=== PATIENT | female | born 1980 | race Caucasian/White ===

== ENCOUNTER 2020-10-22 11:15 | Emergency (ER) | payer OTHER, SELFPAY ==
[2020-10-22 11:22] VITALS: BP 141/75; PULSE 78; RESP 18; TEMP 37.2; O2SAT 100; BMI 41.6
[2020-10-22 12:26] VITALS: BP 131/75; PULSE 78
--- NOTE | 2020-10-22 12:27 | XR_ITS ---
EXAMINATION: XR CHEST CLINICAL INFORMATION: Dizziness COMPARISON: None TECHNIQUE: 2 views of the chest were obtained. FINDINGS: The lungs are well-expanded and clear acute process. Heart size and pulmonary vascularity is normal. There is moderate spondylosis dorsal spine. XR/XR chest 2V IMPRESSION: Unremarkable chest examination.
--- NOTE | 2020-10-22 12:28 | ECG_ITS ---
Test Reason : WEAKNESS Blood Pressure : / mmHG Vent. Rate : 067 BPM Atrial Rate : 067 BPM P-R Int : 134 ms QRS Dur : 074 ms QT Int : 410 ms P-R-T Axes : 041 035 016 degrees QTc Int : 433 ms Normal sinus rhythm Normal ECG When compared with ECG of 15-SEP-2019 07:57, Premature atrial complexes are no longer Present Referred By: Montse Leyva Electronically Signed By:GEOVANNA ERNST MD
--- NOTE | 2020-10-22 12:45 | CT_ITS ---
EXAMINATION: CT HEAD WITHOUT CONTRAST CLINICAL INFORMATION: Dizziness COMPARISON: April 02, 2020 TECHNIQUE: Contiguous axial imaging was performed from the skull base to vertex without intravenous administration of contrast. This CT examination was performed using dose optimization techniques as appropriate, variously including the following: *Automated exposure control *Adjustment of mA and/or kV according to patient size (this includes techniques or standardized protocols for targeted exams where dose is matched to indication/reason for exam; i.e. extremities or head) *Use of iterative reconstruction technique DLP: 854 mGy-cm FINDINGS: There is no evidence of acute intracranial hemorrhage or territorial infarction. No abnormal mass effect or midline shift is seen. Matias to white matter differentiation is well preserved. No extra-axial fluid collections are identified. The ventricles are normal in size. There is no abnormal attenuation within the brain parenchyma. The osseous structures and soft tissues are normal. The mastoid air cells and visualized portions of the paranasal sinuses are well aerated. CT/CT head/brain wo con IMPRESSION: No acute intracranial pathology.
--- NOTE | 2020-10-22 12:49 | ED.GENADULT ---
HPI - General Adult General Chief complaint: General Medical <MARYBEL Chicas Last Filed: 10/22/20 15:42> Stated complaint: low blood pressure <MARYBEL Chicas Last Filed: 10/22/20 15:42> Time Seen by Provider: 10/22/20 11:43 <MARYBEL Chicas Last Filed: 10/22/20 15:42> Source: patient <MARYBEL Chicas Last Filed: 10/22/20 15:42> Mode of arrival: ambulatory <MARYBEL Chicas Last Filed: 10/22/20 15:42> Limitations: no limitations <MARYBEL Chicas Last Filed: 10/22/20 15:42> History of Present Illness HPI narrative: 40yoF c PMHx of HLD, morbid obesity and asthma presenting to the ED c c/o dizziness, headache, blurry vision and diaphoresis that started 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 Patient reports when she started feeling this way she was cleaning his house and had just finished eating breakfast with him and she asked them if he had a blood pressure cuff machine and when she took her blood pressure it was 63/41 therefore she came to the emergency department. Reports that the dizziness is worse with change in position. Denies recent head injury, nausea/vomiting, jaw pain, paresthesias, chest pain or shortness of breath, arm pain, dyspnea on exertion, orthopnea, palpitations, extremity edema, symptoms or any other symptoms complaints or concerns at this time. Denies recent travel on a long plane trips or car ride, recent immobilization, recent surgery, history of hypercoagulation disorder, not on any OCPs or history of cancer. <MARYBEL Chicas Last Filed: 10/22/20 15:42> Related Data Home medications: Previous Rx's Medication Instructions Recorded uyrblzgsjg-xmwsaeenkrqbb-wifk 1 cap PO Q8H PRN #10 cap 10/22/20 [Fioricet] <MARYBEL Chicas Last Filed: 10/22/20 15:42> Allergies/adverse reactions: Allergies Allergy/AdvReac Type Severity Reaction Status Date / Time No Known Allergies Allergy Unverified 06/26/20 16:21 [No Known Allergies*] <MARYBEL Chicas - Last Filed: 10/22/20 15:42> Review of Systems Review of Systems: Constitutional : + diaphoresis, No Fever, No Chills, No Night Sweats, No Fatigue, No Malaise ENT/Mouth : No Ear Pain, No Nasal Congestion, No Sinus Pain, No sore throat, No Rhinorrhea Eyes: No Eye Pain, No Swelling, No Redness, No Foreign Body, No Discharge, + blurry Vision Changes Cardiovascular : No Chest Pain, No SOB, No Dyspnea on Exertion, No Orthopnea, No Palpitations Respiratory : No Cough, No Sputum, No Wheezing, No Dyspnea Gastrointestinal : No Nausea, No Vomiting, No Diarrhea, No Constipation, No abdominal Pain, No Hematochezia, No Melena Genitourinary : No Dysuria, No Urinary Frequency, No Urinary Incontinence, No Urgency, No Flank Pain Musculoskeletal : No joint pain, No Myalgias Skin : No lacerations Neuro : + Dizziness, + Headache, No Numbness, No Paresthesias, No Loss of Consciousness <MARYBEL Chicas - Last Filed: 10/22/20 15:42> Yes all other systems are reviewed and are negative <MARYBEL Chicas - Last Filed: 10/22/20 15:42> [facility] Past Medical History Attestation statement: The following information was validated with the patient. <MARYBEL Chicas - Last Filed: 10/22/20 15:42> Medical History: Medical History Asthma High cholesterol <MARYBEL Chicas - Last Filed: 10/22/20 15:42> Social History Social History: Social History Alcohol intake: never Smoking Status: Never smoker <MARYBEL Chicas Last Filed: 10/22/20 15:42> Physical Exam Vital Signs: Vital Signs: Last Vital Signs Temp 99.4 F 10/22/20 14:58 Pulse 82 10/22/20 15:14 Resp 16 10/22/20 14:58 BP 132/78 10/22/20 15:14 Pulse Ox 97 10/22/20 14:58 Body Mass Index 41.6 Vital signs have been reviewed as normal and appeared to be correct. Blood pressure normal. Heart rate normal. Respiration rate normal. Temperature normal. Oxygen saturation normal. <MARYBEL Chicas - Last Filed: 10/22/20 15:42> Vital Signs: Last Vital Signs Temp 99.4 F 10/22/20 14:58 Pulse 82 10/22/20 15:14 Resp 16 10/22/20 14:58 BP 132/78 10/22/20 15:14 Pulse Ox 97 10/22/20 14:58 Body Mass Index 41.6 <Shon Kwan MD - Last Filed: 10/30/20 23:39> Appearance: Alert. Oriented X3. No acute distress. Head: Normal external exam. Normocephalic. Atraumatic. Able to rotate head bilaterally. Eyes: PERRLA. EOMI. No nystagmus noted. Conjunctiva and sclera normal. Eyelids normal. Corneal reflex normal. ENT: EAC normal. TM's Normal. Hearing normal. Pharynx normal. Uvula midline. tongue midline. Moist mucous membranes. No trismus noted. No drooling noted. No muffled voice noted. Neck: Normal inspection. Neck supple. FROM. No adenopathy. Thyroid Normal. No meningeal signs. No neck mass noted. CVS: Normal heart rate and rhythm. Heart sound normal. No murmurs noted. Pulses normal throughout. Respiratory: No respiratory distress. Painless inspiration. Breath sounds normal. No wheezes/rales/rhonchi noted. Chest nontender. No accessory muscle usage noted or decreased air movement noted. Abdomen: Soft and nontender. Bowel sounds normal in all 4 quadrants. No distention noted. No organomegaly noted. No visible injury noted. Back: No CVA tenderness. Full range of motion noted. Skin: Skin warm and dry. Normal skin color. Normal skin turgor. No rashes/lesions/lacerations noted. Extremities: No lower extremity edema. Extremities exhibit normal range of motion. Extremities nontender. Able to shrug shoulders bilaterally and keep up against resistance. Neuro: Oriented X 3. No motor deficit. No sensory deficit. Reflexes normal. Moving all extremities. No focal motor deficits. Cranial nerves II-XI intact bilaterally. Facial strength normal. Normal cognition. Speech normal. Gait normal. Strength 5/5 throughout. No pronator drift. No tremor noted. No fasciculations noted. Muscle tone normal throughout. No asterixis noted. Wwidvm-zq-bdox test normal. Heel to stapleton test normal. Tandem gait normal. Does not sway with eyes open. Romberg test negative. Rapid alternating movement upper extremity normal. Rapid alternating movement lower extremity normal. Hand drop from overhead-Misses. face. No rigidity noted. NIHSS score 0. 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 Dizziness worse c changing position. - on exam patient is A&Ox3. Not in any acute distress. Patient's vitals are within normal limits blood pressure is 141/75 at this time. No focal neuro deficits noted at this time. Normal steady gait. No ataxia noted. NIH SS score 0. - Plan: Labs, COVID-RSV/FLU swab, EKG, CXR, CT scan of brain, visual acuity and orthostatic vitals then re-evaluate <MARYBEL Chicas - Last Filed: 10/22/20 15:42> I have reviewed the chart <Shon Kwan MD - Last Filed: 10/30/20 23:39> Reevaluation(s) Reevaluation #1: - All labs WNL. COVID/RSV/FLU negative. CXR WNL. EKG NSR no acute ischemic changes. Orthostatic vitals within normal limits. - patient denies any dizziness at this time. Reports she still has a headache therefore will give 2 p.o. fioricet and d/c home c instructions to f/u c PCP. and to return if any new or worsening symptoms. <MARYBEL Chicas - Last Filed: 10/22/20 15:42> Medical Decision Making Medical Records Medical records reviewed: Yes I reviewed the patient's medical records. <MARYBEL Chicas - Last Filed: 10/22/20 15:42> Lab Data Lab results reviewed: Yes I reviewed the patient's lab results. <MARYBEL Chicas - Last Filed: 10/22/20 15:42> Result diagrams: : 10/22/20 13:57 10/22/20 13:57 <MARYBEL Chicas - Last Filed: 10/22/20 15:42> Labs: Lab Results 10/22/20 10/22/20 10/22/20 Range/Units 13:57 13:57 13:57 WBC 6.0 (4.8-10.8) X10*3/uL RBC 4.29 (4.20-5.50) X10*6/uL Hgb 12.9 (12.0-16.0) g/dl Hct 37.5 (37-47) % MCV 87.4 (80-98) fL MCH 30.1 (27.0-33.0) pg MCHC 34.4 (31.0-35.0) g/dl RDW 11.9 (11.0-16.0) % Plt Count 284 (160-400) X10*3/uL MPV 9.4 (9.4-12.3) fL Immature Gran % (Auto) 0.2 (0.0-0.4) % Neut % (Auto) 46.4 (45-73) % Lymph % (Auto) 42.8 H (20-40) % [place] % (Auto) 9.5 (2-11) % Eos % (Auto) 0.8 (0-4) % Baso % (Auto) 0.3 (0-2) % Lymph # (Auto) 2.6 (1.2-4.9) X10*3/uL [place] # (Auto) 0.6 (0.1-1.2) X10*3/uL Eos # (Auto) 0.1 (0.0-0.4) X10*3/uL Baso # (Auto) 0.0 (0.0-0.2) X10*3/uL Abs Immat Gran (auto) 0.01 (0.00-0.03) X10*3/uL Absolute Neuts (auto) 2.8 (2.0-8.3) X10*3/uL Absolute Nucleated RBC 0.000 (0.0-0.012) X10*3/uL Nucleated RBC % (auto) 0.0 (0.0-0.2) /100WBC PT 12.3 (10.8-13.0) SEC INR 1.0 (0.9-1.1) Sodium 139 (135-145) mmol/L Potassium 4.3 (3.3-5.1) mmol/l Chloride 103 (96-108) mmol/L Carbon Dioxide 28 (22-29) mmol/L Anion Gap 12 (12-20) BUN 14 (9-16) mg/dL Creatinine 0.74 (0.5-1.4) mg/dL Estim Creat Clear Calc 117.0 Estimated GFR > 60 Random Glucose 79 (60-115) mg/dL Calcium 9.4 (8.4-10.2) mg/dL Magnesium 2.2 (1.6-2.6) mg/dL Total Bilirubin 0.6 (0.0-1.0) mg/dL Direct Bilirubin 0.2 (0.0-0.5) mg/dL AST 17 (5-31) U/L ALT 19 (0-31) U/L Alkaline Phosphatase 92 (39-117) U/L Troponin I High Sens (<3.5-17.0) ng/L Total Protein 7.8 (6.5-8.0) g/dL Albumin 4.5 (3.5-5.0) g/dL Coronavirus (PCR) (Negative) Influenza Type A (PCR) (Negative) Influenza Type B (PCR) (Negative) RSV RNA Qual (PCR) (Negative) 10/22/20 10/22/20 Range/Units 13:57 13:57 WBC (4.8-10.8) X10*3/uL RBC (4.20-5.50) X10*6/uL Hgb (12.0-16.0) g/dl Hct (37-47) % MCV (80-98) fL MCH (27.0-33.0) pg MCHC (31.0-35.0) g/dl RDW (11.0-16.0) % Plt Count (160-400) X10*3/uL MPV (9.4-12.3) fL Immature Gran % (Auto) (0.0-0.4) % Neut % (Auto) (45-73) % Lymph % (Auto) (20-40) % [place] % (Auto) (2-11) % Eos % (Auto) (0-4) % Baso % (Auto) (0-2) % Lymph # (Auto) (1.2-4.9) X10*3/uL [place] # (Auto) (0.1-1.2) X10*3/uL Eos # (Auto) (0.0-0.4) X10*3/uL Baso # (Auto) (0.0-0.2) X10*3/uL Abs Immat Gran (auto) (0.00-0.03) X10*3/uL Absolute Neuts (auto) (2.0-8.3) X10*3/uL Absolute Nucleated RBC (0.0-0.012) X10*3/uL Nucleated RBC % (auto) (0.0-0.2) /100WBC PT (10.8-13.0) SEC INR (0.9-1.1) Sodium (135-145) mmol/L Potassium (3.3-5.1) mmol/l Chloride (96-108) mmol/L Carbon Dioxide (22-29) mmol/L Anion Gap (12-20) BUN (9-16) mg/dL Creatinine (0.5-1.4) mg/dL Estim Creat Clear Calc Estimated GFR Random Glucose (60-115) mg/dL Calcium (8.4-10.2) mg/dL Magnesium (1.6-2.6) mg/dL Total Bilirubin (0.0-1.0) mg/dL Direct Bilirubin (0.0-0.5) mg/dL AST (5-31) U/L ALT (0-31) U/L Alkaline Phosphatase (39-117) U/L Troponin I High Sens < 3.5 (<3.5-17.0) ng/L Total Protein (6.5-8.0) g/dL Albumin (3.5-5.0) g/dL Coronavirus (PCR) NEGATIVE (Negative) Influenza Type A (PCR) NEGATIVE (Negative) Influenza Type B (PCR) NEGATIVE (Negative) RSV RNA Qual (PCR) NEGATIVE (Negative) <MARYBEL Chicas - Last Filed: 10/22/20 15:42> Lab Results 0110/22/20 10/22/20 Range/Units 13:57 13:57 13:57 WBC 6.0 (4.8-10.8) X10*3/uL RBC 4.29 (4.20-5.50) X10*6/uL Hgb 12.9 (12.0-16.0) g/dl Hct 37.5 (37-47) % MCV 87.4 (80-98) fL MCH 30.1 (27.0-33.0) pg MCHC 34.4 (31.0-35.0) g/dl RDW 11.9 (11.0-16.0) % Plt Count 284 (160-400) X10*3/uL MPV 9.4 (9.4-12.3) fL Immature Gran % (Auto) 0.2 (0.0-0.4) % Neut % (Auto) 46.4 (45-73) % Lymph % (Auto) 42.8 H (20-40) % [place] % (Auto) 9.5 (2-11) % Eos % (Auto) 0.8 (0-4) % Baso % (Auto) 0.3 (0-2) % Lymph # (Auto) 2.6 (1.2-4.9) X10*3/uL [place] # (Auto) 0.6 (0.1-1.2) X10*3/uL Eos # (Auto) 0.1 (0.0-0.4) X10*3/uL Baso # (Auto) 0.0 (0.0-0.2) X10*3/uL Abs Immat Gran (auto) 0.01 (0.00-0.03) X10*3/uL Absolute Neuts (auto) 2.8 (2.0-8.3) X10*3/uL Absolute Nucleated RBC 0.000 (0.0-0.012) X10*3/uL Nucleated RBC % (auto) 0.0 (0.0-0.2) /100WBC PT 12.3 (10.8-13.0) SEC INR 1.0 (0.9-1.1) Sodium 139 (135-145) mmol/L Potassium 4.3 (3.3-5.1) mmol/l Chloride 103 (96-108) mmol/L Carbon Dioxide 28 (22-29) mmol/L Anion Gap 12 (12-20) BUN 14 (9-16) mg/dL Creatinine 0.74 (0.5-1.4) mg/dL Estim Creat Clear Calc 117.0 Estimated GFR > 60 Random Glucose 79 (60-115) mg/dL Calcium 9.4 (8.4-10.2) mg/dL Magnesium 2.2 (1.6-2.6) mg/dL Total Bilirubin 0.6 (0.0-1.0) mg/dL Direct Bilirubin 0.2 (0.0-0.5) mg/dL AST 17 (5-31) U/L ALT 19 (0-31) U/L Alkaline Phosphatase 92 (39-117) U/L Troponin I High Sens (<3.5-17.0) ng/L Total Protein 7.8 (6.5-8.0) g/dL Albumin 4.5 (3.5-5.0) g/dL Coronavirus (PCR) (Negative) Influenza Type A (PCR) (Negative) Influenza Type B (PCR) (Negative) RSV RNA Qual (PCR) (Negative) 10/22/20 10/22/20 Range/Units 13:57 13:57 WBC (4.8-10.8) X10*3/uL RBC (4.20-5.50) X10*6/uL Hgb (12.0-16.0) g/dl Hct (37-47) % MCV (80-98) fL MCH (27.0-33.0) pg MCHC (31.0-35.0) g/dl RDW (11.0-16.0) % Plt Count (160-400) X10*3/uL MPV (9.4-12.3) fL Immature Gran % (Auto) (0.0-0.4) % Neut % (Auto) (45-73) % Lymph % (Auto) (20-40) % [place] % (Auto) (2-11) % Eos % (Auto) (0-4) % Baso % (Auto) (0-2) % Lymph # (Auto) (1.2-4.9) X10*3/uL [place] # (Auto) (0.1-1.2) X10*3/uL Eos # (Auto) (0.0-0.4) X10*3/uL Baso # (Auto) (0.0-0.2) X10*3/uL Abs Immat Gran (auto) (0.00-0.03) X10*3/uL Absolute Neuts (auto) (2.0-8.3) X10*3/uL Absolute Nucleated RBC (0.0-0.012) X10*3/uL Nucleated RBC % (auto) (0.0-0.2) /100WBC PT (10.8-13.0) SEC INR (0.9-1.1) Sodium (135-145) mmol/L Potassium (3.3-5.1) mmol/l Chloride (96-108) mmol/L Carbon Dioxide (22-29) mmol/L Anion Gap (12-20) BUN (9-16) mg/dL Creatinine (0.5-1.4) mg/dL Estim Creat Clear Calc Estimated GFR Random Glucose (60-115) mg/dL Calcium (8.4-10.2) mg/dL Magnesium (1.6-2.6) mg/dL Total Bilirubin (0.0-1.0) mg/dL Direct Bilirubin (0.0-0.5) mg/dL AST (5-31) U/L ALT (0-31) U/L Alkaline Phosphatase (39-117) U/L Troponin I High Sens < 3.5 (<3.5-17.0) ng/L Total Protein (6.5-8.0) g/dL Albumin (3.5-5.0) g/dL Coronavirus (PCR) NEGATIVE (Negative) Influenza Type A (PCR) NEGATIVE (Negative) Influenza Type B (PCR) NEGATIVE (Negative) RSV RNA Qual (PCR) NEGATIVE (Negative) <Shon Kwan MD - Last Filed: 10/30/20 23:39> Imaging Data Chest x-ray: Attestation: I personally reviewed and interpreted this imaging study as follows: <MARYBEL Chicas - Last Filed: 10/22/20 15:42> Radiologist's impression: FINDINGS: The lungs are well-expanded and clear acute process. Heart size and pulmonary vascularity is normal. There is moderate spondylosis dorsal spine. XR/XR chest 2V IMPRESSION: Unremarkable chest examination. <MARYBEL Chicas - Last Filed: 10/22/20 15:42> CT scan - head: Attestation: I personally reviewed and interpreted this imaging study as follows: <MARYBEL Chicas - Last Filed: 10/22/20 15:42> Radiologist's impression: FINDINGS: There is no evidence of acute intracranial hemorrhage or territorial infarction. No abnormal mass effect or midline shift is seen. Matias to white matter differentiation is well preserved. No extra-axial fluid collections are identified. The ventricles are normal in size. There is no abnormal attenuation within the brain parenchyma. The osseous structures and soft tissues are normal. The mastoid air cells and visualized portions of the paranasal sinuses are well aerated. CT/CT head/brain wo con IMPRESSION: No acute intracranial pathology. <MARYBEL Chicas Last Filed: 10/22/20 15:42> ECG Data Attestation: I personally reviewed and interpreted this ECG as follows: <MARYBEL Chicas - Last Filed: 10/22/20 15:42> Interpretation: Normal sinus rhythm with a ventricular rate of 67 with a normal TX interval normal QRS duration normal QT/QTC interval. No acute ischemic changes noted. EKG on 09/15/2019. <MARYBEL Chicas - Last Filed: 10/22/20 15:42> Discharge Plan Discharge Clinical Impression: Migrainous dizziness <MARYBEL Chicas - Last Filed: 10/22/20 15:42> Patient Disposition: Home, Self-Care <MARYBEL Chicas - Last Filed: 10/22/20 15:42> Instructions: Migraine Headache (ED), Dizziness (ED) <MARYBEL Chicas Last Filed: 10/22/20 15:42> Additional Instructions: When he arrived here your blood pressure was within normal limits it was not low I am unsure if the blood pressure cuff machine you utilize was not working correctly. Please follow-up with your primary care provider within this week for recheck blood pressure. Return if any new or worsening symptoms and follow up with her primary care provider. <MARYBEL Chicas - Last Filed: 10/22/20 15:42> Prescriptions: New vsmyixqeqb-apinmeogthwwf-ugii [Fioricet] 50-300-40 mg capsule 1 cap PO Q8H PRN (Reason: pain) Qty: 10 RF: 0 <MARYBEL Chicas - Last Filed: 10/22/20 15:42> Referrals: Cristine Baig MD [Primary Care Provider] - 2 days <MARYBEL Chicas - Last Filed: 10/22/20 15:42> Stand Alone Forms: Work/School Release <MARYBEL Chicas - Last Filed: 10/22/20 15:42> Interventions: ED Discharge Assessment Last Done: 10/22/20 15:51 <MARYBEL Chicas - Last Filed: 10/22/20 15:42> Discharge Date/Time: 10/22/20 15:51 <MARYBEL Chicas - Last Filed: 10/22/20 15:42> Print Language: Turkmen <MARYBEL Chicas - Last Filed: 10/22/20 15:42>
[2020-10-22 14:03] LABS: MANUAL DIFF FLAG NO
[2020-10-22 14:06] LABS: Basophils Percent Auto 0.3 % (0-2); Eosinophils Absolute Auto 0.1 X10*3/uL (0.0-0.4); Eosinophils Percent Auto 0.8 % (0-4); Hematocrit 37.5 % (37-47); Hemoglobin 12.9 g/dl (12.0-16.0); Imm Gran Abs Auto 0.01 X10*3/uL (0.00-0.03); Imm Gran Pct Auto 0.2 % (0.0-0.4); Lymphocytes Absolute Auto 2.6 X10*3/uL (1.2-4.9); Lymphocytes Percent Auto 42.8 % (20-40); Mean Corpuscular HGB Conc 34.4 g/dl (31.0-35.0); Mean Corpuscular Hemoglobin 30.1 pg (27.0-33.0); Mean Corpuscular Volume 87.4 fL (80-98); Mean Platelet Volume 9.4 fL (9.4-12.3); Monocytes Absolute Auto 0.6 X10*3/uL (0.1-1.2); Monocytes Percent Auto 9.5 % (2-11); Neutrophils Absolute Auto 2.8 X10*3/uL (2.0-8.3); Neutrophils Percent Auto 46.4 % (45-73); Platelet Count 284 X10*3/uL (160-400); Red Blood Count 4.29 X10*6/uL (4.20-5.50); Red Cell Distribution Width 11.9 % (11.0-16.0)
[2020-10-22 14:12] LABS: Prothrombin Time 12.3 SEC (10.8-13.0)
[2020-10-22 14:34] LABS: Alanine Aminotransferase 19 U/L (0-31); Albumin Level 4.5 g/dL (3.5-5.0); Alkaline Phosphatase 92 U/L (39-117); Anion Gap 12 (12-20); Aspartate Amino Transferase 17 U/L (5-31); Bilirubin Direct 0.2 mg/dL (0.0-0.5); Bilirubin Total 0.6 mg/dL (0.0-1.0); Blood Urea Nitrogen 14 mg/dL (9-16); Calcium 9.4 mg/dL (8.4-10.2); Carbon Dioxide 28 mmol/L (22-29); Chloride 103 mmol/L (96-108); Estimated Glomerular Filt Rate > 60; Glucose Random 79 mg/dL (60-115); Magnesium 2.2 mg/dL (1.6-2.6); Potassium 4.3 mmol/l (3.3-5.1); Sodium 139 mmol/L (135-145); Total Protein 7.8 g/dL (6.5-8.0)
[2020-10-22 14:40] LABS: Troponin-I High Sensitivity < 3.5 ng/L (<3.5-17.0)
[2020-10-22 14:50] LABS: Influenza A PCR NEGATIVE (Negative); Influenza B PCR NEGATIVE (Negative); Resp Syncy Virus RNA Qual PCR NEGATIVE (Negative); SARS COV2 PCR INHOUSE NEGATIVE (Negative)
[2020-10-22 14:58] VITALS: BP 103/57; RESP 16; TEMP 37.4; O2SAT 97
[2020-10-22 15:13] VITALS: BP 122/74; PULSE 82
[2020-10-22 15:14] VITALS: BP 132/78; PULSE 82
[2020-10-22] MEDS: Butalb/Acetamin/Caff 50/325/40 TABLET 2 TAB PO (15:41)
== END 2020-10-22 15:51 | disposition home or self-care (01) ==
PROVIDERS: Physician Assistant Medical; Emergency Provider Emergency Medicine; PCP Internal Medicine
DX: G43.901 Migraine, unspecified, not intractable, with status migrainosus (principal); J45.909 Unspecified asthma, uncomplicated; Z79.899 Other long term (current) drug therapy
CPT/HCPCS: 0241U; 36415; 70450; 71046; 80048; 80076; 83735; 84484; 85025; 85610; 93005; 99284

== ENCOUNTER 2020-10-24 15:38 | Outpatient (REF) | payer OTHER, SELFPAY ==
--- NOTE | 2020-10-24 15:43 | MM_ITS ---
EXAMINATION: MM SCREENING DIGITAL BREAST TOMOSYNTHESIS, BILATERAL CLINICAL INFORMATION: Screening. Asymptomatic. The lifetime risk of breast cancer based on the Tyrer-Cuzick Model is 9%. COMPARISON: Mammography: 06/25/2019, baseline. TECHNIQUE: Digital breast tomosynthesis is performed in both the craniocaudal and mediolateral oblique views along with computer-aided detection (CAD). Synthesized 2D images are generated from the tomosynthesis. Additional left CC and and bilateral MLO views are provided. FINDINGS: There are scattered areas of fibroglandular density (ACR BI-RADS breast composition Category b). There are no significant masses, abnormal calcifications, or other abnormalities. The axilla and skin contours are unremarkable. No significant changes. MM/MM tomosynthesis screening BI IMPRESSION: No mammographic evidence of malignancy. ASSESSMENT: BI-RADS 1: Negative RECOMMENDATION: Routine annual mammography screening. This patient's information was entered into a reminder system with a target due date for their next mammogram.
== END 2020-10-24 15:39 | disposition home or self-care (01) ==
LOC: HO.MAMMO 15:38
PROVIDERS: PCP Internal Medicine; Visit Provider Internal Medicine
DX: Z12.31 Encounter for screening mammogram for malignant neoplasm of breast (principal)
CPT/HCPCS: 77063; 77067

== ENCOUNTER 2021-04-06 13:43 | Emergency (ER) | payer OTHER, SELFPAY ==
--- NOTE | ~2021-04-06 | XR_ITS ---
EXAMINATION: XR CHEST CLINICAL INFORMATION: Chest pain COMPARISON: Previous chest x-ray most recent October 2020 TECHNIQUE: Frontal view of the chest was obtained. FINDINGS: The cardiac and mediastinal contours are normal. The lungs are clear. There is no pleural effusion or pneumothorax. There are degenerative changes of the spine. XR/XR chest 1V IMPRESSION: No evidence for acute disease in the chest.
--- NOTE | 2021-04-06 13:54 | ECG_ITS ---
Test Reason : CHEST PAIN Blood Pressure : / mmHG Vent. Rate : 082 BPM Atrial Rate : 082 BPM P-R Int : 148 ms QRS Dur : 078 ms QT Int : 366 ms P-R-T Axes : 036 023 018 degrees QTc Int : 427 ms Normal sinus rhythm Normal ECG When compared with ECG of 22-OCT-2020 14:02, No significant change was found Referred By: Generic ED Physician Electronically Signed By:GEOVANNA ERNST MD
[2021-04-06 13:57] VITALS: BP 145/79; PULSE 89; RESP 18; TEMP 36.8; O2SAT 96; BMI 39.8
[2021-04-06 14:47] LABS: MANUAL DIFF FLAG NO
[2021-04-06 14:50] LABS: Basophils Percent Auto 0.4 % (0-2); Eosinophils Absolute Auto 0.1 X10*3/uL (0.0-0.4); Eosinophils Percent Auto 0.8 % (0-4); Hematocrit 34.7 % (37-47); Imm Gran Abs Auto 0.02 X10*3/uL (0.00-0.03); Imm Gran Pct Auto 0.3 % (0.0-0.4); Lymphocytes Absolute Auto 2.4 X10*3/uL (1.2-4.9); Lymphocytes Percent Auto 34.3 % (20-40); Mean Corpuscular HGB Conc 34.6 g/dl (31.0-35.0); Mean Corpuscular Hemoglobin 29.4 pg (27.0-33.0); Mean Platelet Volume 9.2 fL (9.4-12.3); Monocytes Absolute Auto 0.6 X10*3/uL (0.1-1.2); Neutrophils Percent Auto 56.2 % (45-73); Platelet Count 291 X10*3/uL (160-400); Red Blood Count 4.08 X10*6/uL (4.20-5.50); White Blood Count 7.1 X10*3/uL (4.8-10.8)
[2021-04-06 15:15] LABS: Anion Gap 9 (12-20); Blood Urea Nitrogen 15 mg/dL (9-16); Calcium 9.3 mg/dL (8.4-10.2); Carbon Dioxide 28 mmol/L (22-29); Chloride 107 mmol/L (96-108); Creatinine Clr Calc Pharmacy 105.8; Estimated Glomerular Filt Rate > 60; Glucose Random 94 mg/dL (60-115); Potassium 3.7 mmol/L (3.3-5.1); Sodium 140 mmol/L (135-145)
[2021-04-06 15:18] LABS: Troponin-I High Sensitivity < 3.5 ng/L (<3.5-17.0)
[2021-04-06 19:29] VITALS: BP 117/50; PULSE 90; RESP 16; TEMP 36.8; O2SAT 99
--- NOTE | 2021-04-06 20:14 | ED.CHESTPAIN ---
HPI - Chest Pain General Chief Complaint: Chest Pain Stated Complaint: chest pain Time Seen by Provider: 04/06/21 20:14 Source: patient Mode of arrival: ambulatory Limitations: no limitations History of Present Illness HPI narrative: patient with no known coronary artery disease complaining of asthma with increased cough and anterior chest pain for last 3 days no fever no palpitation pain increases on palpation and movements and taking deep breath Related Data Previous Rx's Medication Instructions Recorded xugcvakggb-odqiimlypkiyt-usva 1 cap PO Q8H PRN #10 cap 10/22/20 [Fioricet] albuterol sulfate 2 puff INHALATION Q4-6H PRN #8.5 g 04/06/21 prednisone 40 mg PO DAILY #10 tab 04/06/21 Allergies Allergy/AdvReac Type Severity Reaction Status Date / Time No Known Allergies Allergy Verified 04/06/21 13:57 [No Known Allergies*] Review of Systems Review of Systems: Constitutional : No Weight loss, No Fever, No Chills ENT/Mouth : No sore throat, No Rhinorrhea Eyes: No Eye Pain, No Swelling Cardiovascular : + Chest Pain, no palpitations Respiratory : No Cough, No Sputum, + shortness of breath Gastrointestinal : no Nausea, No Vomiting, No Diarrhea, No abdominal Pain, no black stools Genitourinary : No Dysuria, No Urinary Frequency Musculoskeletal : No joint pain, No Myalgias, No Joint Swelling Skin : No Skin Lesions, No rash Neuro : No Weakness, No Numbness, No Dizziness, No Headache Psych : No Anxiety/Panic, No Depression Heme/Lymph: No Bruising, No Lymphadenopathy Endocrine : No Polyuria, No Polydipsia All other systems reviewed and are negative [facility] Past Medical History Medical History Asthma High cholesterol Social History Social History Alcohol intake: current Alcohol intake frequency: a few times a week Patient Tobacco Use Status: Never used Tobacco Use of substances other than those prescribed or required for medical reasons: No Advance Directives: No Advance Directives Information Provided: Yes Patient : No Physical Exam Vital Signs: Vital Signs: Last Vital Signs Temp 98.2 F 04/06/21 19:29 Pulse 90 04/06/21 19:29 Resp 16 04/06/21 19:29 BP 117/50 L 04/06/21 19:29 Pulse Ox 99 04/06/21 19:29 Body Mass Index 39.8 Appearance: Alert. Oriented X3. No acute distress. Eyes: PERRLA, No Nystagmus ENT: Pharynx normal. Oral Mucosa moist Neck: Normal inspection. Neck supple. CVS: Normal heart rate and rhythm. Pulses normal. anterior chest wall tenderness++ Respiratory: No respiratory distress. Equal air entry bilateral, no wheezing/rales/rhonchi Abdomen: Soft and nontender. Bowel sounds are present, no mass palpable, no CVA tenderness Skin: Skin warm and dry. Normal skin color. Normal skin turgor. Extremities: No lower extremity edema. No calf tenderness Neuro: Oriented X 3. No motor deficit. No sensory deficit.No cerebellar signs , cranial nerves II-XII intact MDM - Chest Pain Lab Data Result diagrams: 04/06/21 14:42 04/06/21 14:42 Labs: Lab Results 04/06/21 04/06/21 04/06/21 Range/Units 14:42 14:42 14:42 WBC 7.1 (4.8-10.8) X10*3/uL RBC 4.08 L (4.20-5.50) X10*6/uL Hgb 12.0 (12.0-16.0) g/dl Hct 34.7 L (37-47) % MCV 85.0 (80-98) fL MCH 29.4 (27.0-33.0) pg MCHC 34.6 (31.0-35.0) g/dl RDW 12.0 (11.0-16.0) % Plt Count 291 (160-400) X10*3/uL MPV 9.2 L (9.4-12.3) fL Immature Gran % (Auto) 0.3 (0.0-0.4) % Neut % (Auto) 56.2 (45-73) % Lymph % (Auto) 34.3 (20-40) % [place] % (Auto) 8.0 (2-11) % Eos % (Auto) 0.8 (0-4) % Baso % (Auto) 0.4 (0-2) % Lymph # (Auto) 2.4 (1.2-4.9) X10*3/uL [place] # (Auto) 0.6 (0.1-1.2) X10*3/uL Eos # (Auto) 0.1 (0.0-0.4) X10*3/uL Baso # (Auto) 0.0 (0.0-0.2) X10*3/uL Abs Immat Gran (auto) 0.02 (0.00-0.03) X10*3/uL Absolute Neuts (auto) 4.0 (2.0-8.3) X10*3/uL Absolute Nucleated RBC 0.000 (0.0-0.012) X10*3/uL Nucleated RBC % (auto) 0.0 (0.0-0.2) /100WBC Sodium 140 (135-145) mmol/L Potassium 3.7 (3.3-5.1) mmol/L Chloride 107 (96-108) mmol/L Carbon Dioxide 28 (22-29) mmol/L Anion Gap 9 L (12-20) BUN 15 (9-16) mg/dL Creatinine 0.79 (0.5-1.4) mg/dL Estim Creat Clear Calc 105.8 Estimated GFR > 60 Random Glucose 94 (60-115) mg/dL Calcium 9.3 (8.4-10.2) mg/dL Troponin I High Sens < 3.5 (<3.5-17.0) ng/L Discharge Plan Discharge Clinical Impression: Atypical chest pain Asthma Qualifiers: Asthma severity: mild Asthma persistence: persistent Asthma complication type: uncomplicated Qualified Code(s): J45.30 - Mild persistent asthma, uncomplicated Patient Disposition: Home, Self-Care Instructions: Chest Pain (ED), Asthma (ED) Additional Instructions: take inhaler and prednisone as prescribed follow with PCP Prescriptions: New albuterol sulfate 90 mcg/actuation HFA aerosol inhaler 2 puff inhalation Q4-6H PRN (Reason: shortness of breath or wheezing) Qty: 8.5 RF: 0 prednisone 20 mg tablet 40 mg PO DAILY Qty: 10 RF: 0 No Action kxmtaehvwn-yspdnoedgfjpi-wbrr [Fioricet] 50-300-40 mg capsule 1 cap PO Q8H PRN (Reason: pain) Qty: 10 RF: 0
== END 2021-04-06 20:59 | disposition home or self-care (01) ==
PROVIDERS: Emergency Provider Internal Medicine; PCP Internal Medicine
DX: R07.89 Other chest pain (principal); J45.30 Mild persistent asthma, uncomplicated; I25.10 Atherosclerotic heart disease of native coronary artery without angina pectoris
CPT/HCPCS: 36415; 71045; 80048; 84484; 85025; 93005; 99284; 99285

== ENCOUNTER 2021-04-23 10:57 | Outpatient (REF) | payer OTHER, SELFPAY ==
[2021-04-23 12:35] LABS: Alanine Aminotransferase 28 U/L (0-31); Albumin Level 4.3 g/dL (3.5-5.0); Alkaline Phosphatase 91 U/L (39-117); Anion Gap 13 (12-20); Aspartate Amino Transferase 25 U/L (5-31); Bilirubin Total 0.9 mg/dL (0.0-1.0); Blood Urea Nitrogen 13 mg/dL (9-16); Calcium 9.3 mg/dL (8.4-10.2); Carbon Dioxide 25 mmol/L (22-29); Chloride 104 mmol/L (96-108); Cholesterol 233 mg/dL; Estimated Glomerular Filt Rate > 60; Glucose Random 99 mg/dL (60-115); HDL Cholesterol 34 mg/dL; LDL Cholesterol Calculated 167 mg/dl; Sodium 138 mmol/L (135-145); Total Protein 7.5 g/dL (6.5-8.0); Triglycerides 163 mg/dL
[2021-04-26 15:56] LABS: TS Negative Control Passed; TS Panel A 23; TS Panel B 22; TS Positive Control Passed; TSpotTB POSITIVE (SeeBelow)
== END 2021-04-23 10:58 | disposition home or self-care (01) ==
LOC: HO.LAB 10:57
PROVIDERS: PCP Internal Medicine; Visit Provider Internal Medicine
DX: Z11.1 Encounter for screening for respiratory tuberculosis (principal); E78.2 Mixed hyperlipidemia; J45.902 Unspecified asthma with status asthmaticus
CPT/HCPCS: 36415; 80053; 80061; 86481

== ENCOUNTER 2021-04-30 13:34 | Outpatient (REF) | payer OTHER, SELFPAY ==
--- NOTE | ~2021-04-30 | XR_ITS ---
EXAMINATION: XR CHEST CLINICAL INFORMATION: Positive IGRA for TB COMPARISON: None TECHNIQUE: 2 views of the chest were obtained. FINDINGS: No significant abnormality is noted involving the heart, lungs, mediastinum, bony thorax or soft tissues. XR/XR chest 2V IMPRESSION: Unremarkable chest examination.
[2021-04-30 14:53] LABS: Alanine Aminotransferase 36 U/L (0-31); Albumin Level 4.5 g/dL (3.5-5.0); Alkaline Phosphatase 96 U/L (39-117); Anion Gap 10 (12-20); Aspartate Amino Transferase 26 U/L (5-31); Bilirubin Total 0.7 mg/dL (0.0-1.0); Blood Urea Nitrogen 12 mg/dL (9-16); Calcium 9.2 mg/dL (8.4-10.2); Carbon Dioxide 29 mmol/L (22-29); Chloride 105 mmol/L (96-108); Cholesterol 203 mg/dL; Estimated Glomerular Filt Rate > 60; Glucose Random 106 mg/dL (60-115); HDL Cholesterol 33 mg/dL; LDL Cholesterol Calculated 142 mg/dl; Potassium 3.6 mmol/L (3.3-5.1); Sodium 140 mmol/L (135-145); Total Protein 7.5 g/dL (6.5-8.0); Triglycerides 143 mg/dL
== END 2021-04-30 13:35 | disposition home or self-care (01) ==
LOC: HO.LAB 13:34
PROVIDERS: PCP Internal Medicine; Visit Provider Internal Medicine
DX: R76.12 Nonspecific reaction to cell mediated immunity measurement of gamma interferon antigen response without active tuberculosis (principal); E78.2 Mixed hyperlipidemia; Z91.14 Patient's other noncompliance with medication regimen
CPT/HCPCS: 36415; 71046; 80053; 80061

== ENCOUNTER 2021-05-07 08:17 | Outpatient (REF) | payer OTHER, SELFPAY ==
--- NOTE | 2021-05-07 08:16 | EMG_ITS ---
Bilateral median and ulnar motor and sensory studies were performed. Bilateral radial sensory studies were performed and paraspinal muscles were tested with a needle. IMPRESSION: 1. Mqsr-hn-wwdgvbem bilateral median neuropathy across carpal tunnel. 2. Mild bilateral ulnar neuropathy across cubital tunnel. MD GRISEL Plunkett/LUISL / [id number]
== END 2021-05-07 08:18 | disposition home or self-care (01) ==
LOC: HO.NEURO 08:17
PROVIDERS: PCP Internal Medicine; Visit Provider Internal Medicine
DX: G56.03 Carpal tunnel syndrome, bilateral upper limbs (principal)
CPT/HCPCS: 95886; 95911

== ENCOUNTER 2021-06-19 08:49 | Emergency (ER) | payer OTHER, SELFPAY ==
--- NOTE | ~2021-06-19 | XR_ITS ---
EXAMINATION: XR CHEST CLINICAL INFORMATION: Chest wall pain COMPARISON: 04/30/2021 TECHNIQUE: Frontal view of the chest was obtained. FINDINGS: Lungs are clear. No focal consolidation or mass. Normal pulmonary vascularity. No pleural effusion or pneumothorax. Normal heart size. No acute osseous abnormality. XR/XR chest 1V IMPRESSION: No acute pulmonary disease.
--- NOTE | ~2021-06-19 | US_ITS ---
EXAMINATION: US VENOUS ULTRASOUND WITH DOPPLER LOWER EXTREMITY, RIGHT CLINICAL INFORMATION: Pain right lower extremity/calf. COMPARISON: None TECHNIQUE: Ultrasound of the deep veins is performed from the hip to the calf with compression sonography and color and pulse Doppler assessment. Spectral analysis with color-flow imaging is performed. FINDINGS: There is normal venous compression and respiratory variation and augmented flow. The visualized common femoral vein, superficial femoral vein, profunda femoral vein, popliteal vein, and the trifurcation region shows no evidence of deep venous thrombosis. No popliteal fossa cyst. US/US venous duplex LE RT IMPRESSION: No DVT demonstrated in the right lower extremity.
[2021-06-19 09:01] VITALS: BP 136/86; PULSE 78; RESP 18; TEMP 36.2; O2SAT 99; BMI 41.6
--- NOTE | 2021-06-19 09:38 | ECG_ITS ---
Test Reason : CHEST CONGESTION Blood Pressure : / mmHG Vent. Rate : 072 BPM Atrial Rate : 072 BPM P-R Int : 148 ms QRS Dur : 076 ms QT Int : 396 ms P-R-T Axes : 034 028 019 degrees QTc Int : 433 ms Normal sinus rhythm Normal ECG When compared with ECG of 06-APR-2021 14:38, No significant change was found Referred By: Serina Russell Electronically Signed By:AMNA MALIK
--- NOTE | 2021-06-19 09:42 | ED.GENADULT ---
HPI - General Adult General Chief complaint: General Medical Stated complaint: CHEST CONGESTION Time Seen by Provider: 06/19/21 09:37 Source: patient Mode of arrival: ambulatory History of Present Illness HPI narrative: 41-year-old female with past medical history of asthma, hyperlipidemia, presenting to the ED complaining of substernal chest pain worse on deep inspiration and palpation x4 days. Also reports intermittent right calf pain, and mild SOB. Denies fever, chills, cough, abdominal pain, LE edema, history of blood clots, or OCPs, cigarette smoking Onset (ago): day(s) Related Data Previous Rx's Medication Instructions Recorded [id number]-dvrnjxsyytsey-dxnoguua 1 cap PO Q8H PRN #10 cap 10/22/20 50 mg-300 mg-40 mg capsule (Fioricet) albuterol sulfate 90 mcg/actuation 2 puff INHALATION Q4-6H PRN #8.5 g 04/06/21 aerosol inhaler prednisone 20 mg tablet 40 mg PO DAILY #10 tab 04/06/21 acetaminophen 500 mg tablet 500 mg PO Q6H PRN #20 tab 06/19/21 (Tylenol Extra Strength) lidocaine 5 % topical patch 1 patch TOPICAL DAILY PRN #30 ea 06/19/21 (Lidoderm) MDD remove after 12 hours naproxen 500 mg tablet 500 mg PO BID PRN 10 Days #20 tab 06/19/21 Allergies Allergy/AdvReac Type Severity Reaction Status Date / Time No Known Allergies Allergy Verified 04/06/21 13:57 [No Known Allergies*] Review of Systems Review of Systems: Constitutional: No Fever, No Chills ENT/Mouth: No Ear Pain, No Nasal Congestion, No sore throat, No Rhinorrhea, No Swallowing Difficulty Cardiovascular: + Chest Pain, + SOB Respiratory: No Cough, No Sputum, No Wheezing Gastrointestinal: No Nausea, No Vomiting, No Diarrhea, No Abdominal pain Genitourinary: No Dysuria, No Urinary Frequency, No Hematuria, No Flank Pain Musculoskeletal: No joint pain, No Myalgias, +mild R calf pain Skin: No Skin Lesions, No rash Neuro: No Weakness, No Numbness, No Paresthesias Yes all other systems are reviewed and are negative PMFSH Past Medical History Attestation statement: The following information was validated with the patient. Medical History Asthma High cholesterol Social History Social History Alcohol intake: current Alcohol intake frequency: a few times a week Patient Tobacco Use Status: Never used Tobacco Advance Directives: Yes Advance Directives Information Provided: Yes Advance Directives on File: No Patient : No Physical Exam Vital Signs: Vital Signs: Last Vital Signs Temp 97.1 F 06/19/21 09:01 Pulse 78 06/19/21 09:01 Resp 18 06/19/21 09:01 BP 136/86 06/19/21 09:01 Pulse Ox 99 06/19/21 09:01 Body Mass Index 41.6 Const: General: cooperative, healthy appearing and no acute distress Orientation/consciousness: patient oriented x3 Limitations: no limitations HENMT: Head: Yes normal to inspection Ears: hearing grossly normal bilaterally General nose exam: Normal external nose present Face and sinus: Yes normal facial exam Eyes: General: appearance normal, both eyes and all related structures EOM: EOMs intact bilaterally Neck: Neck: Yes normal visual inspection and Yes no meningeal signs Chest: Chest palpation & inspection: no crepitus and tenderness (Reproducing subjective complaint) sternum Resp: Effort & Inspection: normal respiratory effort Auscultation: clear to auscultation bilaterally, no rales, no rhonchi and no wheezes Cardio: Rate: regular rate Heart sounds: S1 normal heart sound present and S2 normal heart sound present GI: Inspection: Yes normal to inspection Palpation (GI): Soft to palpation, nontender, no guarding and not rigid Skin: Rashes: no rashes Wounds: no wounds Neuro: General: patient oriented x3 and no meningeal signs Gait exam (Neuro): Normal gait present Extrem: General: Yes normal to inspection, Yes no pedal edema and Yes calf tenderness (RLE) Course Course Course Narrative: -no leukocytosis. H&H is stable. D-dimer negative. Labs otherwise unremarkable including negative troponin -COVID-19 negative XR chest 1V IMPRESSION: No acute pulmonary disease US venous duplex LE RT IMPRESSION: No DVT demonstrated in the right lower extremity. > results discussed with patient including worrisome signs and symptoms and strict return precautions. She verbalized understanding feel safe for discharge home Medical Decision Making [facility] Narrative Medical decision making narrative: 41-year-old female with past medical history of asthma, hyperlipidemia, presenting to the ED complaining of substernal chest pain worse on deep inspiration and palpation x4 days. Also reports intermittent right calf pain, and mild SOB. On exam VS, NAD, lungs CTA, chest pain reproducible on palpation. No pedal edema, + right calf tenderness. EKG showing normal sinus rhythm. Concern for costochondritis/MSK pain vs DVT/PE vs pna vs viral etiology. Patient is PERC negative, low risk. Will obtain EKG, labs including D-dimer, right lower extremity venous duplex ultrasound, and re-evaluate Lab Data Result diagrams: 06/19/21 09:51 06/19/21 09:52 Labs: Lab Results 06/19/21 06/19/21 06/19/21 Range/Units 09:51 09:51 09:51 WBC 5.6 (4.8-10.8) X10*3/uL RBC 4.10 L (4.20-5.50) X10*6/uL Hgb 12.0 (12.0-16.0) g/dl Hct 34.8 L (37-47) % MCV 84.9 (80-98) fL MCH 29.3 (27.0-33.0) pg MCHC 34.5 (31.0-35.0) g/dl RDW 12.3 (11.0-16.0) % Plt Count 281 (160-400) X10*3/uL MPV 9.1 L (9.4-12.3) fL Immature Gran % (Auto) 0.2 (0.0-0.4) % Neut % (Auto) 51.8 (45-73) % Lymph % (Auto) 39.3 (20-40) % [place] % (Auto) 7.3 (2-11) % Eos % (Auto) 0.9 (0-4) % Baso % (Auto) 0.5 (0-2) % Lymph # (Auto) 2.2 (1.2-4.9) X10*3/uL [place] # (Auto) 0.4 (0.1-1.2) X10*3/uL Eos # (Auto) 0.1 (0.0-0.4) X10*3/uL Baso # (Auto) 0.0 (0.0-0.2) X10*3/uL Abs Immat Gran (auto) 0.01 (0.00-0.03) X10*3/uL Absolute Neuts (auto) 2.9 (2.0-8.3) X10*3/uL Absolute Nucleated RBC 0.000 (0.0-0.012) X10*3/uL Nucleated RBC % (auto) 0.0 (0.0-0.2) /100WBC PT (9.9-13.0) SEC INR (0.9-1.1) APTT (24.1-38.0) SEC D-Dimer 222 NG/ML Sodium (135-145) mmol/L Potassium (3.3-5.1) mmol/L Chloride (96-108) mmol/L Carbon Dioxide (22-29) mmol/L Anion Gap (12-20) BUN (9-16) mg/dL Creatinine (0.5-1.4) mg/dL Estim Creat Clear Calc Estimated GFR Random Glucose (60-115) mg/dL Calcium (8.4-10.2) mg/dL Magnesium (1.6-2.6) mg/dL Total Bilirubin (0.0-1.0) mg/dL Direct Bilirubin (0.0-0.5) mg/dL AST (5-31) U/L ALT (0-31) U/L Alkaline Phosphatase (39-117) U/L Troponin I High Sens (<3.5-17.0) ng/L B-Natriuretic Peptide (<100) pg/mL Total Protein (6.5-8.0) g/dL Albumin (3.5-5.0) g/dL COVID-19 (PACO) Negative (Negative) COVID-19 Clin Com See Note 06/19/21 06/19/21 06/19/21 Range/Units 09:51 09:51 09:51 WBC (4.8-10.8) X10*3/uL RBC (4.20-5.50) X10*6/uL Hgb (12.0-16.0) g/dl Hct (37-47) % MCV (80-98) fL MCH (27.0-33.0) pg MCHC (31.0-35.0) g/dl RDW (11.0-16.0) % Plt Count (160-400) X10*3/uL MPV (9.4-12.3) fL Immature Gran % (Auto) (0.0-0.4) % Neut % (Auto) (45-73) % Lymph % (Auto) (20-40) % [place] % (Auto) (2-11) % Eos % (Auto) (0-4) % Baso % (Auto) (0-2) % Lymph # (Auto) (1.2-4.9) X10*3/uL [place] # (Auto) (0.1-1.2) X10*3/uL Eos # (Auto) (0.0-0.4) X10*3/uL Baso # (Auto) (0.0-0.2) X10*3/uL Abs Immat Gran (auto) (0.00-0.03) X10*3/uL Absolute Neuts (auto) (2.0-8.3) X10*3/uL Absolute Nucleated RBC (0.0-0.012) X10*3/uL Nucleated RBC % (auto) (0.0-0.2) /100WBC PT 11.8 (9.9-13.0) SEC INR 1.0 (0.9-1.1) APTT 36.9 (24.1-38.0) SEC D-Dimer NG/ML Sodium (135-145) mmol/L Potassium (3.3-5.1) mmol/L Chloride (96-108) mmol/L Carbon Dioxide (22-29) mmol/L Anion Gap (12-20) BUN (9-16) mg/dL Creatinine (0.5-1.4) mg/dL Estim Creat Clear Calc Estimated GFR Random Glucose (60-115) mg/dL Calcium (8.4-10.2) mg/dL Magnesium 2.2 (1.6-2.6) mg/dL Total Bilirubin (0.0-1.0) mg/dL Direct Bilirubin (0.0-0.5) mg/dL AST (5-31) U/L ALT (0-31) U/L Alkaline Phosphatase (39-117) U/L Troponin I High Sens < 3.5 (<3.5-17.0) ng/L B-Natriuretic Peptide 27 (<100) pg/mL Total Protein (6.5-8.0) g/dL Albumin (3.5-5.0) g/dL COVID-19 (PACO) (Negative) COVID-19 Clin Com 06/19/21 Range/Units 09:52 WBC (4.8-10.8) X10*3/uL RBC (4.20-5.50) X10*6/uL Hgb (12.0-16.0) g/dl Hct (37-47) % MCV (80-98) fL MCH (27.0-33.0) pg MCHC (31.0-35.0) g/dl RDW (11.0-16.0) % Plt Count (160-400) X10*3/uL MPV (9.4-12.3) fL Immature Gran % (Auto) (0.0-0.4) % Neut % (Auto) (45-73) % Lymph % (Auto) (20-40) % [place] % (Auto) (2-11) % Eos % (Auto) (0-4) % Baso % (Auto) (0-2) % Lymph # (Auto) (1.2-4.9) X10*3/uL [place] # (Auto) (0.1-1.2) X10*3/uL Eos # (Auto) (0.0-0.4) X10*3/uL Baso # (Auto) (0.0-0.2) X10*3/uL Abs Immat Gran (auto) (0.00-0.03) X10*3/uL Absolute Neuts (auto) (2.0-8.3) X10*3/uL Absolute Nucleated RBC (0.0-0.012) X10*3/uL Nucleated RBC % (auto) (0.0-0.2) /100WBC PT (9.9-13.0) SEC INR (0.9-1.1) APTT (24.1-38.0) SEC D-Dimer NG/ML Sodium 140 (135-145) mmol/L Potassium 4.0 (3.3-5.1) mmol/L Chloride 106 (96-108) mmol/L Carbon Dioxide 26 (22-29) mmol/L Anion Gap 12 (12-20) BUN 14 (9-16) mg/dL Creatinine 0.76 (0.5-1.4) mg/dL Estim Creat Clear Calc 112.7 Estimated GFR > 60 Random Glucose 110 (60-115) mg/dL Calcium 9.5 (8.4-10.2) mg/dL Magnesium (1.6-2.6) mg/dL Total Bilirubin 0.6 (0.0-1.0) mg/dL Direct Bilirubin 0.2 (0.0-0.5) mg/dL AST 20 (5-31) U/L ALT 25 (0-31) U/L Alkaline Phosphatase 110 (39-117) U/L Troponin I High Sens (<3.5-17.0) ng/L B-Natriuretic Peptide (<100) pg/mL Total Protein 7.6 (6.5-8.0) g/dL Albumin 4.4 (3.5-5.0) g/dL COVID-19 (PACO) (Negative) COVID-19 Clin Com ECG Data Attestation: I personally reviewed and interpreted this ECG as follows: Interpretation: Normal sinus rhythm with rate of 72. QTC 433. Nonischemic/no STEMI. Artifact present Discharge Plan Discharge Clinical Impression: Atypical chest pain, Costochondritis Patient Disposition: Home, Self-Care Instructions: Chest Wall Pain (ED) Additional Instructions: Your blood work was reassuring today in the ED Your chest x-ray and ultrasound were negative Chest negative for COVID-19 It is important for you to follow-up with her primary care doctor If her symptoms persist or worsen, pain becomes unbearable/constant, you have worsening shortness of breath please return to the ED Prescriptions: New acetaminophen [Tylenol Extra Strength] 500 mg tablet 500 mg PO Q6H PRN (Reason: pain or fever) Qty: 20 RF: 0 lidocaine [Lidoderm] 5 % adhesive patch,medicated 1 patch topical DAILY MDD remove after 12 hours PRN (Reason: pain) Qty: 30 RF: 0 naproxen 500 mg tablet 500 mg PO BID PRN (Reason: pain) 10 Days Qty: 20 RF: 0 No Action djkfuvydbt-gnhhlshcmuvni-prfk [Fioricet] 50-300-40 mg capsule 1 cap PO Q8H PRN (Reason: pain) Qty: 10 RF: 0 albuterol sulfate 90 mcg/actuation HFA aerosol inhaler 2 puff inhalation Q4-6H PRN (Reason: shortness of breath or wheezing) Qty: 8.5 RF: 0 prednisone 20 mg tablet 40 mg PO DAILY Qty: 10 RF: 0 Referrals: Cristine Baig MD [Primary Care Provider] - 3 days
[2021-06-19 10:00] LABS: Basophils Percent Auto 0.5 % (0-2); Eosinophils Absolute Auto 0.1 X10*3/uL (0.0-0.4); Eosinophils Percent Auto 0.9 % (0-4); Hematocrit 34.8 % (37-47); Imm Gran Abs Auto 0.01 X10*3/uL (0.00-0.03); Imm Gran Pct Auto 0.2 % (0.0-0.4); Lymphocytes Absolute Auto 2.2 X10*3/uL (1.2-4.9); Lymphocytes Percent Auto 39.3 % (20-40); MANUAL DIFF FLAG NO; Mean Corpuscular HGB Conc 34.5 g/dl (31.0-35.0); Mean Corpuscular Hemoglobin 29.3 pg (27.0-33.0); Mean Corpuscular Volume 84.9 fL (80-98); Mean Platelet Volume 9.1 fL (9.4-12.3); Monocytes Absolute Auto 0.4 X10*3/uL (0.1-1.2); Monocytes Percent Auto 7.3 % (2-11); Neutrophils Absolute Auto 2.9 X10*3/uL (2.0-8.3); Neutrophils Percent Auto 51.8 % (45-73); Platelet Count 281 X10*3/uL (160-400); Red Cell Distribution Width 12.3 % (11.0-16.0); White Blood Count 5.6 X10*3/uL (4.8-10.8)
[2021-06-19 10:06] LABS: Prothrombin Time 11.8 SEC (9.9-13.0)
[2021-06-19 10:08] LABS: Partial Thromboplastin Time 36.9 SEC (24.1-38.0)
[2021-06-19 10:09] LABS: D Dimer 222 NG/ML
[2021-06-19 10:15] LABS: COVID-19 Test Negative (Negative); IDNOW Serial# 9DD0AD1C
[2021-06-19 10:16] LABS: Magnesium 2.2 mg/dL (1.6-2.6)
[2021-06-19 10:17] LABS: Alanine Aminotransferase 25 U/L (0-31); Albumin Level 4.4 g/dL (3.5-5.0); Alkaline Phosphatase 110 U/L (39-117); Anion Gap 12 (12-20); Aspartate Amino Transferase 20 U/L (5-31); Bilirubin Direct 0.2 mg/dL (0.0-0.5); Bilirubin Total 0.6 mg/dL (0.0-1.0); Blood Urea Nitrogen 14 mg/dL (9-16); Calcium 9.5 mg/dL (8.4-10.2); Carbon Dioxide 26 mmol/L (22-29); Chloride 106 mmol/L (96-108); Creatinine Clr Calc Pharmacy 112.7; Estimated Glomerular Filt Rate > 60; Glucose Random 110 mg/dL (60-115); Sodium 140 mmol/L (135-145); Total Protein 7.6 g/dL (6.5-8.0)
[2021-06-19 10:19] LABS: B Type Natriuretic Peptide 27 pg/mL (<100); Troponin-I High Sensitivity < 3.5 ng/L (<3.5-17.0)
[2021-06-19 12:03] VITALS: BP 144/80; PULSE 79; RESP 19; TEMP 36.7; O2SAT 97
== END 2021-06-19 12:06 | disposition home or self-care (01) ==
PROVIDERS: Physician Assistant; Emergency Provider Emergency Medicine; PCP Internal Medicine
DX: R07.89 Other chest pain (principal); M94.0 Chondrocostal junction syndrome [Tietze]; R06.02 Shortness of breath; Z79.899 Other long term (current) drug therapy; Z20.822 Contact with and (suspected) exposure to COVID-19
CPT/HCPCS: 36415; 71045; 80048; 80076; 83735; 83880; 84484; 85025; 85379; 85610; 85730; 87635; 93005; 93971; 99283; 99284

== ENCOUNTER 2021-10-13 10:34 | Outpatient (REF) | payer OTHER, SELFPAY ==
[2021-10-13 10:52] LABS: MANUAL DIFF FLAG NO
[2021-10-13 11:05] LABS: Basophils Percent Auto 0.4 % (0-2); Eosinophils Absolute Auto 0.1 X10*3/uL (0.0-0.4); Eosinophils Percent Auto 1.1 % (0-4); Hematocrit 36.4 % (37.0-47.0); Hemoglobin 12.3 g/dl (12.0-16.0); Imm Gran Abs Auto 0.01 X10*3/uL (0.00-0.03); Imm Gran Pct Auto 0.2 % (0.0-0.4); Lymphocytes Absolute Auto 2.1 X10*3/uL (1.2-4.9); Lymphocytes Percent Auto 38.9 % (20-40); Mean Corpuscular HGB Conc 33.8 g/dl (31.0-35.0); Mean Corpuscular Hemoglobin 28.5 pg (27.0-33.0); Mean Corpuscular Volume 84.3 fL (80.0-98.0); Mean Platelet Volume 9.1 fL (9.4-12.3); Monocytes Absolute Auto 0.5 X10*3/uL (0.1-1.2); Neutrophils Absolute Auto 2.7 x10*3/uL (2.0-8.3); Neutrophils Percent Auto 50.4 % (45-73); Platelet Count 283 X10*3/uL (160-400); Red Blood Count 4.32 X10*6/uL (4.20-5.50); Red Cell Distribution Width 12.1 % (11.0-16.0); White Blood Count 5.4 X10*3/uL (4.8-10.8)
[2021-10-13 11:32] LABS: Alanine Aminotransferase 17 U/L (0-31); Albumin Level 4.5 g/dL (3.5-5.0); Alkaline Phosphatase 104 U/L (39-117); Anion Gap 12 (12-20); Aspartate Amino Transferase 12 U/L (5-31); Bilirubin Total 0.4 mg/dL (0.0-1.0); Blood Urea Nitrogen 13 mg/dL (9-16); Calcium 9.6 mg/dL (8.4-10.2); Carbon Dioxide 27 mmol/L (22-29); Chloride 105 mmol/L (96-108); Cholesterol 226 mg/dL; Estimated Glomerular Filt Rate > 60; Glucose Random 102 mg/dL (60-115); HDL Cholesterol 40 mg/dL; LDL Cholesterol Calculated 154 mg/dl; Potassium 4.1 mmol/L (3.3-5.1); Sodium 140 mmol/L (135-145); Total Protein 7.8 g/dL (6.5-8.0); Triglycerides 163 mg/dL
[2021-10-13 11:40] LABS: Estimated Average Glucose 108 mg/dL; Hemoglobin A1c % 5.4 %
== END 2021-10-13 10:35 | disposition home or self-care (01) ==
LOC: HO.LAB 10:34
PROVIDERS: PCP Internal Medicine; Visit Provider Internal Medicine
DX: Z00.00 Encounter for general adult medical examination without abnormal findings (principal); E78.2 Mixed hyperlipidemia; R73.01 Impaired fasting glucose
CPT/HCPCS: 36415; 80053; 80061; 83036; 85025

== ENCOUNTER 2021-11-02 14:22 | Outpatient (REF) | payer OTHER, SELFPAY ==
--- NOTE | ~2021-11-02 | MM_ITS ---
EXAMINATION: MM SCREENING DIGITAL BREAST TOMOSYNTHESIS, BILATERAL CLINICAL INFORMATION: Screening. Asymptomatic. The lifetime risk of breast cancer based on the Tyrer-Cuzick Model is 9%. COMPARISON: Mammography: 03/24/2021, 06/25/2019 (baseline). TECHNIQUE: Digital breast tomosynthesis is performed in both the craniocaudal and mediolateral oblique views along with computer-aided detection (CAD). Synthesized 2D images are generated from the tomosynthesis. Additional right CC, left CC x2, and right MLO views are provided. FINDINGS: There are scattered areas of fibroglandular density (ACR BI-RADS breast composition Category b). There are no significant masses, abnormal calcifications, or other abnormalities. Parenchymal pattern is similar to prior studies. There is no developing density or architectural abnormality. The axilla and skin contours are unremarkable. No significant changes. MM/MM tomosynthesis screening BI IMPRESSION: No mammographic evidence of malignancy. ASSESSMENT: BI-RADS 1: Negative RECOMMENDATION: Routine annual mammography screening. This patient's information was entered into a reminder system with a target due date for their next mammogram.
== END 2021-11-02 14:23 | disposition home or self-care (01) ==
LOC: HO.MAMMO 14:22
PROVIDERS: PCP Internal Medicine; Visit Provider Internal Medicine
DX: Z12.31 Encounter for screening mammogram for malignant neoplasm of breast (principal)
CPT/HCPCS: 77063; 77067

== ENCOUNTER 2022-01-21 09:52 | Outpatient (REF) | payer OTHER, SELFPAY ==
[2022-01-21 11:14] LABS: Cholesterol 129 mg/dL; HDL Cholesterol 31 mg/dL; LDL Cholesterol Calculated 83 mg/dl; Triglycerides 79 mg/dL
[2022-01-21 11:42] LABS: Thyroid Stimulating Hormone 1.02 uIU/mL (0.32-4.0)
== END 2022-01-21 09:53 | disposition home or self-care (01) ==
LOC: HO.LAB 09:52
PROVIDERS: PCP Internal Medicine; Visit Provider Internal Medicine
DX: E78.00 Pure hypercholesterolemia, unspecified (principal); J45.909 Unspecified asthma, uncomplicated; N92.4 Excessive bleeding in the premenopausal period; Z91.14 Patient's other noncompliance with medication regimen
CPT/HCPCS: 36415; 80061; 84443

== ENCOUNTER 2022-02-10 08:54 | Emergency (ER) | payer OTHER, SELFPAY ==
[2022-02-10 10:06] VITALS: BP 142/87; PULSE 96; RESP 16; TEMP 37.4; O2SAT 99; BMI 40.7
[2022-02-10 10:30] LABS: COVID-19 Test Negative (Negative)
[2022-02-10 10:31] LABS: IDNOW Serial# 16C4AD1C; Influenza A Positive (Negative); Influenza B2 Negative (Negative)
--- NOTE | 2022-02-10 10:48 | ED.URI ---
HPI - URI/Sore Throat General Chief Complaint: Upper Respiratory Symptoms Stated Complaint: sore throat ear ache congestion side pains Time Seen by Provider: 02/10/22 10:26 Source: patient Mode of arrival: ambulatory History of Present Illness HPI Narrative: 41-year-old female with a past medical history of asthma, hyperlipidemia, presenting to the ED complaining of myalgias/body aches, headache, left ear pain, nonproductive cough, chest wall discomfort when coughing, and nasal congestion x2 days. Denies fever, difficulty/inability to swallow, SOB, recent travel MD elicited complaint: cough, sore throat, rhinorrhea and nasal congestion Onset (ago): day(s) Related Data Previous Rx's Medication Instructions Recorded [id number] 1 cap PO Q8H PRN #10 cap 10/22/20 50 mg-300 mg-40 mg capsule (Fioricet) albuterol sulfate 90 mcg/actuation 2 puff INHALATION Q4-6H PRN #8.5 g 04/06/21 aerosol inhaler prednisone 20 mg tablet 40 mg PO DAILY #10 tab 04/06/21 acetaminophen 500 mg tablet 500 mg PO Q6H PRN #20 tab 06/19/21 (Tylenol Extra Strength) lidocaine 5 % topical patch 1 patch TOPICAL DAILY PRN #30 ea 06/19/21 (Lidoderm) MDD remove after 12 hours naproxen 500 mg tablet 500 mg PO BID PRN 10 Days #20 tab 06/19/21 amoxicillin 875 mg-potassium 1 tab PO BID 7 Days #14 tab 02/10/22 clavulanate 125 mg tablet oseltamivir 75 mg capsule (Tamiflu) 75 mg PO Q12H 5 Days #10 cap 02/10/22 Allergies Allergy/AdvReac Type Severity Reaction Status Date / Time No Known Allergies Allergy Verified 04/06/21 13:57 [No Known Allergies*] Review of Systems Review of Systems: Constitutional: No Fever, No Chills ENT/Mouth: + Ear Pain, + Nasal Congestion, No Sinus Pain, No Hoarseness, + sore throat, + Rhinorrhea, No Swallowing Difficulty Cardiovascular: + Chest Wall Pain when coughing, No SOB Respiratory: + Cough, No Sputum, No Wheezing Gastrointestinal: No Nausea, No Vomiting, No Diarrhea, No Constipation, No Abdominal pain Genitourinary:No Dysuria, No Hematuria, No Urinary Incontinence/retention, No Flank Pain Musculoskeletal: No joint pain, + Myalgias, No Joint Swelling Skin: No Skin Lesions, No rash Neuro: No Weakness, No Numbness, No Paresthesias Yes all other systems are reviewed and are negative [facility] Past Medical History Attestation statement: The following information was validated with the patient. Medical History Asthma High cholesterol Social History Social History Alcohol intake: current Alcohol intake frequency: a few times a week Patient Tobacco Use Status: Never used Tobacco Advance Directives: No Advance Directives Information Provided: No Patient : No Physical Exam Vital Signs: Vital Signs: Last Vital Signs Temp 99.3 F 02/10/22 10:06 Pulse 96 02/10/22 10:06 Resp 16 02/10/22 10:06 BP 142/87 H 02/10/22 10:06 Pulse Ox 99 02/10/22 10:06 BMI result Body Mass Index 40.7 Const: General: cooperative, healthy appearing and no acute distress Orientation/consciousness: patient oriented x3 Limitations: no limitations HEENT: Head: Yes normal to inspection and Yes atraumatic Ears: hearing grossly normal bilaterally, external ears normal, mastoids normal and TM abnormal wth effusion, with fluid behind the TM on the left and with loss of landmarks on the left General nose exam: Normal external nose present Face and sinus: Yes normal facial exam Mouth: Normal oral and palatal mucosa present Throat: Yes posterior oropharynx normal, Yes tonsils normal, Yes uvula midline, No peritonsillar mass, No uvula laterally displaced and No uvular edema Eyes: General: appearance normal, both eyes and all related structures EOM: EOMs intact bilaterally Neck: Neck: Yes normal visual inspection and Yes no meningeal signs Resp: Effort & Inspection: normal respiratory effort and no respiratory distress Auscultation: clear to auscultation bilaterally, no rales, no rhonchi and no wheezes Cardio: Rate: regular rate Heart sounds: S1 normal heart sound present and S2 normal heart sound present Skin: Rashes: no rashes Wounds: no wounds Neuro: General: patient oriented x3, tone normal and no meningeal signs Gait exam (Neuro): Normal gait present Extrem: General: Yes normal to inspection Course Course Course Narrative: -influenza A positive her results discussed with patient including worrisome signs and symptoms and strict return precautions. She is interested and in the window for Tamiflu MDM - URI/Sore Throat MDM Narrative Medical decision making narrative: 41-year-old female with a past medical history of asthma, hyperlipidemia, presenting to the ED complaining of myalgias/body aches, headache, left ear pain, nonproductive cough, chest wall discomfort when coughing, and nasal congestion x2 days. On exam vital signs stable, NAD/nontoxic-appearing, physical exams above. Concern for viral illness including COVID-19 versus influenza vs pharyngitis. Exam consistent with otitis media Plan: COVID-19/influenza testing Differential Diagnosis Differential diagnosis: Likely upper respiratory infection Medical Records Attestation: I reviewed the patient's medical records. Lab Data Attestation: I reviewed the patient's lab results. Labs: Lab Results 02/10/22 02/10/22 Range/Units 10:07 10:07 COVID-19 (PACO) Negative (Negative) COVID-19 Clin Com See Note Influenza Type A (TARIQ) Positive A (Negative) Influenza Type B (TARIQ) Negative (Negative) Influenza A & B Note See Note Discharge Plan Discharge Clinical Impression: Influenza A, Otitis media Patient Disposition: Home, Self-Care Prescriptions: New oseltamivir [Tamiflu] 75 mg capsule 75 mg PO Q12H 5 Days Qty: 10 0RF amoxicillin-pot clavulanate 875-125 mg tablet 1 tab PO BID 7 Days Qty: 14 0RF No Action [id number] [Fioricet] 50-300-40 mg capsule 1 cap PO Q8H PRN (Reason: pain) Qty: 10 0RF albuterol sulfate 90 mcg/actuation HFA aerosol inhaler 2 puff inhalation Q4-6H PRN (Reason: shortness of breath or wheezing) Qty: 8.5 0RF prednisone 20 mg tablet 40 mg PO DAILY Qty: 10 0RF acetaminophen [Tylenol Extra Strength] 500 mg tablet 500 mg PO Q6H PRN (Reason: pain or fever) Qty: 20 0RF lidocaine [Lidoderm] 5 % adhesive patch,medicated 1 patch topical DAILY MDD remove after 12 hours PRN (Reason: pain) Qty: 30 0RF Rx Instructions: leave on most painful area for up to 12 hrs naproxen 500 mg tablet 500 mg PO BID PRN (Reason: pain) 10 Days Qty: 20 0RF Referrals: Cristine Baig MD [Primary Care Provider] - 1 week Stand Alone Forms: Work/School Release
== END 2022-02-10 11:12 | disposition home or self-care (01) ==
PROVIDERS: Emergency Provider Emergency Medicine; PCP Internal Medicine
DX: J10.1 Influenza due to other identified influenza virus with other respiratory manifestations (principal); H66.92 Otitis media, unspecified, left ear; J45.909 Unspecified asthma, uncomplicated; Z20.822 Contact with and (suspected) exposure to COVID-19
CPT/HCPCS: 87502; 87635; 99283

== ENCOUNTER 2022-03-15 11:15 | Outpatient (REF) | payer OTHER, SELFPAY ==
[2022-03-15 13:06] LABS: Hematocrit 33.7 % (37.0-47.0); Hemoglobin 11.1 g/dl (12.0-16.0); Mean Corpuscular HGB Conc 32.9 g/dl (31.0-35.0); Mean Corpuscular Hemoglobin 27.5 pg (27.0-33.0); Mean Corpuscular Volume 83.6 fL (80.0-98.0); Mean Platelet Volume 9.6 fL (9.4-12.3); Platelet Count 307 X10*3/uL (160-400); Red Blood Count 4.03 X10*6/uL (4.20-5.50); Red Cell Distribution Width 12.4 % (11.0-16.0); White Blood Count 5.9 X10*3/uL (4.8-10.8)
[2022-03-15 13:59] LABS: HCG Quantitative < 2 mIU/mL; TSH reflex Free T4 1.22 uIU/mL (0.32-4.0)
[2022-03-15 14:18] LABS: CT PCR NOT DETECTED (Not Detect.); NG PCR NOT DETECTED (Not Detect.)
[2022-03-24 05:18] LABS: HPV 16 RNA NOT DETECTED (NOT DETECTED); HPV mRNA E6/E7 rflx Detected (Not Detected)
== END 2022-03-15 11:16 | disposition home or self-care (01) ==
LOC: HO.LAB 11:15
PROVIDERS: PCP Internal Medicine; Visit Provider Obstetrics & Gynecology
DX: Z01.411 Encounter for gynecological examination (general) (routine) with abnormal findings (principal); Z11.51 Encounter for screening for human papillomavirus (HPV); N93.9 Abnormal uterine and vaginal bleeding, unspecified; Z98.891 History of uterine scar from previous surgery; Z98.51 Tubal ligation status
CPT/HCPCS: 36415; 84443; 84702; 85027; 87491; 87591; 87624; 87625; 88142; 99202

== ENCOUNTER 2022-04-06 08:28 | Emergency (ER) | payer OTHER, SELFPAY ==
--- NOTE | ~2022-04-06 | XR_ITS ---
EXAMINATION: XR CHEST CLINICAL INFORMATION: Chest pain COMPARISON: None TECHNIQUE: Frontal view of the chest was obtained. FINDINGS: No significant abnormality is noted involving the heart, lungs, mediastinum, bony thorax or soft tissues. XR/XR chest 1V IMPRESSION: Unremarkable chest examination.
--- NOTE | ~2022-04-06 | CT_ITS ---
EXAMINATION: CT ABDOMEN AND PELVIS WITHOUT CONTRAST CLINICAL INFORMATION: Epigastric pain COMPARISON: None TECHNIQUE: Multidetector volumetric imaging was performed from the superior aspect of the liver through the pubic symphysis. Sagittal and coronal reformatted images were obtained on the technologist's workstation. This CT examination was performed using dose optimization techniques as appropriate, variously including the following: *Automated exposure control *Adjustment of mA and/or kV according to patient size (this includes techniques or standardized protocols for targeted exams where dose is matched to indication/reason for exam; i.e. extremities or head) *Use of iterative reconstruction technique DLP: 862 mGy-cm FINDINGS: LUNG BASES: The visualized lung bases are unremarkable. LIVER, GALLBLADDER, AND BILIARY TREE: The liver is elongated at 21 cm cephalocaudad. No focal masses. No intrahepatic biliary dilatation. The gallbladder is unremarkable with no evidence of radiopaque gallstones, gallbladder wall thickening, or obvious pericholecystic inflammatory changes. PANCREAS: Unremarkable. SPLEEN: Unremarkable. ADRENAL GLANDS: Unremarkable. KIDNEYS AND URETERS: There is a nonobstructive 6 mm punctate stone in the mid left kidney. No hydronephrosis. Right kidney unremarkable. No perinephric collections. There is no evidence for calcification along the course of the ureters. BLADDER: Unremarkable. GASTROINTESTINAL TRACT: Mild sigmoid diverticular disease. There is no proximal bowel obstruction. There is no right or left lower quadrant inflammation. The appendix appears slightly distended at 6.7 mm but does not contain stones nor is there surrounding inflammatory change. Please correlate with physical exam. ABDOMINAL WALL: No significant hernia is appreciated. LYMPH NODES: Normal. VASCULAR: Unremarkable. PELVIC VISCERA: There is a physiologic cyst in the right ovary at 16 mm. OSSEOUS STRUCTURES: Multilevel degenerative change in the lower thoracic spine and lower lumbar spine but no fracture. CT/CT abdomen pelvis wo con IMPRESSION: Hepatomegaly. No gallstones. Slightly distended appendix. Fleischner guidelines were followed.
--- NOTE | 2022-04-06 08:40 | ED_ITS ---
HPI - Chest Pain General Chief Complaint: General Medical Stated Complaint: CP RAD DOWN L ARM & R LEG PER BLS EMS Time Seen by Provider: 04/06/22 08:40 Source: patient Mode of arrival: EMS Limitations: no limitations History of Present Illness HPI narrative: 42 yo female with hx of asthma, HLD, DUB, anemia, no prior abdominal surgeries reports 1 week of epigastric pain this morning it was much worse radiated up to her chest into left arm. She has mild nausea. At this time there are no triggered events and not worse with eating. MD complaint: chest pain (epigastric pain) Onset (ago): week(s) (1) Timing of current episode: constant and increasing Prior episodes: No Onset: during rest Pain location: epigastric Pain radiation: other (chest and into left arm) Severity: moderate Quality: sharp Relieving factors: nothing Exacerbating factors: nothing Associated symptoms: nausea Treatment prior to arrival: none Related Data Home Medications Medication Instructions Recorded Confirmed atorvastatin 80 mg tablet 80 mg PO DAILY 03/15/22 Previous Rx's Medication Instructions Recorded albuterol sulfate 90 mcg/actuation 2 puff inhalation Q4-6H PRN 04/06/21 aerosol inhaler shortness of breath or wheezing #8.5 grams acetaminophen 500 mg tablet 500 mg PO Q6H PRN pain or fever 06/19/21 (Tylenol Extra Strength) #20 tabs ferrous sulfate 325 mg (65 mg 325 mg PO DAILY 30 days #30 tabs 03/19/22 iron) tablet,delayed release famotidine 20 mg tablet (Pepcid) 20 mg PO DAILY PRN abdominal 04/06/22 discomfort #30 tabs ondansetron 4 mg disintegrating 4 mg PO Q8H PRN nausea and 04/06/22 tablet vomiting #20 tabs Allergies Allergy/AdvReac Type Severity Reaction Status Date / Time No Known Allergies Allergy Verified 03/15/22 11:23 [No Known Allergies*] Review of Systems Review of Systems: Constitutional : No Weight loss, No Fever, No Chills ENT/Mouth : No sore throat, No Rhinorrhea Eyes: No Swelling, No Redness Cardiovascular : pos Chest Pain, No SOB, No Edema Respiratory : No Cough, No Sputum, No Wheezing Gastrointestinal : Positive Nausea, no Vomiting, no Diarrhea, positive abdominal Pain, No Hematochezia, No Melena Genitourinary : No Dysuria, No Urinary Frequency, No Hematuria, No Urgency Musculoskeletal : No joint pain, No Myalgias, No Joint Swelling Skin : No Skin Lesions, No rash Neuro : pos Weakness, No Numbness, No Dizziness, No Headache Psych : No Anxiety/Panic, No Depression Heme/Lymph: No Bruising, No Lymphadenopathy Endocrine : No Polyuria, No Polydipsia All other systems reviewed and are negative. [facility] Past Medical History Attestation statement: The following information was validated with the patient. Medical History Anemia Asthma High cholesterol Social History Social History Alcohol intake: current Alcohol intake frequency: a few times a week Patient Tobacco Use Status: Never used Tobacco Advance Directives: No Advance Directives Information Provided: No Patient : No Physical Exam Vital Signs: Vital Signs: Last Vital Signs Temp 98.3 F 04/06/22 10:34 Pulse 62 04/06/22 10:34 Resp 16 04/06/22 10:34 BP 124/80 04/06/22 10:34 Pulse Ox 97 04/06/22 10:34 O2 Del Method 04/06/22 10:34 BMI result Body Mass Index 42.5 Appearance: Alert. Oriented X3. No acute distress. Anxious Eyes: Pupils equal, round and reactive to light. ENT: Pharynx normal. Neck: Normal inspection. Neck supple. CVS: Normal heart rate and rhythm. Pulses normal. Respiratory: No respiratory distress. Breath sounds normal. Abdomen: Soft and tenderness in epigastric area with no rebound or guarding Skin: Skin warm and dry. Normal skin color. Normal skin turgor. Extremities: No lower extremity edema. No calf ttp Neuro: Oriented X 3. No motor deficit. No sensory deficit. Course Course Course Narrative: no RLQ pain and no leukocytosis to suggest appendicitis CT scan negative, trop flat and nonischemic EKG, possible gastritis MDM - Chest Pain MDM Narrative Medical decision making narrative: 42 yo female with hx of asthma, HLD, DUB, anemia, at this time most symptoms are epigastric in nature will need basic labs, troponin x 1, CXR, IV morphine for pain, CT scan to assess pancreatic area - seems more GI in nature. She is PERC negative. Dispo per results and findings. Lab Data Result diagrams: 04/06/22 09:55 04/06/22 09:55 Labs: Lab Results 04/06/22 04/06/22 04/06/22 Range/Units 09:55 09:55 09:55 WBC 4.3 L (4.8-10.8) X10*3/uL RBC 4.14 L (4.20-5.50) X10*6/uL Hgb 11.6 L (12.0-16.0) g/dl Hct 34.3 L (37.0-47.0) % MCV 82.9 (80.0-98.0) fL MCH 28.0 (27.0-33.0) pg MCHC 33.8 (31.0-35.0) g/dl RDW 12.8 (11.0-16.0) % Plt Count 293 (160-400) X10*3/uL MPV 9.1 L (9.4-12.3) fL Immature Gran % (Auto) 0.2 (0.0-0.4) % Neut % (Auto) 47.7 (45-73) % Lymph % (Auto) 38.2 (20-40) % Mccracken % (Auto) 12.2 H (2-11) % Eos % (Auto) 1.2 (0-4) % Baso % (Auto) 0.5 (0-2) % Lymph # (Auto) 1.6 (1.2-4.9) X10*3/uL M[place]racken # (Auto) 0.5 (0.1-1.2) X10*3/uL Eos # (Auto) 0.1 (0.0-0.4) X10*3/uL Baso # (Auto) 0.0 (0.0-0.2) X10*3/uL Abs Immat Gran (auto) 0.01 (0.00-0.03) X10*3/uL Absolute Neuts (auto) 2.0 (2.0-8.3) x10*3/uL Absolute Nucleated RBC 0.000 (0.0-0.012) X10*3/uL Nucleated RBC % (auto) 0.0 (0.0-0.2) /100WBC Sodium 138 (135-145) mmol/L Potassium 4.2 (3.3-5.1) mmol/L Chloride 104 (96-108) mmol/L Carbon Dioxide 25 (22-29) mmol/L Anion Gap 13 (12-20) BUN 12 (9-16) mg/dL Creatinine 0.72 (0.5-1.4) mg/dL Estim Creat Clear Calc 119.3 Estimated GFR > 60 Random Glucose 105 (60-115) mg/dL Calcium 9.1 (8.4-10.2) mg/dL Magnesium 2.2 (1.6-2.6) mg/dL Total Bilirubin 0.6 (0.0-1.0) mg/dL Direct Bilirubin 0.2 (0.0-0.5) mg/dL AST 16 (5-31) U/L ALT 16 (0-31) U/L Alkaline Phosphatase 117 (39-117) U/L Troponin I High Sens (<3.5-17.0) ng/L Total Protein 7.8 (6.5-8.0) g/dL Albumin 4.4 (3.5-5.0) g/dL Lipase 18 (8-78) U/L COVID-19 (PACO) Negative (Negative) COVID-19 Clin Com 04/06/22 Range/Units 09:55 WBC (4.8-10.8) X10*3/uL RBC (4.20-5.50) X10*6/uL Hgb (12.0-16.0) g/dl Hct (37.0-47.0) % MCV (80.0-98.0) fL MCH (27.0-33.0) pg MCHC (31.0-35.0) g/dl RDW (11.0-16.0) % Plt Count (160-400) X10*3/uL MPV (9.4-12.3) fL Immature Gran % (Auto) (0.0-0.4) % Neut % (Auto) (45-73) % Lymph % (Auto) (20-40) % Mccracken % (Auto) (2-11) % Eos % (Auto) (0-4) % Baso % (Auto) (0-2) % Lymph # (Auto) (1.2-4.9) X10*3/uL M[place]racken # (Auto) (0.1-1.2) X10*3/uL Eos # (Auto) (0.0-0.4) X10*3/uL Baso # (Auto) (0.0-0.2) X10*3/uL Abs Immat Gran (auto) (0.00-0.03) X10*3/uL Absolute Neuts (auto) (2.0-8.3) x10*3/uL Absolute Nucleated RBC (0.0-0.012) X10*3/uL Nucleated RBC % (auto) (0.0-0.2) /100WBC Sodium (135-145) mmol/L Potassium (3.3-5.1) mmol/L Chloride (96-108) mmol/L Carbon Dioxide (22-29) mmol/L Anion Gap (12-20) BUN (9-16) mg/dL Creatinine (0.5-1.4) mg/dL Estim Creat Clear Calc Estimated GFR Random Glucose (60-115) mg/dL Calcium (8.4-10.2) mg/dL Magnesium (1.6-2.6) mg/dL Total Bilirubin (0.0-1.0) mg/dL Direct Bilirubin (0.0-0.5) mg/dL AST (5-31) U/L ALT (0-31) U/L Alkaline Phosphatase (39-117) U/L Troponin I High Sens < 3.5 (<3.5-17.0) ng/L Total Protein (6.5-8.0) g/dL Albumin (3.5-5.0) g/dL Lipase (8-78) U/L COVID-19 (PACO) (Negative) COVID-19 Clin Com ECG Data ECG #1: Attestation: I personally reviewed and interpreted this ECG as follows: ECG interpretation date: 04/06/22 ECG interpretation time: 08:43 Interpretation: Rate: 65 Rhythm: NSR [place]: normal Normal P waves. Normal CHASITY. Normal QRS complex. ST T wave : normal no PAULINO qTC: normal prior studies: no acute ischemia The study has been interpreted contemporaneously by me. Discharge Plan Discharge Clinical Impression: Acute epigastric pain Gastritis Qualifiers: Gastritis type: unspecified gastritis Chronicity: acute Gastritis bleeding: without bleeding Qualified Code(s): K29.00 - Acute gastritis without bleeding Patient Disposition: Home, Self-Care Instructions: Gastritis (ED), Acute Abdominal Pain (ED) Additional Instructions: return to ED for any worsening symptoms or concerns EKG, CT scan normal no acute findings if pain returns or worsens please seek medical care Prescriptions: New famotidine [Pepcid] 20 mg tablet 20 mg PO DAILY PRN (Reason: abdominal discomfort) Qty: 30 0RF ondansetron 4 mg tablet,disintegrating 4 mg PO Q8H PRN (Reason: nausea and vomiting) Qty: 20 0RF No Action ferrous sulfate 325 mg (65 mg iron) tablet,delayed release (DR/EC) 325 mg PO DAILY 30 Days Qty: 30 0RF albuterol sulfate 90 mcg/actuation HFA aerosol inhaler 2 puff inhalation Q4-6H PRN (Reason: shortness of breath or wheezing) Qty: 8.5 0RF acetaminophen [Tylenol Extra Strength] 500 mg tablet 500 mg PO Q6H PRN (Reason: pain or fever) Qty: 20 0RF atorvastatin 80 mg tablet 80 mg PO DAILY Referrals: Cristine Baig MD [Primary Care Provider] - 2 days (if not better) Stand Alone Forms: Work/School Release
--- NOTE | 2022-04-06 08:40 | ECG_ITS ---
Test Reason : CHEST PAIN Blood Pressure : / mmHG Vent. Rate : 065 BPM Atrial Rate : 065 BPM P-R Int : 142 ms QRS Dur : 078 ms QT Int : 406 ms P-R-T Axes : 019 045 029 degrees QTc Int : 422 ms Poor data quality, interpretation may be adversely affected Normal sinus rhythm with sinus arrhythmia Normal ECG When compared with ECG of 19-JUN-2021 10:07, No significant change was found Referred By: Valerie Brush Electronically Signed By:LILIA RHODES
[2022-04-06 08:41] VITALS: BP 151/88; PULSE 63; RESP 20; TEMP 36.1; O2SAT 99
[2022-04-06 09:04] VITALS: BP 124/80; BP 150/110; PULSE 69; PULSE 75; RESP 17; TEMP 36.8; O2SAT 100; O2SAT 99; BMI 42.5
[2022-04-06 10:04] LABS: MANUAL DIFF FLAG NO
[2022-04-06 10:07] LABS: Basophils Percent Auto 0.5 % (0-2); Eosinophils Absolute Auto 0.1 X10*3/uL (0.0-0.4); Eosinophils Percent Auto 1.2 % (0-4); Hematocrit 34.3 % (37.0-47.0); Hemoglobin 11.6 g/dl (12.0-16.0); Imm Gran Abs Auto 0.01 X10*3/uL (0.00-0.03); Imm Gran Pct Auto 0.2 % (0.0-0.4); Lymphocytes Absolute Auto 1.6 X10*3/uL (1.2-4.9); Lymphocytes Percent Auto 38.2 % (20-40); Mean Corpuscular HGB Conc 33.8 g/dl (31.0-35.0); Mean Corpuscular Volume 82.9 fL (80.0-98.0); Mean Platelet Volume 9.1 fL (9.4-12.3); Monocytes Absolute Auto 0.5 X10*3/uL (0.1-1.2); Monocytes Percent Auto 12.2 % (2-11); Neutrophils Percent Auto 47.7 % (45-73); Platelet Count 293 X10*3/uL (160-400); Red Blood Count 4.14 X10*6/uL (4.20-5.50); Red Cell Distribution Width 12.8 % (11.0-16.0); White Blood Count 4.3 X10*3/uL (4.8-10.8)
[2022-04-06] MEDS: ondansetron HCL 4 MG/2 ML VIAL IVPUSH (10:22)
[2022-04-06] MEDS: Famotidine/PF 20 MG/2 ML VIAL IVPUSH (10:22)
[2022-04-06] MEDS: Morphine Sulfate 4 MG/ML CARTRIDGE IVPUSH (10:22)
[2022-04-06 10:26] LABS: Troponin-I High Sensitivity < 3.5 ng/L (<3.5-17.0)
[2022-04-06 10:31] LABS: Alanine Aminotransferase 16 U/L (0-31); Albumin Level 4.4 g/dL (3.5-5.0); Alkaline Phosphatase 117 U/L (39-117); Anion Gap 13 (12-20); Aspartate Amino Transferase 16 U/L (5-31); Bilirubin Direct 0.2 mg/dL (0.0-0.5); Bilirubin Total 0.6 mg/dL (0.0-1.0); Blood Urea Nitrogen 12 mg/dL (9-16); Calcium 9.1 mg/dL (8.4-10.2); Carbon Dioxide 25 mmol/L (22-29); Chloride 104 mmol/L (96-108); Creatinine Clr Calc Pharmacy 119.3; Estimated Glomerular Filt Rate > 60; Glucose Random 105 mg/dL (60-115); Lipase 18 U/L (8-78); Magnesium 2.2 mg/dL (1.6-2.6); Potassium 4.2 mmol/L (3.3-5.1); Sodium 138 mmol/L (135-145); Total Protein 7.8 g/dL (6.5-8.0)
[2022-04-06 10:34] VITALS: BP 124/80; PULSE 62; RESP 16; TEMP 36.8; O2SAT 97
--- NOTE | 2022-04-06 10:37 | PC.NURSE ---
patient A/oX4 . pearlla . lungs clear . c/o chest pain 9/0 .heart beat regular sinus rhythm on monitor at 57 . skin warm dry pink and dry and intact . abdomen soft and non distended . positive bowel sounds . palpable pulses in extremities . Iv placed . labs sent to be processed. patient aware of plan of care .
[2022-04-06 10:44] LABS: COVID-19 Test Negative (Negative); IDNOW Serial# 16C4AD1C
[2022-04-06 10:50] LABS: Prothrombin Time 10.8 SEC (9.9-13.0)
[2022-04-06 10:55] LABS: Appearance Urine CLOUDY; Glucose Urine UA NEG (NEG); Leukocyte Esterase Urine TRACE (NEG); Nitrite Urine NEG (NEG); Specific Gravity - Urine 1.015 (1.005-1.025); Urine Blood NEG (NEG); Urine Ketones NEG (NEG); Urine Protein NEG (NEG-TRACE)
[2022-04-06 10:57] LABS: Color Urine YELLOW
[2022-04-06 11:02] LABS: Amorphous Sediment Urine 2+ /LPF; Squamous Epithelial Cell Urine 3+ /LPF
[2022-04-06 11:04] LABS: Bacteria Urine TRACE /LPF; RBC Urine 0 /HPF (0); WBC Urine 0-2 /HPF (0-4)
== END 2022-04-06 11:17 | disposition home or self-care (01) ==
PROVIDERS: Emergency Provider Emergency Medicine; PCP Internal Medicine
DX: K29.00 Acute gastritis without bleeding (principal); J45.909 Unspecified asthma, uncomplicated; Z20.822 Contact with and (suspected) exposure to COVID-19
CPT/HCPCS: 36415; 71045; 74176; 80048; 80076; 81001; 83690; 83735; 84484; 85025; 85610; 87635; 93005; 96374; 96375; 99284; J2270; J2405

== ENCOUNTER 2022-04-20 14:28 | Outpatient (REF) | payer OTHER, SELFPAY ==
--- NOTE | ~2022-04-20 | US_ITS ---
EXAMINATION:US pelvic and transvaginal CLINICAL INFORMATION: Reason for Exam N93.9 - Abnormal uterine and vaginal bleeding, unspecified COMPARISON: No priors available. LMP: April 15, 2022 FINDINGS: UTERUS: The uterus is anteverted. Size: 13 x 7 cm. Uterine mass: Subendometrial echogenic mass probably subendometrial fibroid or polyp 2.4 x 1 x 2.4 cm, small intramural uterine mass 1 x 1.1 x 1 cm anterior wall probably fibroid. Cervix: Grossly unremarkable. Endometrium: Endometrial thickness is about 1.2 cm slightly hypertrophic. ADNEXA: Normal Right ovary: Not visualized might have been obscured by bowel gas. Left ovary: Cystic structure in the left ovary probably dominant follicle 1.2 x 1.1 x 0.7 cm. FREE FLUID: Trace amount of free fluid. OTHER FINDINGS: None US/US pelvic and transvaginal IMPRESSION: *Heterogeneously echogenic endometrial or subendometrial mass 2.4 cm concerning for possible subendometrial fibroid, polyp or endometrial HCG, or MRI could be utilized for further investigation if clinically indicated. *Right ovary not visualized might have been obscured by bowel gas. *Small intramural uterine fibroid 1.1 cm anterior wall.
== END 2022-04-20 14:29 | disposition home or self-care (01) ==
LOC: HO.US 14:28
PROVIDERS: Visit Provider Obstetrics & Gynecology
DX: N93.9 Abnormal uterine and vaginal bleeding, unspecified (principal); D25.1 Intramural leiomyoma of uterus
CPT/HCPCS: 76830; 76856

== ENCOUNTER 2022-05-06 13:30 | Outpatient (REF) | payer OTHER, SELFPAY | END 2022-05-06 13:31 | disposition home or self-care (01) | LOC: HO.LAB 13:30 | PROVIDERS: PCP Internal Medicine; Visit Provider Obstetrics & Gynecology | DX: R87.810 Cervical high risk human papillomavirus (HPV) DNA test positive (principal); N93.9 Abnormal uterine and vaginal bleeding, unspecified | CPT/HCPCS: 57454; 58100; 58110; 81025; 88305 ==

== ENCOUNTER 2022-05-20 11:11 | Emergency (ER) | payer OTHER, SELFPAY ==
[2022-05-20 12:00] VITALS: BP 133/83; PULSE 78; RESP 20; TEMP 36.7; O2SAT 99; BMI 42.5
[2022-05-20 12:22] LABS: Hematocrit 32.6 % (37.0-47.0); Hemoglobin 11.2 g/dl (12.0-16.0); Mean Corpuscular HGB Conc 34.4 g/dl (31.0-35.0); Mean Corpuscular Hemoglobin 28.3 pg (27.0-33.0); Mean Corpuscular Volume 82.3 fL (80.0-98.0); Mean Platelet Volume 9.3 fL (9.4-12.3); Platelet Count 278 X10*3/uL (160-400); Red Blood Count 3.96 X10*6/uL (4.20-5.50); Red Cell Distribution Width 12.5 % (11.0-16.0); White Blood Count 7.6 X10*3/uL (4.8-10.8)
[2022-05-20 12:35] LABS: Anion Gap 14 (12-20); Blood Urea Nitrogen 15 mg/dL (9-16); Calcium 8.8 mg/dL (8.4-10.2); Carbon Dioxide 26 mmol/L (22-29); Chloride 104 mmol/L (96-108); Creatinine Clr Calc Pharmacy 89.4; Estimated Glomerular Filt Rate > 60; Glucose Random 90 mg/dL (60-115); Sodium 140 mmol/L (135-145)
--- NOTE | 2022-05-20 14:17 | ED.FEMALEGU ---
HPI - Female Genitourinary General Chief complaint: Vaginal Bleeding Stated complaint: vaginal bleeding Time Seen by Provider: 05/20/22 14:05 Source: patient Mode of arrival: ambulatory Limitations: no limitations History of Present Illness HPI Narrative: Patient presents emergency department today for evaluation of vaginal bleeding. She starts her menstrual period began 2 days ago 05/18/2022. She reports heavy bleeding with the presence of clots. States she has changing pad 4-5 times daily. Denies any possibility of . She has lower abdominal cramping. She is being followed by Dr. Griggs . She states that she had a procedure done recently to ?stop the bleeding?. She does not have a follow-up until later this month. Denies fevers, chills, upper abdominal pain, nausea vomiting, dysuria, urinary frequency, chest pain, palpitations, shortness of breath. Related Data Home Medications Medication Instructions Recorded Confirmed atorvastatin 80 mg tablet 80 mg PO DAILY 03/15/22 Previous Rx's Medication Instructions Recorded albuterol sulfate 90 mcg/actuation 2 puff inhalation Q4-6H PRN 04/06/21 aerosol inhaler shortness of breath or wheezing #8.5 grams acetaminophen 500 mg tablet 500 mg PO Q6H PRN pain or fever 06/19/21 (Tylenol Extra Strength) #20 tabs famotidine 20 mg tablet (Pepcid) 20 mg PO DAILY PRN abdominal 04/06/22 discomfort #30 tabs ondansetron 4 mg disintegrating 4 mg PO Q8H PRN nausea and 04/06/22 tablet vomiting #20 tabs ferrous sulfate 325 mg (65 mg 325 mg PO DAILY #30 tabs 04/15/22 iron) tablet,delayed release medroxyprogesterone 10 mg tablet 10 mg PO DAILY 10 days #10 tabs 05/20/22 (Provera) Allergies Allergy/AdvReac Type Severity Reaction Status Date / Time No Known Allergies Allergy Verified 03/15/22 11:23 [No Known Allergies*] Review of Systems Review of Systems: Constitutional: No weight loss, fever, chills, weakness or fatigue. Skin: No rash or itching. Cardiovascular: No chest pain, chest pressure or chest discomfort. No palpitations or pedal edema. Respiratory: No shortness of breath, cough or sputum production. Gastrointestinal: No anorexia, nausea, vomiting or diarrhea. No abdominal pain or blood in stool. Genitourinary: No burning micturition. No urinary frequency. Positive vaginal bleeding Musculoskeletal: No muscle pain, back pain, joint pain or stiffness. Psychiatric: No depression or anxiety. Yes all other systems are reviewed and are negative [facility] Past Medical History Attestation statement: The following information was validated with the patient. Source: old records reviewed Medical History Anemia Asthma High cholesterol Social History Social History Alcohol intake: never Patient Tobacco Use Status: Never used Tobacco Use of substances other than those prescribed or required for medical reasons: No Advance Directives: No Advance Directives Information Provided: No Patient : No Physical Exam Vital Signs: Vital Signs: Last Vital Signs Temp 98.1 F 05/20/22 14:49 Pulse 69 05/20/22 14:49 Resp 16 05/20/22 14:26 BP 134/81 05/20/22 14:49 Pulse Ox 98 05/20/22 14:49 O2 Del Method 05/20/22 14:49 BMI result Body Mass Index 42.5 Vital signs have been reviewed as normal and appeared to be correct. Blood pressure normal.? Heart rate normal.? Respiration rate normal. Temperature normal.? Oxygen saturation normal. Appearance: Alert.?Oriented to person, place and time. No acute distress.?Normal affect. Neck: Normal inspection.? Neck supple.?? CVS: Heart sounds normal. Normal heart rate and rhythm.? Pulses normal.?? Respiratory: No respiratory distress.? Lung sounds clear to auscultation bilaterally?? Abdomen: Soft and non-tender.? Skin: Skin warm and dry.? Normal skin color.? Extremities: No lower extremity edema.? Neuro: Moves all extremities spontaneously. Sensation intact bilaterally. No motor deficits. Ambulates with normal steady gait. Course Course Course Narrative: Patient is a 39-year-old female with a past medical history of asthma, and anemia. She was last seen by Dr. Griggs 05/06/2022 or she underwent colposcopy, after HPV positive Pap smear, and endometrial biopsy pathology reports of no atypia or hyperplasia, department of benign endocervical tissue. She has not contacted Gynecology about her current concern of persistent heavy bleeding. CBC reveals a stable normocytic anemia, and unremarkable BNP. Urine is negative. Vital signs are stable. Abdominal exam benign. Discussed plan of care with patient for follow-up with Dr. Griggs, Provera 10 mg x 10 days, worrisome signs and symptoms to return back to the emergency department for, all questions were answered, she was discharged home in stable condition. With able to ambulate out of the emergency department steady gait MDM - Female Genitourinary Lab Data Result diagrams: 05/20/22 12:04 05/20/22 12:04 Labs: Lab Results 05/20/22 05/20/22 05/20/22 Range/Units 12:04 12:04 14:25 WBC 7.6 (4.8-10.8) X10*3/uL RBC 3.96 L (4.20-5.50) X10*6/uL Hgb 11.2 L (12.0-16.0) g/dl Hct 32.6 L (37.0-47.0) % MCV 82.3 (80.0-98.0) fL MCH 28.3 (27.0-33.0) pg MCHC 34.4 (31.0-35.0) g/dl RDW 12.5 (11.0-16.0) % Plt Count 278 (160-400) X10*3/uL MPV 9.3 L (9.4-12.3) fL Absolute Nucleated RBC 0.000 (0.0-0.012) X10*3/uL Nucleated RBC % (auto) 0.0 (0.0-0.2) /100WBC Sodium 140 (135-145) mmol/L Potassium 4.0 (3.3-5.1) mmol/L Chloride 104 (96-108) mmol/L Carbon Dioxide 26 (22-29) mmol/L Anion Gap 14 (12-20) BUN 15 (9-16) mg/dL Creatinine 0.96 (0.5-1.4) mg/dL Estim Creat Clear Calc 89.4 Estimated GFR > 60 Random Glucose 90 (60-115) mg/dL Calcium 8.8 (8.4-10.2) mg/dL Urine Color YELLOW Urine Appearance CLEAR Urine pH 7.0 (5.0-8.0) Ur Specific [place] 1.020 (1.005-1.025) Urine Protein TRACE (NEG-TRACE) MG/DL Urine Glucose (UA) NEG (NEG) MG/DL Urine Ketones NEG (NEG) MG/DL Urine Blood 3+ H (NEG) Urine Nitrite NEG (NEG) Ur Leukocyte Esterase NEG (NEG) Urine RBC 30-49 H (0) /HPF Urine WBC 0 (0-4) /HPF Ur Squamous Epith Cells 1+ /LPF Urine Bacteria TRACE /LPF Urine Mucus TRACE /LPF Urine Test (NEGATIVE) 05/20/22 Range/Units 14:25 WBC (4.8-10.8) X10*3/uL RBC (4.20-5.50) X10*6/uL Hgb (12.0-16.0) g/dl Hct (37.0-47.0) % MCV (80.0-98.0) fL MCH (27.0-33.0) pg MCHC (31.0-35.0) g/dl RDW (11.0-16.0) % Plt Count (160-400) X10*3/uL MPV (9.4-12.3) fL Absolute Nucleated RBC (0.0-0.012) X10*3/uL Nucleated RBC % (auto) (0.0-0.2) /100WBC Sodium (135-145) mmol/L Potassium (3.3-5.1) mmol/L Chloride (96-108) mmol/L Carbon Dioxide (22-29) mmol/L Anion Gap (12-20) BUN (9-16) mg/dL Creatinine (0.5-1.4) mg/dL Estim Creat Clear Calc Estimated GFR Random Glucose (60-115) mg/dL Calcium (8.4-10.2) mg/dL Urine Color Urine Appearance Urine pH (5.0-8.0) Ur Specific [place] (1.005-1.025) Urine Protein (NEG-TRACE) MG/DL Urine Glucose (UA) (NEG) MG/DL Urine Ketones (NEG) MG/DL Urine Blood (NEG) Urine Nitrite (NEG) Ur Leukocyte Esterase (NEG) Urine RBC (0) /HPF Urine WBC (0-4) /HPF Ur Squamous Epith Cells /LPF Urine Bacteria /LPF Urine Mucus /LPF Urine Test NEGATIVE (NEGATIVE) Discharge Plan Discharge Clinical Impression: Abnormal vaginal bleeding Patient Disposition: Home, Self-Care Instructions: Dysfunctional Uterine Bleeding (ED) Additional Instructions: As we discussed, please contact Dr. Griggs and arrange for follow-up. You have been given a prescription for Provera, take once daily for 10 days. Return to the emergency department any new or worsening symptoms or concerns. Prescriptions: New medroxyprogesterone [Provera] 10 mg tablet 10 mg PO DAILY 10 Days Qty: 10 0RF No Action ferrous sulfate 325 mg (65 mg iron) tablet,delayed release (DR/EC) 325 mg PO DAILY Qty: 30 2RF albuterol sulfate 90 mcg/actuation HFA aerosol inhaler 2 puff inhalation Q4-6H PRN (Reason: shortness of breath or wheezing) Qty: 8.5 0RF acetaminophen [Tylenol Extra Strength] 500 mg tablet 500 mg PO Q6H PRN (Reason: pain or fever) Qty: 20 0RF famotidine [Pepcid] 20 mg tablet 20 mg PO DAILY PRN (Reason: abdominal discomfort) Qty: 30 0RF ondansetron 4 mg tablet,disintegrating 4 mg PO Q8H PRN (Reason: nausea and vomiting) Qty: 20 0RF atorvastatin 80 mg tablet 80 mg PO DAILY Referrals: Naeem Griggs MD [Physician] -
[2022-05-20 14:26] VITALS: BP 143/82; PULSE 63; RESP 16; O2SAT 100
[2022-05-20 14:40] LABS: Appearance Urine CLEAR; Color Urine YELLOW; Glucose Urine UA NEG (NEG); Leukocyte Esterase Urine NEG (NEG); Nitrite Urine NEG (NEG); UACC Culture Trigger NO; Urine Blood 3+ (NEG); Urine Ketones NEG (NEG); Urine Protein TRACE MG/DL (NEG-TRACE)
[2022-05-20 14:42] LABS: UPreg QC Valid YES; Urine Pregnancy NEGATIVE (NEGATIVE)
[2022-05-20 14:49] VITALS: BP 134/81; PULSE 69; TEMP 36.7; O2SAT 98
[2022-05-20 14:52] LABS: Squamous Epithelial Cell Urine 1+ /LPF
[2022-05-20 14:53] LABS: RBC Urine 30-49 /HPF (0)
[2022-05-20 14:54] LABS: Bacteria Urine TRACE /LPF; Mucus Urine TRACE /LPF; WBC Urine 0 /HPF (0-4)
== END 2022-05-20 15:23 | disposition home or self-care (01) ==
PROVIDERS: Nurse Practitioner Family; Emergency Provider Emergency Medicine; PCP Internal Medicine
DX: N93.9 Abnormal uterine and vaginal bleeding, unspecified (principal)
CPT/HCPCS: 36415; 80048; 81001; 81025; 85027; 99283; 99284

== ENCOUNTER → 2022-05-27 12:14 | Outpatient (BNVA) | payer OTHER, SELFPAY | PROVIDERS: PCP Internal Medicine; Visit Provider Obstetrics & Gynecology | DX: R87.810 Cervical high risk human papillomavirus (HPV) DNA test positive (principal); N93.9 Abnormal uterine and vaginal bleeding, unspecified; D21.9 Benign neoplasm of connective and other soft tissue, unspecified | CPT/HCPCS: 99212 ==

== ENCOUNTER 2022-06-11 08:25 | Day surgery (SDC) | payer OTHER, SELFPAY ==
[2022-06-07 14:28] VITALS: BMI 42.3
--- NOTE | 2022-06-09 15:12 | HO.ANESPROP2 ---
HPI - Anesthesia Eval Consult details Narrative: 42yo F for D&C Hysteroscopy,Mirena insertion,poss polypectomy,poss myomectomy PMFSH Active Problems Active Problems: All Active Problems (Updated 05/27/22 @ 12:33 by Naeem Griggs MD) Myoma (Acute) Cervical high risk HPV (human papillomavirus) test positive (Acute) Abnormal uterine bleeding (Acute) Past Medical History Medical History Anemia Asthma High cholesterol Surgical History Surgical History History of hysteroscopy Hx of tubal ligation Social History Social History Alcohol intake: never Patient Tobacco Use Status: Never used Tobacco Meds Allergies Allergy/AdvReac Type Severity Reaction Status Date / Time No Known Allergies Allergy Verified 05/27/22 12:21 [No Known Allergies*] Home Medications Medication Instructions Recorded Confirmed Last Taken Type atorvastatin 80 mg tablet 80 mg PO DAILY 03/15/22 Unknown History Exam Exam Date and Time: June 09, 2022 1512 Height,Weight and Vital Signs: Height 5 ft 3 in Weight 108.204 kg Pertinent Lab Results Pertinent Lab Results: Laboratory Tests 05/20/22 05/20/22 12:04 12:04 WBC 7.6 Hgb 11.2 L Hct 32.6 L Plt Count 278 Sodium 140 Potassium 4.0 Chloride 104 Carbon Dioxide 26 BUN 15 Creatinine 0.96 Narrative Narrative: EKG 03/2022 Vent. Rate : 065 BPM ? ? Atrial Rate : 065 BPM ?? P-R Int : 142 ms? QRS Dur : 078 ms ? ? QT Int : 406 ms ? ? ? P-R-T Axes : 019 045 029 degrees ?? QTc Int : 422 ms ? Poor data quality, interpretation may be adversely affected Normal sinus rhythm with sinus arrhythmia Normal ECG When compared with ECG of 19-JUN-2021 10:07, No significant change was found Assessment and Plan Assessment Anesthesia Assessment: Chart Reviewed
[2022-06-11] VITALS (10 sets, daily range): BP systolic 128–165; BP diastolic 72–116; PULSE 51–84; RESP 16–18; TEMP 36.1–36.5; O2SAT 95–100
[2022-06-11 09:49] LABS: UPreg QC Valid YES; Urine Pregnancy NEGATIVE (NEGATIVE)
[2022-06-11] MEDS: Lactated Ringers 1,000 ML 100 ML IVCONT (09:56)
--- NOTE | 2022-06-11 10:19 | P.CONAN_ITS ---
[facility] Active Problems Active Problems: All Active Problems (Updated 05/27/22 @ 12:33 by Naeem Griggs MD) Myoma (Acute) Cervical high risk HPV (human papillomavirus) test positive (Acute) Abnormal uterine bleeding (Acute) Past Medical History Medical History Anemia Asthma High cholesterol Family History Family history of problems with anesthesia: No Surgical History Surgical History History of hysteroscopy Hx of tubal ligation History of Problems with Anesthesia: No Social History Social History Alcohol intake: never Patient Tobacco Use Status: Never used Tobacco Use of substances other than those prescribed or required for medical reasons: No Advance Directives: No Advance Directives Information Provided: Yes Meds Allergies Allergy/AdvReac Type Severity Reaction Status Date / Time No Known Allergies Allergy Verified 05/27/22 12:21 [No Known Allergies*] Active Medications: Current Medications Albuterol Sulfate (Albuterol Sulfate (0.083%) 2.5 Mg/3 Ml Vial.Neb) 2.5 mg INHALE ONCE PRN PRN Reason: Shortness of Breath/Wheezing Lactated Ringer's (Lr) 1,000 mls @ 100 mls/hr IVCONT .Q10H TERRANCE Last Admin: 06/11/22 09:56 Dose: 100 mls/hr Home Medications Medication Instructions Recorded Confirmed Last Taken Type atorvastatin 80 mg tablet 80 mg PO DAILY 03/15/22 Unknown History Exam Exam Date and Time: June 11, 2022 1019 Height,Weight and Vital Signs: Height 5 ft 3 in Weight 108.204 kg Last Vital Signs Temp 97.6 F 06/11/22 09:48 Pulse 57 06/11/22 09:48 Resp 16 06/11/22 09:48 BP 142/78 H 06/11/22 09:48 Pulse Ox 100 06/11/22 09:48 O2 Del Method 06/11/22 09:48 Pertinent Lab Results Pertinent Lab Results: Laboratory Tests 06/11/22 09:22 Urine Test NEGATIVE Airway Mallampati Class: II TM Dist: >3cm Neck ROM: Full Assessment and Plan Assessment Anesthesia Assessment: Anesthesia Plan Discussed and Chart Reviewed Final Anesthetic Review Family History of Problems with Anesthesia: No History of Problems with Anesthesia: No NPO: Yes ASA Class: III Final Preanesthetic Review: No Changes in Pt Med Stat, Meds/Allgs Chart Reviewed, Consent Obtained/Reviewed and Anes Risks/Benef Reviewed Patient Risk: Low Procedure Risk: Low Anesthetic Plan Anesthetic Plan: GA Disposition: Standard PACU
--- NOTE | 2022-06-11 10:24 | MHC.SHP ---
Pre-Procedural Eval Section A Date of Service: 06/11/22 The patient is an INPATIENT: No Changes since office visit: No Cold of Flu in the past 2 weeks, No New Medical Problems, No Changes in Medication and No Patient answered all questions The History & Physical has been completed within 30 days and I have reviewed it.: Yes Section B Chief Complaint: Abnormal uterine and vaginal bleeding, Allergies: Allergies Allergy/AdvReac Type Severity Reaction Status Date / Time No Known Allergies Allergy Verified 05/27/22 12:21 [No Known Allergies*] Plan Diagnosis/Plan: Unchanged I have reviewed the history and physical and performed a pertinent physical examination on my patient. No changes have occurred unless specified.
--- NOTE | 2022-06-11 11:15 | P.BOP_ITS ---
Brief Operative Note Date of Service: 06/11/22 Pre-op diagnosis: Abnormal uterine bleeding with a sub endometrial lesion by ultrasound Post-op diagnosis: same (Abnormal uterine bleeding, 0.5 cm right and 0.5 cm left uterine wall polyp, left submucosal fundal myoma 1 cm) Procedure: Hysteroscopy D&C with to Polypectomy and myomectomy, Mirena IUD insertion Surgeon: Naeem Griggs MD Anesthesia: GLMA Was an Buttonhole Maker Hand used for this Procedure?: No Estimated blood loss (mL): 0 Pathology: other (Endometrial Scrapping,2 endometrial Polyps, myoma) Condition: stable Disposition: PACU
--- NOTE | 2022-06-11 11:17 | P.OP_ITS ---
Operative Note Operative Note Date of Service: 06/11/22 Narrative: Preop Diagnosis: Abnormal uterine bleeding with Endometrial lesion by US Operation: Diagnostic Hysteroscopy, Dilataion & Curettage with 2 polypectomies and myomectomy Post Op Diagnosis: Endometrial Polyps and myoma QBL: Minimal Anesthesia: MAC Surgeon: Naeem Griggs MD Wet Primer Powder Blender: None Complication: None Pathology: Endometrial Scrapings, Endometrial polyp, myoma Procedure: The patient was put in the dorsal lithotomy position, scrubbed, and draped in the usual manner. A sterile speculum was inserted in the patient's vagina. The anterior lip of the cervix was grasped with a single tooth tenaculum. The cervix was dilated up to 5 mm, then the scope was inserted in the patient's uterus. Inspection revealed 1 endometrial polyp on the right uterine wall 0.5 cm in size and another endometrial polyp on the left uterine wall 0.5 cm in size and a left fundal submucosal myoma around 1 meter in size. The Myosure device was used; it was introduced through the operative channel and 2 polypectomies and submucosal myomectomy were done with no complications. This was followed by Mirena IUD insertion in the usual manner with no complications. At the end of the procedure, all instruments were taken out of the patient u terine and vaginal cavity. The single tooth tenaculum was removed and homeostasis was assured using pressure,. The patient tolerated the procedure well and was transferred to the PACU in a stable condition.
[2022-06-11] MEDS: fentaNYL citrate/PF 100 MCG/2 ML VIAL 50 MCG IVPUSH ×3 (11:40→11:59)
[2022-06-11] MEDS: oxyCODONE HCl Immed Release 5 MG TABLET PO (11:41)
== END 2022-06-11 13:10 | disposition home or self-care (01) ==
PROVIDERS: PCP Internal Medicine; Visit Provider Obstetrics & Gynecology
PROC: 0UDB8ZZ Extraction of Endometrium, Via Natural or Artificial Opening Endoscopic (ICD-10-PCS; CPT 58558; principal; 2022-06-11 10:50)
DX: N93.9 Abnormal uterine and vaginal bleeding, unspecified (principal); N84.0 Polyp of corpus uteri; D21.9 Benign neoplasm of connective and other soft tissue, unspecified; R87.810 Cervical high risk human papillomavirus (HPV) DNA test positive; D64.9 Anemia, unspecified; E78.00 Pure hypercholesterolemia, unspecified; J45.909 Unspecified asthma, uncomplicated; Z98.51 Tubal ligation status; Z79.899 Other long term (current) drug therapy
CPT/HCPCS: 58558; 58300; 81025; 88305; J1100; J2250; J2405; J3010

== ENCOUNTER 2022-06-22 13:50 | Outpatient (REF) | payer OTHER, SELFPAY ==
[2022-06-22 14:13] LABS: MANUAL DIFF FLAG NO
[2022-06-22 14:46] LABS: Basophils Percent Auto 0.5 % (0-2); Eosinophils Absolute Auto 0.1 X10*3/uL (0.0-0.4); Eosinophils Percent Auto 0.8 % (0-4); Hematocrit 33.4 % (37.0-47.0); Hemoglobin 11.2 g/dl (12.0-16.0); Imm Gran Abs Auto 0.01 X10*3/uL (0.00-0.03); Imm Gran Pct Auto 0.2 % (0.0-0.4); Lymphocytes Absolute Auto 2.4 X10*3/uL (1.2-4.9); Lymphocytes Percent Auto 39.6 % (20-40); Mean Corpuscular HGB Conc 33.5 g/dl (31.0-35.0); Mean Corpuscular Hemoglobin 27.8 pg (27.0-33.0); Mean Corpuscular Volume 82.9 fL (80.0-98.0); Mean Platelet Volume 9.4 fL (9.4-12.3); Monocytes Absolute Auto 0.6 X10*3/uL (0.1-1.2); Monocytes Percent Auto 9.9 % (2-11); Neutrophils Absolute Auto 2.9 x10*3/uL (2.0-8.3); Platelet Count 307 X10*3/uL (160-400); Red Blood Count 4.03 X10*6/uL (4.20-5.50); Red Cell Distribution Width 12.7 % (11.0-16.0); White Blood Count 5.9 X10*3/uL (4.8-10.8)
[2022-06-22 15:13] LABS: Alanine Aminotransferase 19 U/L (0-31); Albumin Level 4.6 g/dL (3.5-5.0); Alkaline Phosphatase 93 U/L (39-117); Anion Gap 13 (12-20); Aspartate Amino Transferase 16 U/L (5-31); Bilirubin Total 0.4 mg/dL (0.0-1.0); Blood Urea Nitrogen 12 mg/dL (9-16); Calcium 9.6 mg/dL (8.4-10.2); Carbon Dioxide 26 mmol/L (22-29); Chloride 105 mmol/L (96-108); Estimated Glomerular Filt Rate > 60; Glucose Random 76 mg/dL (60-115); Sodium 140 mmol/L (135-145); Total Protein 7.8 g/dL (6.5-8.0)
== END 2022-06-22 13:51 | disposition home or self-care (01) ==
LOC: HO.LAB 13:50
PROVIDERS: PCP Internal Medicine; Visit Provider Internal Medicine
DX: R07.89 Other chest pain (principal); E78.00 Pure hypercholesterolemia, unspecified; N92.4 Excessive bleeding in the premenopausal period
CPT/HCPCS: 36415; 80053; 85025

== ENCOUNTER → 2022-06-28 13:28 | Outpatient (BNVA) | payer OTHER, SELFPAY | PROVIDERS: PCP Internal Medicine; Visit Provider Obstetrics & Gynecology | DX: N93.9 Abnormal uterine and vaginal bleeding, unspecified (principal); R87.810 Cervical high risk human papillomavirus (HPV) DNA test positive | CPT/HCPCS: 99212 ==

== ENCOUNTER → 2022-07-06 13:25 | Outpatient (BNVA) | payer OTHER, SELFPAY | PROVIDERS: PCP Internal Medicine; Visit Provider Obstetrics & Gynecology | DX: Z30.433 Encounter for removal and reinsertion of intrauterine contraceptive device (principal); Z32.02 Encounter for pregnancy test, result negative | CPT/HCPCS: 58300; 58301; 81025; J7298 ==

== ENCOUNTER 2022-07-25 13:28 | Emergency (ER) | payer OTHER, SELFPAY ==
--- NOTE | ~2022-07-25 | XR_ITS ---
EXAMINATION: XR CHEST CLINICAL INFORMATION: Cough. Headache. COMPARISON: 04/06/2022 TECHNIQUE: Frontal view of the chest was obtained. FINDINGS: No significant abnormality is noted involving the heart, lungs, mediastinum, bony thorax or soft tissues. XR/XR chest 1V IMPRESSION: Unremarkable examination.
[2022-07-25 13:38] VITALS: BP 126/78; PULSE 87; RESP 18; TEMP 36.6; O2SAT 98; BMI 38.0
[2022-07-25 16:06] VITALS: BP 119/62; PULSE 74; RESP 16; TEMP 36.9; O2SAT 99
--- OUTSIDE RECORDS SUMMARY | 2022-07-25 16:07 | XMS_ITS | Continuity of Care Document ---
:1980 Author Organization [address], [address] [place] [address]- Care Team Providers Name Role Phone Rebecca GUARDADO, Jame Ybarra Primary Care Physician Encounter [facility] Date(s): 06/26/20 - 07/03/[address], [address] [place] [address]- [facility] Attending Physician: Emmanuel Larios MD Referring Physician: Lola Rachel DDS Vital Signs Most recent to oldest [Reference Range]: 1 Height 160 cm (06/26/20 1:57 PM) Weight 107 kg (06/26/20 1:57 PM) Body Mass Index [18.5-24.99] 41.8 *>HHI* (06/26/20 1:57 PM)
--- OUTSIDE RECORDS SUMMARY | 2022-07-25 16:07 | XMS_ITS | Continuity of Care Document ---
:1980 Author Organization [address], [address] [place] [address]- Care Team Providers Name Role Phone Rebecca GUARDADO, Jame Ybarra Primary Care Physician Encounter [facility] [place] [id number] Date(s): 08/21/20 - 09/20/[address], [address] [place], [place] [address] Attending Physician: Admtr, Jose [id number] Admitting Physician: Admtr, Ar8 Referring Physician: Admtr, Ar8 Allergies, Adverse Reactions, Alerts Substance Reaction Severity Status NKA Active Medications atorvastatin 40 mg oral tablet 1 tablet = 40 mg, By Mouth, Daily, # 30 tablet, 0 Refills, Maintenance, 08/21/20 15:16:00 EST, Tablet, Partial fill upon patient request Start Date: 08/21/20 Status: OrderedEC Naprosyn 500 mg oral enteric coated tablet 1 tablet = 500 mg, By Mouth, 2 times a day, # 60 tablet, 0 Refills, Maintenance, 08/21/20 15:16:00 EST, EC Tablet, Partial fill upon patient request Start Date: 08/21/20 Status: OrderedVitamin D3 1000 intl units oral tablet, chewable 1 tablet = 1,000 International_Units, Chew, Daily, # 50 tablet, 0 Refills, Maintenance, 08/21/20 15:16:00 EST, Chew Tablet, Partial fill upon patient request Start Date: 08/21/20 Status: Ordered
--- OUTSIDE RECORDS SUMMARY | 2022-07-25 16:07 | XMS_ITS | Continuity of Care Document ---
:1980 Author Organization [address], [address] [place] [address]- Care Team Providers Name Role Phone Jame Fernandez NP Primary Care Physician Encounter [facility] Date(s): 05/27/20 - 06/26/[address], [address] [place] [address]- [facility]
--- OUTSIDE RECORDS SUMMARY | 2022-07-25 16:07 | XMS_ITS | Continuity of Care Document ---
:1980 Author Organization [address], [address] [place] [address]- Care Team Providers Name Role Phone Jame Fernandez NP Primary Care Physician Encounter [facility] Date(s): 06/11/20 - 07/11/[address], [address] [place] [address]- [facility]
--- NOTE | 2022-07-25 16:22 | ED.GENADULT ---
HPI - General Adult General Chief complaint: General Medical Stated complaint: headache, sore throat, ear pain Time Seen by Provider: 07/25/22 15:54 Source: patient Mode of arrival: ambulatory Limitations: no limitations History of Present Illness HPI narrative: 42-year-old female history of hypertension presents to the emergency department with complaints of headache, sore throat, ear pain x few hours. Patient patient describes her headache as and atraumatic frontal headache feels like it as a pressure feels like her typical headache. Patient states she began feeling the symptoms this morning. Patient states that her also has the cough. Patient rates her current pain level 6/10. Patient took Tylenol this morning which did help her symptoms. Patient denies history of PE/DVT. Patient denies being on blood thinners. Patient denies chest pain, shortness of breath, , dizziness via, weakness, vision changes, fever, chills. Patient is speaking in full sentences with normal secretions a with no changes in voice throughout history taking Related Data Home Medications Medication Instructions Recorded Confirmed atorvastatin 80 mg tablet 80 mg PO DAILY 03/15/22 lisinopril 5 mg tablet 5 mg PO DAILY 06/28/22 Previous Rx's Medication Instructions Recorded albuterol sulfate 90 mcg/actuation 2 puff inhalation Q4-6H PRN 04/06/21 aerosol inhaler shortness of breath or wheezing #8.5 grams acetaminophen 500 mg tablet 500 mg PO Q6H PRN pain or fever 06/19/21 (Tylenol Extra Strength) #20 tabs famotidine 20 mg tablet (Pepcid) 20 mg PO DAILY PRN abdominal 04/06/22 discomfort #30 tabs ondansetron 4 mg disintegrating 4 mg PO Q8H PRN nausea and 04/06/22 tablet vomiting #20 tabs ferrous sulfate 325 mg (65 mg 325 mg PO DAILY #30 tabs 04/15/22 iron) tablet,delayed release medroxyprogesterone 10 mg tablet 10 mg PO DAILY 30 days #30 tabs 05/27/22 (Provera) Allergies Allergy/AdvReac Type Severity Reaction Status Date / Time No Known Allergies Allergy Verified 06/28/22 13:37 [No Known Allergies*] Review of Systems Review of Systems: Constitutional : No Weight loss, No Fever, No Chills, No Fatigue, No Malaise ENT/Mouth : + sore throat, No Rhinorrhea, + ear pain Eyes: No Eye Pain, No Swelling, No Redness Cardiovascular : No Chest Pain, No SOB, No Dyspnea on Exertion, No Orthopnea, No Edema, No Palpitations Respiratory : + Cough, No Sputum, No Wheezing Gastrointestinal : No Nausea, No Vomiting, No Diarrhea, No Constipation, No abdominal Pain, No Hematochezia, No Melena Genitourinary : No Dysuria, No Urinary Frequency, No Hematuria, Musculoskeletal : No joint pain, No Myalgias, No Joint Swelling Skin : No Skin Lesions, No rash Neuro : No Weakness, No Numbness, No Dizziness, + Headache Psych : No Anxiety/Panic, No Depression All other systems reviewed and are negative Yes all other systems are reviewed and are negative [facility] Past Medical History Attestation statement: The following information was validated with the patient. Source: old records reviewed and nursing notes reviewed Medical History Anemia Asthma High cholesterol Surgical History History of hysteroscopy Hx of tubal ligation Social History Social History Alcohol intake: never Patient Tobacco Use Status: Never used Tobacco Advance Directives: No Advance Directives Information Provided: No Physical Exam ED Vital Signs: Vital Signs - 24 hr 07/25/22 13:38 07/25/22 16:06 Temperature 98 F 98.4 F Pulse Rate 87 74 Respiratory Rate 18 16 Blood Pressure 126/78 119/62 Pulse Oximetry 98 99 Oxygen Delivery Method Room Air Room Air BMI result Body Mass Index 38.0 vss Appearance: Alert.? Oriented X3.? No acute distress.? Head: Normocephalic, atraumatic, no step-offs or deformities Eyes: Pupils equal, round and reactive to light.? ENT: Pharynx normal.??Exter No . Uvula midline. Patient speaking in full sentences and controlling secretions well. abscessnal ears normal, TMs normal bilaterally and EAC's normal. No pain with manipulation of external ears bilaterally. No mastoid tenderness. LAD post auricular b/l. Neck: Normal inspection.? Neck supple.? No meningeal sign CVS: Normal heart rate and rhythm.? Pulses normal.? Respiratory: No respiratory distress.? Breath sounds normal.? Abdomen: Soft and nontender.? Skin: Skin warm and dry.? Normal skin color.? Normal skin turgor.? Extremities: No lower extremity edema.? No calf ttp. 5/5 strength to bilateral upper and lower extremities Neuro: Oriented X 3.? No motor deficit.? No sensory deficit. CN 2-12 intact . Normal [id number], [id number], steady tandem gait. Course Reevaluation(s) Reevaluation #1: CBC appears to be around baseline, chemistry with no acute findings requiring intervention, chest x-ray unremarkable. Pending flu/COVID/RSV. Time: 16:49 Reevaluation #2: Patient noted to be COVID positive. Likely explaining patient's symptoms. Advised her to follow-up with her PCP, I told her to think about initiating paxlovid and if interested she can reach out to her PCP for initiation or go to the pharmacy. Advised to return with new or worsening symptoms. Comfortable discharge home. Cdc guidelines attached to patient's discharge. Time: 17:09 Medical Decision Making [facility] Narrative Medical decision making narrative: 1610 42 year old female presents with upper respiratory symptoms since this morning. Reports sick contacts at home. Physical examination benign. History and physical examination likely viral infection, will rule out flu/COVID/RSV. No signs of epiglottitis, peritonsillar abscess, intracranial hemorrhage, posterior stroke, stroke, meningitis, encephalitis. Unlikely that this is pneumonia, history and physical examination not consistent with PE. Patient without chest pain unlikely that this is ACS. Plan- basic labs, cxr, flu/covid/rsv Medical Records Medical records reviewed: Yes I reviewed the patient's medical records. Lab Data Lab results reviewed: Yes I reviewed the patient's lab results. Result diagrams: 07/25/22 16:20 07/25/22 16:20 Labs: Lab Results 07/25/22 07/25/22 07/25/22 Range/Units 16:18 16:20 16:20 WBC 4.9 (4.8-10.8) X10*3/uL RBC 4.07 L (4.20-5.50) X10*6/uL Hgb 11.4 L (12.0-16.0) g/dl Hct 33.8 L (37.0-47.0) % MCV 83.0 (80.0-98.0) fL MCH 28.0 (27.0-33.0) pg MCHC 33.7 (31.0-35.0) g/dl RDW 12.4 (11.0-16.0) % Plt Count 292 (160-400) X10*3/uL MPV 9.0 L (9.4-12.3) fL Immature Gran % (Auto) 0.0 (0.0-0.4) % Neut % (Auto) 40.1 L (45-73) % Lymph % (Auto) 42.1 H (20-40) % [place] % (Auto) 16.6 H (2-11) % Eos % (Auto) 0.6 (0-4) % Baso % (Auto) 0.6 (0-2) % Lymph # (Auto) 2.1 (1.2-4.9) X10*3/uL [place] # (Auto) 0.8 (0.1-1.2) X10*3/uL Eos # (Auto) 0.0 (0.0-0.4) X10*3/uL Baso # (Auto) 0.0 (0.0-0.2) X10*3/uL Abs Immat Gran (auto) 0.00 (0.00-0.03) X10*3/uL Absolute Neuts (auto) 2.0 (2.0-8.3) x10*3/uL Absolute Nucleated RBC 0.000 (0.0-0.012) X10*3/uL Nucleated RBC % (auto) 0.0 (0.0-0.2) /100WBC Sodium 139 (135-145) mmol/L Potassium 4.1 (3.3-5.1) mmol/L Chloride 103 (96-108) mmol/L Carbon Dioxide 25 (22-29) mmol/L Anion Gap 15 (12-20) BUN 17 H (9-16) mg/dL Creatinine 1.12 (0.5-1.4) mg/dL Estim Creat Clear Calc 85.5 Estimated GFR 53 Random Glucose 94 (60-115) mg/dL Calcium 9.3 (8.4-10.2) mg/dL Total Bilirubin 0.2 (0.0-1.0) mg/dL AST 16 (5-31) U/L ALT 13 (0-31) U/L Alkaline Phosphatase 101 (39-117) U/L Total Protein 7.6 (6.5-8.0) g/dL Albumin 4.4 (3.5-5.0) g/dL Influenza Type A (PCR) NEGATIVE (Negative) Influenza Type B (PCR) NEGATIVE (Negative) RSV RNA Qual (PCR) NEGATIVE (Negative) SARS-CoV-2 RNA (RT-PCR) POSITIVE A (Negative) Critical Care Time Critical Care Time Critical Care Time: No Discharge Plan Discharge Clinical Impression: Upper respiratory infection, viral, Headache, COVID-19 Patient Disposition: Home, Self-Care Instructions: Acute Headache (ED), Viral Syndrome (ED), Wheezing (ED) Additional Instructions: Take your medications as prescribed. If you were prescribed antibiotics today, it is important that you take your medication to their entirety, do not skip any doses, do not finish them early. Today you tested positive for COVID-19. Take Ibuprofen or Tylenol as needed for fevers or body aches. Quarantine for 5 days and ensure you wear a mask. After 5 days you should wear a mask for 5 days after that. Practice social distancing and good hand hygiene. Drink plenty of fluids. Follow-up with your primary care provider this week. Return to the emergency department with new or worsening symptoms. In case of emergency call 911 You can purchase a pulse oximeter from your local pharmacy or grocery store, and monitor your oxygen saturation if it goes below 94% you should return to the emergency department for further evaluation. Prescriptions: No Action ferrous sulfate 325 mg (65 mg iron) tablet,delayed release (DR/EC) 325 mg PO DAILY Qty: 30 2RF albuterol sulfate 90 mcg/actuation HFA aerosol inhaler 2 puff inhalation Q4-6H PRN (Reason: shortness of breath or wheezing) Qty: 8.5 0RF acetaminophen [Tylenol Extra Strength] 500 mg tablet 500 mg PO Q6H PRN (Reason: pain or fever) Qty: 20 0RF famotidine [Pepcid] 20 mg tablet 20 mg PO DAILY PRN (Reason: abdominal discomfort) Qty: 30 0RF ondansetron 4 mg tablet,disintegrating 4 mg PO Q8H PRN (Reason: nausea and vomiting) Qty: 20 0RF atorvastatin 80 mg tablet 80 mg PO DAILY lisinopril 5 mg tablet 5 mg PO DAILY medroxyprogesterone [Provera] 10 mg tablet 10 mg PO DAILY 30 Days Qty: 30 0RF Mirena 20 mcg/24 hours (7 yrs) 52 mg intrauterine device 1 device intrauterine ONCE Qty: 1 0RF Mirena 20 mcg/24 hours (7 yrs) 52 mg intrauterine device 1 device intrauterine ONCE Qty: 1 0RF Referrals: Cristine Baig MD [Primary Care Provider] - 2 days Stand Alone Forms: Work/School Release
[2022-07-25 16:25] LABS: MANUAL DIFF FLAG NO
[2022-07-25 16:27] LABS: Basophils Percent Auto 0.6 % (0-2); Eosinophils Percent Auto 0.6 % (0-4); Hematocrit 33.8 % (37.0-47.0); Hemoglobin 11.4 g/dl (12.0-16.0); Lymphocytes Absolute Auto 2.1 X10*3/uL (1.2-4.9); Lymphocytes Percent Auto 42.1 % (20-40); Mean Corpuscular HGB Conc 33.7 g/dl (31.0-35.0); Monocytes Absolute Auto 0.8 X10*3/uL (0.1-1.2); Monocytes Percent Auto 16.6 % (2-11); Neutrophils Percent Auto 40.1 % (45-73); Platelet Count 292 X10*3/uL (160-400); Red Blood Count 4.07 X10*6/uL (4.20-5.50); Red Cell Distribution Width 12.4 % (11.0-16.0); White Blood Count 4.9 X10*3/uL (4.8-10.8)
[2022-07-25 16:44] LABS: Alanine Aminotransferase 13 U/L (0-31); Albumin Level 4.4 g/dL (3.5-5.0); Alkaline Phosphatase 101 U/L (39-117); Anion Gap 15 (12-20); Aspartate Amino Transferase 16 U/L (5-31); Bilirubin Total 0.2 mg/dL (0.0-1.0); Blood Urea Nitrogen 17 mg/dL (9-16); Calcium 9.3 mg/dL (8.4-10.2); Carbon Dioxide 25 mmol/L (22-29); Chloride 103 mmol/L (96-108); Creatinine Clr Calc Pharmacy 85.5; Estimated Glomerular Filt Rate 53; Glucose Random 94 mg/dL (60-115); Potassium 4.1 mmol/L (3.3-5.1); Sodium 139 mmol/L (135-145); Total Protein 7.6 g/dL (6.5-8.0)
[2022-07-25 17:04] LABS: Influenza A PCR NEGATIVE (Negative); Influenza B PCR NEGATIVE (Negative); Resp Syncy Virus RNA Qual PCR NEGATIVE (Negative); SARS COV2 PCR INHOUSE POSITIVE (Negative)
[2022-07-25] MEDS: diphenhydrAMINE HCL 25 MG TABLET PO (17:19)
[2022-07-25] MEDS: Metoclopramide HCl 10 MG TABLET PO (17:19)
[2022-07-25] MEDS: Ketorolac Tromethamine 15 MG/ML VIAL 30 MG IM (17:20)
--- NOTE | 2022-07-25 17:26 | PC.NURSE ---
patient a/o x4 . medicated patient as ordered by provider went over discharge instructions a ordered by provider . patient to return to if symptoms worsen . patient has no question at this time .
== END 2022-07-25 17:30 | disposition home or self-care (01) ==
PROVIDERS: Physician Assistant; Emergency Provider Internal Medicine; PCP Internal Medicine
DX: U07.1 COVID-19 (principal); J06.9 Acute upper respiratory infection, unspecified; J02.9 Acute pharyngitis, unspecified; R51.9 Headache, unspecified; Z79.899 Other long term (current) drug therapy
CPT/HCPCS: 0241U; 71045; 80053; 85025; 96372; 99284; J1885; Q0163

== ENCOUNTER → 2022-08-05 11:10 | Outpatient (BNVA) | payer OTHER, SELFPAY | PROVIDERS: PCP Internal Medicine; Visit Provider Obstetrics & Gynecology | DX: Z30.431 Encounter for routine checking of intrauterine contraceptive device (principal); N93.9 Abnormal uterine and vaginal bleeding, unspecified; D64.9 Anemia, unspecified; Z32.02 Encounter for pregnancy test, result negative | CPT/HCPCS: 81025; 99212 ==

== ENCOUNTER 2022-09-15 05:00 | Emergency (ER) | payer OTHER, SELFPAY ==
--- NOTE | 2022-09-15 | ECG_ITS ---
Test Reason : CHEST PAIN Blood Pressure : / mmHG Vent. Rate : 088 BPM Atrial Rate : 088 BPM P-R Int : 152 ms QRS Dur : 072 ms QT Int : 356 ms P-R-T Axes : 044 027 021 degrees QTc Int : 430 ms Normal sinus rhythm Normal ECG When compared with ECG of 06-APR-2022 08:26, No significant change was found Referred By: Generic ED Physician Electronically Signed By:GEOVANNA ERNST MD
--- NOTE | ~2022-09-15 | XR_ITS ---
EXAMINATION: XR CHEST CLINICAL INFORMATION: Shortness of breath COMPARISON: Chest radiograph 07/25/2022 TECHNIQUE: Frontal view of the chest was obtained. FINDINGS: Normal appearance of the cardiomediastinal structures. No effusions or pneumothoraces. No focal pulmonary consolidation. Normal pattern of pulmonary vasculature. XR/XR chest 1V IMPRESSION: No acute cardiopulmonary abnormalities.
[2022-09-15 05:02] VITALS: BP 149/98; PULSE 92; RESP 19; TEMP 37.1; O2SAT 98; BMI 40.7
[2022-09-15 05:35] LABS: MANUAL DIFF FLAG NO
[2022-09-15 05:36] LABS: Basophils Percent Auto 0.5 % (0-2); Eosinophils Absolute Auto 0.2 X10*3/uL (0.0-0.4); Eosinophils Percent Auto 2.6 % (0-4); Hematocrit 35.5 % (37.0-47.0); Hemoglobin 12.3 g/dl (12.0-16.0); Imm Gran Abs Auto 0.01 X10*3/uL (0.00-0.03); Imm Gran Pct Auto 0.2 % (0.0-0.4); Lymphocytes Absolute Auto 2.1 X10*3/uL (1.2-4.9); Lymphocytes Percent Auto 37.4 % (20-40); Mean Corpuscular HGB Conc 34.6 g/dl (31.0-35.0); Mean Corpuscular Hemoglobin 28.9 pg (27.0-33.0); Mean Corpuscular Volume 83.5 fL (80.0-98.0); Mean Platelet Volume 9.3 fL (9.4-12.3); Monocytes Absolute Auto 0.7 X10*3/uL (0.1-1.2); Neutrophils Absolute Auto 2.7 x10*3/uL (2.0-8.3); Neutrophils Percent Auto 47.3 % (45-73); Platelet Count 253 X10*3/uL (160-400); Red Blood Count 4.25 X10*6/uL (4.20-5.50); Red Cell Distribution Width 13.5 % (11.0-16.0); White Blood Count 5.7 X10*3/uL (4.8-10.8)
[2022-09-15 05:53] LABS: Anion Gap 13 (12-20); Blood Urea Nitrogen 18 mg/dL (9-16); Calcium 9.2 mg/dL (8.4-10.2); Carbon Dioxide 26 mmol/L (22-29); Chloride 104 mmol/L (96-108); Creatinine Clr Calc Pharmacy 104.7; Estimated Glomerular Filt Rate > 60; Glucose Fasting 105 mg/dL (60-99); Potassium 3.8 mmol/L (3.3-5.1); Sodium 139 mmol/L (135-145)
[2022-09-15 06:02] LABS: Troponin-I High Sensitivity < 3.5 ng/L (<3.5-17.0)
[2022-09-15 06:11] LABS: Influenza A PCR NEGATIVE (Negative); Influenza B PCR NEGATIVE (Negative); Resp Syncy Virus RNA Qual PCR POSITIVE (Negative); SARS COV2 PCR INHOUSE NEGATIVE (Negative)
[2022-09-15 08:09] VITALS: BP 115/71; PULSE 90; RESP 16; TEMP 37.1; O2SAT 100
--- NOTE | 2022-09-15 08:30 | ED_ITS ---
HPI - General Adult General Chief complaint: General Medical Stated complaint: Upper respiratory Time Seen by Provider: 09/15/22 08:21 Source: patient Mode of arrival: ambulatory Limitations: no limitations History of Present Illness HPI narrative: Patient is a 42 year old assigned female at with no reported medical history presenting to the emergency department today with a cough and a headache . Patient states that since 09/12/2022 she has had a cough and a headache. Patient denies any dizziness, lightheadedness, abdominal pain, nausea, vomiting, fever, chills, blurry vision, double vision, loss of vision, chest pain, difficulty breathing, shortness of breath, back pain, night sweats, pain with urination, increased urinary frequency, increased urinary urgency, blood in her urine or stool, syncope or a near syncopal episode, recent trauma or falls, bowel incontinence, bladder incontinence, bowel retention, bladder retention, or any other complaints at this time. Onset (ago): day(s) (3) Severity: mild Severity scale (1-10): 3 Relieving factors: none Exacerbating factors: none Associated symptoms: cough Treatments prior to arrival: none Related Data Home Medications Medication Instructions Recorded Confirmed atorvastatin 80 mg tablet 80 mg PO DAILY 03/15/22 lisinopril 5 mg tablet 5 mg PO DAILY 06/28/22 levonorgestrel 20 mcg/24 hours (8 intrauterine 08/05/22 yrs) 52 mg intrauterine device (Mirena) Previous Rx's Medication Instructions Recorded albuterol sulfate 90 mcg/actuation 2 puff inhalation Q4-6H PRN 04/06/21 aerosol inhaler shortness of breath or wheezing #8.5 grams acetaminophen 500 mg tablet 500 mg PO Q6H PRN pain or fever 06/19/21 (Tylenol Extra Strength) #20 tabs famotidine 20 mg tablet (Pepcid) 20 mg PO DAILY PRN abdominal 04/06/22 discomfort #30 tabs ondansetron 4 mg disintegrating 4 mg PO Q8H PRN nausea and 04/06/22 tablet vomiting #20 tabs ferrous sulfate 325 mg (65 mg 325 mg PO DAILY #30 tabs 04/15/22 iron) tablet,delayed release Allergies Allergy/AdvReac Type Severity Reaction Status Date / Time No Known Allergies Allergy Verified 09/15/22 05:06 [No Known Allergies*] Review of Systems Constitutional: Constitutional: Reports no additional constitutional complaints, Denies chills, Denies fever(s), Reports headache(s) and Denies night sweats Eyes: Eyes: Reports no additional eye complaints, Denies blurry vision, Denies change in vision, Denies diplopia, Denies eye discharge, Denies loss of vision and Denies eye pain ENT: Denies dizziness and Reports headache(s) Cardiovascular: Cardiovascular: Reports no additional cardiovascular complaints, Denies chest pain, Denies lightheadedness, Denies Loss of Consciousness and Denies dyspnea Respiratory: Respiratory: Reports no additional respiratory complaints, Reports cough and Denies dyspnea Gastrointestinal: Gastrointestinal: Reports no additional gastrointestinal complaints, Denies abdominal pain, Denies melena, Denies hematochezia, Denies change in bowel habits and Denies change in stool character Genitourinary: Genitourinary: Denies hematuria, Denies urinary frequency, Denies dysuria, Denies urinary incontinence, Denies urinary hesitancy and Denies urinary urgency Musculoskeletal: Musculoskeletal: Reports no additional musculoskeletal complaints, Denies numbness and Denies tingling Neurologic: Denies dizziness, Reports headache(s), Denies loss of vision, Denies numbness and Denies tingling Psychiatric: Psychiatric: Reports no additional psychiatric complaints Endocrine: Endocrine: Reports no additional endocrine complaints Hematologic/Lymphatic: Hematologic/Lymphatic: Reports no additional hematologic/lymphatic complaints Allergic/Immunologic: Allergic/Immunologic: Reports no additional allergic/immunologic complaints [facility] Past Medical History Attestation statement: The following information was validated with the patient. Source: old records reviewed Medical History Anemia Asthma High cholesterol Surgical History History of hysteroscopy Hx of tubal ligation Social History Social History Alcohol intake: never Patient Tobacco Use Status: Never used Tobacco Advance Directives: No Advance Directives Information Provided: Yes Physical Exam ED Vital Signs: Vital Signs - 24 hr 09/15/22 05:02 09/15/22 08:09 Temperature 98.7 F 98.8 F Pulse Rate 92 90 Respiratory Rate 19 16 Blood Pressure 149/98 H 115/71 Pulse Oximetry 98 100 Oxygen Delivery Method Room Air Room Air BMI result Body Mass Index 40.7 Const General: cooperative, no acute distress, alert and awake Nutritional Appearance: well nourished Orientation/consciousness: patient oriented x3 Limitations: no limitations HENMT Head: Yes normal to inspection and Yes atraumatic Ears: hearing grossly normal bilaterally and external ears normal General nose exam: Normal external nose present, no nasal discharge noted and no epistaxis Face and sinus: Yes normal facial exam, No abrasion and No laceration Mouth: Normal oral and palatal mucosa present, no drooling and no muffled voice Eyes General: appearance normal, both eyes and all related structures Periorbital: periorbital findings normal Eyelids: Yes eyelids normal Conjunctivae: conjunctivae normal Pupils: Equal, round and reactive pupils present EOM: EOMs intact bilaterally Neck Neck: Yes normal visual inspection, Yes full ROM and Yes no lymphadenopathy Chest Chest palpation & inspection: normal inspection of the chest Resp Effort & Inspection: normal respiratory effort and able to speak in complete sentences Auscultation: clear to auscultation bilaterally Cardio Rate: regular rate Rhythm: regular rhythm GI Inspection: Yes normal to inspection Neuro General: patient oriented x3 and moves all extremities Cranial nerves: Yes Equal, round and reactive pupils present Cognition (Neuro): normal cognition Motor exam (neuro): 5/5 motor strength present throughout Sensory Exam: Normal double simultaneous stimulation for sensation Coordination: [id number] test normal Extrem General: Yes normal to inspection, Yes full ROM and Yes capillary refill normal Psych Appearance: grossly normal Mental Status: mental status grossly normal Affect: normal affect Attitude: cooperative Thought process: Normal thought process present Thought content: Normal thought content present Insight: Good insight present (Psych) Medical Decision Making Medical Decision Making MDM Narrative: Patient is a 42 year old assigned female at with no medical history presenting to the emergency department today with a headache and feeling generally unwell. Patient's physical exam was unremarkable. Patient's blood work was unremarkable. Patient's chest x-ray showed no acute process. Patient's RSV swab was positive. I explained my physical exam findings as well as all test results to the patient. I answered all questions asked by the patient. I stressed the importance of the patient taking her medication as prescribed. I stressed the importance of the patient following up with her primary care provider. I stressed the importance of the patient returning to the emergency department immediately if her symptoms were to worsen or if she were to develop any dizziness, shortness of breath, difficulty breathing, chest pain, blurry vision, loss of vision, nausea, vomiting, abdominal pain, fever, chills, back pain, or any other complaints. Patient verbalized agreement and understanding with this treatment plan and discharge.. Differential Diagnoses: Differential diagnosis Differential Diagnosis: The differential diagnosis associated with the patient?s presentation includes: viral illness, RSV, Influenza, COVID-19 Lab Attestation: I reviewed the patient's lab results. Independent interpretation of EKG, rhythm strip, radiology study: Independent interp EKG,rhythm strip, radiology study (I did not perform this interpretation however, the radiologist did and this is their interpretation per their report. ) I performed an independent interpretation of the: Plain X-Ray (chest) EXAMINATION: XR CHEST CLINICAL INFORMATION: Shortness of breath COMPARISON: Chest radiograph 07/25/2022 TECHNIQUE: Frontal view of the chest was obtained. FINDINGS: Normal appearance of the cardiomediastinal structures. No effusions or pneumothoraces. No focal pulmonary consolidation. Normal pattern of pulmonary vasculature. XR/XR chest 1V IMPRESSION: No acute cardiopulmonary abnormalities. Dictated By: Popeye Burgos MD Signed By: Electronically signed by Popeye Burgos MD 09/15/22 0557 Discharge Plan Discharge Clinical Impression: Respiratory syncytial virus (RSV) Patient Disposition: Home, Self-Care Instructions: Respiratory Syncytial Virus (ED) Additional Instructions: Follow up with your primary care provider. Return to the emergency department immediately if your symptoms worsen or if you develop any dizziness, shortness of breath, difficulty breathing, chest pain, blurry vision, loss of vision, nausea, vomiting, abdominal pain, fever, chills, back pain, or any other complaints. Prescriptions: No Action ferrous sulfate 325 mg (65 mg iron) tablet,delayed release (DR/EC) 325 mg PO DAILY Qty: 30 2RF albuterol sulfate 90 mcg/actuation HFA aerosol inhaler 2 puff inhalation Q4-6H PRN (Reason: shortness of breath or wheezing) Qty: 8.5 0RF acetaminophen [Tylenol Extra Strength] 500 mg tablet 500 mg PO Q6H PRN (Reason: pain or fever) Qty: 20 0RF famotidine [Pepcid] 20 mg tablet 20 mg PO DAILY PRN (Reason: abdominal discomfort) Qty: 30 0RF ondansetron 4 mg tablet,disintegrating 4 mg PO Q8H PRN (Reason: nausea and vomiting) Qty: 20 0RF atorvastatin 80 mg tablet 80 mg PO DAILY lisinopril 5 mg tablet 5 mg PO DAILY Mirena 20 mcg/24 hours (8 yrs) 52 mg intrauterine device intrauterine Mirena 20 mcg/24 hours (7 yrs) 52 mg intrauterine device 1 device intrauterine ONCE Qty: 1 0RF Mirena 20 mcg/24 hours (7 yrs) 52 mg intrauterine device 1 device intrauterine ONCE Qty: 1 0RF Referrals: Cristine Baig MD [Primary Care Provider] - Stand Alone Forms: Work/School Release Interventions: ED Discharge Assessment Last Done: 09/15/22 08:57 Discharge Date/Time: 09/15/22 08:58 Print Language: Indian
== END 2022-09-15 08:58 | disposition home or self-care (01) ==
PROVIDERS: Emergency Provider Emergency Medicine Emergency Medical Services; PCP Internal Medicine
DX: J06.9 Acute upper respiratory infection, unspecified (principal); B97.4 Respiratory syncytial virus as the cause of diseases classified elsewhere; R07.89 Other chest pain; R05.9 Cough, unspecified; R51.9 Headache, unspecified; Z20.822 Contact with and (suspected) exposure to COVID-19; Z79.899 Other long term (current) drug therapy
CPT/HCPCS: 0241U; 36415; 71045; 80048; 84484; 85025; 93005; 99283; 99284

== ENCOUNTER 2022-11-04 15:29 | Outpatient (REF) | payer OTHER, SELFPAY ==
--- NOTE | ~2022-11-04 | MM_ITS ---
EXAMINATION: MM SCREENING DIGITAL BREAST TOMOSYNTHESIS, BILATERAL CLINICAL INFORMATION: Screening. Asymptomatic. The lifetime risk of breast cancer based on the Tyrer-Cuzick Model is 9%. COMPARISON: Mammography: 11/02/2021, 10/24/2020, 06/25/2019 (baseline) TECHNIQUE: Digital breast tomosynthesis is performed in both the craniocaudal and mediolateral oblique views along with computer-aided detection (CAD). Synthesized 2D images are generated from the tomosynthesis. Additional views are provided: Left CC x2, left MLO, right CC. FINDINGS: There are scattered areas of fibroglandular density (ACR BI-RADS breast composition Category b). There are no significant masses, abnormal calcifications, or other abnormalities. Parenchymal pattern is similar to prior studies. The axilla and skin contours are unremarkable. MM/MM tomosynthesis screening BI IMPRESSION: No mammographic evidence of malignancy. ASSESSMENT: BI-RADS 1: Negative RECOMMENDATION: Routine annual mammography screening. This patient's information was entered into a reminder system with a target due date for their next mammogram.
== END 2022-11-04 15:30 | disposition home or self-care (01) ==
LOC: HO.MAMMO 15:29
PROVIDERS: Visit Provider Obstetrics & Gynecology
DX: Z12.31 Encounter for screening mammogram for malignant neoplasm of breast (principal)
CPT/HCPCS: 77063; 77067

== ENCOUNTER 2022-12-06 08:50 | Emergency (ER) | payer OTHER, SELFPAY ==
--- NOTE | ~2022-12-06 | XR_ITS ---
EXAMINATION: XR CHEST CLINICAL INFORMATION: Chest pain COMPARISON: Chest radiographs 09/15/2022, 07/25/2022, 04/06/2022, 06/19/2021 TECHNIQUE: Portable upright AP view of the chest was obtained. FINDINGS: No hyperinflation. No pneumothorax, vascular congestion, pleural reaction, or effusion. No lobar or segmental airspace consolidation or groundglass opacity. Heart size normal. The hilar and mediastinal contours and bony structures are unremarkable. XR/XR chest 1V IMPRESSION: Unremarkable examination.
[2022-12-06 08:54] VITALS: BP 132/82; PULSE 82; RESP 16; TEMP 36.2; O2SAT 99; BMI 42.5
--- NOTE | 2022-12-06 08:56 | ECG_ITS ---
Test Reason : chest pain Blood Pressure : / mmHG Vent. Rate : 077 BPM Atrial Rate : 077 BPM P-R Int : 158 ms QRS Dur : 074 ms QT Int : 382 ms P-R-T Axes : 042 020 020 degrees QTc Int : 432 ms Normal sinus rhythm Normal ECG When compared with ECG of 15-SEP-2022 05:23, No significant change was found Referred By: Generic ED Physician Electronically Signed By:GEOVANNA ERNST MD
[2022-12-06 09:17] LABS: MANUAL DIFF FLAG NO
[2022-12-06 09:20] LABS: Basophils Percent Auto 0.4 % (0-2); Eosinophils Absolute Auto 0.1 X10*3/uL (0.0-0.4); Eosinophils Percent Auto 1.2 % (0-4); Hematocrit 36.5 % (37.0-47.0); Hemoglobin 12.8 g/dl (12.0-16.0); Imm Gran Abs Auto 0.02 X10*3/uL (0.00-0.03); Imm Gran Pct Auto 0.3 % (0.0-0.4); Lymphocytes Absolute Auto 2.3 X10*3/uL (1.2-4.9); Lymphocytes Percent Auto 33.6 % (20-40); Mean Corpuscular HGB Conc 35.1 g/dl (31.0-35.0); Mean Corpuscular Hemoglobin 29.9 pg (27.0-33.0); Mean Corpuscular Volume 85.3 fL (80.0-98.0); Mean Platelet Volume 9.2 fL (9.4-12.3); Monocytes Absolute Auto 0.5 X10*3/uL (0.1-1.2); Monocytes Percent Auto 7.6 % (2-11); Neutrophils Percent Auto 56.9 % (45-73); Platelet Count 272 X10*3/uL (160-400); Red Blood Count 4.28 X10*6/uL (4.20-5.50); Red Cell Distribution Width 12.1 % (11.0-16.0); White Blood Count 6.9 X10*3/uL (4.8-10.8)
[2022-12-06 09:33] LABS: Anion Gap 13 (12-20); Blood Urea Nitrogen 14 mg/dL (9-16); Carbon Dioxide 23 mmol/L (22-29); Chloride 106 mmol/L (96-108); Creatinine Clr Calc Pharmacy 119.3; Estimated Glomerular Filt Rate > 60; Glucose Random 115 mg/dL (60-115); Potassium 3.7 mmol/L (3.3-5.1); Sodium 138 mmol/L (135-145)
[2022-12-06 09:44] LABS: Troponin-I High Sensitivity < 3.5 ng/L (<3.5-17.0)
[2022-12-06 09:56] LABS: Influenza A PCR NEGATIVE (Negative); Influenza B PCR NEGATIVE (Negative); Resp Syncy Virus RNA Qual PCR NEGATIVE (Negative); SARS COV2 PCR INHOUSE NEGATIVE (Negative)
--- NOTE | 2022-12-06 10:11 | ED_ITS ---
HPI - Chest Pain General Chief Complaint: Chest Pain Stated Complaint: chest pain l arm pain Time Seen by Provider: 12/06/22 09:49 Source: patient and old records reviewed History of Present Illness HPI narrative: Patient with chest pain since yesterday. It is sharp and left-sided. Worse with inspiration and palpation. It radiates to her left arm with a pins and needles type sensation. Left arm discomfort is worse with movement. No prior history of this kind of chest pain before. Recent illness significant for URI type syndrome last week. COVID test was negative at home. She has recovered from that no longer has a cough. She denies dyspnea. No history of thromboembolic disease in her or family. Some intermittent swelling of the legs chronic least, specially when she works all day. No recent change in calf pain or edema. No current fevers or chills. No cardiac history Cardiac risk factors include obesity and hyperlipidemia. No diabetes No history of family cardiac disease at a young age. Does not smoke. Related Data Home Medications Medication Instructions Recorded Confirmed atorvastatin 80 mg tablet 80 mg PO DAILY 03/15/22 lisinopril 5 mg tablet 5 mg PO DAILY 06/28/22 levonorgestrel 20 mcg/24 hours (8 intrauterine 08/05/22 yrs) 52 mg intrauterine device (Mirena) Previous Rx's Medication Instructions Recorded albuterol sulfate 90 mcg/actuation 2 puff inhalation Q4-6H PRN 04/06/21 aerosol inhaler shortness of breath or wheezing #8.5 grams acetaminophen 500 mg tablet 500 mg PO Q6H PRN pain or fever 06/19/21 (Tylenol Extra Strength) #20 tabs famotidine 20 mg tablet (Pepcid) 20 mg PO DAILY PRN abdominal 04/06/22 discomfort #30 tabs ondansetron 4 mg disintegrating 4 mg PO Q8H PRN nausea and 04/06/22 tablet vomiting #20 tabs ferrous sulfate 325 mg (65 mg 325 mg PO DAILY #30 tabs 04/15/22 iron) tablet,delayed release ibuprofen 800 mg tablet 800 mg PO Q8H PRN pain #30 tabs 12/06/22 Allergies Allergy/AdvReac Type Severity Reaction Status Date / Time No Known Allergies Allergy Verified 09/15/22 05:06 [No Known Allergies*] Review of Systems Constitutional: Comments: Recent URI symptoms, resolved Cardiovascular: Comments: Chest pain is described Respiratory: Comments: No current respiratory symptoms. Gastrointestinal: Comments: No GI symptoms Musculoskeletal: Comments: No calf pain Integumentary/Breasts: Comments: No skin changes Neurologic: Comments: No focal weakness PMFSH Past Medical History Medical History Anemia Asthma High cholesterol Surgical History History of hysteroscopy Hx of tubal ligation Social History Social History Alcohol intake: never Patient Tobacco Use Status: Never used Tobacco Advance Directives: No Advance Directives Information Provided: Yes Physical Exam Vital Signs: Vital Signs: Last Vital Signs Temp 97.1 F 12/06/22 08:54 Pulse 71 12/06/22 11:05 Resp 12 12/06/22 11:05 BP 131/78 12/06/22 11:05 Pulse Ox 99 12/06/22 11:05 O2 Del Method 12/06/22 11:05 BMI result Body Mass Index 42.5 Const: Other: Awake and alert. No acute distress Chest: Other: Chest wall tenderness left side which reproduces symptoms. No crepitus Resp: Other: Clear and equal bilaterally without wheezes rales or rhonchi Cardio: Other: Regular rate and rhythm without murmurs rubs or gallops GI: Other: Soft nontender nondistended Skin: Other: Warm pink dry without rash Neuro: Other: Nonfocal neuro exam Extrem: Other: No significant calf tenderness. Paresthesias to left arm worse with movement and range of motion at shoulder Medical Decision Making Medical Decision Making MDM Narrative: Chest pain in the setting of her recent URI. She does have risk factors for cardiac disease although with an atypical presentation. Will also need to rule out thromboembolic cause. Musculoskeletal cause is most likely however. 10:20. EKG with normal sinus rhythm without ischemic changes. Troponin is normal. Chest x-ray is normal. Remainder of labs unremarkable this point. D-dimer added on and await results. 11:43. D-dimer is negative. Patient is stable for discharge home with a final diagnosis of musculoskeletal chest pain Lab Data 12/06/22 09:13 12/06/22 09:13 Labs: Lab Results 02/12/06/22 12/06/22 Range/Units 09:08 09:13 09:13 WBC 6.9 (4.8-10.8) X10*3/uL RBC 4.28 (4.20-5.50) X10*6/uL Hgb 12.8 (12.0-16.0) g/dl Hct 36.5 L (37.0-47.0) % MCV 85.3 (80.0-98.0) fL MCH 29.9 (27.0-33.0) pg MCHC 35.1 H (31.0-35.0) g/dl RDW 12.1 (11.0-16.0) % Plt Count 272 (160-400) X10*3/uL MPV 9.2 L (9.4-12.3) fL Immature Gran % (Auto) 0.3 (0.0-0.4) % Neut % (Auto) 56.9 (45-73) % Lymph % (Auto) 33.6 (20-40) % Spencer % (Auto) 7.6 (2-11) % Eos % (Auto) 1.2 (0-4) % Baso % (Auto) 0.4 (0-2) % Lymph # (Auto) 2.3 (1.2-4.9) X10*3/uL Spencer # (Auto) 0.5 (0.1-1.2) X10*3/uL Eos # (Auto) 0.1 (0.0-0.4) X10*3/uL Baso # (Auto) 0.0 (0.0-0.2) X10*3/uL Abs Immat Gran (auto) 0.02 (0.00-0.03) X10*3/uL Absolute Neuts (auto) 4.0 (2.0-8.3) x10*3/uL Absolute Nucleated RBC 0.000 (0.0-0.012) X10*3/uL Nucleated RBC % (auto) 0.0 (0.0-0.2) /100WBC D-Dimer High Sensitivty NG/ML Sodium 138 (135-145) mmol/L Potassium 3.7 (3.3-5.1) mmol/L Chloride 106 (96-108) mmol/L Carbon Dioxide 23 (22-29) mmol/L Anion Gap 13 (12-20) BUN 14 (9-16) mg/dL Creatinine 0.72 (0.5-1.4) mg/dL Estim Creat Clear Calc 119.3 Estimated GFR > 60 Random Glucose 115 (60-115) mg/dL Calcium 9.0 (8.4-10.2) mg/dL Troponin I High Sens (<3.5-17.0) ng/L Influenza Type A (PCR) NEGATIVE (Negative) Influenza Type B (PCR) NEGATIVE (Negative) RSV RNA Qual (PCR) NEGATIVE (Negative) SARS-CoV-2 RNA (RT-PCR) NEGATIVE (Negative) 12/06/22 12/06/22 Range/Units 09:13 11:09 WBC (4.8-10.8) X10*3/uL RBC (4.20-5.50) X10*6/uL Hgb (12.0-16.0) g/dl Hct (37.0-47.0) % MCV (80.0-98.0) fL MCH (27.0-33.0) pg MCHC (31.0-35.0) g/dl RDW (11.0-16.0) % Plt Count (160-400) X10*3/uL MPV (9.4-12.3) fL Immature Gran % (Auto) (0.0-0.4) % Neut % (Auto) (45-73) % Lymph % (Auto) (20-40) % Spencer % (Auto) (2-11) % Eos % (Auto) (0-4) % Baso % (Auto) (0-2) % Lymph # (Auto) (1.2-4.9) X10*3/uL Spencer # (Auto) (0.1-1.2) X10*3/uL Eos # (Auto) (0.0-0.4) X10*3/uL Baso # (Auto) (0.0-0.2) X10*3/uL Abs Immat Gran (auto) (0.00-0.03) X10*3/uL Absolute Neuts (auto) (2.0-8.3) x10*3/uL Absolute Nucleated RBC (0.0-0.012) X10*3/uL Nucleated RBC % (auto) (0.0-0.2) /100WBC D-Dimer High Sensitivty < 150 NG/ML Sodium (135-145) mmol/L Potassium (3.3-5.1) mmol/L Chloride (96-108) mmol/L Carbon Dioxide (22-29) mmol/L Anion Gap (12-20) BUN (9-16) mg/dL Creatinine (0.5-1.4) mg/dL Estim Creat Clear Calc Estimated GFR Random Glucose (60-115) mg/dL Calcium (8.4-10.2) mg/dL Troponin I High Sens < 3.5 (<3.5-17.0) ng/L Influenza Type A (PCR) (Negative) Influenza Type B (PCR) (Negative) RSV RNA Qual (PCR) (Negative) SARS-CoV-2 RNA (RT-PCR) (Negative) Discharge Plan Discharge Clinical Impression: Atypical chest pain Patient Disposition: Home, Self-Care Instructions: Chest Wall Pain (ED) Prescriptions: New ibuprofen 800 mg tablet 800 mg PO Q8H PRN (Reason: pain) Qty: 30 0RF No Action ferrous sulfate 325 mg (65 mg iron) tablet,delayed release (DR/EC) 325 mg PO DAILY Qty: 30 2RF albuterol sulfate 90 mcg/actuation HFA aerosol inhaler 2 puff inhalation Q4-6H PRN (Reason: shortness of breath or wheezing) Qty: 8.5 0RF acetaminophen [Tylenol Extra Strength] 500 mg tablet 500 mg PO Q6H PRN (Reason: pain or fever) Qty: 20 0RF famotidine [Pepcid] 20 mg tablet 20 mg PO DAILY PRN (Reason: abdominal discomfort) Qty: 30 0RF ondansetron 4 mg tablet,disintegrating 4 mg PO Q8H PRN (Reason: nausea and vomiting) Qty: 20 0RF atorvastatin 80 mg tablet 80 mg PO DAILY lisinopril 5 mg tablet 5 mg PO DAILY Mirena 20 mcg/24 hours (8 yrs) 52 mg intrauterine device intrauterine Mirena 20 mcg/24 hours (7 yrs) 52 mg intrauterine device 1 device intrauterine ONCE Qty: 1 0RF Mirena 20 mcg/24 hours (7 yrs) 52 mg intrauterine device 1 device intrauterine ONCE Qty: 1 0RF
[2022-12-06 11:05] VITALS: BP 131/78; PULSE 71; RESP 12; O2SAT 99
[2022-12-06 11:31] LABS: D Dimer High Sensitivity < 150 NG/ML
== END 2022-12-06 12:18 | disposition home or self-care (01) ==
PROVIDERS: Emergency Provider Emergency Medicine; PCP Internal Medicine
DX: R07.89 Other chest pain (principal); Z20.822 Contact with and (suspected) exposure to COVID-19; Z20.828 Contact with and (suspected) exposure to other viral communicable diseases; E78.5 Hyperlipidemia, unspecified; E66.9 Obesity, unspecified; Z68.41 Body mass index [BMI] 40.0-44.9, adult; Z79.02 Long term (current) use of antithrombotics/antiplatelets; Z79.899 Other long term (current) drug therapy
CPT/HCPCS: 0241U; 36415; 71045; 80048; 84484; 85025; 85379; 93005; 99283; 99284

== ENCOUNTER 2022-12-14 14:58 | Outpatient (REF) | payer OTHER, SELFPAY ==
[2022-12-14 15:59] LABS: Hematocrit 37.9 % (37.0-47.0); Hemoglobin 13.1 g/dl (12.0-16.0); Mean Corpuscular HGB Conc 34.6 g/dl (31.0-35.0); Mean Corpuscular Hemoglobin 29.9 pg (27.0-33.0); Mean Corpuscular Volume 86.5 fL (80.0-98.0); Mean Platelet Volume 9.6 fL (9.4-12.3); Platelet Count 297 X10*3/uL (160-400); Red Blood Count 4.38 X10*6/uL (4.20-5.50); White Blood Count 6.8 X10*3/uL (4.8-10.8)
[2022-12-14 16:18] LABS: Alanine Aminotransferase 16 U/L (0-31); Albumin Level 4.6 g/dL (3.5-5.0); Alkaline Phosphatase 85 U/L (39-117); Anion Gap 13 (12-20); Aspartate Amino Transferase 18 U/L (5-31); Bilirubin Total 0.8 mg/dL (0.0-1.0); Blood Urea Nitrogen 13 mg/dL (9-16); Calcium 10.1 mg/dL (8.4-10.2); Carbon Dioxide 29 mmol/L (22-29); Chloride 101 mmol/L (96-108); Cholesterol 134 mg/dL; Estimated Glomerular Filt Rate > 60; Glucose Random 116 mg/dL (60-115); HDL Cholesterol 34 mg/dL; LDL Cholesterol Calculated 85 mg/dl; Potassium 4.3 mmol/L (3.3-5.1); Sodium 139 mmol/L (135-145); Total Protein 7.6 g/dL (6.5-8.0); Triglycerides 75 mg/dL
== END 2022-12-14 14:59 | disposition home or self-care (01) ==
LOC: HO.LAB 14:58
PROVIDERS: Obstetrics & Gynecology; PCP Internal Medicine; Visit Provider Internal Medicine
DX: Z00.00 Encounter for general adult medical examination without abnormal findings (principal); N93.9 Abnormal uterine and vaginal bleeding, unspecified; E78.00 Pure hypercholesterolemia, unspecified; I10 Essential (primary) hypertension; J45.909 Unspecified asthma, uncomplicated
CPT/HCPCS: 36415; 80053; 80061; 85027

== ENCOUNTER 2022-12-20 15:42 | Outpatient (REF) | payer OTHER, SELFPAY ==
[2022-12-20 16:26] LABS: Estimated Average Glucose 103 mg/dL; Hemoglobin A1c % 5.2 %
[2022-12-20 17:08] LABS: Vitamin D 25-OH Total 6.2 ng/mL (>30)
== END 2022-12-20 15:43 | disposition home or self-care (01) ==
LOC: HO.LAB 15:42
PROVIDERS: PCP Internal Medicine; Visit Provider Internal Medicine
DX: E78.00 Pure hypercholesterolemia, unspecified (principal); E83.52 Hypercalcemia; G56.01 Carpal tunnel syndrome, right upper limb; I10 Essential (primary) hypertension; R73.01 Impaired fasting glucose; Z11.1 Encounter for screening for respiratory tuberculosis
CPT/HCPCS: 36415; 82306; 83036; 86481

== ENCOUNTER 2023-01-01 07:20 | Outpatient (REF) | payer OTHER, SELFPAY | END 2023-01-01 07:21 | disposition home or self-care (01) | LOC: HO.LAB 07:20 | PROVIDERS: PCP Internal Medicine; Visit Provider Internal Medicine | DX: Z13.89 Encounter for screening for other disorder (principal) ==

== ENCOUNTER 2023-01-04 14:38 | Outpatient (REF) | payer OTHER, SELFPAY ==
[2023-01-07 06:34] LABS: TS Negative Control Passed; TS Panel A 9; TS Panel B 10; TS Positive Control Passed; TSpotTB Positive (Negative)
== END 2023-01-04 14:39 | disposition home or self-care (01) ==
LOC: HO.LAB 14:38
PROVIDERS: PCP Internal Medicine; Visit Provider Internal Medicine
DX: Z11.1 Encounter for screening for respiratory tuberculosis (principal)
CPT/HCPCS: 36415; 86481

== ENCOUNTER 2023-01-20 09:35 | Outpatient (REF) | payer OTHER, SELFPAY ==
[2023-01-20 15:29] LABS: CT PCR NOT DETECTED (Not Detect.); NG PCR NOT DETECTED (Not Detect.)
== END 2023-01-20 09:36 | disposition home or self-care (01) ==
LOC: HO.LNP 09:35
PROVIDERS: PCP Internal Medicine; Visit Provider Obstetrics & Gynecology
DX: N93.9 Abnormal uterine and vaginal bleeding, unspecified (principal); Z97.5 Presence of (intrauterine) contraceptive device
CPT/HCPCS: 0353U; 81025; 99212

== ENCOUNTER 2023-01-28 09:49 | Outpatient (REF) | payer OTHER, SELFPAY ==
--- NOTE | ~2023-01-28 | XR_ITS ---
EXAMINATION: XR CHEST CLINICAL INFORMATION: Positive TB T spot test COMPARISON: Chest radiographs 12/06/2022, 09/15/2022 TECHNIQUE: 2 views of the chest were obtained. FINDINGS: Lungs clear. No airspace consolidation or groundglass opacity. No cavitary lesion or nodularity, pleural reaction, or effusion. Heart is within normal size. The hilar and mediastinal contours are normal. No acute bony abnormality. XR/XR chest 2V IMPRESSION: Unremarkable examination.
== END 2023-01-28 09:50 | disposition home or self-care (01) ==
LOC: HO.XRAY 09:49
PROVIDERS: PCP Internal Medicine; Visit Provider Internal Medicine
DX: Z11.1 Encounter for screening for respiratory tuberculosis (principal); G56.03 Carpal tunnel syndrome, bilateral upper limbs
CPT/HCPCS: 71046; 99202; 99212

== ENCOUNTER 2023-02-01 09:26 | Emergency (ER) | payer OTHER, SELFPAY ==
[2023-02-01 09:29] VITALS: BP 117/76; PULSE 88; RESP 18; TEMP 36.1; O2SAT 97; BMI 43.5
--- NOTE | 2023-02-01 09:52 | ED_ITS ---
HPI - Back Pain/Injury General Chief Complaint: Back Pain/Injury Stated Complaint: Back pain/Leg and hand numbness Time Seen by Provider: 02/01/23 09:35 Source: patient Mode of arrival: ambulatory Limitations: no limitations History of Present Illness HPI Narrative: 42 yo female with hx of asthma, HLD, DUB, anemia,?HTN who presents to the ER with complaints of many months of lower back pain worsened since yesterday. No injury or trauma. No radiation of pain. Patient reports intermittent numbness/tingling in both hands/feet for months (not a new symptom). No fevers, chills, bowel or bladder incontinence, saddle anesthesia. Taking tylenol at home with continued symptoms. MD elicited complaint: back pain Related Data Home Medications Medication Instructions Recorded Confirmed atorvastatin 80 mg tablet 80 mg PO DAILY 03/15/22 lisinopril 5 mg tablet 5 mg PO DAILY 06/28/22 levonorgestrel 21 mcg/24 hours (8 intrauterine 08/05/22 yrs) 52 mg intrauterine device (Mirena) fluticasone propionate 44 2 puff inhalation BID 01/20/23 mcg/actuation HFA aerosol inhaler (Flovent HFA) losartan 100 1 tab PO DAILY 01/20/23 mg-hydrochlorothiazide 12.5 mg tablet Previous Rx's Medication Instructions Recorded albuterol sulfate 90 mcg/actuation 2 puff inhalation Q4-6H PRN 04/06/21 aerosol inhaler shortness of breath or wheezing #8.5 grams acetaminophen 500 mg tablet 500 mg PO Q6H PRN pain or fever 06/19/21 (Tylenol Extra Strength) #20 tabs famotidine 20 mg tablet (Pepcid) 20 mg PO DAILY PRN abdominal 04/06/22 discomfort #30 tabs ondansetron 4 mg disintegrating 4 mg PO Q8H PRN nausea and 04/06/22 tablet vomiting #20 tabs ferrous sulfate 325 mg (65 mg 325 mg PO DAILY #30 tabs 04/15/22 iron) tablet,delayed release ibuprofen 800 mg tablet 800 mg PO Q8H PRN pain #30 tabs 12/06/22 cyclobenzaprine 10 mg tablet 10 mg PO TID PRN muscle spasm #15 02/01/23 tabs ibuprofen 600 mg tablet 600 mg PO Q8H PRN pain #30 tabs 02/01/23 Allergies Allergy/AdvReac Type Severity Reaction Status Date / Time No Known Allergies Allergy Verified 01/28/23 13:56 [No Known Allergies*] Review of Systems Review of Systems: Yes all other systems are reviewed and are negative Constitutional: Constitutional: Reports no additional constitutional complaints, Denies body ache(s), Denies chills, Denies fever(s), Denies headache(s) and Denies weakness Eyes: Eyes: Reports no additional eye complaints and Denies change in vision ENT: Reports system reviewed and no additional complaints, except as documented, Denies dizziness, Denies headache(s), Denies nasal congestion, Denies nasal discharge and Denies neck pain Cardiovascular: Cardiovascular: Reports no additional cardiovascular complaints, Denies chest pain, Denies leg edema and Denies dyspnea Respiratory: Respiratory: Reports no additional respiratory complaints, Denies cough and Denies dyspnea Gastrointestinal: Gastrointestinal: Reports no additional gastrointestinal complaints, Denies abdominal pain, Denies diarrhea, Denies nausea and Denies vomiting Genitourinary: Genitourinary: Reports no additional female genitourinary complaints and Denies urinary incontinence Musculoskeletal: Musculoskeletal: Reports no additional musculoskeletal complaints, Reports back pain, Denies arthralgias, Denies joint swelling, Denies neck pain, Denies numbness and Denies tingling Integumentary/Breasts: Skin/Breast: Reports system reviewed and no additional complaints, except as docu and Denies rash Neurologic: Reports system reviewed and no additional complaints, except as documented, Denies Abnormal speech present, Denies dizziness, Denies headache(s), Denies numbness, Denies tingling and Denies weakness [facility] Past Medical History Attestation statement: The following information was validated with the patient. Source: old records reviewed and nursing notes reviewed Medical History Anemia Asthma High cholesterol Surgical History History of hysteroscopy Hx of section Hx of tubal ligation Family History Family History Sister Colon cancer Social History Social History Alcohol intake: never Patient Tobacco Use Status: Never used Tobacco Advance Directives: No Advance Directives Information Provided: Yes Physical Exam Vital Signs: Vital Signs: Last Vital Signs Temp 97.0 F 02/01/23 09:29 Pulse 88 02/01/23 09:29 Resp 18 02/01/23 09:29 BP 117/76 02/01/23 09:29 Pulse Ox 97 02/01/23 09:29 O2 Del Method Room Air 02/01/23 09:29 BMI result Body Mass Index 43.5 Const: General: cooperative, healthy appearing, comfortable and no acute distress Orientation/consciousness: patient oriented x3 Limitations: no limitations HEENT: Head: Yes normal to inspection Ears: hearing grossly normal bilaterally General nose exam: Normal external nose present Face and sinus: Yes normal facial exam Mouth: Normal oral and palatal mucosa present Throat: Yes posterior oropharynx normal Eyes: General: appearance normal, both eyes and all related structures Pupils: Equal, round and reactive pupils present Neck: Neck: Yes normal visual inspection Chest: Chest palpation & inspection: normal inspection of the chest Resp: Effort & Inspection: normal respiratory effort Auscultation: clear to auscultation bilaterally Cardio: Rate: regular rate Rhythm: regular rhythm Peripheral pulses: Peripheral pulses 2+ throughout GI: Inspection: Yes normal to inspection Palpation (GI): Soft to palpation and nontender Auscultation: normal bowel sounds Back/Spine/Pelvis: Thoracic/Lumbar Spine: thoracic and lumbar spine normal to inspection Skin: General skin exam: no rashes or lesions noted Neuro: General: patient oriented x3, no focal motor deficits and normal sensation to monofilament Cranial nerves: Yes Equal, round and reactive pupils present Cognition (Neuro): normal cognition Speech: No Abnormal speech present Gait exam (Neuro): Normal gait present Motor exam (neuro): 5/5 motor strength present throughout Extrem: General: Yes normal to inspection Medications Administered Discontinued Medications Generic Name Dose Route Start Last Admin Trade Name Freq PRN Reason Stop Dose Admin Ketorolac Tromethamine 60 mg 02/01/23 09:58 02/01/23 10:31 Ketorolac Tromethamine 60 Mg/2 Ml Vial IM 02/01/23 09:59 60 mg ONCE ONE Administration Medical Decision Making Medical Decision Making MDM Narrative: 42 yo female with hx of asthma, HLD, DUB, anemia,?HTN who presents to the ER with complaints of many months of lower back pain worsened since yesterday with no overt neurologicial deficits or red flag symptoms. Exam c/w with lumbar strain. See ddx below. Patient to be given analgesia in ER. Will send home with NSAIDS, flexeril with recommendatins to follow-up with her PCP outpatient. Reviewed worrisome signs and symptoms of when to return to the emergency room. Comfortable plan for discharge home. Differential Diagnosis Differential Diagnoses: The differential diagnosis associated with the presentation includes Likely lumbar strain, considered herniated disc, lumbar radiculopathy Less likely cord compression, cauda equina, epidural abscess, AAA, renal colic, pyelonephritis, osteomyelitis, malignancy-as patient has a normal neurological exam, no red flag symptoms, no history of IV drug abuse or immunocompromised state, gradual onset. Prescription Management I considered prescription management with: Pain Medication Patient will be started on NSAIDs and muscle relaxants. I do not believe at this point that she needs narcotic pain medication for pain control Discharge Plan Discharge Clinical Impression: Strain of lumbar region Patient Disposition: Home, Self-Care Instructions: Low Back Strain (ED) Additional Instructions: Heat or ice gentle stretching no heavy lifting or bending Follow-up with your PCP Return for incontinence of urine, incontinence of stool, fever greater than 100.4, numbness in the groin Prescriptions: New ibuprofen 600 mg tablet 600 mg PO Q8H PRN (Reason: pain) Qty: 30 0RF cyclobenzaprine 10 mg tablet 10 mg PO TID PRN (Reason: muscle spasm) Qty: 15 0RF No Action ferrous sulfate 325 mg (65 mg iron) tablet,delayed release (DR/EC) 325 mg PO DAILY Qty: 30 2RF albuterol sulfate 90 mcg/actuation HFA aerosol inhaler 2 puff inhalation Q4-6H PRN (Reason: shortness of breath or wheezing) Qty: 8.5 0RF acetaminophen [Tylenol Extra Strength] 500 mg tablet 500 mg PO Q6H PRN (Reason: pain or fever) Qty: 20 0RF famotidine [Pepcid] 20 mg tablet 20 mg PO DAILY PRN (Reason: abdominal discomfort) Qty: 30 0RF ondansetron 4 mg tablet,disintegrating 4 mg PO Q8H PRN (Reason: nausea and vomiting) Qty: 20 0RF ibuprofen 800 mg tablet 800 mg PO Q8H PRN (Reason: pain) Qty: 30 0RF atorvastatin 80 mg tablet 80 mg PO DAILY lisinopril 5 mg tablet 5 mg PO DAILY Mirena 20 mcg/24 hours (8 yrs) 52 mg intrauterine device intrauterine Mirena 20 mcg/24 hours (7 yrs) 52 mg intrauterine device 1 device intrauterine ONCE Qty: 1 0RF Mirena 20 mcg/24 hours (7 yrs) 52 mg intrauterine device 1 device intrauterine ONCE Qty: 1 0RF losartan-hydrochlorothiazide 100-12.5 mg tablet 1 tab PO DAILY fluticasone propionate [Flovent HFA] 44 mcg/actuation HFA aerosol inhaler 2 puff inhalation BID Referrals: Cristine Baig MD [Primary Care Provider] - 1 week Stand Alone Forms: Work/School Release Interventions: ED Discharge Assessment Last Done: 02/01/23 10:26 Discharge Date/Time: 02/01/23 10:33
[2023-02-01] MEDS: Ketorolac Tromethamine 60 MG/2 ML VIAL IM (10:31)
== END 2023-02-01 10:33 | disposition home or self-care (01) ==
PROVIDERS: Emergency Provider Student in an Organized Health Care Education/Training Program; PCP Internal Medicine
DX: M54.50 Low back pain, unspecified (principal); Z79.899 Other long term (current) drug therapy
CPT/HCPCS: 96372; 99283; 99284; J1885

== ENCOUNTER 2023-02-23 13:50 | Outpatient (REF) | payer OTHER, SELFPAY ==
--- NOTE | ~2023-02-23 | US_ITS ---
EXAMINATION: US PELVIS CLINICAL INFORMATION: Abnormal uterine bleeding. 42-year-old, LMP 02/23/2023 COMPARISON: 04/20/2022 TECHNIQUE: Ultrasound of the pelvis is performed using both transabdominal and transvaginal transducers along with Doppler. Transvaginal imaging is performed due to inadequate visualization transabdominally. FINDINGS: Uterus: The uterus is anteverted and measures 13.2 x 6.8 x 8.4 cm. The double wall endometrial thickness is 6 mm. The uterus is smooth in contour and has normal myometrial echogenicity. Anterior uterine body partially subserosal 2.9 cm fibroid. Posterior uterine body 3.1 cm fibroid, increased from prior study with a possible submucosal component within the endometrium. Adnexa: Both ovaries are visualized. There is normal color flow to the adnexa. There is no ovarian torsion. There is no pelvic ascites or fluid collection. Right ovary measures 4.3 x 3.6 x 3.8 cm. Simple intraovarian cyst measures 3.7 x 3.3 x 3.4 cm. Left ovary measures 2.9 x 1.7 x 2.3 cm. US/US pelvic and transvaginal IMPRESSION: Posterior uterine body 3.1 cm fibroid, increased from prior study with a possible submucosal component within the endometrium. Recommend further evaluation with sonohysterogram. Right intraovarian 3.7 cm cyst. Findings are overwhelmingly likely to represent a benign functional cyst. No followup imaging recommended.
== END 2023-02-23 13:51 | disposition home or self-care (01) ==
LOC: HO.US 13:50
PROVIDERS: PCP Internal Medicine; Visit Provider Obstetrics & Gynecology
DX: N93.9 Abnormal uterine and vaginal bleeding, unspecified (principal)
CPT/HCPCS: 76830; 76856

== ENCOUNTER 2023-03-17 10:06 | Outpatient (REF) | payer OTHER, SELFPAY ==
--- NOTE | 2023-03-17 10:08 | EMG_ITS ---
Bilateral median and ulnar motor and sensory studies were performed. Bilateral radial and sensory studies were performed and paraspinal muscles were tested with a needle. IMPRESSION: 1. 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 2. Mild bilateral ulnar neuropathy across cubital tunnel. MD GRISEL Plunkett/[place] / [id number]
== END 2023-03-17 10:07 | disposition home or self-care (01) ==
LOC: HO.NEURO 10:06
PROVIDERS: PCP Internal Medicine; Visit Provider Physician Assistant
DX: G56.03 Carpal tunnel syndrome, bilateral upper limbs (principal)
CPT/HCPCS: 95886; 95911

== ENCOUNTER 2023-03-29 10:18 | Outpatient (REF) | payer OTHER, SELFPAY ==
[2023-03-29 12:05] LABS: Alanine Aminotransferase 35 U/L (0-31); Albumin Level 4.5 g/dL (3.5-5.0); Alkaline Phosphatase 83 U/L (39-117); Anion Gap 12 (12-20); Aspartate Amino Transferase 30 U/L (5-31); Blood Urea Nitrogen 17 mg/dL (9-16); Calcium 9.5 mg/dL (8.4-10.2); Carbon Dioxide 28 mmol/L (22-29); Chloride 105 mmol/L (96-108); Estimated Glomerular Filt Rate > 60; Glucose Random 104 mg/dL (60-115); Potassium 3.5 mmol/L (3.3-5.1); Sodium 141 mmol/L (135-145)
== END 2023-03-29 10:19 | disposition home or self-care (01) ==
LOC: HO.LAB 10:18
PROVIDERS: PCP Internal Medicine; Visit Provider Internal Medicine
DX: G47.00 Insomnia, unspecified (principal); I10 Essential (primary) hypertension; R76.12 Nonspecific reaction to cell mediated immunity measurement of gamma interferon antigen response without active tuberculosis
CPT/HCPCS: 36415; 80053

== ENCOUNTER 2023-04-29 07:57 | Emergency (ER) | payer OTHER, SELFPAY ==
--- NOTE | ~2023-04-29 | XR_ITS ---
EXAMINATION: XR FOOT, RIGHT CLINICAL INFORMATION: Dorsal tenderness COMPARISON: None available. TECHNIQUE: AP, lateral, and oblique views of the right foot. FINDINGS: Bone alignment is normal. No fracture or dislocation. Mild arthritis at the first MTP joint with joint space narrowing and osteophyte formation. Some slight cystic irregular change of the first metatarsal head. There is overlying soft tissue swelling. There are calcaneal spurs. XR/XR foot RT 2V IMPRESSION: Arthritis at the first MTP joint and calcaneal spurs.
[2023-04-29 07:59] VITALS: BP 129/86; PULSE 86; RESP 15; TEMP 36.2; O2SAT 98; BMI 43.7
--- NOTE | 2023-04-29 08:56 | ED_ITS ---
HPI - General Adult General Chief complaint: Extremity Problem Stated complaint: R foot swollen 1x week Time Seen by Provider: 04/29/23 08:56 Source: patient Mode of arrival: ambulatory Limitations: no limitations History of Present Illness HPI narrative: Patient is a 43-year-old female with history of anemia, asthma, high cholesterol presenting the emergency department with complaint of right foot pain with the past week. Patient denies any injury or trauma. Describes pain as a constant burning sensation. States at times foot become swollen. Denies any numbness or tingling. Denies recent fevers. Denies any calf pain or swelling. Has used Tylenol with mild temporary relief but symptoms returned when medication wears off. complaint: Right foot pain Onset (ago): day(s) Location: lower extremity Radiation: non-radiation Severity: severe Quality: burning Pain Consistency: constant Relieving factors: medication (Tylenol) Exacerbating factors: movement Associated symptoms: denies other symptoms Treatments prior to arrival: other (Tylenol) Related Data Home Medications Medication Instructions Recorded Confirmed atorvastatin 80 mg tablet 80 mg PO DAILY 03/15/22 lisinopril 5 mg tablet 5 mg PO DAILY 06/28/22 levonorgestrel 21 mcg/24 hours (8 intrauterine 08/05/22 yrs) 52 mg intrauterine device (Mirena) fluticasone propionate 44 2 puff inhalation BID 01/20/23 mcg/actuation HFA aerosol inhaler (Flovent HFA) losartan 100 1 tab PO DAILY 01/20/23 mg-hydrochlorothiazide 12.5 mg tablet Previous Rx's Medication Instructions Recorded albuterol sulfate 90 mcg/actuation 2 puff inhalation Q4-6H PRN 04/06/21 aerosol inhaler shortness of breath or wheezing #8.5 grams acetaminophen 500 mg tablet 500 mg PO Q6H PRN pain or fever 06/19/21 (Tylenol Extra Strength) #20 tabs famotidine 20 mg tablet (Pepcid) 20 mg PO DAILY PRN abdominal 04/06/22 discomfort #30 tabs ondansetron 4 mg disintegrating 4 mg PO Q8H PRN nausea and 04/06/22 tablet vomiting #20 tabs ferrous sulfate 325 mg (65 mg 325 mg PO DAILY #30 tabs 04/15/22 iron) tablet,delayed release ibuprofen 800 mg tablet 800 mg PO Q8H PRN pain #30 tabs 12/06/22 cyclobenzaprine 10 mg tablet 10 mg PO TID PRN muscle spasm #15 02/01/23 tabs ibuprofen 600 mg tablet 600 mg PO Q8H PRN pain #30 tabs 02/01/23 ibuprofen 600 mg tablet 600 mg PO Q6H PRN pain #20 tabs 04/29/23 Allergies Allergy/AdvReac Type Severity Reaction Status Date / Time No Known Allergies Allergy Verified 04/29/23 10:04 [No Known Allergies*] Review of Systems Review of Systems: As per HPI. Yes all other systems are reviewed and are negative Constitutional: Constitutional: Reports as per HPI [facility] Past Medical History Medical History (Updated 04/29/23 @ 11:12 by Cecy Younger NP) Anemia Asthma High cholesterol Hypertension Surgical History History of hysteroscopy Hx of section Hx of tubal ligation Family History Family History Sister Colon cancer Social History Social History Alcohol intake: current Alcohol intake frequency: a few times a week Patient Tobacco Use Status: Never used Tobacco Smoked in Last 30 Days: No Use of substances other than those prescribed or required for medical reasons: No Advance Directives: No Advance Directives Information Provided: Yes Patient : No Physical Exam ED Vital Signs: Vital Signs - 24 hr 04/29/23 07:59 04/29/23 09:18 04/29/23 11:14 Temperature 97.2 F 97.2 F 97.2 F Pulse Rate 86 72 71 Respiratory Rate 15 16 16 Blood Pressure 129/86 133/74 129/83 Pulse Oximetry 98 98 98 Oxygen Delivery Method Room Air Room Air Room Air BMI result Body Mass Index 43.7 Vital signs have been reviewed and appear to be correct. Blood pressure normal. Heart rate normal. Respiratory rate normal. Temperature normal. Oxygen saturation normal. Const General: cooperative, healthy appearing and no acute distress Orientation/consciousness: oriented to person, oriented to place, oriented to time and patient oriented x3 Limitations: no limitations HENMT Head: Yes normocephalic and Yes atraumatic Ears: external ears normal General nose exam: Normal external nose present Face and sinus: Yes face symmetric Mouth: oropharynx normal and moist mucous membranes Throat: Yes uvula midline Eyes Pupils: Equal, round and reactive pupils present Neck Neck: Yes normal visual inspection and Yes supple Resp Effort & Inspection: normal respiratory effort and able to speak in complete sentences Auscultation: clear to auscultation bilaterally Cardio Rate: regular rate Rhythm: regular rhythm Heart sounds: S1 normal heart sound present and S2 normal heart sound present GI Palpation (GI): Soft to palpation and nontender Auscultation: normoactive bowel sounds General: Yes no CVA tenderness Back/Spine/Pelvis Back: no CVA tenderness Skin General skin exam: elasticity normal and turgor normal Neuro General: oriented to person, oriented to place, oriented to time, patient oriented x3, moves all extremities, no focal motor deficits and CN's II-XI intact bilaterally Cranial nerves: Yes Equal, round and reactive pupils present Cognition (Neuro): normal cognition Extrem General: Yes full ROM, Yes no pedal edema and Yes no calf tenderness Right lower extremity: foot Details: normal capillary refill, normal to inspection, tenderness Location: of the dorsal foot (diffuse), toes with normal ROM, no edema, vascular exam Details: dorsalis pedis pulse present, posterior tibial pulse present and normal capillary refill and motor-sensory exam Details: two point discrimination normal, light-touch normal and pin-prick normal; no unusual warmth, no abrasion, no laceration, no ecchymosis, no crepitus and no puncture wound Psych Mental Status: mental status grossly normal Affect: normal affect Thought process: Normal thought process present Medical Decision Making Medical Decision Making MDM Narrative: Patient is a 43-year-old female with history of anemia, asthma, high cholesterol presenting the emergency department with complaint of right foot pain with the past week. On exam patient is awake, A+Ox3, VS WNL, afebrile, normal neurological exam without focal deficits, no edema, erythema, warmth, ecchymosis noted to right foot, tenderness to palpation of dorsum of foot, 2+ DP and PT pulses, full ROM to ankle and toes. Given reported symptoms and physical exam findings, initial differential includes strain, metatarsalgia, arthritis, Steinberg's neuroma. Unlikely gout as no erythema or warmth. X-ray notable for arthritis and calcaneal spurs. My interpretation is in agreement with the radiologist's interpretation. Feel patient is stable for discharge home. Instructed to alternate Tylenol and ibuprofen, ice foot for 10-15 minutes at a time several times daily, elevate foot at rest. Will refer patient to orthopedics for further management. Return precautions discussed at bedside. Patient verbalized understanding of and agreement with plan. Differential Diagnosis Differential Diagnoses: The differential diagnosis associated with the presentation includes As per MDM. Independent Interpretation I performed an independent interpretation of an: Plain X-Ray Interpretation: arthritis at first MTP joint, calcaneal spurs Radiology Impression Discussion of test interpretation with radiology: I have reviewed the radiologist's reading. Radiologist Impression: XR/XR foot RT 2V IMPRESSION: Arthritis at the first MTP joint and calcaneal spurs. External Record Review External record reviewed: Inpatient record, Office record and Outpatient record Prescription Management I considered prescription management with: Pain Medication Discharge Plan Discharge Clinical Impression: Arthritis of foot, right Patient Disposition: Home, Self-Care Instructions: Arthritis (ED) Additional Instructions: You have been evaluated in the emergency department today for right foot pain. Your evaluation did not find evidence of medical conditions requiring emergent intervention at this time. Please rest, ice, and elevate your foot, and resume normal activities as tolerated. We recommend you take 600mg ibuprofen every 6 hours or 650mg Tylenol every 6 hours as needed for pain. If needed you can alternate these medications as they take 1 medication every 3 hours. For instance at noon take ibuprofen, then at 3:00 p.m. take Tylenol, then at 6:00 p.m. take ibuprofen. Please schedule an appointment for follow-up with your primary care provider this week. Return to the emergency department if you experience worsening pain, numbness, tingling, change of color in your foot, or any other concerning symptoms. Prescriptions: New ibuprofen 600 mg tablet 600 mg PO Q6H PRN (Reason: pain) Qty: 20 0RF No Action ferrous sulfate 325 mg (65 mg iron) tablet,delayed release (DR/EC) 325 mg PO DAILY Qty: 30 2RF albuterol sulfate 90 mcg/actuation HFA aerosol inhaler 2 puff inhalation Q4-6H PRN (Reason: shortness of breath or wheezing) Qty: 8.5 0RF acetaminophen [Tylenol Extra Strength] 500 mg tablet 500 mg PO Q6H PRN (Reason: pain or fever) Qty: 20 0RF famotidine [Pepcid] 20 mg tablet 20 mg PO DAILY PRN (Reason: abdominal discomfort) Qty: 30 0RF ondansetron 4 mg tablet,disintegrating 4 mg PO Q8H PRN (Reason: nausea and vomiting) Qty: 20 0RF ibuprofen 800 mg tablet 800 mg PO Q8H PRN (Reason: pain) Qty: 30 0RF ibuprofen 600 mg tablet 600 mg PO Q8H PRN (Reason: pain) Qty: 30 0RF cyclobenzaprine 10 mg tablet 10 mg PO TID PRN (Reason: muscle spasm) Qty: 15 0RF atorvastatin 80 mg tablet 80 mg PO DAILY lisinopril 5 mg tablet 5 mg PO DAILY Mirena 20 mcg/24 hours (8 yrs) 52 mg intrauterine device intrauterine Mirena 20 mcg/24 hours (7 yrs) 52 mg intrauterine device 1 device intrauterine ONCE Qty: 1 0RF Mirena 20 mcg/24 hours (7 yrs) 52 mg intrauterine device 1 device intrauterine ONCE Qty: 1 0RF losartan-hydrochlorothiazide 100-12.5 mg tablet 1 tab PO DAILY fluticasone propionate [Flovent HFA] 44 mcg/actuation HFA aerosol inhaler 2 puff inhalation BID Referrals: [facility] [Provider Group]
[2023-04-29 09:18] VITALS: BP 133/74; PULSE 72; RESP 16; TEMP 36.2; O2SAT 98
--- NOTE | 2023-04-29 09:21 | PC.NURSE ---
pt a&ox3, vss, pt verbalizing 10/10 burning pain in her right foot - pain radiates towards back of her lower calf. tender to the touch. pedal pulses palpable. no swelling noted on right foot.
[2023-04-29 11:14] VITALS: BP 129/83; PULSE 71; RESP 16; TEMP 36.2; O2SAT 98
--- NOTE | 2023-04-29 11:15 | PC.NURSE ---
vss, pain verbalizing pain increase to 10/10.
== END 2023-04-29 11:44 | disposition home or self-care (01) ==
PROVIDERS: Emergency Provider Emergency Medicine; PCP Internal Medicine
DX: M19.071 Primary osteoarthritis, right ankle and foot (principal); M79.671 Pain in right foot; Z79.899 Other long term (current) drug therapy
CPT/HCPCS: 73620; 99283; 99284

== ENCOUNTER 2023-05-17 15:22 | Outpatient (AMB) | payer OTHER, SELFPAY ==
--- NOTE | 2023-05-17 15:26 | A.OFFVIS_ITS ---
Intake Vital Signs 05/17/23 15:32 Height 5 ft 3 in Weight 246 lb BMI 43.6 Handedness Right Intake Visit Reasons: OV - B/L wrist pain Intake Note: Campos is a 43 year old right hand dominant female who presents today for bilateral wrist pain. Patient reports ongoing daily numbness and tingling for 2 years. 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 Patient reports her left hand is worse than the right hand. Numbness is worse at night and when waking up. Allergies No Known Allergies [No Known Allergies*] Allergy (Verified 05/17/23 15:30) HPI OV - B/L wrist pain HPI Details Campos is a 43 year old right hand dominant woman who presents for a NCS of her bilateral hand numbness, L>R. She complains of numbness in all her digits bilaterally. Symptoms intermittent, but daily, worse at night or right after waking up. She says her left is worse than her right, and has been present for ~2 years. She says her job service specialist is weak and she drops objects. Her numbness is worse in her left thumb, middle, and small fingers. She also complains of stiffness in her fingers. She denies any locking or catching [facility] Medical History Anemia Asthma High cholesterol Hypertension Surgical History History of hysteroscopy Hx of section Hx of tubal ligation Family History Sister Colon cancer Social History Alcohol intake: current Alcohol intake frequency: a few times a week Patient Tobacco Use Status: Never used Tobacco Female Reproductive History Menstrual Age of Menarche: 11 Review of Systems Const All systems reviewed & are unremarkable except as noted in HPI and below Physical Exam Vital Signs: BMI result Body Mass Index 43.6 Const General: cooperative, healthy appearing and no acute distress Orientation/consciousness: patient oriented x3 HEENT Head: Yes normocephalic and Yes atraumatic Eyes EOM: EOMs intact bilaterally Resp Effort & Inspection: normal respiratory effort and able to speak in complete sentences Cardio Jugular venous distension: no JVD Skin General skin exam: turgor normal Rashes: no rashes Neuro General: patient oriented x3 Extrem Other: Evaluation of Bilateral Upper Extremity: The patient is alert, oriented, and in no acute distress Neuro: Median, Ulnar, Radial nerves motor and sensory intact except for some decreased sensation to the left thumb, middle and small fingers No thenar or intrinsic wasting Good APB muscle belly firing and good finger cross Vascular: Cap refill brisk ROM: She can make a fist and extend all her digits Skin: No lacerations or abrasions. General: No Ecchymosis. No Erythema or evidence of infection. Nerve Conduction Study: IMPRESSION:? 1. 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 2. Mild bilateral ulnar neuropathy across cubital tunnel. Maryann Vallejo MD 03/17/2023 Psych Appearance: grossly normal Affect: normal affect Attitude: cooperative Assessment & Plan Assessment & Plan (1) Carpal tunnel syndrome of left wrist: Code(s): G56.02 - Carpal tunnel syndrome, left upper limb (2) Cubital tunnel syndrome on left: Code(s): G56.22 - Lesion of ulnar nerve, left upper limb (3) Carpal tunnel syndrome of right wrist: Code(s): G56.01 - Carpal tunnel syndrome, right upper limb Plan Assessment & Plan: 1. Left Carpal tunnel syndrome, Mild-moderate Symptoms intermittent, but daily, worse at night 2. Left Cubital tunnel syndrome, mild Symptoms intermittent, but daily, worse at night With numbness today in the thumb, middle, and small fingers I educated her about this condition I discussed operative and non-operative treatment options The patient would like to proceed with surgery The risks and benefits of operative treatment were discussed with the patient and the patient wishes to proceed with surgery. These risks include, but are not limited to risk of damage to blood vessels, nerves, tendons, infection, recurrence, incomplete relief of preoperative symptoms, persistent pain, possible need for further surgery and the risks associated with regional blocks and anesthesia. The plan is to take the patient to the operating room sometime in the next few weeks for the following procedures: 1. Left carpal tunnel release, under general 2. Left Cubital tunnel release vs transposition, under general All of the preoperative paperwork including the consent was filled out today. All the patient's questions were answered. The patient understands that they will be contacted by our plastic surgery specialist soon to schedule this procedure She denies Diabetes, blood thinners, heart, lung, kidney issues She has asthma 3. Right Carpal tunnel syndrome, mild-moderate Symptoms intermittent, but daily, worse at night 4. Right Cubital tunnel syndrome, mild Symptoms intermittent, but daily, worse at night We can discuss treatment at a later appointment I encouraged her to work on ROM exercises Scribed for Gretchen Tim MD by Jeramy Ramírez, medical lead, on 05/17/23 at 3:55 PM, EST. Coding Level of Care Code New Pt Level 4 (26310) Diagnoses Carpal tunnel syndrome of left wrist G56.02 Cubital tunnel syndrome on left G56.22 Carpal tunnel syndrome of right wrist G56.01
[2023-05-17 15:32] VITALS: BMI 43.6
== END 2023-05-17 16:09 | disposition home or self-care (01) ==
PROVIDERS: PCP Internal Medicine; Visit Provider Orthopaedic Surgery
DX: G56.02 Carpal tunnel syndrome, left upper limb (principal); G56.22 Lesion of ulnar nerve, left upper limb; G56.01 Carpal tunnel syndrome, right upper limb
CPT/HCPCS: 99214

== ENCOUNTER → 2023-05-17 15:22 | Outpatient (BNVA) | payer OTHER, SELFPAY | PROVIDERS: PCP Internal Medicine; Visit Provider Orthopaedic Surgery ==

== ENCOUNTER 2023-07-03 09:54 | Emergency (ER) | payer OTHER, SELFPAY ==
--- NOTE | ~2023-07-03 | XR_ITS ---
EXAMINATION: XR CHEST CLINICAL INFORMATION: Chest was COMPARISON: Chest x-ray January 28, 2023 TECHNIQUE: 2 views of the chest were obtained. FINDINGS: Cardiac silhouette is normal in size. The lungs are well aerated. There is no lobar consolidation. No pleural effusion or pneumothorax. Moderate degenerative changes of the spine. XR/XR chest 2V IMPRESSION: No acute pulmonary pathology.
--- NOTE | 2023-07-03 09:56 | ECG_ITS ---
Test Reason : CHEST PAIN Blood Pressure : / mmHG Vent. Rate : 094 BPM Atrial Rate : 094 BPM P-R Int : 144 ms QRS Dur : 074 ms QT Int : 368 ms P-R-T Axes : 045 017 022 degrees QTc Int : 460 ms Normal sinus rhythm Normal ECG When compared with ECG of 06-DEC-2022 09:02, No significant change was found Referred By: Heather Bullard Electronically Signed By:AMNA MLAIK
[2023-07-03 10:01] VITALS: BP 153/81; PULSE 74; RESP 16; TEMP 36.6; O2SAT 100; BMI 43.9
[2023-07-03 10:15] VITALS: BP 137/81; PULSE 65; RESP 16; TEMP 36.9; O2SAT 99
--- NOTE | 2023-07-03 10:20 | PC.NURSE ---
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 pt comes in today after having radiating substernal chest pain for 3 days. pt states that she came in today d/t an increase in pain since chest pain began a few days ago. pt states she feels like elephant is sitting on her chest and the pain worsens upon inspiration and with movement. pt also endorses headache, LUE pain/numbness/tingling, and left jaw pain. CMS intact in LE. bilateral equal strength noted. pt states that she is slightly non-compliant with BP medication - states that sometimes she forgets - BP WNL at this time. pt states that she took 100mg of motoprolol this am. pt able to speak in full clear sentences w/o difficulty. lung sounds clear throughout. respirations even and unlabored. call sandoval placed within reach.
--- NOTE | 2023-07-03 10:21 | ED_ITS ---
HPI - Chest Pain General Chief Complaint: Chest Pain Stated Complaint: chest pain l arm numbness Time Seen by Provider: 07/03/23 10:07 Source: patient Mode of arrival: ambulatory Limitations: no limitations History of Present Illness HPI narrative: Patient is a 43-year-old female with history of asthma, HTN, anemia, high cholesterol presenting to the emergency department with complaint of chest pain radiating to left arm which she describes as a tightness for the past 3 days. Patient states pain is constant and worsens with deep inspiration. She denies any cough or congestion. Denies any fevers. Denies any dizziness or lightheadedness, palpitations. Denies any abdominal pain, nausea, vomiting, diarrhea, constipation. Denies any calf pain or swelling, denies any lower extremity edema. Denies any history of blood clots. Is not currently on OCPs. Denies any numbness or tingling to extremities. His used her albuterol inhaler home with some relief, states she does not have a nebulizer at home. Has not taken any other OTC medications at home for her symptoms. MD complaint: chest pain Pertinent past history: asthma Onset (ago): day(s) Timing of current episode: constant Prior episodes: Yes Onset: during rest Pain location: left chest Pain radiation: left arm Severity: moderate Quality: tightness Relieving factors: nothing Exacerbating factors: inspiration Treatment prior to arrival: none Related Data Home Medications Medication Instructions Recorded Confirmed atorvastatin 80 mg tablet 80 mg PO DAILY 03/15/22 levonorgestrel 21 mcg/24 hours (8 intrauterine 08/05/22 yrs) 52 mg intrauterine device (Mirena) fluticasone propionate 44 2 puff inhalation BID 01/20/23 mcg/actuation HFA aerosol inhaler (Flovent HFA) Previous Rx's Medication Instructions Recorded albuterol sulfate 90 mcg/actuation 2 puff inhalation Q4-6H PRN 04/06/21 aerosol inhaler shortness of breath or wheezing #8.5 grams acetaminophen 500 mg tablet 500 mg PO Q6H PRN pain or fever 06/19/21 (Tylenol Extra Strength) #20 tabs cyclobenzaprine 10 mg tablet 10 mg PO TID PRN muscle spasm #15 02/01/23 tabs ibuprofen 600 mg tablet 600 mg PO Q6H PRN pain #20 tabs 07/21/23 Allergies Allergy/AdvReac Type Severity Reaction Status Date / Time No Known Allergies Allergy Verified 05/17/23 15:30 [No Known Allergies*] Review of Systems 2 Review of Systems: As per HPI. Yes all other systems are reviewed and are negative Constitutional: Constitutional: Reports as per HPI [facility] Past Medical History Medical History Anemia Asthma High cholesterol Hypertension Surgical History History of hysteroscopy Hx of section Hx of tubal ligation Family History Family History Sister Colon cancer Social History Social History Alcohol intake: never Patient Tobacco Use Status: Never used Tobacco Smoked in Last 30 Days: No Use of substances other than those prescribed or required for medical reasons: No Advance Directives: No Advance Directives Information Provided: No Patient : No Physical Exam 2 Vital Signs: Vital Signs: Last Vital Signs Temp 98.1 F 07/03/23 12:00 Pulse 68 07/03/23 13:46 Resp 18 07/03/23 13:46 BP 116/75 07/03/23 12:00 Pulse Ox 98 07/03/23 12:00 O2 Del Method Room Air 07/03/23 12:00 BMI result Body Mass Index 43.9 Vital signs have been reviewed and appear to be correct. Blood pressure normal. Heart rate normal. Respiratory rate normal. Temperature normal. Oxygen saturation normal. Const: General: cooperative, healthy appearing and no acute distress O rientation/consciousness: oriented to person, oriented to place, oriented to time and patient oriented x3 Limitations: no limitations HEENT: Head: Yes normocephalic and Yes atraumatic Ears: external ears normal General nose exam: Normal external nose present Face and sinus: Yes face symmetric Mouth: oropharynx normal and moist mucous membranes Throat: Yes uvula midline Eyes: Pupils: Equal, round and reactive pupils present Neck: Neck: Yes normal visual inspection and Yes supple Chest: Chest palpation & inspection: normal inspection of the chest and normal palpation of entire chest wall Resp: Effort & Inspection: normal respiratory effort and able to speak in complete sentences Auscultation: clear to auscultation bilaterally Cardio: Rate: regular rate Rhythm: regular rhythm Heart sounds: S1 normal heart sound present and S2 normal heart sound present GI: Palpation (GI): Soft to palpation and nontender Auscultation: n ormoactive bowel sounds : General: Yes no CVA tenderness Back/Spine/Pelvis: Back: no CVA tenderness Skin: General skin exam: elasticity normal and turgor normal Neuro: General: oriented to person, oriented to place, oriented to time, patient oriented x3, moves all extremities, no focal motor deficits and CN's II- XI intact bilaterally Cranial nerves: Yes Equal, round and reactive pupils present Cognition (Neuro): normal cognition Extrem: General: Yes full ROM, Yes no pedal edema and Yes no calf tenderness Psych: Mental Status: mental status grossly normal Affect: normal affect Thought process: Normal thought process present Medications Administered Discontinued Medications Generic Name Dose Route Start Last Admin Trade Name Freq PRN Reason Stop Dose Admin Albuterol Sulfate 2.5 mg 07/03/23 13:25 07/03/23 13:45 Albuterol Sulfate (0.083%) 2.5 Mg/3 Ml Vial.Neb INHALE 07/03/23 13:26 2.5 mg ONCE ONE Administration Medical Decision Making Medical Decision Making MDM Narrative: Patient is a 43-year-old female with history of asthma, HTN, anemia, high cholesterol presenting to the emergency department with complaint of chest pain radiating to left arm which she describes as a tightness for the past 3 days. Patient states pain is constant and worsens with deep inspiration. On exam patient is awake, A+Ox3, VS WNL, afebrile, normal neurological exam without focal deficits, physical exam findings as above. Given reported symptoms and physical exam findings, initial differential includes ACS, asthma exacerbation, musculoskeletal pain. Less likely pneumonia, unlikely pneumothorax or aortic dissection. Unlikely PE based on PERC criteria. Will obtain EKG, chest x-ray, labs including troponin as well as swab for flu and COVID. Labs notable for no leukocytosis, no anemia, new electrolyte abnormalities, negative troponin, negative HCG. X-ray chest notable for no acute pathology. My interpretation is in agreement with the radiologist's interpretation. EKG shows normal sinus rhythm without evidence of STEMI. Heart score of 2. Will order nebulized albuterol treatment. 14:22 patient reports improvement in symptoms after breathing treatment. Says feels comfortable with discharge home. States she does not have a nebulizer at home, does have adequate amount of albuterol inhalers. Return precautions discussed at bedside. Instructed patient to follow-up with primary care provider this week. Patient verbalized understanding of and agreement with plan. Differential Diagnosis Differential Diagnoses: The differential diagnosis associated with the presentation includes As per MDM. Admission/Observation Consideration of admission/observation: Escalation of care including admission/observation considered Lab Data [facility] Lab Attestation statement: I reviewed the patient's lab results. As per MDM. 07/03/23 11:28 07/03/23 11:28 Labs: Lab Results 07/03/23 07/03/23 Range/Units 11:28 11:29 WBC 5.2 (4.8-10.8) X10*3/uL RBC 4.45 (4.20-5.50) X10*6/uL Hgb 13.7 (12.0-16.0) g/dl Hct 39.1 (37.0-47.0) % MCV 87.9 (80.0-98.0) fL MCH 30.8 (27.0-33.0) pg MCHC 35.0 (31.0-35.0) g/dl RDW 11.8 (11.0-16.0) % Plt Count 254 (160-400) X10*3/uL MPV 9.1 L (9.4-12.3) fL Immature Gran % (Auto) 0.2 (0.0-0.4) % Neut % (Auto) 46.9 (45-73) % Lymph % (Auto) 39.5 (20-40) % Benzie % (Auto) 11.5 H (2-11) % Eos % (Auto) 1.3 (0-4) % Baso % (Auto) 0.6 (0-2) % Lymph # (Auto) 2.1 (1.2-4.9) X10*3/uL Benzie # (Auto) 0.6 (0.1-1.2) X10*3/uL Eos # (Auto) 0.1 (0.0-0.4) X10*3/uL Baso # (Auto) 0.0 (0.0-0.2) X10*3/uL Abs Immat Gran (auto) 0.01 (0.00-0.03) X10*3/uL Absolute Neuts (auto) 2.5 (2.0-8.3) x10*3/uL Absolute Nucleated RBC 0.000 (0.0-0.012) X10*3/uL Nucleated RBC % (auto) 0.0 (0.0-0.2) /100WBC PT 11.7 (11.1-13.3) SEC INR 1.0 (0.9-1.1) Sodium 139 (135-145) mmol/L Potassium 4.1 (3.3-5.1) mmol/L Chloride 107 (96-108) mmol/L Carbon Dioxide 23 (22-29) mmol/L Anion Gap 13 (12-20) BUN 15 (9-16) mg/dL Creatinine 0.78 (0.5-1.4) mg/dL Estim Creat Clear Calc 110.9 Estimated GFR > 60 Random Glucose 98 (60-115) mg/dL Calcium 9.5 (8.4-10.2) mg/dL Total Bilirubin 0.5 (0.0-1.0) mg/dL AST 19 (5-31) U/L ALT 28 (0-31) U/L Alkaline Phosphatase 93 (39-117) U/L Troponin I High Sens < 2.7 (<3.5-17.0) ng/L Total Protein 8.1 H (6.5-8.0) g/dL Albumin 4.5 (3.5-5.0) g/dL Beta HCG, Quant < 2 mIU/mL COVID-19 (PCAO) Negative (Negative) COVID-19 Clin Com See Note Influenza Type A (TARIQ) Negative (Negative) Influenza Type B (TARIQ) Negative (Negative) Influenza A & B Note See Note Independent Interpretation I performed an independent interpretation of an: EKG and Plain X-Ray Interpretation: EKG shows normal sinus rhythm, rate 94 beats per minute, normal NE and QT intervals, no evidence of STEMI No acute pathology on chest x-ray Radiology Impression Discussion of test interpretation with radiology: I have reviewed the radiologist's reading. Radiologist Impression: XR/XR chest 2V IMPRESSION: No acute pulmonary pathology. External Record Review External record reviewed: Inpatient record, Office record and Outpatient record Scores Heart Score History: -1- moderately suspicious ECG: -0- normal Age: -0- < or = 45 Risk factory: -1- 1 or 2 risk factors Troponin: -0- < or = normal limit Score: 2 Risk: 1.7% Discharge Plan Discharge Clinical Impression: Chest pain Patient Disposition: Home, Self-Care Instructions: Chest Pain (DC), Noncardiac Chest Pain (ED) Additional Instructions: You were evaluated in the emergency department today for chest pain. Your evaluation has shown no signs of medical conditions requiring emergent intervention at this time, however we recommend that you follow-up with your primary care physician or your program review director as soon as possible for further testing as an outpatient. Please schedule an appointment for follow-up with your primary care physician as soon as possible. Return to the emergency department if you experience worsening or uncontrolled chest pain, shortness of breath, lightheadedness, feeling faint, loss of consciousness, nausea, vomiting, or any other concerning symptoms. Prescriptions: No Action albuterol sulfate 90 mcg/actuation HFA aerosol inhaler 2 puff inhalation Q4-6H PRN (Reason: shortness of breath or wheezing) Qty: 8.5 0RF acetaminophen [Tylenol Extra Strength] 500 mg tablet 500 mg PO Q6H PRN (Reason: pain or fever) Qty: 20 0RF ibuprofen 600 mg tablet 600 mg PO Q6H PRN (Reason: pain) Qty: 20 0RF cyclobenzaprine 10 mg tablet 10 mg PO TID PRN (Reason: muscle spasm) Qty: 15 0RF atorvastatin 80 mg tablet 80 mg PO DAILY Mirena 20 mcg/24 hours (8 yrs) 52 mg intrauterine device intrauterine Mirena 20 mcg/24 hours (7 yrs) 52 mg intrauterine device 1 device intrauterine ONCE Qty: 1 0RF Mirena 20 mcg/24 hours (7 yrs) 52 mg intrauterine device 1 device intrauterine ONCE Qty: 1 0RF fluticasone propionate [Flovent HFA] 44 mcg/actuation HFA aerosol inhaler 2 puff inhalation BID
[2023-07-03 11:34] LABS: MANUAL DIFF FLAG NO
[2023-07-03 11:35] LABS: Basophils Percent Auto 0.6 % (0-2); Eosinophils Absolute Auto 0.1 X10*3/uL (0.0-0.4); Eosinophils Percent Auto 1.3 % (0-4); Hematocrit 39.1 % (37.0-47.0); Hemoglobin 13.7 g/dl (12.0-16.0); Imm Gran Abs Auto 0.01 X10*3/uL (0.00-0.03); Imm Gran Pct Auto 0.2 % (0.0-0.4); Lymphocytes Absolute Auto 2.1 X10*3/uL (1.2-4.9); Lymphocytes Percent Auto 39.5 % (20-40); Mean Corpuscular Hemoglobin 30.8 pg (27.0-33.0); Mean Corpuscular Volume 87.9 fL (80.0-98.0); Mean Platelet Volume 9.1 fL (9.4-12.3); Monocytes Absolute Auto 0.6 X10*3/uL (0.1-1.2); Monocytes Percent Auto 11.5 % (2-11); Neutrophils Absolute Auto 2.5 x10*3/uL (2.0-8.3); Neutrophils Percent Auto 46.9 % (45-73); Platelet Count 254 X10*3/uL (160-400); Red Blood Count 4.45 X10*6/uL (4.20-5.50); Red Cell Distribution Width 11.8 % (11.0-16.0); White Blood Count 5.2 X10*3/uL (4.8-10.8)
[2023-07-03 11:42] LABS: Prothrombin Time 11.7 SEC (11.1-13.3)
[2023-07-03 11:54] LABS: COVID-19 Test Negative (Negative); IDNOW Serial# 16C4AD1C
[2023-07-03 11:54] LABS: IDNOW Serial# 58CA691E; Influenza A Negative (Negative); Influenza B2 Negative (Negative)
[2023-07-03 12:00] VITALS: BP 116/75; PULSE 63; RESP 18; TEMP 36.7; O2SAT 98
[2023-07-03 12:01] LABS: Alanine Aminotransferase 28 U/L (0-31); Albumin Level 4.5 g/dL (3.5-5.0); Alkaline Phosphatase 93 U/L (39-117); Anion Gap 13 (12-20); Aspartate Amino Transferase 19 U/L (5-31); Bilirubin Total 0.5 mg/dL (0.0-1.0); Blood Urea Nitrogen 15 mg/dL (9-16); Calcium 9.5 mg/dL (8.4-10.2); Carbon Dioxide 23 mmol/L (22-29); Chloride 107 mmol/L (96-108); Creatinine Clr Calc Pharmacy 110.9; Estimated Glomerular Filt Rate > 60; Glucose Random 98 mg/dL (60-115); HCG Quantitative < 2 mIU/mL; Potassium 4.1 mmol/L (3.3-5.1); Sodium 139 mmol/L (135-145); Total Protein 8.1 g/dL (6.5-8.0); Troponin-I High Sensitivity < 2.7 ng/L (<3.5-17.0)
--- NOTE | 2023-07-03 12:08 | PC.NURSE ---
vss and up to date. pt remains nsr on residential monitor. pt now endorsing that she has been extremely stressed lately. states that her about 5 months ago and that there is a lot going on/that she is dealing with. pt also states that she has not been able to sleep for 3 days d/t life/family stressors. pt resting comfortably in bed w/ the lights dimmed. call sandoval placed within reach.
[2023-07-03] MEDS: Albuterol Sulfate (0.083%) 2.5 MG/3 ML VIAL.NEB INHALE (13:45)
[2023-07-03 13:46] VITALS: PULSE 68; RESP 18; O2SAT 98
== END 2023-07-03 14:53 | disposition home or self-care (01) ==
PROVIDERS: Registered Nurse Emergency; Emergency Provider Emergency Medicine; PCP Internal Medicine
DX: R07.89 Other chest pain (principal); R20.0 Anesthesia of skin; Z20.822 Contact with and (suspected) exposure to COVID-19; Z20.828 Contact with and (suspected) exposure to other viral communicable diseases; Z79.899 Other long term (current) drug therapy
CPT/HCPCS: 71046; 80053; 84484; 84702; 85025; 85610; 87502; 87635; 93005; 94640; 99284; 99285

== ENCOUNTER 2023-07-26 10:19 | Outpatient (AMB) | payer OTHER, SELFPAY ==
--- NOTE | 2023-07-26 10:36 | MHC.OFFVIS ---
Intake Vital Signs 07/26/23 10:37 Height 5 ft 3 in Weight 247 lb BMI 43.7 Intake Visit Reasons: Pre-Op LT CTR, [email or web address] transp. 08/04/23AR Intake Note: Ashlee 47 year old female who is rught hand dominant, presents today for her left elbow medial epicondylitis as per Jose Guadalupe Caal who saw patient on 06/06/23. Patient here to discuss this further treatment options vs surgical intervention. EMG done. Allergies No Known Allergies [No Known Allergies*] Allergy (Verified 07/26/23 10:37) HPI Pre-Op LT CTR, [email or web address] transp. 08/04/23AR HPI Details Campos is a 43 year old right hand dominant Bangladeshi speaking woman who presents to discuss treatment for her left carpal & cubital tunnel syndrome. She is the mother of one of our MA's She continues to complain of numbness in all her digits bilaterally, L>R, and has been present for ~2 years. Symptoms intermittent, but daily, worse at night or right after waking up. 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 Her numbness is worse in her left thumb, and small finger. She is scheduled for a left carpal & cubital tunnel release on 08/04/23. She also complains of stiffness in her fingers. She denies any locking or catching [facility] Medical History Anemia Asthma High cholesterol Hypertension Surgical History History of hysteroscopy Hx of section Hx of tubal ligation Family History Sister Colon cancer Social History Alcohol intake: never Patient Tobacco Use Status: Never used Tobacco Female Reproductive History Menstrual Age of Menarche: 11 Physical Exam Vital Signs: BMI result Body Mass Index 43.7 Const General: cooperative, healthy appearing and no acute distress Orientation/consciousness: patient oriented x3 HEENT Head: Yes normocephalic and Yes atraumatic Eyes EOM: EOMs intact bilaterally Resp Effort & Inspection: normal respiratory effort and able to speak in complete sentences Cardio Jugular venous distension: no JVD Skin General skin exam: turgor normal Rashes: no rashes Neuro General: patient oriented x3 Extrem Other: Evaluation of Left Upper Extremity: The patient is alert, oriented, and in no acute distress Neuro: Median, Ulnar, Radial nerves motor and sensory intact except for dense numbness to the left thumb and small finger today in clinic No thenar or intrinsic wasting Good APB muscle belly firing and good finger cross Vascular: Cap refill brisk ROM: She can make a fist and extend all her digits Nerve Conduction Study: IMPRESSION:? 1. 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 2. Mild bilateral ulnar neuropathy across cubital tunnel. Maryann Vallejo MD 03/17/2023 Psych Appearance: grossly normal Affect: normal affect Attitude: cooperative Assessment & Plan Assessment & Plan (1) Carpal tunnel syndrome of left wrist: Code(s): G56.02 - Carpal tunnel syndrome, left upper limb (2) Cubital tunnel syndrome on left: Code(s): G56.22 - Lesion of ulnar nerve, left upper limb (3) Carpal tunnel syndrome of right wrist: Code(s): G56.01 - Carpal tunnel syndrome, right upper limb (4) Cubital tunnel syndrome on right: Code(s): G56.21 - Lesion of ulnar nerve, right upper limb Plan Assessment & Plan: 1. Left Carpal tunnel syndrome, Mild-moderate Symptoms intermittent, but daily, worse at night Dense numbness in the thumb today 2. Left Cubital tunnel syndrome, mild Symptoms intermittent, but daily, worse at night Dense numbness in the small finger today I educated her about this condition I discussed operative and non-operative treatment options The patient would like to proceed with surgery The risks and benefits of operative treatment were discussed with the patient and the patient wishes to proceed with surgery. These risks include, but are not limited to risk of damage to blood vessels, nerves, tendons, infection, recurrence, incomplete relief of preoperative symptoms, persistent pain, possible need for further surgery and the risks associated with regional blocks and anesthesia. The plan is to take the patient to the operating room sometime on 08/04/23 for the following procedures: 1. Left carpal tunnel release, under general 2. Left Cubital tunnel release vs transposition, under general All of the preoperative paperwork including the consent was filled out today. All the patient's questions were answered. She denies Diabetes, blood thinners, heart, lung, kidney issues She has asthma 3. Right Carpal tunnel syndrome, mild-moderate Symptoms intermittent, but daily, worse at night 4. Right Cubital tunnel syndrome, mild Symptoms intermittent, but daily, worse at night We can discuss treatment at a later appointment I encouraged her to work on ROM exercises Scribed for Gretchen Tim MD by Jeramy Ramírez, medical advisor, on 07/26/23 at 11:05 AM, EST. Coding Level of Care Code Est Pt Level 4 (62375) Diagnoses Carpal tunnel syndrome of left wrist G56.02 Cubital tunnel syndrome on left G56.22 Carpal tunnel syndrome of right wrist G56.01 Cubital tunnel syndrome on right G56.21
[2023-07-26 10:37] VITALS: BMI 43.7
== END 2023-07-26 11:29 | disposition home or self-care (01) ==
PROVIDERS: PCP Internal Medicine; Visit Provider Orthopaedic Surgery
DX: G56.03 Carpal tunnel syndrome, bilateral upper limbs (principal); G56.23 Lesion of ulnar nerve, bilateral upper limbs
CPT/HCPCS: 99214

== ENCOUNTER → 2023-07-26 10:19 | Outpatient (BNVA) | payer OTHER, SELFPAY | PROVIDERS: PCP Internal Medicine; Visit Provider Orthopaedic Surgery | DX: G56.03 Carpal tunnel syndrome, bilateral upper limbs (principal); G56.23 Lesion of ulnar nerve, bilateral upper limbs | CPT/HCPCS: 99212 ==

== ENCOUNTER 2023-08-04 08:15 | Day surgery (SDC) | payer OTHER, SELFPAY ==
[2023-08-01 11:27] VITALS: BMI 43.4
--- NOTE | 2023-08-03 09:22 | HO.ANESPROP2 ---
Documented by User: Court Roland NP 08/03/23 12:18 HPI - Anesthesia Eval Consult details Narrative: 43yo F for Left Carpal Tunnel Release, Left Cubital Tunnel Release vs transposition Seen in [facility] ED 06/2023 for CP. Thought to be non-cardiac but rec'd f/u with PCP/Cardiology for any possible outpatient testing. Ortho office contacting PCP for clearance to proceed without ED f/u visit. s/p tubal PMFSH Active Problems Active Problems: All Active Problems (Updated 07/26/23 @ 10:57 by Jeramy Ramírez) Cubital tunnel syndrome on right (Acute) Cubital tunnel syndrome on left (Acute) Abnormal uterine bleeding (Acute) Cervical high risk HPV (human papillomavirus) test positive (Acute) Myoma (Acute) Remove/insert IUD (Acute) COVID-19 (Acute) IUD check up (Acute) Carpal tunnel syndrome of left wrist (Acute) Carpal tunnel syndrome of right wrist (Acute) Past Medical History Medical History Hypertension Anemia High cholesterol Asthma Family History Family History Sister Colon cancer Family history of problems with anesthesia: No Surgical History Surgical History Hx of section History of hysteroscopy Hx of tubal ligation History of Problems with Anesthesia: No Social History Social History Are you a primary client care coordinator to a significant other at home: No Do you presently have visiting nurse or other home services: No Alcohol intake: never Patient Tobacco Use Status: Never used Tobacco Have you been hit, kicked, punched, or otherwise hurt by someone within the past year? If so, by whom?: No Advance Directives: No Advance Directives Information Provided: Yes Advance Directives on File: No Recently lost weight without trying: No Eating poorly because of decreased appetite: No Nutrition Risks: No Nutritional Risk Patient : No : No Poor oral hygiene: No Meds Allergies Allergy/AdvReac Type Severity Reaction Status Date / Time No Known Allergies Allergy Verified 07/26/23 10:37 [No Known Allergies*] Home Medications Medication Instructions Recorded Confirmed Last Taken Type atorvastatin 80 mg tablet 80 mg PO BEDTIME 03/15/22 08/01/23 Unknown History levonorgestrel 21 mcg/24 hours (8 intrauterine 08/05/22 Unknown History yrs) 52 mg intrauterine device (Mirena) fluticasone propionate 44 2 puff inhalation BID 01/20/23 08/01/23 Unknown History mcg/actuation HFA aerosol inhaler (Flovent HFA) Exam Exam Date and Time: August 03, 2023 0922 Height,Weight and Vital Signs: Height 5 ft 3 in Weight 111.13 kg Pertinent Lab Results Pertinent Lab Results: Laboratory Tests 07/03/23 11:28 WBC 5.2 Hgb 13.7 Hct 39.1 Plt Count 254 Sodium 139 Potassium 4.1 Chloride 107 Carbon Dioxide 23 BUN 15 Creatinine 0.78 Narrative Narrative: EKG 06/2023 Vent. Rate : 094 BPM Atrial Rate : 094 BPM P-R Int : 144 ms QRS Dur : 074 ms QT Int : 368 ms P-R-T Axes : 045 017 022 degrees QTc Int : 460 ms Normal sinus rhythm Normal ECG When compared with ECG of 06-DEC-2022 09:02, No significant change was found Assessment and Plan Assessment Anesthesia Assessment: Chart Reviewed Final Anesthetic Review Family History of Problems with Anesthesia: No History of Problems with Anesthesia: No Documented by User: Megan Moreland MD 08/04/23 13:58 [facility] Active Problems Active Problems: All Active Problems (Updated 08/04/23 @ 10:57 by Megan Moreland MD) Cubital tunnel syndrome on right (Acute) Cubital tunnel syndrome on left (Acute) Abnormal uterine bleeding (Acute) Cervical high risk HPV (human papillomavirus) test positive (Acute) Myoma (Acute) Remove/insert IUD (Acute) COVID-19 (Acute) IUD check up (Acute) Carpal tunnel syndrome of left wrist (Acute) Carpal tunnel syndrome of right wrist (Acute) Increased BMI 43.4 HTN. On metoprolol Asthma. Uses daily inhaler ? CYN. For sleep study after surgery Past Medical History Medical History Hypertension Anemia High cholesterol Asthma Family History Family History Sister Colon cancer Surgical History Surgical History Hx of section History of hysteroscopy Hx of tubal ligation Social History Social History Are you a primary client care coordinator to a significant other at home: No Do you presently have visiting nurse or other home services: No Alcohol intake: never Patient Tobacco Use Status: Never used Tobacco Have you been hit, kicked, punched, or otherwise hurt by someone within the past year? If so, by whom?: No Advance Directives: No Advance Directives Information Provided: Yes Advance Directives on File: No Recently lost weight without trying: No Eating poorly because of decreased appetite: No Nutrition Risks: No Nutritional Risk Patient : No : No Poor oral hygiene: No Meds Allergies Allergy/AdvReac Type Severity Reaction Status Date / Time No Known Allergies Allergy Verified 07/26/23 10:37 [No Known Allergies*] Home Medications Medication Instructions Recorded Confirmed Last Taken Type atorvastatin 80 mg tablet 80 mg PO BEDTIME 03/15/22 08/01/23 Unknown History levonorgestrel 21 mcg/24 hours (8 intrauterine 08/05/22 Unknown History yrs) 52 mg intrauterine device (Mirena) fluticasone propionate 44 2 puff inhalation BID 01/20/23 08/01/23 Unknown History mcg/actuation HFA aerosol inhaler (Flovent HFA) Exam Height,Weight and Vital Signs: Height 5 ft 3 in Weight 111.13 kg Vital Signs Temp Pulse Resp BP Pulse Ox O2 Del Method 08/04/23 08:50 98.3 F 77 18 159/91 H 99 Room Air Airway Mallampati Class: II TM Dist: >3cm Neck ROM: Full Loose/Missing/Broken Teeth: Yes (Denies broken, loose, missing teeth) Heart: RRR Lungs: CTAB Assessment and Plan Assessment Anesthesia Assessment: Anesthesia Plan Discussed Final Anesthetic Review NPO: Yes ASA Class: III Final Preanesthetic Review: No Changes in Pt Med Stat, Meds/Allgs Chart Reviewed, Consent Obtained/Reviewed and Anes Risks/Benef Reviewed Patient Risk: Intermediate Procedure Risk: Low Assessment/Block/Sedation in SS: Assess/Block/Sedation-SS Anesthetic Plan Anesthetic Plan: GA Disposition: Standard PACU
[2023-08-04] VITALS (10 sets, daily range): BP systolic 123–159; BP diastolic 73–91; PULSE 62–77; RESP 14–19; TEMP 36.1–36.8; O2SAT 96–99
[2023-08-04] MEDS: Lactated Ringers 1,000 ML 100 ML IVCONT (09:10)
--- NOTE | 2023-08-04 11:15 | P.OP_ITS ---
Operative Note Operative Note Date of Service: 08/04/23 Narrative: Operative Note Narrative: Preop diagnosis: 1. left Cubital tunnel syndrome 2. Left carpal tunnel syndrome Postop diagnosis: Same Procedure: 1. left Cubital Tunnel Release 2. Left carpal tunnel release Surgeon: Gretchen Tim MD Anesthesia: General Anesthesia Findings: Thickening and fibrosis about the ulnar nerve at the cubital tunnel With narrowing at the distal aspect of the cubital tunnel and swelling of the nerve proximal to this. Implants: none Tourniquet time: Twenty-seven minutes EBL: 5.0 ml Specimen: none Drains: None Complications: None Disposition: Brought to the recovery room in stable condition Plan: Follow-up in 10-14 days for wound check, and suture removal Indications: The patient is 43 years old with left cubital tunnel syndrome and left carpal tunnel syndrome with dense numbness . The risks and benefits of operative treatment, including but not limited to risk of damage to blood vessels, nerves, tendons, infection, recurrence, persistent pain or numbness, incomplete resolution of preoperative symptoms, or need for further surgery were discussed with the patient and they wished to proceed with surgery. Procedure: Once consent was obtained patient was brought back to the operating suite and placed in the operating table in a supine position. Perioperative antibiotics and anesthesia was administered by the anesthesia team. The limb was prepped and draped in a standard surgical fashion, and a sterile tourniquet applied to the proximal aspect of the left upper extremity. The limb was elevated exsanguinated with Esmarch bandage and the tourniquet inflated to 250 mm of mercury for a total tourniquet time of 27 minutes. Once assured that we had a good block, a 2.0 cm longitudinal incision was made centered over the left carpal tunnel. The incision was made through the skin to the subcutaneous tissues using a #15 blade. Dissection was made down to the level of the transverse carpal ligament with care being taken to protect the palmar cutaneous nerve. Once the transverse carpal ligament was clearly visualized, a longitudinal incision was made in the transverse carpal ligament 1st using a #15 blade, then using tenotomy scissors under direct visualization. Care was taken to look for and protect the motor branch of the median nerve when seen in this area. Once satisfied with our carpal tunnel release the wound was irrigated with normal saline. A 6 cm gently curved but longitudinally oriented incision was made centered over the cubital tunnel of the left upper extremity. Incision was made through the skin to the subcutaneous tissues using a # 15 Blade. I then dissected down to the level of the medial epicondyle and the cubital tunnel using tenotomy scissors. Care was taken to protect the lateral antebrachial cutaneous nerve. The ulnar nerve was identified just posterior to the medial intermuscular septum. The ulnar nerve was released in a proximal to distal direction using te notomy in iris scissors while directly visualizing and protecting the ulnar nerve. Thickening and fibrosis was appreciated about the ulnar nerve as it passed through the cubital tunnel. The ulnar nerve was assessed as I passed the elbow through full flexion and extension and was found to remain stable within its groove. At this point the tourniquet was deflated and hemostasis obtained with a brief period of local pressure and bipolar electrocautery. The wound was copiously irrigated with normal saline. The subcutaneous layer was closed with 4-0 Vicryl suture, and the skin edges were reapproximated with 5-0 nylon suture. The wound was infiltrated with some 0.25% plain Marcaine for postop pain control and a sterile dressing was applied. The patient appears to have tolerated the proc edure well and with no complications. All digits were well vascularized conclusion of the case.
--- NOTE | 2023-08-04 11:15 | MHC.SHP ---
Pre-Procedural Eval Section A Date of Service: 08/04/23 The patient is an INPATIENT: No Changes since office visit: No Cold of Flu in the past 2 weeks, No New Medical Problems, No Changes in Medication and No Patient answered all questions The History & Physical has been completed within 30 days and I have reviewed it.: Yes Section B Chief Complaint: Carpal tunnel syndrome, left upper limb Allergies: Allergies Allergy/AdvReac Type Severity Reaction Status Date / Time No Known Allergies Allergy Verified 07/26/23 10:37 [No Known Allergies*] Plan I have reviewed the history and physical and performed a pertinent physical examination on my patient. No changes have occurred unless specified. Time Spent With Patient Time: Total time managing care of this patient today ____ minutes.
[2023-08-04] MEDS: Acetaminophen 1,000 MG/100 ML PIGGYBACK 400 MG IV (13:17)
== END 2023-08-04 14:30 | disposition home or self-care (01) ==
PROVIDERS: PCP Internal Medicine; Visit Provider Orthopaedic Surgery
PROC: (CPT 64721; principal; 2023-08-04 10:10)
PROC: (CPT 64718; 2023-08-04 10:10)
DX: G56.02 Carpal tunnel syndrome, left upper limb (principal); G56.22 Lesion of ulnar nerve, left upper limb; R20.0 Anesthesia of skin; M25.649 Stiffness of unspecified hand, not elsewhere classified; D64.9 Anemia, unspecified; J45.909 Unspecified asthma, uncomplicated; I10 Essential (primary) hypertension; Z79.51 Long term (current) use of inhaled steroids; Z79.899 Other long term (current) drug therapy
CPT/HCPCS: 64721; 64718; J0131; J0171; J0690; J1100; J2250; J2405; J2550; J2795; J3010

== ENCOUNTER → 2023-08-04 08:15 | Outpatient (BNV) | payer OTHER, SELFPAY | PROVIDERS: PCP Internal Medicine; Visit Provider Orthopaedic Surgery | DX: G56.02 Carpal tunnel syndrome, left upper limb (principal); G56.22 Lesion of ulnar nerve, left upper limb | CPT/HCPCS: 64718; 64721 ==

== ENCOUNTER 2023-08-15 09:07 | Outpatient (AMB) | payer OTHER, SELFPAY ==
--- NOTE | 2023-08-15 09:10 | A.OFFVIS_ITS ---
Intake Vital Signs 08/15/23 09:14 Height 5 ft 3 in Weight 245 lb BMI 43.4 BP 132/86 Intake Visit Reasons: Annual/ultra sound follow up/DO NOT RS Exchange Architect Required: Yes Exchange Architect Language: Windows Software Engineer Name: Jodie GUEVARA Information Interpreted: non-clinical & clinical Accompanied by: Self / Same As Patient Allergies No Known Allergies [No Known Allergies*] Allergy (Verified 08/15/23 09:19) HPI HPI Comments History of Present Illness Details Presenting for ultrasound follow-up. Pelvic ultrasound showed the following Uterus: The uterus is anteverted and measures 13.2 x 6.8 x 8.4 cm. The double wall endometrial thickness is 6 mm. The uterus is smooth in contour and has normal myometrial echogenicity. Anterior uterine body partially subserosal 2.9 cm fibroid. Posterior uterine body 3.1 cm fibroid, increased from prior study with a possible submucosal component within the endometrium. Adnexa: Both ovaries are visualized. There is normal color flow to the adnexa. There is no ovarian torsion. There is no pelvic ascites or fluid collection. Right ovary measures 4.3 x 3.6 x 3.8 cm. Simple intraovarian cyst measures 3.7 x 3.3 x 3.4 cm. Left ovary measures 2.9 x 1.7 x 2.3 cm. [facility] Medical History Hypertension Anemia High cholesterol Asthma Surgical History Hx of section History of hysteroscopy Hx of tubal ligation Family History Sister Colon cancer Social History Are you a primary critical care clinical nurse specialist to a significant other at home: No Do you presently have visiting nurse or other home services: No Alcohol intake: never Patient Tobacco Use Status: Never used Tobacco Female Reproductive History Menstrual Age of Menarche: 11 Date of last menstrual period: 08/06/23 Date of last pap smear: 03/17/22 History of abnormal pap smear: Yes (HPV +) Date of Mammogram: 11/04/22 Review of Systems Const All systems reviewed & are unremarkable except as noted in HPI and below Reports as per HPI and Reports no additional complaints GI Reports no additional complaints Reports no additional complaints Physical Exam Vital Signs: Last Vital Signs BP 132/86 08/15/23 09:14 BMI result Body Mass Index 43.4 Assessment & Plan Assessment & Plan (1) Myoma: Comment: 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 Will repeat pelvic ultrasound periodically. Instructions given to patient to call in case any of the following occurs: pressure symptoms, abnormal uterine bleeding, pelvic pain; and to schedule a future office follow-up appointment for reassessment and to order a repeat ultrasound . All questions answered, the patient verbalized understanding and agreed with the plan . Coding Level of Care Code Est Pt Level 3 (03079) Diagnoses Myoma D21.9
[2023-08-15 09:14] VITALS: BP 132/86; BMI 43.4
== END 2023-08-15 09:49 | disposition home or self-care (01) ==
PROVIDERS: PCP Internal Medicine; Visit Provider Obstetrics & Gynecology
DX: D21.9 Benign neoplasm of connective and other soft tissue, unspecified (principal)
CPT/HCPCS: 99213

== ENCOUNTER → 2023-08-15 09:07 | Outpatient (BNVA) | payer OTHER, SELFPAY | PROVIDERS: PCP Internal Medicine; Visit Provider Obstetrics & Gynecology | DX: D25.9 Leiomyoma of uterus, unspecified (principal) | CPT/HCPCS: 99212 ==

== ENCOUNTER 2023-08-17 13:23 | Outpatient (AMB) | payer OTHER, SELFPAY ==
--- NOTE | 2023-08-17 13:25 | A.OFFVIS_ITS ---
Intake Intake Visit Reasons: PO LT CTR, Cun.John. Release vs. transpo. Intake Note: Campos rockwell 43 year old female presents today for a post operative left CTR & Cubital release, DOS 08/04/23. Patient reports mild pain and swelling in her hand. States hand feels warm to the touch. Allergies No Known Allergies [No Known Allergies*] Allergy (Verified 08/15/23 09:19) HPI PO LT CTR, Cun.John. Release vs. transpo. HPI Details 43-year-old female who returns to the [facility] today for post-op left CTR & cubital tunnel release, 08/04/[address] Tim. She states she has mild pain and swelling in her hand. She also reports her hand feels warm to touch. She is doing well overall and has no concerns today. COUNT INCLUDES [facility] Medical History Hypertension Anemia High cholesterol Asthma Surgical History Hx of section History of hysteroscopy Hx of tubal ligation Family History Sister Colon cancer Social History Are you a primary director of healthcare systems to a significant other at home: No Do you presently have visiting nurse or other home services: No Alcohol intake: never Patient Tobacco Use Status: Never used Tobacco Female Reproductive History Menstrual Age of Menarche: 11 Review of Systems Const All systems reviewed & are unremarkable except as noted in HPI and below Physical Exam Extrem Other: Left wrist and left elbow: Incision clean, dry and intact. She has some decreased sensation to the median and ulnar nerve distribution of the left hand which is consistent with preoperative findings. Pulses are intact. Results Reviewed Results Reviewed: Date of Service: 08/04/23 Narrative: Operative Note Narrative: Preop diagnosis: 1. left Cubital tunnel syndrome 2. Left carpal tunnel syndrome Postop diagnosis: Same Procedure: 1. left Cubital Tunnel Release 2. Left carpal tunnel release Surgeon: Gretchen Tim MD Anesthesia: General Anesthesia Findings: Thickening and fibrosis about the ulnar nerve at the cubital tunnel With narrowing at the distal aspect of the cubital tunnel and swelling of the nerve proximal to this. Assessment & Plan Assessment & Plan (1) Cubital tunnel syndrome on right: Code(s): G56.21 - Lesion of ulnar nerve, right upper limb (2) Cubital tunnel syndrome on left: Code(s): G56.22 - Lesion of ulnar nerve, left upper limb Plan Sutures removed today, steri strips applied. Reassurance was given that over the next 6 weeks she should experience some improvement in her symptoms. I did recommend no lifting more than a cellphone for the next 3-4 weeks. She should continue to keep the incision clean, dry and intact to avoid risk of infection and she will see us back if symptoms worsen, or if there are any concerns. I did refer her to occupational therapy for gentle ROM and nursing assoc strength. Orders: Orders OT Evaluation and Treatment Today G56.21 - Lesion of ulnar nerve, right upper limb, G56.22 - Lesion of ulnar nerve, left upper limb Patient Instructions: Scribed for Radha Miller PA-C, by Meet Ro medical records director, on 08/17/2023 at 1:30 PM EST. I, Radha Miller PA-C, have personally reviewed and agree with the information entered by the scribe. Coding Level of Care Code Global (93831) Diagnoses Cubital tunnel syndrome on right G56.21 Cubital tunnel syndrome on left G56.22
== END 2023-08-17 14:14 | disposition home or self-care (01) ==
PROVIDERS: PCP Internal Medicine; Visit Provider Physician Assistant
DX: G56.21 Lesion of ulnar nerve, right upper limb (principal); G56.22 Lesion of ulnar nerve, left upper limb
CPT/HCPCS: 99024

== ENCOUNTER → 2023-08-17 13:23 | Outpatient (BNVA) | payer OTHER, SELFPAY | PROVIDERS: PCP Internal Medicine; Visit Provider Physician Assistant ==

== ENCOUNTER 2023-09-22 10:26 | Outpatient (REF) | payer OTHER, SELFPAY ==
[2023-09-22 13:44] LABS: Alanine Aminotransferase 20 U/L (0-31); Albumin Level 4.5 g/dL (3.5-5.0); Alkaline Phosphatase 102 U/L (39-117); Anion Gap 14 (12-20); Aspartate Amino Transferase 20 U/L (5-31); Bilirubin Total 0.7 mg/dL (0.0-1.0); Blood Urea Nitrogen 13 mg/dL (9-16); Calcium 9.5 mg/dL (8.4-10.2); Carbon Dioxide 28 mmol/L (22-29); Chloride 102 mmol/L (96-108); Cholesterol 208 mg/dL (<200); Estimated Glomerular Filt Rate > 60; Glucose Random 97 mg/dL (60-115); HDL Cholesterol 34 mg/dL (>40); LDL Cholesterol Calculated 143 mg/dL (<100); Potassium 3.6 mmol/L (3.3-5.1); Sodium 140 mmol/L (135-145); Total Protein 8.1 g/dL (6.5-8.0); Triglycerides 159 mg/dL (<150)
[2023-09-22 13:52] LABS: Basophils Percent Auto 0.6 % (0-2); Eosinophils Absolute Auto 0.1 X10*3/uL (0.0-0.4); Eosinophils Percent Auto 1.1 % (0-4); Hematocrit 38.3 % (37.0-47.0); Hemoglobin 13.5 g/dl (12.0-16.0); Imm Gran Abs Auto 0.01 X10*3/uL (0.00-0.03); Imm Gran Pct Auto 0.2 % (0.0-0.4); Lymphocytes Percent Auto 42.5 % (20-40); MANUAL DIFF FLAG NO; Mean Corpuscular HGB Conc 35.2 g/dl (31.0-35.0); Mean Corpuscular Hemoglobin 31.3 pg (27.0-33.0); Mean Corpuscular Volume 88.9 fL (80.0-98.0); Mean Platelet Volume 10.3 fL (9.4-12.3); Monocytes Absolute Auto 0.4 X10*3/uL (0.1-1.2); Monocytes Percent Auto 9.3 % (2-11); Neutrophils Absolute Auto 2.2 x10*3/uL (2.0-8.3); Neutrophils Percent Auto 46.3 % (45-73); Platelet Count 318 X10*3/uL (160-400); Red Blood Count 4.31 X10*6/uL (4.20-5.50); Red Cell Distribution Width 11.9 % (11.0-16.0); White Blood Count 4.7 X10*3/uL (4.8-10.8)
[2023-09-30 03:48] LABS: HPV mRNA E6/E7 rflx Not Detected (Not Detected)
== END 2023-09-22 10:27 | disposition home or self-care (01) ==
LOC: HO.10HDL 10:26
PROVIDERS: Obstetrics & Gynecology; Visit Provider Internal Medicine
DX: Z01.419 Encounter for gynecological examination (general) (routine) without abnormal findings (principal); Z11.51 Encounter for screening for human papillomavirus (HPV); E78.00 Pure hypercholesterolemia, unspecified; F33.41 Major depressive disorder, recurrent, in partial remission; I10 Essential (primary) hypertension
CPT/HCPCS: 36415; 80053; 80061; 85025; 87624; 88142; 99396

== ENCOUNTER 2023-09-22 14:52 | Outpatient (AMB) | payer OTHER, SELFPAY ==
[2023-09-22 15:11] VITALS: BP 126/70; BMI 43.2
--- NOTE | 2023-09-22 15:11 | MHC.OFFVIS ---
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 No complaints. Last Pap/HPV was negative/HPV positive in 03/31, colpo biopsy was negative Last Mammogram was BI-RADS 1 in 11/01 PFSH Medical History Hypertension Anemia High cholesterol Asthma Surgical History Hx of section History of hysteroscopy Hx of tubal ligation Family History Sister Colon cancer Social History Are you a primary medicare biller to a significant other at home: No Do you presently have visiting nurse or other home services: No Alcohol intake: never Comment: previously medicated with oxycodone Patient Tobacco Use Status: Never used Tobacco Female Reproductive History Menstrual Age of Menarche: 11 Duration of menses: 6-7 days Date of last menstrual period: 09/10/23 control method: progestin IUCD Total pregnancies: 2 Full term: 2 Number of Living Children: 2 Date of last pap smear: 03/17/22 (+HPV) History of abnormal pap smear: Yes Date of Mammogram: 11/04/22 Review of Systems Const All systems reviewed & are unremarkable except as noted in HPI and below Card Reports as per HPI Resp Reports as per HPI GI Reports as per HPI and Reports no additional complaints Reports as per HPI Physical Exam Vital Signs: Last Vital Signs BP 126/70 09/22/23 15:11 BMI result Body Mass Index 43.2 Const General: cooperative, healthy appearing and comfortable Chest Chest palpation & inspection: normal inspection of the chest and normal palpation of entire chest wall Breast/axilla inspection: normal inspection of the breasts and normal inspection of the axillae Breast/axilla palpation: normal palpation of the breasts, normal palpation of the axillae and no axillary lymphadenopathy Resp Effort & Inspection: normal respiratory effort Auscultation: clear to auscultation bilaterally Percussion: percussion normal Cardio Palpation: normal PMI Rate: regular rate Rhythm: regular rhythm Heart sounds: no murmurs and no rubs Peripheral pulses: Peripheral pulses 2+ throughout GI Inspection: Yes normal to inspection Palpation (GI): Soft to palpation, nontender, no guarding, not rigid and No hepatosplenomegaly present Percussion: Yes normal to percussion Auscultation: normal bowel sounds Rectal Exam - Female: deferred General: Yes bladder normal to palpation External Female Exam: No lesion Speculum Exam - Vagina: normal appearance of the vagina, normal palpation, normal vaginal discharge and not erythematous Speculum Exam - Cervix: normal appearance of the cervix, normal palpation and Other cervical findings present (IUD string in place) Bimanual exam- vagina & uterus: normal bimanual exam, normal palpation, uterine size normal, bladder normal to palpation, consistency normal and normal palpation Bimanual Exam- Adnexa, other: normal adnexae, no masses and no tenderness Assessment & Plan Assessment & Plan (1) Well woman exam: Code(s): Z01.419 - Encounter for gynecological examination (general) (routine) without abnormal findings Plan: Cotesting done. Mammogram ordered. Counseled the patient about the recommended dietary allowance of 1000 mg of Calcium & 600 IU of vitamin D. The patient was instructed to perform monthly self-breast exams and to schedule an annual exam in a year; All questions answered and the patient verbalized understanding. Instructed the patient to schedule annual exam in a year Orders: Orders MM screening mammo BI Today Z12.31 - Encounter for screening mammogram for malignant neoplasm of breast Coding Level of Care Code Est Pt Prev Care 40-64y(91751) Diagnoses Well woman exam Z01.419
== END 2023-09-22 15:34 | disposition home or self-care (01) ==
LOC: HO.HWS 14:52
PROVIDERS: PCP Internal Medicine; Visit Provider Obstetrics & Gynecology
DX: Z01.419 Encounter for gynecological examination (general) (routine) without abnormal findings (principal)
CPT/HCPCS: 99396

== ENCOUNTER 2023-11-01 13:00 | Outpatient (RCR) | payer OTHER, SELFPAY ==
--- NOTE | 2023-10-12 15:00 | MHC.OT.EP ---
[address] [phone] Occupational Therapy Plan of Care Patient Name: Campos Correia Date of Evaluation: 10/12/23 Diagnosis: S/P L CTR AND CUBITAL TUNNEL RELEASE Pain Location: 5/10 L VOLAR WRIST 0/10 MEDIAL ELBOW AT REST 8/10 L VOLAR WRIST, 6/10 MEDIAL ELBOW WITH USE REPORTS SCRATCHY/ITCHY FEELING IN L MEDIAL ELBOW Pain Score: 0-8/10 Pain Scale Used: Numeric (0 - 10) Aggravating Factors: COLD WEATHER Alleviating Factors: TAKING TYLENOL, NOT CURRENTLY USING ICE/HEAT Assessment: MS CORREIA IS 9 WEEKS, 6 DAYS S/P L CUBITAL TUNNEL AND L CARPAL TUNNEL RELEASE. SHE REPORTS OVERALL MILD TO MODERATE PAIN AND HAS EMERGING INDEPENDENCE WITH DAILY ACTIVITIES. HER WRIST AND ELBOW ROM ARE WFL, WELL HER SENSATION. A 20% LIMITATION IS REPORTED PER THE QUICK DASH ASSESSMENT. SHE STATES SHE HAS MODERATE DIFFICULTIES SLEEPING. ONGOING SKILLED OT IS WARRANTED TO ADDRESS STRENGTH, DESENSITIZATION STRATEGIES, EDEMA MANAGEMENT, AND IMPROVE QOL. Frequency and Duration: The patient will be seen 2X/WEEK FOR 4 WEEKS Short Term Goals: IND HEP IND USE OF COLD MODALITIES IND JT PROTECTION/ ACTIVITY MODIFICATIONS L ELBOW FLEX >150 DEGREES Nurse'S Companion Goals: L GROSS GRASP >25 POUNDS IND SELF MANAGEMENT OF RUE ULNAR/ MEDIAN NERVE SYMPTOMS REPORT MILD DIFFICULTIES SLEEPING TOLERATE LIFTING >10 POUNDS FOR IADLs WITH <4/10 PAIN Treatment Plan: Therapeutic Exercise Therapeutic Activity Home Exercise Program Splinting Neuro Re-ed Patient Education Desensitization/Sensory Re-ed Edema Control ADL Training Ultrasound NMES Iontophoresis Paraffin Fluidotherapy MHP Cold Packs Joint Mobilization Soft Tissue Mobilization Kinesiotaping Other (see comments) Electronically Signed By: CHANTEL SANCHEZ OTR/L Please Sign and return to therapist. Thank you once again for your referral.
--- NOTE | 2023-11-09 11:24 | MHC.OT.DC ---
[address] [phone] F: [phone] Occupational Therapy Discharge Note Patient Name: Campos Le Provider: Radha Miller PA-C Diagnosis: S/P L CTR AND CUBITAL TUNNEL RELEASE Date of Surgery: 08/04/23 Date of Evaluation: 10/12/23 Date of Discharge: 11/02/23 Treatments to Date: 7 Cancellations to Date: 0 No Shows to Date: 0 Discharge Status: Achieved Goals Improved Function Discharge Summary: Campos is about three months post-op left carpal tunnel and cubital tunnel releases. She has progressed well w/ light daily activities and has no current complaints because of left hand or elbow. Still reports difficulty with right hand numbness, encouraged to wear nighttime orthosis and continue exercises for CTS. She is Ind w/ self management and HEP at this time, no further outpatient services needed. Electronically Signed By: KATJA Livingston/Sera CHT Reviewed/agree with student documentation: N/A Therapist: Please Sign and return to therapist, thank you for your referral.
== END 2023-11-09 11:25 | disposition home or self-care (01) ==
LOC: HO.OT 13:00
PROVIDERS: PCP Internal Medicine; Visit Provider Physician Assistant
DX: G56.23 Lesion of ulnar nerve, bilateral upper limbs (principal)
CPT/HCPCS: 97110; 97140; 97166

== ENCOUNTER 2023-11-13 16:37 | Emergency (ER) | payer OTHER, SELFPAY ==
--- NOTE | 2023-11-13 | ECG_ITS ---
Test Reason : chest pain Blood Pressure : / mmHG Vent. Rate : 075 BPM Atrial Rate : 075 BPM P-R Int : 142 ms QRS Dur : 080 ms QT Int : 380 ms P-R-T Axes : 048 033 024 degrees QTc Int : 424 ms Normal sinus rhythm Normal ECG When compared with ECG of 03-JUL-2023 09:57, No significant change was found Referred By: Generic ED Physician Electronically Signed By:LILIA RHODES
--- NOTE | ~2023-11-13 | XR_ITS ---
EXAMINATION: XR CHEST CLINICAL INFORMATION: Cough, chest tightness. COMPARISON: Chest radiograph 07/03/2023. TECHNIQUE: PA view of the chest was obtained. FINDINGS: Normal appearance of the cardiomediastinal silhouette. No focal airspace opacities, pleural effusion or pneumothorax. No acute osseous findings. Visualized upper abdomen is within normal limits. XR/XR chest 1V IMPRESSION: No acute cardiopulmonary findings.
[2023-11-13 16:59] VITALS: BP 122/61; PULSE 76; RESP 18; TEMP 36.1; O2SAT 97; BMI 43.5
[2023-11-13 17:41] LABS: MANUAL DIFF FLAG NO
[2023-11-13 17:44] LABS: Basophils Percent Auto 0.4 % (0-2); Eosinophils Absolute Auto 0.1 X10*3/uL (0.0-0.4); Eosinophils Percent Auto 0.8 % (0-4); Hematocrit 36.5 % (37.0-47.0); Hemoglobin 13.2 g/dl (12.0-16.0); Imm Gran Abs Auto 0.02 X10*3/uL (0.00-0.03); Imm Gran Pct Auto 0.3 % (0.0-0.4); Lymphocytes Absolute Auto 2.4 X10*3/uL (1.2-4.9); Lymphocytes Percent Auto 33.9 % (20-40); Mean Corpuscular HGB Conc 36.2 g/dl (31.0-35.0); Mean Corpuscular Hemoglobin 31.3 pg (27.0-33.0); Mean Corpuscular Volume 86.5 fL (80.0-98.0); Mean Platelet Volume 9.4 fL (9.4-12.3); Monocytes Absolute Auto 0.5 X10*3/uL (0.1-1.2); Monocytes Percent Auto 6.4 % (2-11); Neutrophils Absolute Auto 4.1 x10*3/uL (2.0-8.3); Neutrophils Percent Auto 58.2 % (45-73); Platelet Count 292 X10*3/uL (160-400); Red Blood Count 4.22 X10*6/uL (4.20-5.50); Red Cell Distribution Width 11.7 % (11.0-16.0); White Blood Count 7.1 X10*3/uL (4.8-10.8)
[2023-11-13 17:55] LABS: Anion Gap 11 (12-20); Blood Urea Nitrogen 13 mg/dL (9-16); Calcium 9.5 mg/dL (8.4-10.2); Carbon Dioxide 28 mmol/L (22-29); Chloride 106 mmol/L (96-108); Creatinine Clr Calc Pharmacy 106.3; Estimated Glomerular Filt Rate > 60; Glucose Random 125 mg/dL (60-115); Lipase 17 U/L (8-78); Potassium 3.6 mmol/L (3.3-5.1); Sodium 141 mmol/L (135-145)
[2023-11-13 18:03] LABS: COVID-19 Test Negative (Negative); IDNOW Serial# 08D9AD1C; IDNOW Serial# 152EDE1D; Influenza A Negative (Negative); Influenza B2 Negative (Negative)
[2023-11-13 18:04] LABS: Troponin-I High Sensitivity < 2.7 ng/L (<3.5-17.0)
[2023-11-13 23:56] VITALS: BP 153/81; PULSE 73; RESP 18; TEMP 36.8; O2SAT 98
[2023-11-14 01:15] VITALS: BP 132/76; PULSE 78; RESP 20; TEMP 36.8; O2SAT 97
--- NOTE | 2023-11-14 01:19 | ED_ITS ---
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 taking inhalers with little relief. no nebulizer at home. no recent prednisone. MD complaint: chest pain (sinusitis, asthma) Pertinent past history: asthma Onset (ago): day(s) (2) Timing of current episode: episodic Prior episodes: Yes Onset: during rest Pain location: left chest and right chest Pain radiation: none Severity: mild Quality: tightness Relieving factors: nothing Exacerbating factors: other (coughing) Context: recent illness Associated symptoms: other (sinus pain and congestion) Treatment prior to arrival: none Related Data Home Medications Medication Instructions Recorded Confirmed atorvastatin 80 mg tablet 80 mg PO BEDTIME 03/15/22 08/01/23 levonorgestrel 21 mcg/24 hours (8 intrauterine 08/05/22 yrs) 52 mg intrauterine device (Mirena) fluticasone propionate 44 2 puff inhalation BID 01/20/23 08/01/23 mcg/actuation HFA aerosol inhaler (Flovent HFA) fluoxetine 10 mg capsule 10 mg PO DAILY 09/22/23 Previous Rx's Medication Instructions Recorded albuterol sulfate 90 mcg/actuation 2 puff inhalation Q4-6H PRN 04/06/21 aerosol inhaler shortness of breath or wheezing #8.5 grams acetaminophen 500 mg tablet 500 mg PO Q6H PRN pain or fever 06/19/21 (Tylenol Extra Strength) #20 tabs cyclobenzaprine 10 mg tablet 10 mg PO TID PRN muscle spasm #15 02/01/23 tabs amoxicillin 875 mg-potassium 1 tab PO BID #13 tabs 11/14/23 clavulanate 125 mg tablet prednisone 20 mg tablet 40 mg (2 x 20 mg) PO DAILY 4 days 11/14/23 #8 tabs Allergies Allergy/AdvReac Type Severity Reaction Status Date / Time No Known Allergies Allergy Verified 09/22/23 15:12 [No Known Allergies*] Review of Systems 2 Review of Systems: Constitutional : No Fever, No Chills ENT/Mouth : No Hoarseness, No sore throat, No Rhinorrhea, pos sinus congestion, pos sinus pressure Eyes: No Redness, No Discharge, No Vision Changes Cardiovascular : No Chest Pain, positive SOB, positive Dyspnea on Exertion, No Edema Respiratory : positive Cough, pos Sputum, positive Wheezing, Gastrointestinal : No Nausea, No Vomiting, No Diarrhea, No abdominal Pain Genitourinary : No Dysuria, No Hematuria Musculoskeletal : No joint pain, No Myalgias Skin : No rash Neuro : No Weakness, No Numbness, No Headache Psych : No anxiety, depression All other systems reviewed and are negative PMFSH Past Medical History Attestation statement: The following information was validated with the patient. Source: old records reviewed Medical History Hypertension Anemia High cholesterol Asthma Surgical History Hx of section History of hysteroscopy Hx of tubal ligation Family History Family History Sister Colon cancer Social History Social History Are you a primary personal care assistant to a significant other at home: No Do you presently have visiting nurse or other home services: No Alcohol intake: never Comment: previously medicated with oxycodone Patient Tobacco Use Status: Never used Tobacco Advance Directives: No Advance Directives Information Provided: No Physical Exam 2 Vital Signs: Vital Signs: Last Vital Signs Temp 98.2 F 11/13/23 23:56 Pulse 73 11/13/23 23:56 Resp 18 11/13/23 23:56 BP 153/81 H 11/13/23 23:56 Pulse Ox 98 11/13/23 23:56 O2 Del Method Room Air 11/13/23 23:56 BMI result Body Mass Index 43.5 Appearance: Alert. Oriented X3. No acute distress. Eyes: Pupils equal, round and reactive to light. ENT: Pharynx normal. Sinus ttp and congestion Neck: Normal inspection. Neck supple. CVS: Normal heart rate and rhythm. Pulses normal. Respiratory: No respiratory distress. Breath sounds normal no wheezes noted Abdomen: Soft and nontender. Skin: Skin warm and dry. Normal skin color. Normal skin turgor. Extremities: No lower extremity edema. Neuro: Oriented X 3. No motor deficit. No sensory deficit. Medical Decision Making Medical Decision Making [facility] Narrative: 43 yo female with PMH of HTN, anemia, asthma, HLD here with URI symptoms and chest tightness x 2 days with facial pressure congestions causing headaches - she has INH at home no resp distress labs, viral panel, CXR, given symptoms will start on prednisone and augmentin. She is tolerating PO. Not toxic appearing. No concern for deeper space infection. Differential Diagnosis Differential Diagnoses: The differential diagnosis associated with the presentation includes bronchitis, URI, sinusitis consistent with viral syndrome doubt ACS or VTE Admission/Observation Consideration of admission/observation: Escalation of care including admission/observation considered no hypoxia no respiratory distress can be managed as outpatient Lab Data [facility] Lab Attestation statement: I reviewed the patient's lab results. 11/13/23 17:33 11/13/23 17:33 Labs: Lab Results 11/13/23 Range/Units 17:33 WBC 7.1 (4.8-10.8) X10*3/uL RBC 4.22 (4.20-5.50) X10*6/uL Hgb 13.2 (12.0-16.0) g/dl Hct 36.5 L (37.0-47.0) % MCV 86.5 (80.0-98.0) fL MCH 31.3 (27.0-33.0) pg MCHC 36.2 H (31.0-35.0) g/dl RDW 11.7 (11.0-16.0) % Plt Count 292 (160-400) X10*3/uL MPV 9.4 (9.4-12.3) fL Immature Gran % (Auto) 0.3 (0.0-0.4) % Neut % (Auto) 58.2 (45-73) % Lymph % (Auto) 33.9 (20-40) % [place] % (Auto) 6.4 (2-11) % Eos % (Auto) 0.8 (0-4) % Baso % (Auto) 0.4 (0-2) % Lymph # (Auto) 2.4 (1.2-4.9) X10*3/uL [place] # (Auto) 0.5 (0.1-1.2) X10*3/uL Eos # (Auto) 0.1 (0.0-0.4) X10*3/uL Baso # (Auto) 0.0 (0.0-0.2) X10*3/uL Abs Immat Gran (auto) 0.02 (0.00-0.03) X10*3/uL Absolute Neuts (auto) 4.1 (2.0-8.3) x10*3/uL Absolute Nucleated RBC 0.000 (0.0-0.012) X10*3/uL Nucleated RBC % (auto) 0.0 (0.0-0.2) /100WBC Sodium 141 (135-145) mmol/L Potassium 3.6 (3.3-5.1) mmol/L Chloride 106 (96-108) mmol/L Carbon Dioxide 28 (22-29) mmol/L Anion Gap 11 L (12-20) BUN 13 (9-16) mg/dL Creatinine 0.81 (0.5-1.4) mg/dL Estim Creat Clear Calc 106.3 Estimated GFR > 60 Random Glucose 125 H (60-115) mg/dL Calcium 9.5 (8.4-10.2) mg/dL Troponin I High Sens < 2.7 (<3.5-17.0) ng/L Lipase 17 (8-78) U/L COVID-19 (PACO) Negative (Negative) COVID-19 Clin Com See Note Influenza Type A (TARIQ) Negative (Negative) Influenza Type B (TARIQ) Negative (Negative) Influenza A & B Note See Note Independent Interpretation I performed an independent interpretation of an: EKG and Plain X-Ray (normal ) Interpretation: Rate: 75 Rhythm: NSR [place]: normal Normal P waves. Normal CHASITY. Normal QRS complex. ST T wave : normal no PAULINO qTC: normal prior studies: no acute ischemia The study has been interpreted contemporaneously by me. . Radiology Impression Discussion of test interpretation with radiology: I have reviewed the radiologist's reading. External Record Review External record reviewed: Office record Prescription Management I considered prescription management with: Antibiotic and Other Discharge Plan Discharge Clinical Impression: Sinusitis Qualifiers: Sinusitis location: maxillary Chronicity: acute Recurrence: non-recurrent Q ualified Code(s): J01.00 - Acute maxillary sinusitis, unspecified Patient Disposition: Home, Self-Care Instructions: Sinusitis (ED) Additional Instructions: return for worsening symptoms, difficulty breathing, confusion, no improvement or any other concerns. finish all antibiotics and take medications with food. use your inhaler. Regrese si los s?ntomas empeoran, dificultad para respirar, confusi?n, falta de mejor?a o cualquier otra inquietud. Termine todos los antibi?ticos y tome los medicamentos con las comidas. use iyer inhalador. Prescriptions: New prednisone 20 mg tablet 40 mg PO DAILY 4 Days Qty: 8 0RF amoxicillin-pot clavulanate 875-125 mg tablet 1 tab PO BID Qty: 13 0RF No Action albuterol sulfate 90 mcg/actuation HFA aerosol inhaler 2 puff inhalation Q4-6H PRN (Reason: shortness of breath or wheezing) Qty: 8.5 0RF acetaminophen [Tylenol Extra Strength] 500 mg tablet 500 mg PO Q6H PRN (Reason: pain or fever) Qty: 20 0RF cyclobenzaprine 10 mg tablet 10 mg PO TID PRN (Reason: muscle spasm) Qty: 15 0RF atorvastatin 80 mg tablet 80 mg PO BEDTIME Mirena 20 mcg/24 hours (8 yrs) 52 mg intrauterine device intrauterine Mirena 20 mcg/24 hours (7 yrs) 52 mg intrauterine device 1 device intrauterine ONCE Qty: 1 0RF fluticasone propionate [Flovent HFA] 44 mcg/actuation HFA aerosol inhaler 2 puff inhalation BID fluoxetine 10 mg capsule 10 mg PO DAILY Stand Alone Forms: Work/School Release Print Language: Greek
[2023-11-14] MEDS: Amoxicillin/Potassium Clav 875 MG TABLET PO (01:49)
[2023-11-14] MEDS: predniSONE 20 MG TABLET 40 MG PO (01:49)
== END 2023-11-14 01:59 | disposition home or self-care (01) ==
PROVIDERS: Emergency Provider Emergency Medicine; PCP Internal Medicine
DX: J01.00 Acute maxillary sinusitis, unspecified (principal); R07.89 Other chest pain; R05.9 Cough, unspecified; R09.81 Nasal congestion; Z11.52 Encounter for screening for COVID-19; Z79.899 Other long term (current) drug therapy
CPT/HCPCS: 71045; 80048; 83690; 84484; 85025; 87502; 87635; 93005; 99283; 99285

== ENCOUNTER → 2023-11-13 16:45 | Outpatient (BNV) | payer OTHER, SELFPAY | PROVIDERS: Emergency Provider Emergency Medicine; PCP Internal Medicine; Visit Provider Internal Medicine | DX: R07.9 Chest pain, unspecified (principal) | CPT/HCPCS: 93010 ==

== ENCOUNTER → 2023-11-17 10:00 | Outpatient (BNV) | payer OTHER, SELFPAY | PROVIDERS: Absent Provider Obstetrics & Gynecology; PCP Internal Medicine; Visit Provider Radiology Diagnostic Radiology | DX: Z12.31 Encounter for screening mammogram for malignant neoplasm of breast (principal) | CPT/HCPCS: 77063; 77067 ==

== ENCOUNTER 2023-11-17 10:03 | Outpatient (REF) | payer OTHER, SELFPAY | END 2023-11-17 10:04 | disposition home or self-care (01) | LOC: HO.MAMMO 10:03 | PROVIDERS: Absent Provider Obstetrics & Gynecology; PCP Internal Medicine; Visit Provider Internal Medicine | DX: Z12.31 Encounter for screening mammogram for malignant neoplasm of breast (principal) | CPT/HCPCS: 77063; 77067 ==

== ENCOUNTER 2023-12-22 23:54 | Emergency (ER) | payer OTHER, SELFPAY ==
--- NOTE | ~2023-12-22 | XR_ITS ---
EXAMINATION: XR CHEST CLINICAL INFORMATION: Chest pain COMPARISON: Chest x-ray on 07/03/2023 TECHNIQUE: AP upright and lateral views of the chest were obtained. FINDINGS: vascularity. LUNGS: Lungs are clear. No pneumothorax is seen. BONES: Bony skeleton is intact. XR/XR chest 2V IMPRESSION: Unchanged Normal chest x-ray.
--- NOTE | ~2023-12-22 | CT_ITS ---
EXAMINATION: CT ANGIOGRAM OF THE CHEST WITH CONTRAST (CT PULMONARY ANGIOGRAM FOR PE) CLINICAL INFORMATION: Elevated D-dimer. Chest pain. COMPARISON: CXR from 12/23/2023. TECHNIQUE: Prior to contrast administration, noncontrast localization images were obtained. Subsequently, multidetector volumetric imaging was performed from the thoracic inlet to below the diaphragms following the administration of 65 mL Omnipaque 350 intravenous contrast. No contrast reaction reported. Sagittal, coronal, and MIP oblique sagittal reformatted images were obtained on the CT workstation, uploaded to PACS, and reviewed. This CT examination was performed using dose optimization techniques as appropriate, variously including the following: *Automated exposure control *Adjustment of mA and/or kV according to patient size (this includes techniques or standardized protocols for targeted exams where dose is matched to indication/reason for exam; i.e. extremities or head) *Use of iterative reconstruction technique DLP: Total exam dose-length product 485 mGy-cm FINDINGS: LUNGS AND PLEURA: The trachea and central airways are widely patent and normal in caliber. Lungs are well expanded and clear. No interstitial disease, consolidation or pleural effusion. No pneumothorax. QUALITY OF STUDY/CONTRAST BOLUS: Satisfactory. PULMONARY ARTERIES: The pulmonary arteries are normal in size. No embolic filling defects within the main, lobar or segmental vessels. OTHER CARDIOVASCULAR: The heart size is normal. No pericardial effusion. Thoracic aorta is normal. MEDIASTINUM/LOWER NECK: No mediastinal mass. The thyroid gland and esophagus are unremarkable. LYMPHATICS: No pathologic sized axillary, hilar or mediastinal lymph nodes. UPPER ABDOMEN: No acute findings in the visualized portion of the upper abdomen. The patient has a large body habitus. OSSEOUS STRUCTURES: Mild spondylosis of the thoracic spine. No acute or suspicious osseous abnormalities. CT/CT angio chest PE protocol IMPRESSION: No acute pulmonary disease. No evidence of pulmonary embolism, pneumonia or pleural effusion.
--- NOTE | ~2023-12-22 | CT_ITS ---
EXAMINATION: CT HEAD WITHOUT CONTRAST CLINICAL INFORMATION: Worsening frontal headache COMPARISON: CT scan of brain on 10/22/2020 TECHNIQUE: Contiguous axial imaging was performed from the skull base to vertex without intravenous administration of contrast. This CT examination was performed using dose optimization techniques as appropriate, variously including the following: *Automated exposure control *Adjustment of mA and/or kV according to patient size (this includes techniques or standardized protocols for targeted exams where dose is matched to indication/reason for exam; i.e. extremities or head) *Use of iterative reconstruction technique DLP: 802.29 mGy-cm FINDINGS: There is mild ventriculomegaly. Cerebral sulci and cisterns are normal. There is no midline shift, no abnormal intra- or extra- axial fluid accumulation. Matias and white matter differentiation is normal. Bone window images show no evidence of skull fracture. CT/CT head/brain wo IV con IMPRESSION: 1. Unchanged nonspecific mild ventriculomegaly, of unknown clinical significance. 2. No intracranial hemorrhage or skull fracture is seen. 3. No evidence of space occupying lesion could be found. 4. The current plain CT scan of the brain shows no diagnostic evidence of acute cerebral infarction.
[2023-12-23] VITALS (8 sets, daily range): BP systolic 105–129; BP diastolic 54–80; PULSE 46–77; RESP 12–20; TEMP 36.4–36.8; O2SAT 98–100; BMI 43.0
--- NOTE | 2023-12-23 | ECG_ITS ---
Test Reason : DIZZINESS Blood Pressure : / mmHG Vent. Rate : 057 BPM Atrial Rate : 057 BPM P-R Int : 140 ms QRS Dur : 082 ms QT Int : 434 ms P-R-T Axes : 034 028 022 degrees QTc Int : 422 ms Sinus bradycardia with sinus arrhythmia Otherwise normal ECG When compared with ECG of 13-NOV-2023 16:45, No significant change was found Referred By: Generic ED Physician Electronically Signed By:GEOVANNA ERNST MD
[2023-12-23 01:41] LABS: MANUAL DIFF FLAG NO
--- NOTE | 2023-12-23 01:42 | MHC.EDTECH ---
Patient brought into triage area,EKG taken per order and signed by provider,Labs,and urine obtained and sent to lab.
[2023-12-23 01:44] LABS: Basophils Percent Auto 0.4 % (0-2); Eosinophils Absolute Auto 0.1 X10*3/uL (0.0-0.4); Eosinophils Percent Auto 0.6 % (0-4); Hemoglobin 12.6 g/dl (12.0-16.0); Imm Gran Abs Auto 0.01 X10*3/uL (0.00-0.03); Imm Gran Pct Auto 0.1 % (0.0-0.4); Lymphocytes Absolute Auto 3.4 X10*3/uL (1.2-4.9); Lymphocytes Percent Auto 37.8 % (20-40); Mean Corpuscular Volume 86.2 fL (80.0-98.0); Mean Platelet Volume 9.6 fL (9.4-12.3); Monocytes Absolute Auto 0.7 X10*3/uL (0.1-1.2); Monocytes Percent Auto 8.1 % (2-11); Neutrophils Absolute Auto 4.7 x10*3/uL (2.0-8.3); Platelet Count 316 X10*3/uL (160-400); Red Blood Count 4.06 X10*6/uL (4.20-5.50); Red Cell Distribution Width 11.8 % (11.0-16.0); White Blood Count 8.9 X10*3/uL (4.8-10.8)
[2023-12-23 01:45] LABS: Appearance Urine Turbid; Color Urine Dark Yellow; Glucose Urine UA Negative (Negative); Leukocyte Esterase Urine Trace (Negative); Nitrite Urine Negative (Negative); PH 5.5 (5.0-9.0); Specific Gravity - Urine 1.025 (1.005-1.025); UMIC TRIGGER UACC YES; Urine Blood Small (1+) (Negative); Urine Ketones Trace mg/dL (Negative); Urine Protein Trace mg/dL (Neg-Trace)
[2023-12-23 01:57] LABS: Anion Gap 16 (12-20); Blood Urea Nitrogen 16 mg/dL (9-16); Calcium 9.6 mg/dL (8.4-10.2); Carbon Dioxide 26 mmol/L (22-29); Chloride 103 mmol/L (96-108); Creatinine Clr Calc Pharmacy 96.1; Estimated Glomerular Filt Rate > 60; Glucose Random 97 mg/dL (60-115); Potassium 3.5 mmol/L (3.3-5.1); Sodium 141 mmol/L (135-145)
[2023-12-23 01:58] LABS: Bacteria Urine 1+ (None Seen); Calcium Oxalate Crystals Urine Present; UACC Culture Trigger YES
[2023-12-23 02:19] LABS: Troponin-I High Sensitivity < 2.7 ng/L (<3.5-17.0)
--- NOTE | 2023-12-23 05:24 | PC.NURSE ---
pt heart rate dropped to 46 reports midsternal chest pain, neck and head ache. along with pain to her feet. 12 lead another taken. pt is alert and oriented x3, skin pink warm and dry.
--- NOTE | 2023-12-23 06:33 | ED.GENADULT ---
HPI - General Adult General Chief complaint: Dizziness Stated complaint: dizziness, migraine Time Seen by Provider: 12/23/23 06:30 Source: patient, family (neblas) and tree chipper (Macanese) Mode of arrival: ambulatory Limitations: no limitations History of Present Illness HPI narrative: 43 year old Macanese speaking female with pmhx significant for retention, HDL, carpal tunnel syndrome presents to the ED today for evaluation headache x 1 day. Reports onset of frontal headache beginning around 2230 yesterday which is now radiating to the back of her head. It has been gradually worsening she reports history of headaches however has not had one in years. This does not feel like her typical headache. Additionally reports feeling lightheaded that began at the same time as the headache. No exacerbating or relieving factors. Denies vision changes including double vision, blurred vision or vision loss. She has a history of hypertension and reports compliance with blood pressure medications (metoprolol 100 mg daily). On speaking with her niece, patient has difficulty remembering to take these medications and because of this her niece has been staying with her over the past couple of weeks to ensure that she takes all of her daily medications. She last took her metoprolol 2 days ago. Additionally she reports substernal chest discomfort that began yesterday. No radiation. She states that her heart rate typically runs low. Does not have a history of CT or cardiac disease. Denies recent illness or sick contacts. Denies recent travel or long car rides. Denies fever, chills, sore throat shortness of breath, dyspnea, palpitations, nausea or vomiting, lower extremity pain/swelling. accounting bookkeeper utilized throughout visit to communicate with patient. Related Data Home Medications Medication Instructions Recorded Confirmed atorvastatin 80 mg tablet 80 mg PO BEDTIME 03/15/22 08/01/23 levonorgestrel 21 mcg/24 hours (8 intrauterine 08/05/22 yrs) 52 mg intrauterine device (Mirena) fluticasone propionate 44 2 puff inhalation BID 01/20/23 08/01/23 mcg/actuation HFA aerosol inhaler (Flovent HFA) fluoxetine 10 mg capsule 10 mg PO DAILY 09/22/23 Previous Rx's Medication Instructions Recorded albuterol sulfate 90 mcg/actuation 2 puff inhalation Q4-6H PRN 04/06/21 aerosol inhaler shortness of breath or wheezing #8.5 grams acetaminophen 500 mg tablet 500 mg PO Q6H PRN pain or fever 06/19/21 (Tylenol Extra Strength) #20 tabs cyclobenzaprine 10 mg tablet 10 mg PO TID PRN muscle spasm #15 02/01/23 tabs amoxicillin 875 mg-potassium 1 tab PO BID #13 tabs 11/14/23 clavulanate 125 mg tablet prednisone 20 mg tablet 40 mg (2 x 20 mg) PO DAILY 4 days 11/14/23 #8 tabs dgqavimxyg-qitzorwibhkbd-fsyxxgls 1 cap PO Q8H PRN pain (scale score 12/23/23 50 mg-300 mg-40 mg capsule 4-6) #10 caps (Fioricet) Allergies Allergy/AdvReac Type Severity Reaction Status Date / Time No Known Allergies Allergy Verified 09/22/23 15:12 [No Known Allergies*] Review of Systems Review of Systems: Constitutional: No fever, chills, fatigue, night sweats, weight changes ENT/Mouth: No ear pain, hearing loss, nasal congestion, sinus pain, rhinorrhea, sore throat Eyes: No eye pain, swelling, redness, vision changes, discharge Cardio: No chest pain, palpitations, NEVAREZ, orthopnea, peripheral edema, +chest discomfort Pulm: No SOB, cough, sputum, wheezing, dyspnea, hemoptysis GI: No nausea, vomiting, hematemesis, abdominal pain, diarrhea, constipation, hematochezia, melena : No irregular bleeding, dysuria, frequency, urgency, hesitancy, hematuria, flank pain, urinary flow changes, urinary incontinence or retention MSK: No back pain, neck pain, joint pain, myalgias Skin: No lesions, rashes Neuro: No weakness, numbness, paresthesias, LOC, +dizziness, +headache Psych: No anxiety/panic, depression, SI/HI, AH/VH All other systems reviewed and are negative. [facility] Past Medical History Attestation statement: The following information was validated with the patient. Source: old records reviewed and nursing notes reviewed Medical History Hypertension Anemia High cholesterol Asthma Surgical History Hx of section History of hysteroscopy Hx of tubal ligation Family History Family History Sister Colon cancer Social History Social History Are you a primary manager of care to a significant other at home: No Do you presently have visiting nurse or other home services: No Alcohol intake: never Comment: previously medicated with oxycodone Patient Tobacco Use Status: Never used Tobacco Smoked in Last 30 Days: No Use of substances other than those prescribed or required for medical reasons: No Advance Directives: No Advance Directives Information Provided: No Physical Exam ED Vital Signs: Vital Signs - 24 hr 12/23/23 00:21 12/23/23 05:18 12/23/23 07:12 Temperature 97.5 F 97.9 F Pulse Rate 77 50 46 L Respiratory Rate 20 12 Blood Pressure 122/74 105/54 L 120/60 Pulse Oximetry 99 99 Oxygen Delivery Method Room Air Room Air 12/23/23 08:32 12/23/23 09:42 12/23/23 09:42 Temperature 98.2 F Pulse Rate 53 48 L 62 Respiratory Rate 16 Blood Pressure 129/69 113/67 116/80 Pulse Oximetry 98 Oxygen Delivery Method Room Air 12/23/23 12:36 12/23/23 13:54 12/23/23 16:48 Temperature 98.2 F 98.2 F Pulse Rate 55 64 55 Respiratory Rate 16 16 16 Blood Pressure 122/66 126/78 124/75 Pulse Oximetry 100 99 Oxygen Delivery Method Room Air Room Air BMI result Body Mass Index 43.0 Vital signs stable Const General: cooperative, healthy appearing, comfortable and no acute distress Nutritional Appearance: obese Orientation/consciousness: patient oriented x3 Limitations: no limitations [facility] Head: Yes normal to inspection, Yes normocephalic, Yes atraumatic, No scalp tenderness and No Temporal artery tenderness present Ears: hearing grossly normal bilaterally, external ears normal, TM's normal bilaterally, EAC's normal, mastoids normal and no periauricular adenopathy General nose exam: Normal external nose present Face and sinus: Yes normal facial exam Mouth: Normal oral and palatal mucosa present Eyes General: appearance normal, both eyes and all related structures Pupils: Equal, round and reactive pupils present Neck Neck: Yes normal visual inspection, Yes full ROM, Yes no lymphadenopathy and Yes no meningeal signs Chest Chest palpation & inspection: normal inspection of the chest and normal palpation of entire chest wall Resp Effort & Inspection: normal respiratory effort and able to speak in complete sentences Auscultation: clear to auscultation bilaterally Cardio Rate: regular rate Rhythm: regular rhythm GI Inspection: Yes normal to inspection and Yes obesity Palpation (GI): Soft to palpation and nontender Skin General skin exam: no rashes or lesions noted Neuro General: patient oriented x3, gait normal, tone normal and no meningeal signs Cranial nerves: Yes Equal, round and reactive pupils present Gait exam (Neuro): Normal gait present Motor exam (neuro): 5/5 motor strength present throughout and Pronator motor function not present Coordination: snnvbm-os-dffu test normal, sncq-sn-vznz test normal and Normal rapid alternating movements of the distal upper extremity present (Neuro) Pupils: Normal pupillary reactivity/response: bilateral Extrem General: Yes normal to inspection and Yes no calf tenderness Course Course Course Narrative: 0645-- CBC without leukocytosis. No left shift. H&H stable. CBC without acute electrolyte abnormality requiring intervention. Initial troponin undetectable. Lipase WNL. Urine with negative nitrites with small amount of blood and RV use. 6-10 squamous epithelial cells with 1+ bacteria > likely contamination. Will not treat at this time. EKG showing sinus bradycardia with sinus arrhythmia, QT 486, QTC 443, no acute ischemic changes or ST elevations. > niece at bedside requested to speak to me privately. She states that over the last 3 weeks she has had to stay at the patient's house in order to care for her. She states that the patient does not take her daily medications unless someone is there to give them to her. I offered case management evaluation and she is agreeable. Patient also agreeable with this > consult placed. 0855-- chest x-ray unremarkable. I have personally reviewed x-ray and do not appreciate any infiltrates, consolidations, effusions or cardiomegaly. CT scan head/brain does not exhibit acute ischemia or intracranial pathology. Delta troponin flat. Unlikely ACS. D-dimer elevated however still within normal range > I have a suspicion for PE and will order CTA chest anyway. 1027-- Orthostatic vital signs negative. 1137-- on re-evaluation, patient reports some improvement in headache with Reglan and Benadryl. Given negative CT scan, I suspect complex migraine. Still awaiting CT angiogram chest results. 1230-- CTA chest negative for clot. Patient likely has a migraine headache. There is no clear etiology for chest discomfort or dizziness. She was given IV fluids today along with pain medication. A dose of Fioricet has been ordered. As workup has been unremarkable, patient will be placed in physician observation pending case management and disposition. 1532-- Patient's niece is requesting that they be discharged. On re-evaluation, patient reports symptom resolution with fioricet. She states she is hungry and would like to go home. I discussed waiting for case management consultation as niece has requested however she has not willing to wait for this. I spoke with Lima from case management who has made note of the patient and will call them to discuss outpatient resources. Patient and patient's niece are agreeable with this. Patient has remained stable throughout ED visit today. Discussed worrisome signs and symptoms and when to return to the ED. All questions answered at this time. Patient is agreeable with disposition and stable for discharge. Niece will be driving her home. Medications Administered Discontinued Medications Generic Name Dose Route Start Last Admin Trade Name Freq PRN Reason Stop Dose Admin Acetaminophen/Butalbital/Caffeine 1 tab 12/23/23 12:41 12/23/23 13:52 Butalb/Acetamin/Caff 50/325/40 Tablet PO 12/23/23 12:42 1 tab ONCE ONE Administration Diphenhydramine HCl 25 mg 12/23/23 07:38 12/23/23 08:28 Diphenhydramine Hcl 50 Mg/Ml Vial IVPUSH 12/23/23 07:39 25 mg ONCE ONE Administration Sodium Chloride 1,000 mls @ 999 mls/hr 12/23/23 07:45 12/23/23 09:37 Ns IV 12/23/23 08:45 Infused .Q1H1M TERRANCE Infusion Sodium Chloride 1,000 mls @ 999 mls/hr 12/23/23 11:45 12/23/23 13:49 Ns IV 12/23/23 12:45 Infused .Q1H1M TERRANCE Infusion Iohexol 100 ml 12/23/23 10:50 12/23/23 10:51 Iohexol 350 Mg/Ml 100 Ml Infus..Btl IV 12/23/23 10:51 65 ml ONCE ONE Administration Ketorolac Tromethamine 30 mg 12/23/23 07:38 12/23/23 08:28 Ketorolac Tromethamine 30 Mg/Ml Vial IVPUSH 12/23/23 07:39 30 mg ONCE ONE Administration Metoclopramide HCl 10 mg 12/23/23 07:38 12/23/23 08:28 Metoclopramide Hcl 10 Mg/2 Ml Vial IVPUSH 12/23/23 07:39 10 mg ONCE ONE Administration Medical Decision Making Medical Decision Making [facility] Narrative: 43 year old Macanese speaking female with pmhx significant for retention, HDL, carpal tunnel syndrome presents to the ED today for evaluation headache x 1 day. Vital signs stable. Patient is nontoxic appearing in no acute distress. PERRLA. Exam nonfocal. Cerebellum intact. No calf tenderness bilaterally. Bradycardic. Lungs CTA bilaterally. No rashes. Differential diagnosis includes headache, migraine, ICH, viral syndrome, orthostatic hypotension, vertigo, dehydration, anemia, electrolyte during, hypertension, arrhythmia, ACS, pneumonia, asthma, pleural effusion. Lower suspicion for CVA/TIA, dissection, cerebral stroke. Plan for EKG, labs, UA, viral swabs, chest x-ray, CT head/brain and re-evaluation. Differential Diagnosis Differential Diagnoses: The differential diagnosis associated with the presentation includes As above Admission/Observation Not indicated Lab Data [facility] Lab Attestation statement: I reviewed the patient's lab results. As above 12/23/23 01:37 12/23/23 01:37 Labs: Lab Results 12/23/23 12/23/23 Range/Units 01:37 08:25 WBC 8.9 (4.8-10.8) X10*3/uL RBC 4.06 L (4.20-5.50) X10*6/uL Hgb 12.6 (12.0-16.0) g/dl Hct 35.0 L (37.0-47.0) % MCV 86.2 (80.0-98.0) fL MCH 31.0 (27.0-33.0) pg MCHC 36.0 H (31.0-35.0) g/dl RDW 11.8 (11.0-16.0) % Plt Count 316 (160-400) X10*3/uL MPV 9.6 (9.4-12.3) fL Immature Gran % (Auto) 0.1 (0.0-0.4) % Neut % (Auto) 53.0 (45-73) % Lymph % (Auto) 37.8 (20-40) % [place] % (Auto) 8.1 (2-11) % Eos % (Auto) 0.6 (0-4) % Baso % (Auto) 0.4 (0-2) % Lymph # (Auto) 3.4 (1.2-4.9) X10*3/uL [place] # (Auto) 0.7 (0.1-1.2) X10*3/uL Eos # (Auto) 0.1 (0.0-0.4) X10*3/uL Baso # (Auto) 0.0 (0.0-0.2) X10*3/uL Abs Immat Gran (auto) 0.01 (0.00-0.03) X10*3/uL Absolute Neuts (auto) 4.7 (2.0-8.3) x10*3/uL Absolute Nucleated RBC 0.000 (0.0-0.012) X10*3/uL Nucleated RBC % (auto) 0.0 (0.0-0.2) /100WBC D-Dimer High Sensitivty 179 NG/ML Sodium 141 (135-145) mmol/L Potassium 3.5 (3.3-5.1) mmol/L Chloride 103 (96-108) mmol/L Carbon Dioxide 26 (22-29) mmol/L Anion Gap 16 (12-20) BUN 16 (9-16) mg/dL Creatinine 0.89 (0.5-1.4) mg/dL Estim Creat Clear Calc 96.1 Estimated GFR > 60 Random Glucose 97 (60-115) mg/dL Calcium 9.6 (8.4-10.2) mg/dL Magnesium 2.1 (1.6-2.6) mg/dL Troponin I High Sens < 2.7 < 2.7 (<3.5-17.0) ng/L Lipase 18 (8-78) U/L Urine Color Dark Yellow Urine Appearance Turbid Urine pH 5.5 (5.0-9.0) Ur Specific [place] 1.025 (1.005-1.025) Urine Protein Trace (Neg-Trace) mg/dL Urine Glucose (UA) Negative (Negative) mg/dL Urine Ketones Trace (Negative) mg/dL Urine Blood Small (1+) H (Negative) Urine Nitrite Negative (Negative) Ur Leukocyte Esterase Trace H (Negative) Urine RBC 3-5 H (0-2) /HPF Urine WBC 6-10 (0-5) /HPF Ur Squamous Epith Cells 6-10 (0-2) /HPF Calcium Oxalate Crystal Present Urine Bacteria 1+ (None Seen) Hyaline Casts 3-5 (0-2) /LPF Influenza Type A (PCR) NEGATIVE (Negative) Influenza Type B (PCR) NEGATIVE (Negative) RSV RNA Qual (PCR) NEGATIVE (Negative) SARS-CoV-2 RNA (RT-PCR) NEGATIVE (Negative) Independent Interpretation I performed an independent interpretation of an: EKG, Plain X-Ray and CT Scan Interpretation: EKG showing sinus bradycardia with sinus arrhythmia at a rate of 50 beats per minute, QT 486, QTC 443 no acute ischemic changes or ST elevation. Compared to EKG obtained on 11/13/2023. I have personally reviewed CT scan head/brain and agree with radiologist's interpretation. I personally reviewed chest x-ray and agree with radiologist's interpretation. I have reviewed CTA chest and agree with radiologist's interpretation. Radiology Impression Discussion of test interpretation with radiology: I have reviewed the radiologist's reading. Radiologist Impression: CT head/brain wo IV con IMPRESSION: 1. Unchanged nonspecific mild ventriculomegaly, of unknown clinical significance. 2. No intracranial hemorrhage or skull fracture is seen. 3. No evidence of space occupying lesion could be found. 4. The current plain CT scan of the brain shows no diagnostic evidence of acute cerebral infarction. XR chest 2V IMPRESSION: Unchanged Normal chest x-ray. CT angio chest PE protocol IMPRESSION: No acute pulmonary disease. No evidence of pulmonary embolism, pneumonia or pleural effusion. Independent Historian Clinical information obtained from an independent historian. History obtained from or confirmed by: Other (pretty) External Record Review External record reviewed: Inpatient record, Office record, Outpatient record, Prior outpatient labs, Prior outpatient radiology, Primary care record and Outside ED record Prescription Management I considered prescription management with: Pain Medication Chronic Conditions Patient?s care impacted by: Hypertension Social Determinants Patient?s care significantly limited by Social Determinants of Health including: Other Social Determinant of Health Critical Care Time Critical Care Time Critical Care Time: Yes Total Critical Care Time: 45 Attestation: Critical care time in the amount of 45 minutes has been provided to the patient in terms of direct patient care, frequent reevaluation, consultation with care team, review and interpretation of medical data and results, and management of potentially life-threatening conditions. This is all outside of any medical procedures. Discharge Plan Discharge Clinical Impression: Dizziness, Migraine headache without aura Patient Disposition: Home, Self-Care Instructions: Migraine Headache (ED), Dizziness (ED) Additional Instructions: Your labs today are reassuring. Your chest x-ray was normal. You tested negative for COVID flu and RSV. Fioricet has not sent to your pharmacy. Take this as needed for migraines. Follow-up with your PCP this week. Return for new or worsening symptoms. Prescriptions: New seunkkryfc-aygykkzeczjra-nrpi [Fioricet] 50-300-40 mg capsule 1 cap PO Q8H PRN (Reason: pain (scale score 4-6)) Qty: 10 0RF No Action albuterol sulfate 90 mcg/actuation HFA aerosol inhaler 2 puff inhalation Q4-6H PRN (Reason: shortness of breath or wheezing) Qty: 8.5 0RF acetaminophen [Tylenol Extra Strength] 500 mg tablet 500 mg PO Q6H PRN (Reason: pain or fever) Qty: 20 0RF cyclobenzaprine 10 mg tablet 10 mg PO TID PRN (Reason: muscle spasm) Qty: 15 0RF prednisone 20 mg tablet 40 mg PO DAILY 4 Days Qty: 8 0RF amoxicillin-pot clavulanate 875-125 mg tablet 1 tab PO BID Qty: 13 0RF atorvastatin 80 mg tablet 80 mg PO BEDTIME Mirena 20 mcg/24 hours (8 yrs) 52 mg intrauterine device intrauterine Mirena 20 mcg/24 hours (7 yrs) 52 mg intrauterine device 1 device intrauterine ONCE Qty: 1 0RF fluticasone propionate [Flovent HFA] 44 mcg/actuation HFA aerosol inhaler 2 puff inhalation BID fluoxetine 10 mg capsule 10 mg PO DAILY Interventions: ED Discharge Assessment Last Done: 12/23/23 16:48 Discharge Date/Time: 12/23/23 16:00
[2023-12-23 07:07] LABS: Lipase 18 U/L (8-78); Magnesium 2.1 mg/dL (1.6-2.6)
--- NOTE | 2023-12-23 07:49 | PC.NURSE ---
Report taken from Lulú FARRIS assumed care of pt at 0715. Pt off floor for Xray and CT, will assess upon return to room.
[2023-12-23] MEDS: Ketorolac Tromethamine 30 MG/ML VIAL IVPUSH (08:28)
[2023-12-23] MEDS: Metoclopramide HCl 10 MG/2 ML VIAL IVPUSH (08:28)
[2023-12-23] MEDS: diphenhydrAMINE HCL 50 MG/ML VIAL 25 MG IVPUSH (08:28)
[2023-12-23] MEDS: 0.9 % Sodium Chloride 1,000 ML 999 ML IV ×2 (08:28→12:36)
[2023-12-23 08:43] LABS: D Dimer High Sensitivity 179 NG/ML
--- NOTE | 2023-12-23 08:51 | ECG_ITS ---
Test Reason : CHESTPAIN Blood Pressure : / mmHG Vent. Rate : 050 BPM Atrial Rate : 050 BPM P-R Int : 134 ms QRS Dur : 080 ms QT Int : 486 ms P-R-T Axes : 029 026 024 degrees QTc Int : 443 ms Sinus bradycardia with sinus arrhythmia Otherwise normal ECG When compared with ECG of 23-DEC-2023 01:30, No significant change was found Referred By: Sasha Lyn Electronically Signed By:GEOVANNA ERNST MD
[2023-12-23 08:57] LABS: Troponin-I High Sensitivity < 2.7 ng/L (<3.5-17.0)
[2023-12-23 09:11] LABS: Influenza A PCR NEGATIVE (Negative); Influenza B PCR NEGATIVE (Negative); Resp Syncy Virus RNA Qual PCR NEGATIVE (Negative); SARS COV2 PCR INHOUSE NEGATIVE (Negative)
--- NOTE | 2023-12-23 09:45 | PC.NURSE ---
Pt ambulatory to bathroom, steady gait. Reports positive relief from previously administered meds. Awaiting CTPE aware of plan of care.
[2023-12-23] MEDS: iohexoL 350 MG/ML 100 ML INFUS..BTL IV (10:51)
--- NOTE | 2023-12-23 11:52 | PC.NURSE ---
Pt off floor to CTA, no change in physical assessment.
--- NOTE | 2023-12-23 12:37 | PC.NURSE ---
Pt resting on stretcher eyes closed, easily awoken, A&Ox3 skin pwd respirations even unlabored. Denies pain. Sinus curtis on monitor, VSS. Additional liter of IVF hung and infusing without difficulty. Awaiting CTA results and MD reeval, aware of plan of care.
[2023-12-23] MEDS: Butalb/Acetamin/Caff 50/325/40 TABLET 1 TAB PO (13:52)
--- NOTE | 2023-12-23 14:58 | PC.NURSE ---
Report given to Linette FARRIS pt exits my care at this time.
--- NOTE | 2023-12-23 16:01 | MHC.CM.ED ---
Addendum entered by Arianna Cruz 12/27/23 11:21: [facility] is able to accept patient. Original Note: Received case management consult from Lisa NO. Patient is unable to take her medication by herself. Unsure of reason at this time. Patient will be d/c'd home. However, CM will look for a VNA that is able to accept patient to assist with medication management. Referral broadcasted at this time. Continue to monitor for d/c needs.
== END 2023-12-23 16:00 | disposition home or self-care (01) ==
PROVIDERS: Physician Assistant Medical; Emergency Provider Emergency Medicine Emergency Medical Services; PCP Internal Medicine
DX: G43.009 Migraine without aura, not intractable, without status migrainosus (principal); R42 Dizziness and giddiness; I10 Essential (primary) hypertension; Z79.899 Other long term (current) drug therapy; Z11.52 Encounter for screening for COVID-19; Z20.828 Contact with and (suspected) exposure to other viral communicable diseases
CPT/HCPCS: 0241U; 36415; 70450; 71046; 71275; 80048; 81001; 83690; 83735; 84484; 85025; 85379; 87086; 93005; 96361; 96374; 96375; 99285; J1200; J1885; J2765; Q9967

== ENCOUNTER → 2023-12-23 01:30 | Outpatient (BNV) | payer OTHER, SELFPAY | PROVIDERS: Emergency Provider Emergency Medicine Emergency Medical Services; PCP Internal Medicine; Visit Provider Internal Medicine Cardiovascular Disease | DX: R07.9 Chest pain, unspecified (principal) | CPT/HCPCS: 93010 ==

== ENCOUNTER 2024-01-30 09:19 | Outpatient (REF) | payer OTHER, SELFPAY ==
[2024-01-30 11:02] LABS: Cholesterol 163 mg/dL (<200); HDL Cholesterol 33 mg/dL (>40); LDL Cholesterol Calculated 103 mg/dL (<100); Triglycerides 139 mg/dL (<150)
== END 2024-01-30 09:20 | disposition home or self-care (01) ==
LOC: HO.LAB 09:19
PROVIDERS: PCP Internal Medicine; Visit Provider Internal Medicine
DX: E78.00 Pure hypercholesterolemia, unspecified (principal)
CPT/HCPCS: 36415; 80061

== ENCOUNTER 2024-02-13 07:54 | Emergency (ER) | payer OTHER, SELFPAY ==
--- NOTE | ~2024-02-13 | XR_ITS ---
EXAMINATION: XR FOOT, RIGHT CLINICAL INFORMATION: Fracture COMPARISON: 04/29/2023 TECHNIQUE: AP, lateral, and oblique views of the right foot. FINDINGS: There is mild hallux valgus and redemonstration of degenerative changes at the first MTP joint with some sclerosis, subchondral cysts and osteophyte formation. No fractures are seen. Plantar calcaneal spur is are present along with enthesopathy at the insertion of the Achilles tendon, unchanged from prior XR/XR foot RT min 3V IMPRESSION: No evidence of an acute osseous injury. Degenerative changes as described above.
[2024-02-13 08:14] VITALS: BP 125/69; PULSE 54; RESP 18; TEMP 35.9; O2SAT 100; BMI 40.7
--- NOTE | 2024-02-13 10:10 | ED_ITS ---
HPI - Extremity Injury (Lower) General Chief Complaint: Extremity Injury, Lower Stated Complaint: r foot pain swollen and black no known inj Time Seen by Provider: 02/13/24 09:28 Source: patient Mode of arrival: ambulatory Limitations: no limitations History of Present Illness HPI Narrative: Patient is a 43-year-old female with history of arthritis in right foot presenting to the emergency department with complaint of worsening right foot and ankle pain for the past week. She denies any fall or other injury/trauma. Denies any new weakness, numbness, tingling. States that she feels the area appears bruised. Has not taken any xaks-tfb-mezipsg medications for her symptoms. Denies any calf pain or swelling. Onset (ago): week(s) Injury: Right: ankle and foot Relieving factors: rest Exacerbating factors: weight bearing Other symptoms: none Related Data Home Medications ?Medication ?Instructions ?Recorded ?Confirmed atorvastatin 80 mg tablet 80 mg PO BEDTIME 03/15/22 08/01/23 levonorgestrel 21 mcg/24 hours (8 intrauterine 08/05/22 yrs) 52 mg intrauterine device (Mirena) fluticasone propionate 44 2 puff inhalation BID 01/20/23 08/01/23 mcg/actuation HFA aerosol inhaler (Flovent HFA) fluoxetine 10 mg capsule 10 mg PO DAILY 09/22/23 Previous Rx's ?Medication ?Instructions ?Recorded albuterol sulfate 90 mcg/actuation 2 puff inhalation Q4-6H PRN 04/06/21 aerosol inhaler shortness of breath or wheezing #8.5 grams acetaminophen 500 mg tablet 500 mg PO Q6H PRN pain or fever 06/19/21 (Tylenol Extra Strength) #20 tabs cyclobenzaprine 10 mg tablet 10 mg PO TID PRN muscle spasm #15 02/01/23 tabs amoxicillin 875 mg-potassium 1 tab PO BID #13 tabs 11/14/23 clavulanate 125 mg tablet prednisone 20 mg tablet 40 mg (2 x 20 mg) PO DAILY 4 days 11/14/23 #8 tabs djoqnvkkgz-fvxptrpxxtxls-efjndhvf 1 cap PO Q8H PRN pain (scale score 12/23/23 50 mg-300 mg-40 mg capsule 4-6) #10 caps (Fioricet) prednisone 50 mg tablet 50 mg PO DAILY 5 days #5 tabs 02/13/24 Allergies Allergy/AdvReac Type Severity Reaction Status Date / Time No Known Allergies Allergy Verified 02/13/24 08:15 [No Known Allergies*] Review of Systems Review of Systems: As per HPI. Yes all other systems are reviewed and are negative Constitutional: Constitutional: Reports as per HPI [facility] Past Medical History Medical History Hypertension Anemia High cholesterol Asthma Surgical History Hx of section History of hysteroscopy Hx of tubal ligation Family History Family History Sister Colon cancer Social History Social History Are you a primary medicare sales executive to a significant other at home: No Do you presently have visiting nurse or other home services: No Alcohol intake: never Comment: previously medicated with oxycodone Patient Tobacco Use Status: Never used Tobacco Advance Directives: No Advance Directives Information Provided: No Do you have a plan to hurt others: No Plan Physical Exam Vital Signs: Vital Signs: Last Vital Signs Temp 96.6 F L 02/13/24 08:14 Pulse 54 02/13/24 08:14 Resp 18 02/13/24 08:14 BP 125/69 02/13/24 08:14 Pulse Ox 100 02/13/24 08:14 O2 Del Method Room Air 02/13/24 08:14 BMI result Body Mass Index 40.7 Vital signs have been reviewed and appear to be correct. Blood pressure normal. Heart rate normal. Respiratory rate normal. Temperature normal. Oxygen sat uration normal. Const: General: cooperative, healthy appearing and no acute distress Orientation/consciousness: oriented to person, oriented to place, oriented to time and patient oriented x3 Limitations: no limitations HEENT: Head: Yes normocephalic and Yes atraumatic Ears: external ears normal General nose exam: Normal external nose present Face and sinus: Yes face symmetric Mouth: oropharynx normal and moist mucous membranes Throat: Yes uvula midline Eyes: Pupils: Equal, round and reactive pupils present Neck: Neck: Yes normal visual inspection and Yes supple Resp: Effort & Inspection: normal respiratory effort and able to speak in complete sentences Auscultation: clear to auscultation bilaterally Cardio: Rate: regular rate Rhythm: regular rhythm Heart sounds: S1 normal heart sound present and S2 normal heart sound present GI: Palpation (GI): Soft to palpation and nontender Auscultation: normoac tive bowel sounds : General: Yes no CVA tenderness Back/Spine/Pelvis: Back: no CVA tenderness Skin: General skin exam: elasticity normal and turgor normal Neuro: General: oriented to person, oriented to place, oriented to time, patient oriented x3, gait normal, tone normal, moves all extremities, Normal light touch and pain sensation, no focal motor deficits, CN's II-XI intact bi laterally and deep tendon reflexes 2+ bilaterally Cranial nerves: Yes Equal, round and reactive pupils present Cognition (Neuro): normal cognition Motor exam (neuro): 5/5 motor strength present throughout Extrem: General: Yes full ROM, Yes no pedal edema and Yes no calf tenderness Right lower extremity: ankle Details: tenderness Location: of the lateral malleolus, no edema and normal ROM; no unusual warmth, no ecchymosis and achilles tendon exam normal and foot Details: normal capillary refill, normal to inspection, tenderness Location: of the dorsal foot (Diffuse), toes with normal ROM, no edema, vascular exam Details: dorsalis pedis pulse present and posterior tibial pulse present and motor-sensory exam Details: two point discrimination normal; no unusual warmth and no ecchymosis Psych: Mental Status: mental status grossly normal Affect: normal affect Thought process: Normal thought process present Medical Decision Making Medical Decision Making MDM Narrative: Patient is a 43-year-old female with history of arthritis in right foot presenting to the emergency department with complaint of worsening right foot and ankle pain for the past week. On exam patient is awake, A+Ox3, VS WNL, afebrile, normal neurological exam without focal deficits, physical exam findings as above. Given reported symptoms and physical exam findings, initial differential includes osteoarthritis, strain, sprain, fracture. X-ray upright foot notable for no acute fracture, significant degenerative changes. My interpretation is in agreement with the radiologist's interpretation. Results discussed with patient and all questions answered. Will provide patient with Enmanuel wrap for support, advised her to keep foot elevated while at rest and apply ice intermittently. Will place patient on short course of prednisone to decrease inflammation. Instructed patient not to use NSAIDs while taking this medication. Advised patient to follow-up with PCP. Return precautions discussed at bedside. Patient verbalized understanding of and agreement with plan. Differential Diagnosis Differential Diagnoses: The differential diagnosis associated with the presentation includes As per MDM. Independent Interpretation I performed an independent interpretation of an: Plain X-Ray Interpretation: No acute fracture of right foot, significant degenerative changes. Radiology Impression Discussion of test interpretation with radiology: I have reviewed the radiologist's reading. Radiologist Impression: XR/XR foot RT min 3V IMPRESSION: No evidence of an acute osseous injury. Degenerative changes as described above. External Record Review External record reviewed: Inpatient record, Office record and Outpatient record Prescription Management I considered prescription management with: Other Discharge Plan Discharge Clinical Impression: Osteoarthritis of ankle and foot Qualifiers: Laterality: right Qualified Code(s): M19.071 - Primary osteoarthritis, right ankle and foot Patient Disposition: Home, Self-Care Instructions: Osteoarthritis (DC), How to Use an Elastic Bandage (ED), Self- Care Measures with a Chronic Disease (ED), Arthritis (ED) Additional Instructions: You were evaluated in the emergency department today for right ankle and foot pain which appears to be related to arthritis. Your x-ray did not show evidence of any new fractures. You were provided with an Enmanuel wrap for support in the emergency department today. You are being treated with a short course of steroids to decrease inflammation. We recommend that you elevate your foot while at rest and apply ice for 10-15 minutes at a time throughout the day, using caution not to apply ice directly to skin. Please follow-up with your primary care provider. Return to the emergency department if you develop new swelling, redness, warmth, fevers, change of color in your foot, new weakness, numbness, tingling or any other concerning symptoms. Prescriptions: New prednisone 50 mg tablet 50 mg PO DAILY 5 Days Qty: 5 0RF No Action albuterol sulfate 90 mcg/actuation HFA aerosol inhaler 2 puff inhalation Q4-6H PRN (Reason: shortness of breath or wheezing) Qty: 8.5 0RF acetaminophen [Tylenol Extra Strength] 500 mg tablet 500 mg PO Q6H PRN (Reason: pain or fever) Qty: 20 0RF cyclobenzaprine 10 mg tablet 10 mg PO TID PRN (Reason: muscle spasm) Qty: 15 0RF prednisone 20 mg tablet 40 mg PO DAILY 4 Days Qty: 8 0RF amoxicillin-pot clavulanate 875-125 mg tablet 1 tab PO BID Qty: 13 0RF syiclsxvjh-siagcnmajmppq-eqpb [Fioricet] 50-300-40 mg capsule 1 cap PO Q8H PRN (Reason: pain (scale score 4-6)) Qty: 10 0RF atorvastatin 80 mg tablet 80 mg PO BEDTIME Mirena 20 mcg/24 hours (8 yrs) 52 mg intrauterine device intrauterine Mirena 20 mcg/24 hours (7 yrs) 52 mg intrauterine device 1 device intrauterine ONCE Qty: 1 0RF fluticasone propionate [Flovent HFA] 44 mcg/actuation HFA aerosol inhaler 2 puff inhalation BID fluoxetine 10 mg capsule 10 mg PO DAILY Stand Alone Forms: Work/School Release Print Language: Citizen Of [place]
[2024-02-13 10:51] VITALS: BP 109/70; PULSE 46; RESP 16; TEMP 36.7; O2SAT 98
== END 2024-02-13 11:06 | disposition home or self-care (01) ==
PROVIDERS: Emergency Provider Emergency Medicine; PCP Internal Medicine
DX: M19.071 Primary osteoarthritis, right ankle and foot (principal); M79.671 Pain in right foot; M25.571 Pain in right ankle and joints of right foot; I10 Essential (primary) hypertension; D64.9 Anemia, unspecified; J45.909 Unspecified asthma, uncomplicated
CPT/HCPCS: 73630; 99282; 99283

== ENCOUNTER 2024-02-25 20:08 | Emergency (ER) | payer OTHER, SELFPAY ==
--- NOTE | ~2024-02-25 | XR_ITS ---
EXAMINATION: XR CHEST CLINICAL INFORMATION: Chest radiograph 12/23/2023 COMPARISON: None available. TECHNIQUE: Frontal view of the chest was obtained. FINDINGS: No significant abnormality is noted involving the heart, lungs, mediastinum, bony thorax or soft tissues. XR/XR chest 1V IMPRESSION: Unremarkable examination.
--- NOTE | 2024-02-25 20:10 | ECG_ITS ---
Test Reason : chest murphy Blood Pressure : / mmHG Vent. Rate : 086 BPM Atrial Rate : 086 BPM P-R Int : 132 ms QRS Dur : 076 ms QT Int : 362 ms P-R-T Axes : 084 004 -07 degrees QTc Int : 433 ms Normal sinus rhythm Inferior infarct , age undetermined Cannot rule out Anterior infarct , age undetermined Abnormal ECG When compared with ECG of 23-DEC-2023 05:26, Vent. rate has increased BY [address] no longer elevated in Lateral leads Nonspecific T wave abnormality, worse in Inferior leads Nonspecific T wave abnormality now evident in Anterior leads Referred By: Generic ED Physician Electronically Signed By:GEOVANNA ERNST MD
[2024-02-25 20:27] VITALS: RESP 18; TEMP 37.1; BMI 45.4
[2024-02-25 20:32] LABS: MANUAL DIFF FLAG NO
[2024-02-25 20:44] LABS: Basophils Percent Auto 0.3 % (0-2); Eosinophils Absolute Auto 0.1 X10*3/uL (0.0-0.4); Eosinophils Percent Auto 1.2 % (0-4); Hematocrit 34.5 % (37.0-47.0); Hemoglobin 12.3 g/dl (12.0-16.0); Imm Gran Abs Auto 0.01 X10*3/uL (0.00-0.03); Imm Gran Pct Auto 0.2 % (0.0-0.4); Lymphocytes Absolute Auto 1.7 X10*3/uL (1.2-4.9); Mean Corpuscular HGB Conc 35.7 g/dl (31.0-35.0); Mean Corpuscular Hemoglobin 31.6 pg (27.0-33.0); Mean Corpuscular Volume 88.7 fL (80.0-98.0); Mean Platelet Volume 9.6 fL (9.4-12.3); Monocytes Absolute Auto 0.9 X10*3/uL (0.1-1.2); Monocytes Percent Auto 14.7 % (2-11); Neutrophils Absolute Auto 3.2 x10*3/uL (2.0-8.3); Neutrophils Percent Auto 54.6 % (45-73); Platelet Count 234 X10*3/uL (160-400); Red Blood Count 3.89 X10*6/uL (4.20-5.50); Red Cell Distribution Width 11.8 % (11.0-16.0); White Blood Count 5.8 X10*3/uL (4.8-10.8)
[2024-02-25 20:47] LABS: Alanine Aminotransferase 18 U/L (0-31); Albumin Level 4.1 g/dL (3.5-5.0); Alkaline Phosphatase 77 U/L (39-117); Anion Gap 14 (12-20); Aspartate Amino Transferase 16 U/L (5-31); Bilirubin Total 0.6 mg/dL (0.0-1.0); Blood Urea Nitrogen 14 mg/dL (9-16); Carbon Dioxide 26 mmol/L (22-29); Chloride 105 mmol/L (96-108); Creatinine Clr Calc Pharmacy 114.4; Estimated Glomerular Filt Rate > 60; Glucose Random 115 mg/dL (60-115); Potassium 3.4 mmol/L (3.3-5.1); Sodium 142 mmol/L (135-145); Total Protein 7.2 g/dL (6.5-8.0)
[2024-02-25 20:49] LABS: COVID-19 Test Negative (Negative); IDNOW Serial# 08D9AD1C
[2024-02-25 20:50] LABS: IDNOW Serial# 152EDE1D; Influenza A Negative (Negative); Influenza B2 Negative (Negative)
[2024-02-25 20:54] LABS: Troponin-I High Sensitivity < 2.7 ng/L (<3.5-17.0)
== END 2024-02-26 08:39 | disposition left against medical advice (07) ==
PROVIDERS: Emergency Provider Emergency Medicine; PCP Internal Medicine
DX: R07.9 Chest pain, unspecified (principal); R05.9 Cough, unspecified; R51.9 Headache, unspecified; J45.909 Unspecified asthma, uncomplicated; Z11.52 Encounter for screening for COVID-19; Z53.21 Procedure and treatment not carried out due to patient leaving prior to being seen by health care provider
CPT/HCPCS: 36415; 71045; 80053; 84484; 85025; 87502; 87635; 93005; 99283

== ENCOUNTER → 2024-02-25 20:10 | Outpatient (BNV) | payer OTHER, SELFPAY | PROVIDERS: Emergency Provider Emergency Medicine; PCP Internal Medicine; Visit Provider Internal Medicine Cardiovascular Disease | DX: R07.9 Chest pain, unspecified (principal) | CPT/HCPCS: 93010 ==

== ENCOUNTER 2024-03-08 11:19 | Outpatient (REF) | payer OTHER, SELFPAY ==
[2024-03-08 12:01] LABS: Basophils Percent Auto 0.2 % (0-2); Eosinophils Percent Auto 0.5 % (0-4); Hematocrit 37.6 % (37.0-47.0); Hemoglobin 13.4 g/dl (12.0-16.0); Imm Gran Abs Auto 0.02 X10*3/uL (0.00-0.03); Imm Gran Pct Auto 0.3 % (0.0-0.4); Lymphocytes Absolute Auto 1.9 X10*3/uL (1.2-4.9); Lymphocytes Percent Auto 33.9 % (20-40); MANUAL DIFF FLAG NO; Mean Corpuscular HGB Conc 35.6 g/dl (31.0-35.0); Mean Corpuscular Hemoglobin 31.2 pg (27.0-33.0); Mean Corpuscular Volume 87.4 fL (80.0-98.0); Mean Platelet Volume 9.5 fL (9.4-12.3); Monocytes Absolute Auto 0.5 X10*3/uL (0.1-1.2); Monocytes Percent Auto 7.9 % (2-11); Neutrophils Absolute Auto 3.3 x10*3/uL (2.0-8.3); Neutrophils Percent Auto 57.2 % (45-73); Platelet Count 295 X10*3/uL (160-400); Red Cell Distribution Width 11.7 % (11.0-16.0); White Blood Count 5.7 X10*3/uL (4.8-10.8)
[2024-03-08 12:47] LABS: Alanine Aminotransferase 16 U/L (0-31); Albumin Level 4.5 g/dL (3.5-5.0); Alkaline Phosphatase 85 U/L (39-117); Anion Gap 12 (12-20); Aspartate Amino Transferase 17 U/L (5-31); Bilirubin Total 0.9 mg/dL (0.0-1.0); Blood Urea Nitrogen 16 mg/dL (9-16); Calcium 9.9 mg/dL (8.4-10.2); Carbon Dioxide 27 mmol/L (22-29); Chloride 106 mmol/L (96-108); Cholesterol 219 mg/dL (<200); Estimated Glomerular Filt Rate > 60; Glucose Random 108 mg/dL (60-115); HDL Cholesterol 36 mg/dL (>40); LDL Cholesterol Calculated 145 mg/dL (<100); Potassium 3.7 mmol/L (3.3-5.1); Sodium 141 mmol/L (135-145); Triglycerides 190 mg/dL (<150)
[2024-03-11 11:09] LABS: TS Negative Control Passed; TS Panel A 5; TS Panel B 10; TS Positive Control Passed; TSpotTB Positive (Negative)
== END 2024-03-08 11:20 | disposition home or self-care (01) ==
LOC: HO.LAB 11:19
PROVIDERS: PCP Internal Medicine; Visit Provider Internal Medicine
DX: E78.00 Pure hypercholesterolemia, unspecified (principal); F32.5 Major depressive disorder, single episode, in full remission; I10 Essential (primary) hypertension
CPT/HCPCS: 36415; 80053; 80061; 85025; 86481

== ENCOUNTER 2024-07-10 19:39 | Emergency (ER) | payer OTHER, SELFPAY ==
--- NOTE | 2024-07-10 | ECG_ITS ---
Test Reason : SYNCOPE Blood Pressure : / mmHG Vent. Rate : 084 BPM Atrial Rate : 084 BPM P-R Int : 142 ms QRS Dur : 078 ms QT Int : 366 ms P-R-T Axes : 044 046 034 degrees QTc Int : 432 ms Normal sinus rhythm Normal ECG When compared with ECG of 25-FEB-2024 20:16, Criteria for Inferior infarct are no longer Present Nonspecific T wave abnormality, improved in Inferior leads Referred By: Generic ED Physician Electronically Signed By:AMNA MALIK
[2024-07-10 19:45] VITALS: BP 126/76; BP 147/80; PULSE 80; PULSE 96; RESP 22; TEMP 37.1; O2SAT 100; O2SAT 98
[2024-07-10 19:54] VITALS: BP 147/80; PULSE 84; RESP 16; TEMP 37.1; O2SAT 98; BMI 42.6
[2024-07-10 20:15] LABS: MANUAL DIFF FLAG NO
[2024-07-10 20:23] LABS: Basophils Percent Auto 0.4 % (0-2); Eosinophils Absolute Auto 0.1 X10*3/uL (0.0-0.4); Hematocrit 36.4 % (37.0-47.0); INTERNATIONAL NORM RATIO 1.1 (0.9-1.1); Imm Gran Abs Auto 0.02 X10*3/uL (0.00-0.03); Imm Gran Pct Auto 0.2 % (0.0-0.4); Lymphocytes Absolute Auto 2.6 X10*3/uL (1.2-4.9); Lymphocytes Percent Auto 31.8 % (20-40); Mean Corpuscular HGB Conc 35.7 g/dl (31.0-35.0); Mean Corpuscular Hemoglobin 31.8 pg (27.0-33.0); Mean Platelet Volume 9.4 fL (9.4-12.3); Monocytes Absolute Auto 0.5 X10*3/uL (0.1-1.2); Monocytes Percent Auto 6.5 % (2-11); Neutrophils Absolute Auto 4.9 x10*3/uL (2.0-8.3); Neutrophils Percent Auto 60.1 % (45-73); Platelet Count 257 X10*3/uL (160-400); Prothrombin Time 12.3 SEC (10.9-12.4); Red Blood Count 4.09 X10*6/uL (4.20-5.50); Red Cell Distribution Width 12.4 % (11.0-16.0); White Blood Count 8.1 X10*3/uL (4.8-10.8)
[2024-07-10 20:33] LABS: Alanine Aminotransferase 20 U/L (0-31); Albumin Level 4.5 g/dL (3.5-5.0); Alkaline Phosphatase 84 U/L (39-117); Anion Gap 13 (12-20); Aspartate Amino Transferase 17 U/L (5-31); Bilirubin Total 0.4 mg/dL (0.0-1.0); Blood Urea Nitrogen 15 mg/dL (9-16); Calcium 9.8 mg/dL (8.4-10.2); Carbon Dioxide 24 mmol/L (22-29); Chloride 106 mmol/L (96-108); Creatinine Clr Calc Pharmacy 97.9; Estimated Glomerular Filt Rate > 60; Glucose Random 127 mg/dL (60-115); Potassium 3.4 mmol/L (3.3-5.1); Sodium 140 mmol/L (135-145); Total Protein 7.9 g/dL (6.5-8.0)
[2024-07-10 20:43] LABS: Troponin-I High Sensitivity < 2.7 ng/L (<3.5-17.0)
--- NOTE | 2024-07-10 20:58 | ED_ITS ---
HPI - Chest Pain General Chief Complaint: Syncope Stated Complaint: Syncope Time Seen by Provider: 07/10/24 20:16 Source: patient Mode of arrival: ambulatory Limitations: no limitations Related Data Home Medications ?Medication ?Instructions ?Recorded ?Confirmed atorvastatin 80 mg tablet 80 mg PO BEDTIME 03/15/22 08/01/23 levonorgestrel 21 mcg/24 hr (up to intrauterine 08/05/22 8 years) 52 mg intrauterine device (Mirena) fluticasone propionate 44 2 puff inhalation BID 01/20/23 08/01/23 mcg/actuation HFA aerosol inhaler (Flovent HFA) fluoxetine 10 mg capsule 10 mg PO DAILY 09/22/23 Previous Rx's ?Medication ?Instructions ?Recorded albuterol sulfate 90 mcg/actuation 2 puff inhalation Q4-6H PRN 04/06/21 aerosol inhaler shortness of breath or wheezing #8.5 grams acetaminophen 500 mg tablet 500 mg PO Q6H PRN pain or fever 06/19/21 (Tylenol Extra Strength) #20 tabs cyclobenzaprine 10 mg tablet 10 mg PO TID PRN muscle spasm #15 02/01/23 tabs amoxicillin 875 mg-potassium 1 tab PO BID #13 tabs 11/14/23 clavulanate 125 mg tablet prednisone 20 mg tablet 40 mg (2 x 20 mg) PO DAILY 4 days 11/14/23 #8 tabs sdjokpcsoa-yzxannszyzvhy-nhwkznuo 1 cap PO Q8H PRN pain (scale score 12/23/23 50 mg-300 mg-40 mg capsule 4-6) #10 caps (Fioricet) prednisone 50 mg tablet 50 mg PO DAILY 5 days #5 tabs 02/13/24 Allergies Allergy/AdvReac Type Severity Reaction Status Date / Time No Known Allergies Allergy Verified 07/10/24 19:57 [No Known Allergies*] [facility] Past Medical History Medical History Hypertension Anemia High cholesterol Asthma Surgical History Hx of section History of hysteroscopy Hx of tubal ligation Family History Family History Sister Colon cancer Social History Social History Are you a primary career development consultant to a significant other at home: No Do you presently have visiting nurse or other home services: No Alcohol intake: never Comment: previously medicated with oxycodone Patient Tobacco Use Status: Never used Tobacco Physical Exam 2 Vital Signs: Vital Signs: Last Vital Signs Temp 98.8 F 07/10/24 19:54 Pulse 84 07/10/24 19:54 Resp 16 07/10/24 19:54 BP 147/80 H 07/10/24 19:54 Pulse Ox 98 07/10/24 19:54 O2 Del Method Room Air 07/10/24 19:54 BMI result Body Mass Index 42.6 Medical Decision Making Lab Data 07/10/24 20:10 07/10/24 20:10 Labs: Lab Results 07/10/24 Range/Units 20:10 WBC 8.1 (4.8-10.8) X10*3/uL RBC 4.09 L (4.20-5.50) X10*6/uL Hgb 13.0 (12.0-16.0) g/dl Hct 36.4 L (37.0-47.0) % MCV 89.0 (80.0-98.0) fL MCH 31.8 (27.0-33.0) pg MCHC 35.7 H (31.0-35.0) g/dl RDW 12.4 (11.0-16.0) % Plt Count 257 (160-400) X10*3/uL MPV 9.4 (9.4-12.3) fL Immature Gran % (Auto) 0.2 (0.0-0.4) % Neut % (Auto) 60.1 (45-73) % Lymph % (Auto) 31.8 (20-40) % [place] % (Auto) 6.5 (2-11) % Eos % (Auto) 1.0 (0-4) % Baso % (Auto) 0.4 (0-2) % Lymph # (Auto) 2.6 (1.2-4.9) X10*3/uL [place] # (Auto) 0.5 (0.1-1.2) X10*3/uL Eos # (Auto) 0.1 (0.0-0.4) X10*3/uL Baso # (Auto) 0.0 (0.0-0.2) X10*3/uL Abs Immat Gran (auto) 0.02 (0.00-0.03) X10*3/uL Absolute Neuts (auto) 4.9 (2.0-8.3) x10*3/uL Absolute Nucleated RBC 0.000 (0.0-0.012) X10*3/uL Nucleated RBC % (auto) 0.0 (0.0-0.2) /100WBC PT 12.3 (10.9-12.4) SEC INR 1.1 (0.9-1.1) Sodium 140 (135-145) mmol/L Potassium 3.4 (3.3-5.1) mmol/L Chloride 106 (96-108) mmol/L Carbon Dioxide 24 (22-29) mmol/L Anion Gap 13 (12-20) BUN 15 (9-16) mg/dL Creatinine 0.86 (0.5-1.4) mg/dL Estim Creat Clear Calc 97.9 Estimated GFR > 60 Random Glucose 127 H (60-115) mg/dL Calcium 9.8 (8.4-10.2) mg/dL Total Bilirubin 0.4 (0.0-1.0) mg/dL AST 17 (5-31) U/L ALT 20 (0-31) U/L Alkaline Phosphatase 84 (39-117) U/L Troponin I High Sens < 2.7 (<3.5-17.0) ng/L Total Protein 7.9 (6.5-8.0) g/dL Albumin 4.5 (3.5-5.0) g/dL Discharge Plan Discharge Clinical Impression: Vasovagal syncope, Atypical chest pain Patient Disposition: Home, Self-Care Instructions: Chest Pain (ED), Syncope (ED), Panic Attack (ED) Additional Instructions: Your workup is negative for any coronary event Likely your symptoms happened because of anxiety/panic attack Follow up with your PCP Prescriptions: No Action albuterol sulfate 90 mcg/actuation HFA aerosol inhaler 2 puff inhalation Q4-6H PRN (Reason: shortness of breath or wheezing) Qty: 8.5 0RF acetaminophen [Tylenol Extra Strength] 500 mg tablet 500 mg PO Q6H PRN (Reason: pain or fever) Qty: 20 0RF cyclobenzaprine 10 mg tablet 10 mg PO TID PRN (Reason: muscle spasm) Qty: 15 0RF prednisone 20 mg tablet 40 mg PO DAILY 4 Days Qty: 8 0RF amoxicillin-pot clavulanate 875-125 mg tablet 1 tab PO BID Qty: 13 0RF jlzmtsmcrz-zgxfbkcdmvmxy-ewkg [Fioricet] 50-300-40 mg capsule 1 cap PO Q8H PRN (Reason: pain (scale score 4-6)) Qty: 10 0RF prednisone 50 mg tablet 50 mg PO DAILY 5 Days Qty: 5 0RF atorvastatin 80 mg tablet 80 mg PO BEDTIME Mirena 20 mcg/24 hours (8 yrs) 52 mg intrauterine device intrauterine Mirena 20 mcg/24 hours (7 yrs) 52 mg intrauterine device 1 device intrauterine ONCE Qty: 1 0RF fluticasone propionate [Flovent HFA] 44 mcg/actuation HFA aerosol inhaler 2 puff inhalation BID fluoxetine 10 mg capsule 10 mg PO DAILY Print Language: Amharic
[2024-07-10 21:17] VITALS: BP 123/68; PULSE 74; RESP 16; TEMP 37.1; O2SAT 96
== END 2024-07-10 21:18 | disposition home or self-care (01) ==
LOC: HO.ED 21:16
PROVIDERS: Emergency Provider Internal Medicine; PCP Internal Medicine
DX: R55 Syncope and collapse (principal); R07.89 Other chest pain; I10 Essential (primary) hypertension; E78.5 Hyperlipidemia, unspecified; J45.909 Unspecified asthma, uncomplicated; Z79.02 Long term (current) use of antithrombotics/antiplatelets; Z79.899 Other long term (current) drug therapy
CPT/HCPCS: 36415; 80053; 84484; 85025; 85610; 93005; 99283; 99284

== ENCOUNTER 2024-10-11 09:03 | Emergency (ER) | payer OTHER, SELFPAY ==
--- NOTE | 2024-10-11 | ECG_ITS ---
Test Reason : SOB Blood Pressure : / mmHG Vent. Rate : 073 BPM Atrial Rate : 073 BPM P-R Int : 152 ms QRS Dur : 076 ms QT Int : 370 ms P-R-T Axes : 043 033 026 degrees QTc Int : 407 ms Normal sinus rhythm Normal ECG When compared with ECG of 10-JUL-2024 19:46, No significant change was found Referred By: Generic ED Physician Electronically Signed By:GEOVANNA ERNST MD
--- NOTE | ~2024-10-11 | XR_ITS ---
EXAMINATION: XR CHEST CLINICAL INFORMATION: cough/ asthma COMPARISON: Cough, mass mild TECHNIQUE: 2 views of the chest were obtained. FINDINGS: The lungs are well-expanded and clear acute process. The heart size and pulmonary vascularity is normal. There is moderate spondylosis of dorsal spine. No aggressive lytic or sclerotic process. XR/XR chest 2V IMPRESSION: Unremarkable chest exam. Electronically signed by: Kip Reich MD 10/11/2024 10:18 AM [facility]
[2024-10-11 09:14] VITALS: BP 117/78; PULSE 74; RESP 20; TEMP 36.6; O2SAT 100; BMI 40.3
[2024-10-11 10:07] LABS: Influenza A PCR NEGATIVE (Negative); Influenza B PCR NEGATIVE (Negative); Resp Syncy Virus RNA Qual PCR NEGATIVE (Negative); SARS COV2 PCR INHOUSE NEGATIVE (Negative)
--- NOTE | 2024-10-11 10:18 | ED_ITS ---
HPI - General Adult General Chief complaint: Upper Respiratory Symptoms Stated complaint: CP, headache, side pain Time Seen by Provider: 10/11/24 09:28 Source: patient Mode of arrival: ambulatory Limitations: no limitations History of Present Illness ED Provider: Jasvir Washington HPI narrative: 44-year-old female history of asthma, and hypertension presents to ED for headache, coughing with white phlegm, night sweats, nasal white discharge, and chest tightness with SOB. Patient denies any chest pain, calf pain, pleurisy, coughing up blood. Patient states no relief with 1 trial of albuterol nebulizer at home. Patient states she was in the rain and thinks that contributed to his symptoms. Related Data Home Medications ?Medication ?Instructions ?Recorded ?Confirmed atorvastatin 80 mg tablet 80 mg PO BEDTIME 03/15/22 08/01/23 levonorgestrel 21 mcg/24 hr (up to intrauterine 08/05/22 8 years) 52 mg intrauterine device (Mirena) fluticasone propionate 44 2 puff inhalation BID 01/20/23 08/01/23 mcg/actuation HFA aerosol inhaler (Flovent HFA) fluoxetine 10 mg capsule 10 mg PO DAILY 09/22/23 Previous Rx's ?Medication ?Instructions ?Recorded albuterol sulfate 90 mcg/actuation 2 puff inhalation Q4-6H PRN 04/06/21 aerosol inhaler shortness of breath or wheezing #8.5 grams acetaminophen 500 mg tablet 500 mg PO Q6H PRN pain or fever 06/19/21 (Tylenol Extra Strength) #20 tabs cyclobenzaprine 10 mg tablet 10 mg PO TID PRN muscle spasm #15 02/01/23 tabs amoxicillin 875 mg-potassium 1 tab PO BID #13 tabs 11/14/23 clavulanate 125 mg tablet prednisone 20 mg tablet 40 mg (2 x 20 mg) PO DAILY 4 days 11/14/23 #8 tabs dubsgsvwmg-wltptgzfqomtn-giejkvoq 1 cap PO Q8H PRN pain (scale score 12/23/23 50 mg-300 mg-40 mg capsule 4-6) #10 caps (Fioricet) prednisone 50 mg tablet 50 mg PO DAILY 5 days #5 tabs 02/13/24 azithromycin 250 mg tablet See Rx Instructions PO .COMPLEX #6 10/11/24 tabs benzonatate 200 mg capsule 200 mg PO TID PRN cough 5 days #15 10/11/24 caps prednisone 20 mg tablet 40 mg (2 x 20 mg) PO DAILY 5 days 10/11/24 #10 tabs Allergies Allergy/AdvReac Type Severity Reaction Status Date / Time No Known Allergies Allergy Verified 10/11/24 09:17 [No Known Allergies*] Review of Systems Review of Systems: Coughing white phlegm, nasal discharge, headache, night sweats, chills, Yes all other systems are reviewed and are negative [facility] Past Medical History Medical History Hypertension Anemia High cholesterol Asthma Surgical History Hx of section History of hysteroscopy Hx of tubal ligation Family History Family History Sister Colon cancer Social History Social History Are you a primary personal care service provider to a significant other at home: No Do you presently have visiting nurse or other home services: No Alcohol intake: never Comment: previously medicated with oxycodone Patient Tobacco Use Status: Never used Tobacco Physical Exam ED Vital Signs: Vital Signs - 24 hr 10/11/24 09:14 10/11/24 10:32 10/11/24 11:27 Temperature 98 F 98.8 F Pulse Rate 74 60 76 Respiratory Rate 20 18 16 Blood Pressure 117/78 119/61 Pulse Oximetry 100 100 Oxygen Delivery Method Room Air Room Air 10/11/24 11:29 Temperature 98.8 F Pulse Rate 76 Respiratory Rate 16 Blood Pressure 119/61 Pulse Oximetry 100 Oxygen Delivery Method Room Air BMI result Body Mass Index 40.3 Const General: cooperative, healthy appearing, comfortable, no acute distress, well developed, alert, awake and Physically active Orientation/consciousness: patient oriented x3 HENMT Head: Yes normal to inspection, Yes No palpable skull fracture present, Yes normocephalic and Yes atraumatic Ears: hearing grossly normal bilaterally, external ears normal, TM's normal bilaterally, TM normal on the right, TM normal on the left, EAC's normal, mastoids normal and no periauricular adenopathy Face and sinus: Yes normal facial exam, Yes sinuses nontender and Yes face symmetric Mouth: Normal oral and palatal mucosa present, lip normal and tongue normal Throat: Yes posterior oropharynx normal, Yes tonsils normal and Yes uvula midline Eyes General: appearance normal, both eyes and all related structures Neck Neck: Yes normal visual inspection, Yes full ROM, Yes no lymphadenopathy, Yes no meningeal signs, Yes trachea midline, Yes supple, No anterior neck swelling and No tender Chest Chest palpation & inspection: normal inspection of the chest and normal palpation of entire chest wall Resp Effort & Inspection: normal respiratory effort and able to speak in complete sentences Auscultation: wheezes expiratory wheezes and throughout Cardio Jugular venous distension: no JVD Heart sounds: S1 normal heart sound present and S2 normal heart sound present GI Inspection: Yes normal to inspection Palpation (GI): Soft to palpation, not firm, nontender, no guarding and not rigid General: Yes no CVA tenderness Back/Spine/Pelvis Back: no CVA tenderness and No back tenderness Skin General skin exam: no rashes or lesions noted, elasticity normal and turgor normal Neuro General: patient oriented x3, gait normal, tone normal, moves all extremities, Normal light touch and pain sensation, no meningeal signs, no focal motor deficits, CN's II-XI intact bilaterally and normal sensation to monofilament Extrem Other: Bilateral lower extremity negative for swelling, pitting edema, or calf pain. General: Yes normal to inspection, Yes full ROM and Yes capillary refill normal Psych Appearance: grossly normal, well kempt and not disheveled Medications Administered Discontinued Medications Generic Name Dose Route Start Last Admin Trade Name Freq PRN Reason Stop Dose Admin Albuterol Sulfate 2.5 mg/ 5 mg 10/11/24 10:23 10/11/24 10:32 Albuterol Sulfate 2.5 mg INHALE 10/11/24 10:24 5 mg ONCE ONE Administration Prednisone 40 mg 10/11/24 09:54 10/11/24 10:33 Prednisone 20 Mg Tablet PO 10/11/24 09:55 40 mg ONCE ONE Administration Medical Decision Making Medical Decision Making MDM Narrative: 44-year-old female presents to ED for URI symptoms. Patient denies any leg swelling, calf pain, pitting edema, or pleurisy. Patient states chest feeling tight with wheezing. . SARs chest x-ray ordered. ED bronchodilator prednisone ordered. EKG ordered at triage normal sinus rhythm. 11:15am: Patient feels better after receiving treatment. Chest x-ray negative pneumonia. SARs, COVID, influenza negative. Not suspecting myocardial infarction, PE, CHF, myocarditis, pericarditis, aortic dissection, cardiac tamponade, or any other life-threatening etiology. Patient will be discharged with steroids and cough medication with azithromycin. Patient explained worrisome signs and informed to return to the ED immediately. Differential Diagnosis Differential Diagnoses: The differential diagnosis associated with the presentation includes (Pneumonia, COVID, RSV, influenza) Admission/Observation Consideration of admission/observation: Escalation of care including admission/observation considered Lab Data MDM Lab Attestation statement: I reviewed the patient's lab results. Labs: Lab Results 10/11/24 Range/Units 09:25 Influenza Type A (PCR) NEGATIVE (Negative) Influenza Type B (PCR) NEGATIVE (Negative) RSV RNA Qual (PCR) NEGATIVE (Negative) SARS-CoV-2 RNA (RT-PCR) NEGATIVE (Negative) Independent Interpretation I performed an independent interpretation of an: EKG (Negative STEMI) and Plain X-Ray Radiology Impression Discussion of test interpretation with radiology: I have reviewed the radiologist's reading. Independent Historian Clinical information obtained from an independent historian. History obtained from or confirmed by: Other (patient) External Record Review External record reviewed: Other (Prior visits) Prescription Management I considered prescription management with: Antibiotic and Other (Prednsone) Discharge Plan Discharge Clinical Impression: URI (upper respiratory infection), Bronchitis Patient Disposition: Home, Self-Care Instructions: Upper Respiratory Infection (ED), Acute Bronchitis (ED) Additional Instructions: Recommend follow-up with primary care provider. Return to the ED immediately for any chest pain, shortness of breath, coughing up blood, calf pain, chest pain on inspiration, coughing up blood, weakness, dizziness, fever, chills, leg swelling, shortness of breath/chest pain on inspiration, severe headache, loss of vision, dizziness, or any other concerning symptoms. FINDINGS: The lungs are well-expanded and clear acute process. The heart size and pulmonary vascularity is normal. There is moderate spondylosis of dorsal spine. No aggressive lytic or sclerotic process. XR/XR chest 2V IMPRESSION: Unremarkable chest exam. Electronically signed by: Kip Reich MD 10/11/2024 10:18 AM [facility] Prescriptions: New prednisone 20 mg tablet 40 mg PO DAILY 5 Days Qty: 10 0RF azithromycin 250 mg tablet See Rx Instructions .ROUTE .COMPLEX Qty: 6 0RF Rx Instructions: For 250 mg dose pack: take 500 mg today (day 1), then 250 mg for 4 days (days 2-5) benzonatate 200 mg capsule 200 mg PO TID PRN (Reason: cough) 5 Days Qty: 15 0RF No Action albuterol sulfate 90 mcg/actuation HFA aerosol inhaler 2 puff inhalation Q4-6H PRN (Reason: shortness of breath or wheezing) Qty: 8.5 0RF acetaminophen [Tylenol Extra Strength] 500 mg tablet 500 mg PO Q6H PRN (Reason: pain or fever) Qty: 20 0RF cyclobenzaprine 10 mg tablet 10 mg PO TID PRN (Reason: muscle spasm) Qty: 15 0RF prednisone 20 mg tablet 40 mg PO DAILY 4 Days Qty: 8 0RF amoxicillin-pot clavulanate 875-125 mg tablet 1 tab PO BID Qty: 13 0RF bhfuhdtdmk-jtgsyijlidzan-xixo [Fioricet] 50-300-40 mg capsule 1 cap PO Q8H PRN (Reason: pain (scale score 4-6)) Qty: 10 0RF prednisone 50 mg tablet 50 mg PO DAILY 5 Days Qty: 5 0RF atorvastatin 80 mg tablet 80 mg PO BEDTIME Mirena 20 mcg/24 hours (8 yrs) 52 mg intrauterine device intrauterine Mirena 20 mcg/24 hours (7 yrs) 52 mg intrauterine device 1 device intrauterine ONCE Qty: 1 0RF fluticasone propionate [Flovent HFA] 44 mcg/actuation HFA aerosol inhaler 2 puff inhalation BID fluoxetine 10 mg capsule 10 mg PO DAILY Stand Alone Forms: Work/School Release Interventions: ED Discharge Assessment Last Done: 10/11/24 11:29 Discharge Date/Time: 10/11/24 11:30 Print Language: English
[2024-10-11 10:32] VITALS: PULSE 60; RESP 18; O2SAT 95
[2024-10-11] MEDS: Albuterol Sulfate 2.5 MG, Albuterol Sulfate (0.083%) 2.5 MG 5 MG INHALE (10:32)
[2024-10-11] MEDS: predniSONE 20 MG TABLET 40 MG PO (10:33)
[2024-10-11 11:27] VITALS: BP 119/61; PULSE 76; RESP 16; TEMP 37.1; O2SAT 100
[2024-10-11 11:29] VITALS: BP 119/61; PULSE 76; RESP 16; TEMP 37.1; O2SAT 100
== END 2024-10-11 11:30 | disposition home or self-care (01) ==
PROVIDERS: Emergency Provider Emergency Medicine; PCP Internal Medicine
DX: J40 Bronchitis, not specified as acute or chronic (principal); J06.9 Acute upper respiratory infection, unspecified; R07.89 Other chest pain; R51.9 Headache, unspecified; R06.02 Shortness of breath; R05.9 Cough, unspecified; Z03.818 Encounter for observation for suspected exposure to other biological agents ruled out
CPT/HCPCS: 0241U; 71046; 93005; 94640; 99284

== ENCOUNTER → 2024-10-11 09:13 | Outpatient (BNV) | payer SELFPAY | PROVIDERS: Emergency Provider Emergency Medicine; PCP Internal Medicine; Visit Provider Internal Medicine Cardiovascular Disease | DX: R06.02 Shortness of breath (principal) | CPT/HCPCS: 93010 ==

== ENCOUNTER → 2024-10-11 10:00 | Outpatient (BNV) | payer SELFPAY | PROVIDERS: Emergency Provider Emergency Medicine; PCP Internal Medicine; Visit Provider Radiology Diagnostic Radiology | DX: R05.9 Cough, unspecified (principal) | CPT/HCPCS: 71046 ==

== ENCOUNTER 2024-11-23 13:45 | Outpatient (REF) | payer OTHER, SELFPAY ==
--- OUTSIDE RECORDS SUMMARY | 2024-11-23 13:48 | XMS_ITS ---
Author Organization [facility] Address [address] [place] [address] Care Team Providers Care Ski Guide Name Role Phone DayWero rogersma Primary Care Provider Unavailab Gianni George Jr Unavailable REASON FOR VISIT in hospital Encounters Encounter Location Date Provider Diagnosis [facility] [address] [place] [address] 10/11/2024 Gianni Padilla Jr PLAN OF TREATMENT No Information
--- OUTSIDE RECORDS SUMMARY | 2024-11-23 13:48 | XMS_ITS | Clinical Summary ---
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 And Buildings Decorator Name Role Phone Unavailable Primary Care Provider Unavailabl e Immunizations Name Administration Dates Next Due Moderna Covid-19 Vaccine 6+ Bivalent 11/05/2022 Social History Tobacco Use Types Packs/Day Years Used Date Smoking Tobacco: Never Assessed Comments Unknown Sex and Gender Information Value Date Recorded Sex Assigned at Female 08/09/2022 10:17 AM EDT Legal Sex Female 10:17 AM EDT Gender Identity Female 08/09/2022 10:17 AM EDT Sexual Orientation Choose not to disclose 2022 12:26 PM EST Sexual Orientation Straight 11/05/2022 12 :26 PM EST Plan of Treatment Health Maintenance Due Date Last Done Comments CT Colonography 1979 Colonoscopy 1979 Colorectal Cancer Screening 1979 Depression Screening 1979 FIT DNA/Cologuard 1979 FIT 1979 FOBT 1979 HIV Screening 1979 SDOH Screening 1979 Sigmoidoscopy 1979 Alcohol/Substance Use Screening 1991 Tobacco Screening 1991 Family Planning (PISQ) 1994 Hepatitis C Screening 1997 Pap Smear 2000 Hepatitis B Vaccines (2 of 3 - 19+ 3-dose series) 07/30/2009 07/02/2009, 05/22/2009 Mammogram 2019 DTaP/Tdap/Td Vaccines (2 - Td or Tdap) 05/22/2019 05/22/2009 Cervical Cancer Screening 07/21/2021 HPV/Cotest 07/21/2021 07/21/2016 COVID-19 Vaccine ( season) 2024 11/05/2022, 10/16/2021, 06/23/2021, Additional history exists Influenza Vaccine (#1) 2024 2, 06/24/2021, 08/12/2020, Additional history exists Zoster Vaccines (1 of 2) 2029 RSV Patients and Patients Aged 60 years or older (1 - 1-dose 75+ series) 2054 HIB Vaccines Aged Out No longer eligi ble based on patient's age to complete this topic HPV Vaccines Aged Out No longer eligi ble based on patient's age to complete this topic Hepatitis A Vaccines Aged Out No long er eligible based on patient's age to complete this topic IPV Vaccines Aged Out No longer eligi ble based on patient's age to complete this topic Meningococcal Vaccine Aged Out No porfirio alonzo eligible based on patient's age to complete this topic Pneumococcal Vaccine: Pediatrics (0 to 5 Years) and At-Risk Patients (6 to 49) Years) Aged Out No longer eligible based on patient's age to complete this topic RSV under 20 months Aged Out No longe r eligible based on patient's age to complete this topic Rotavirus Vaccines Aged Out No longer eligible based on patient's age to complete this topic Procedures Procedure Name Priority Date/Time Associated Diagnosis Comments JuanZZ HISTORICAL HPV MRNA E6/E7 Routine 07/21/2016 10:38 AM EDT from Last 3 Months or Most Recently Relevant to Health Maintenance Results * HPV mRNA E6/E7 (07/21/2016 10:38 AM EDT) HPV mRNA E6/E7 Not Detected NOT DETECTED [facility] Comment: This assay detects E6/E7 viral messenger RNA (mRNA) from 14 high-risk HPV types (16,18,31,33,35,39,45,51, 52,56,58,59,66,68). This test was performed using the APTIMA(R) TMA HPV Assay ([employer] For additional information, please refer to http://education.GoTaxi(Cabeo).Digital Luxury/faq/[email or web address] Test Performed by [employer], [employer] [facility] [place], [address] [place] [address] Rom Franks M.D., Ph.D., Director of Laboratories , [facility] [id number] Please note: ??Effective 06/21/2016, HPV testing will be performed using [employer]'s APTIMA test which targets mRNA. Detecting mRNA instead of DNA, as in older methods, offers significant improvements in specificity. 07/21/2016 10:3 8 AM EDT us Jame Fernandez ALARM SIGNAL OPERATOR HISTORICAL/NON ORDERABLE LABS Final Result [facility]where [address] from Last 3 Months or Most Recently Relevant to Health Maintenance Insurance [facility]
--- OUTSIDE RECORDS SUMMARY | 2024-11-23 13:48 | XMS_ITS ---
Author Organization [facility] Address [address] [place] [phone] Care Team Providers Care Front Load Trash Truck Driver Name Role Phone Safia Cristine Primary Care Provider Unavailab Gianni George Jr Unavailable REASON FOR VISIT Patient presents today for a COLON SCREENING Encounters Encounter Location Date Provider Diagnosis [facility] [address] [place] [phone] 10/11/2024 Gianni Padilla Jr PLAN OF TREATMENT No Information
--- OUTSIDE RECORDS SUMMARY | 2024-11-23 13:48 | XMS_ITS | Patient Health Record ---
Author Organization [facility] Address [address] [place] [phone] Care Team Providers Care Glass Cut Off Supervisor Name Role Phone DayWero rogersma Primary Care Provider Unavailab Gianni George Jr Unavailable REASON FOR REFERRAL No Information SOCIAL HISTORY Sex Assigned At : Social History Observation Description Sex Assigned At Unknown Encounters Encounter Location Date Provider Diagnosis [facility] [address] [place] [phone] 10/11/2024 Gianni Padilla Jr [facility] [address] [place] [phone] 10/11/2024 Gianni Padilla Jr PLAN OF TREATMENT No Information
== END 2024-11-23 13:46 | disposition home or self-care (01) ==
LOC: HO.MAMMO 13:45
PROVIDERS: PCP Internal Medicine; Visit Provider Internal Medicine
DX: Z12.31 Encounter for screening mammogram for malignant neoplasm of breast (principal)
CPT/HCPCS: 77063; 77067

== ENCOUNTER → 2024-11-23 14:00 | Outpatient (BNV) | payer OTHER, SELFPAY | PROVIDERS: PCP Internal Medicine; Visit Provider Internal Medicine | DX: Z12.31 Encounter for screening mammogram for malignant neoplasm of breast (principal) | CPT/HCPCS: 77063; 77067 ==

== ENCOUNTER 2024-12-31 08:54 | Emergency (ER) | payer OTHER, SELFPAY ==
[2024-12-31 09:20] VITALS: BP 139/75; PULSE 65; RESP 16; TEMP 36.7; O2SAT 98; BMI 38.9
--- NOTE | 2024-12-31 11:29 | ECG_ITS ---
Test Reason : dizzy Blood Pressure : */* mmHG Vent. Rate : 60 BPM Atrial Rate : 60 BPM P-R Int : 154 ms QRS Dur : 76 ms QT Int : 424 ms P-R-T Axes : 46 29 22 degrees QTcB Int : 424 ms Normal sinus rhythm with sinus arrhythmia Normal ECG When compared with ECG of 11-Oct-2024 09:13, No significant change was found Referred By: Tanya Garcia Electronically Signed By: GEOVANNA ERNST MD
[2024-12-31 11:49] LABS: MANUAL DIFF FLAG NO
[2024-12-31 11:53] LABS: Basophils Percent Auto 0.4 % (0-2); Eosinophils Percent Auto 0.4 % (0-4); Hematocrit 38.4 % (37.0-47.0); Hemoglobin 13.3 g/dl (12.0-16.0); Imm Gran Abs Auto 0.01 X10*3/uL (0.00-0.03); Imm Gran Pct Auto 0.2 % (0.0-0.4); Lymphocytes Absolute Auto 1.9 X10*3/uL (1.2-4.9); Lymphocytes Percent Auto 35.8 % (20-40); Mean Corpuscular HGB Conc 34.6 g/dl (31.0-35.0); Mean Corpuscular Hemoglobin 30.7 pg (27.0-33.0); Mean Corpuscular Volume 88.7 fL (80.0-98.0); Mean Platelet Volume 9.5 fL (9.4-12.3); Monocytes Absolute Auto 0.4 X10*3/uL (0.1-1.2); Monocytes Percent Auto 8.2 % (2-11); Platelet Count 279 X10*3/uL (160-400); Red Blood Count 4.33 X10*6/uL (4.20-5.50); Red Cell Distribution Width 11.9 % (11.0-16.0); White Blood Count 5.4 X10*3/uL (4.8-10.8)
[2024-12-31 12:14] LABS: Alanine Aminotransferase 16 U/L (0-31); Albumin Level 4.5 g/dL (3.5-5.0); Alkaline Phosphatase 95 U/L (39-117); Anion Gap 11 (12-20); Aspartate Amino Transferase 22 U/L (5-31); Bilirubin Total 0.9 mg/dL (0.0-1.0); Blood Urea Nitrogen 16 mg/dL (9-16); Calcium 9.3 mg/dL (8.4-10.2); Carbon Dioxide 27 mmol/L (22-29); Chloride 108 mmol/L (96-108); Creatinine Clr Calc Pharmacy 103.7; Estimated Glomerular Filt Rate > 60; Glucose Random 106 mg/dL (60-115); Magnesium 2.3 mg/dL (1.6-2.6); Potassium 4.1 mmol/L (3.3-5.1); Sodium 142 mmol/L (135-145); Total Protein 7.6 g/dL (6.5-8.0)
[2024-12-31 12:18] LABS: HCG Quantitative < 2 mIU/mL
== END 2024-12-31 18:29 | disposition left against medical advice (07) ==
PROVIDERS: Physician Assistant Medical; Emergency Provider Emergency Medicine; PCP Internal Medicine
DX: R42 Dizziness and giddiness (principal); I49.8 Other specified cardiac arrhythmias
CPT/HCPCS: 36415; 80053; 83735; 84702; 85025; 93005; 99281; 99283

== ENCOUNTER → 2024-12-31 11:29 | Outpatient (BNV) | payer OTHER, SELFPAY | PROVIDERS: Emergency Provider Emergency Medicine; PCP Internal Medicine; Visit Provider Internal Medicine Cardiovascular Disease | DX: R42 Dizziness and giddiness (principal) | CPT/HCPCS: 93010 ==

== ENCOUNTER 2025-04-10 18:14 | Emergency (ER) | payer OTHER, SELFPAY ==
--- NOTE | ~2025-04-10 | XR_ITS ---
CLINICAL HISTORY: pain 3 view, pelvis and right hip Comparison: None provided Findings: No acute fracture or dislocation. No significant arthritic change. The soft tissues are unremarkable. IMPRESSION: No acute findings. This document has been electronically signed by: Clementina Wilde MD on 04/10/2025 19:29:41
--- NOTE | ~2025-04-10 | XR_ITS ---
CLINICAL HISTORY: pain 4 view right knee Comparison: None provided Findings: Bones intact. No dislocations. Mild degenerative disease with joint space narrowing and tricompartmental spurring. No joint effusion. No radiopaque foreign body. IMPRESSION: 1. No acute findings. Mild DJD. This document has been electronically signed by: Clementina Wilde MD on 04/10/2025 19:29:19
[2025-04-10 18:31] VITALS: BP 124/57; PULSE 72; RESP 16; TEMP 36.7; O2SAT 100; BMI 40.1
--- NOTE | 2025-04-10 18:32 | ED.GENADULT ---
HPI - General Adult General Chief complaint: Extremity Injury, Lower Stated complaint: fell right leg painful Time Seen by Provider: 04/10/25 19:22 Source: patient Mode of arrival: ambulatory Limitations: no limitations (Patient listed as needing shoe cementer, patient declined shoe cementer and speaks fluent cymro) History of Present Illness ED Provider: Doyle NO HPI narrative: The patient is a 45-year-old female presenting to the ED reporting early this morning she was walking outside of her house when she slipped on a wet leaf and fell onto her right knee. The patient reports pain radiating from the right knee towards her right hip however reports a history of chronic bilateral hip pain which is unchanged from previous. The patient denies head strike or LOC, denies any associated chest pain, shortness of breath, dizziness, headache, focal neurologic deficit or other prodrome prior to or following the fall. The patient reports she was able to get up under her own power and has been walking on the extremity since that time but with discomfort. The patient denies distal paresthesias, reports painful but non-limited range of motion of the right knee. Patient reports she took ibuprofen at 17:00 this evening and presents to the ED for evaluation of persistent pain. The patient denies other recent trauma or falls. Related Data Home Medications ?Medication ?Instructions ?Recorded ?Confirmed atorvastatin 80 mg tablet 80 mg PO BEDTIME 03/15/22 08/01/23 levonorgestrel 21 mcg/24 hr (up to intrauterine 08/05/22 8 years) 52 mg intrauterine device (Mirena) fluticasone propionate 44 2 puff inhalation BID 01/20/23 08/01/23 mcg/actuation HFA aerosol inhaler (Flovent HFA) fluoxetine 10 mg capsule 10 mg PO DAILY 09/22/23 Previous Rx's ?Medication ?Instructions ?Recorded albuterol sulfate 90 mcg/actuation 2 puff inhalation Q4-6H PRN 04/06/21 aerosol inhaler shortness of breath or wheezing #8.5 grams acetaminophen 500 mg tablet 500 mg PO Q6H PRN pain or fever 06/19/21 (Tylenol Extra Strength) #20 tabs cyclobenzaprine 10 mg tablet 10 mg PO TID PRN muscle spasm #15 02/01/23 tabs amoxicillin 875 mg-potassium 1 tab PO BID #13 tabs 11/14/23 clavulanate 125 mg tablet prednisone 20 mg tablet 40 mg (2 x 20 mg) PO DAILY 4 days 11/14/23 #8 tabs pliyfjdaev-jmnoyvqovlclv-ylpiucxd 1 cap PO Q8H PRN pain (scale score 12/23/23 50 mg-300 mg-40 mg capsule 4-6) #10 caps (Fioricet) prednisone 50 mg tablet 50 mg PO DAILY 5 days #5 tabs 02/13/24 azithromycin 250 mg tablet See Rx Instructions PO .COMPLEX #6 10/11/24 tabs benzonatate 200 mg capsule 200 mg PO TID PRN cough 5 days #15 10/11/24 caps prednisone 20 mg tablet 40 mg (2 x 20 mg) PO DAILY 5 days 10/11/24 #10 tabs Allergies Allergy/AdvReac Type Severity Reaction Status Date / Time No Known Allergies (No Known Allergy Verified 04/10/25 18:32 Allergies*) PMFSH Past Medical History Medical History Hypertension Anemia High cholesterol Asthma Surgical History Hx of section History of hysteroscopy Hx of tubal ligation Family History Family History Sister Colon cancer Social History Social History Are you a primary career guidance counselor to a significant other at home: No Do you presently have visiting nurse or other home services: No Alcohol intake: never Comment: previously medicated with oxycodone Patient Tobacco Use Status: Never used Tobacco Smoked in Last 30 Days: No Use of substances other than those prescribed or required for medical reasons: No Advance Directives: No Advance Directives Information Provided: No Do you have a plan to hurt others: No Plan Patient : No Physical Exam ED Vital Signs: Vital Signs - 24 hr 04/10/25 18:31 04/10/25 20:23 Temperature 98.0 F 99.4 F Pulse Rate 72 54 Respiratory Rate 16 20 Blood Pressure 124/57 L 131/74 Pulse Oximetry 100 97 Oxygen Delivery Method Room Air Room Air BMI result Body Mass Index 40.1 CONSTITUTIONAL: The patient appears non-toxic, well nourished and in no acute distress. Vital signs as documented. HEAD: Atraumatic, normocephalic. EYES: EOMs grossly intact, pupils equal, conjunctiva clear, no exudate. ENT: Nares patent, no discharge. Airway patent, no audible stridor, visible mucosa is pink and moist without noted lesions. NECK: trachea is midline, no obvious masses or gross abnormalities. CHEST: Symmetric movement, normal appearance. LUNGS: Non-labored work of breathing. CARDIAC: No evidence of hypoperfusion. ABDOMEN: Nondistended, no obvious injury. : Deferred. EXTREMITIES: The patient's right lower extremity shows abrasion to the anterior right knee with mild swelling, patient reports pain any manipulation including anterior drawer, posterior drawer, valgus and varus manipulation, and medial and lateral Anand's. There is no overlying erythema, fluctuance, or induration. Distal CSM intact, 2+ DP/PT pulses. Moves all other extremities spontaneously without reported pain. No obvious injury or deformity noted. NEURO: Alert and oriented x3, CN II-XII appear grossly intact. Cerebellar Functioning grossly intact. Speech clear and appropriate. SKIN: Warm, dry, color appropriate. No rashes or lesions noted. Course Course Course Narrative: RME, this is a rapid medical exam performed by Navdeep Douglas please refer to primary provider for complete H&P- 45-year-old female presents for evaluation of right leg pain after falling today. She reports slipping on a wet spot. Plan for x-rays Medical Decision Making Medical Decision Making MDM Narrative: 8:54 PM 04/10/2025 (Micheal NO): 45-year-old female presenting to the ED for evaluation of right lower extremity knee pain which began your a mechanical fall on a wet life this morning in front of her home. The patient reports negative pain with any manipulation of the right knee, no evidence of ligament laxity or isolated ligamentous or meniscal injury. Patient's x-rays show no evidence of acute fracture. The patient will be treated with Enmanuel wrap, lidocaine patch, and discharged with anti-inflammatories. Of note patient is requesting a work note, will be provided. Differential Diagnosis Differential Diagnoses: The differential diagnosis associated with the presentation includes Ligamentous rupture, ligament strain, meniscal injury, fracture, knee sprain, contusion, abrasion Radiology Impression Discussion of test interpretation with radiology: I have reviewed the radiologist's reading. Radiologist Impression: CLINICAL HISTORY: pain 4 view right knee Comparison: None provided Findings: Bones intact. No dislocations. Mild degenerative disease with joint space narrowing and tricompartmental spurring. No joint effusion. No radiopaque foreign body. IMPRESSION: 1. No acute findings. Mild DJD. This document has been electronically signed by: Clementina Wilde MD on 04/10/2025 19:29:19 CLINICAL HISTORY: pain 3 view, pelvis and right hip Comparison: None provided Findings: No acute fracture or dislocation. No significant arthritic change. The soft tissues are unremarkable. IMPRESSION: No acute findings. This document has been electronically signed by: Clementina Wilde MD on 04/10/2025 19:29:41 Prescription Management I considered prescription management with: Pain Medication Discharge Plan Discharge Clinical Impression: Right knee sprain Patient Disposition: Home, Self-Care Instructions: How to Use an Elastic Bandage (ED), Knee Sprain (ED) Additional Instructions: Thank you for choosing [facility]'s Emergency Department for your care today. Thankfully your x-ray today shows no evidence of any acute fracture, and your exam is not concerning for an acute ligamentous rupture or meniscal injury. At this time there is no indication for admission to the hospital or continued ED observation, and it is safe to discharge you home. Your likely suffering from a sprain of your knee from your fall today. Please wear the Enmanuel wrap provided. You may take alternating (staggered) doses of ibuprofen 600mg and Tylenol 1000mg every 4 hours as needed for any additional pain. Please rest the injured area, and apply ice for 20 minutes every hour. Please stay well hydrated and get plenty of rest. We have treated you with a lidocaine patch, if you find this provides you significant relief additional patches can be purchased at any local pharmacy without a prescription. Please follow up with your primary care physician for re-evaluation, additional management of your symptoms, and continued preventative care. If you do not have a primary care physician, please call the [facility] at [phone] to establish a new primary care physician. While waiting to establish your new primary care physician, you can call our [facility] at [phone] for non-emergency needs. Please return to the emergency department if you develop a severe or sudden change in your symptoms, a fever over 100.4 that does not improve with Tylenol or Ibuprofen, recurrent vomiting, or any other new or worsening symptoms or concerns. Prescriptions: No Action albuterol sulfate 90 mcg/actuation HFA aerosol inhaler 2 puff inhalation Q4-6H PRN (Reason: shortness of breath or wheezing) Qty: 8.5 0RF acetaminophen [Tylenol Extra Strength] 500 mg tablet 500 mg PO Q6H PRN (Reason: pain or fever) Qty: 20 0RF cyclobenzaprine 10 mg tablet 10 mg PO TID PRN (Reason: muscle spasm) Qty: 15 0RF prednisone 20 mg tablet 40 mg PO DAILY 4 Days Qty: 8 0RF amoxicillin-pot clavulanate 875-125 mg tablet 1 tab PO BID Qty: 13 0RF zdzyxatvbe-ooonuvkynesfr-slgm [Fioricet] 50-300-40 mg capsule 1 cap PO Q8H PRN (Reason: pain (scale score 4-6)) Qty: 10 0RF prednisone 50 mg tablet 50 mg PO DAILY 5 Days Qty: 5 0RF prednisone 20 mg tablet 40 mg PO DAILY 5 Days Qty: 10 0RF azithromycin 250 mg tablet See Rx Instructions .ROUTE .COMPLEX Qty: 6 0RF Rx Instructions: For 250 mg dose pack: take 500 mg today (day 1), then 250 mg for 4 days (days 2-5) benzonatate 200 mg capsule 200 mg PO TID PRN (Reason: cough) 5 Days Qty: 15 0RF atorvastatin 80 mg tablet 80 mg PO BEDTIME Mirena 20 mcg/24 hours (8 yrs) 52 mg intrauterine device intrauterine Mirena 20 mcg/24 hours (7 yrs) 52 mg intrauterine device 1 device intrauterine ONCE Qty: 1 0RF fluticasone propionate [Flovent HFA] 44 mcg/actuation HFA aerosol inhaler 2 puff inhalation BID fluoxetine 10 mg capsule 10 mg PO DAILY Referrals: Cristine Baig MD [Primary Care Provider, Internal Medicine] Clinical Impression: Right knee sprain Print Language: Sudanese
[2025-04-10 20:23] VITALS: BP 131/74; PULSE 54; RESP 20; TEMP 37.4; O2SAT 97
[2025-04-10] MEDS: Lidocaine 4 % Patch ADH..PATCH 1 PATCH TRANSDERMA (21:00)
[2025-04-10 21:03] VITALS: BP 131/74; PULSE 54; RESP 20; TEMP 37.4; O2SAT 97
== END 2025-04-10 21:09 | disposition home or self-care (01) ==
PROVIDERS: Emergency Provider Internal Medicine; PCP Internal Medicine
DX: S83.91XA Sprain of unspecified site of right knee, initial encounter (principal); W01.0XXA Fall on same level from slipping, tripping and stumbling without subsequent striking against object, initial encounter; M25.561 Pain in right knee; I10 Essential (primary) hypertension; E78.00 Pure hypercholesterolemia, unspecified; J45.909 Unspecified asthma, uncomplicated; Y93.01 Activity, walking, marching and hiking; Y92.488 Other paved roadways as the place of occurrence of the external cause; Y99.8 Other external cause status
CPT/HCPCS: 73502; 73564; 99283; 99284

== ENCOUNTER → 2025-04-10 18:33 | Outpatient (BNV) | payer OTHER, SELFPAY | PROVIDERS: PCP Internal Medicine; Visit Provider Student in an Organized Health Care Education/Training Program | DX: M25.561 Pain in right knee (principal); M25.551 Pain in right hip | CPT/HCPCS: 73502; 73564 ==

== ENCOUNTER 2025-04-24 13:43 | Outpatient (AMB) | payer OTHER, SELFPAY ==
--- NOTE | 2025-04-24 13:46 | MHC.OFFVIS ---
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 Corporate Compliance Required: Yes Director Corporate Compliance Language: Rhinestone Setter Services: Director Corporate Compliance Present (in person) Director Corporate Compliance Name: JodiePAOLA Acevedo Information Interpreted: non-clinical & clinical Press Tender Star Signal: Press Tender Star Signal Present (PAOLA Hugo) Accompanied by: Self / Same As Patient Allergies No Known Allergies (No Known Allergies*) Allergy (Verified 04/24/25 13:50) Is last menstrual period known: Yes Last menstrual period: 03/13/25 Post menopausal: No Patient : No HPI Comments Details: Presenting for annual exam. No complaints. Last Pap/HPV was negative in 10/01 Last Mammogram was BI-RADS 1 in 12/04 No previous screening screening colonoscopy Last pelvic ultrasound in 03/01 showed a 3.1 cm myoma PFSH Medical History Hypertension Anemia High cholesterol Asthma Surgical History Hx of section History of hysteroscopy Hx of tubal ligation Family History Sister Colon cancer Social History Are you a primary ambulatory care coordinator to a significant other at home: No Do you presently have visiting nurse or other home services: No Alcohol intake: never Comment: previously medicated with oxycodone Patient Tobacco Use Status: Never used Tobacco Patient : No Female Reproductive History Menstrual Age of Menarche: 11 Duration of menses: 3-5 days Date of last menstrual period: 03/13/25 control method: progestin IUCD (Mirena ) Total pregnancies: 2 Full term: 2 Date of last pap smear: 09/22/23 (negative pap smear, negative hpv ) History of abnormal pap smear: Yes (2021 +HPV) Date of Mammogram: 11/23/24 (BI RAD 1) Review of Systems Const All systems reviewed & are unremarkable except as noted in HPI and below Card Reports as per HPI Resp Reports as per HPI GI Reports as per HPI and Reports no additional complaints Reports as per HPI Physical Exam Vital Signs: Last Vital Signs BP 128/72 04/24/25 13:55 BMI result Body Mass Index 40.2 Const General: cooperative, healthy appearing and comfortable Chest Chest palpation & inspection: normal inspection of the chest and normal palpation of entire chest wall Breast/axilla inspection: normal inspection of the breasts and normal inspection of the axillae Breast/axilla palpation: normal palpation of the breasts, normal palpation of the axillae and no axillary lymphadenopathy Resp Effort & Inspection: normal respiratory effort Auscultation: clear to auscultation bilaterally Percussion: percussion normal Cardio Palpation: normal PMI Rate: regular rate Rhythm: regular rhythm Heart sounds: no murmurs and no rubs Peripheral pulses: Peripheral pulses 2+ throughout GI Inspection: Yes normal to inspection Palpation (GI): Soft to palpation, nontender, no guarding, not rigid and No hepatosplenomegaly present Percussion: Yes normal to percussion Auscultation: normal bowel sounds Rectal Exam - Female: deferred General: Yes bladder normal to palpation External Female Exam: No lesion Speculum Exam - Vagina: normal appearance of the vagina, normal palpation, normal vaginal discharge and not erythematous Speculum Exam - Cervix: normal appearance of the cervix and normal palpation Bimanual exam- vagina & uterus: normal bimanual exam, normal palpation, uterine size normal, bladder normal to palpation, consistency normal and normal palpation Bimanual Exam- Adnexa, other: normal adnexae, no masses and no tenderness Assessment & Plan Assessment & Plan (1) Well woman exam: Code(s): Z01.419 - Encounter for gynecological examination (general) (routine) without abnormal findings Category: Medical Plan: Cotesting not indicated this year. Instructions given the patient to schedule next screen Mammogram in 12/05. Counseled the patient about the recommended dietary allowance of 1000 mg of Calcium & 600 IU of vitamin D. The patient was instructed to perform monthly self-breast exams and to schedule an annual exam in a year; GI referral placed for screening colonoscopy All questions answered and the patient verbalized understanding. Instructed the patient to schedule annual exam in a year (2) Uterine myoma: Code(s): D25.9 - Leiomyoma of uterus, unspecified Category: Medical Plan: Pelvic ultrasound ordered. Instructions given to patient to schedule an ultrasound and a follow-up appointment within 2 weeks. All questions answered, the patient verbalized understanding Coding Level of Care Code Est Pt Prev Care 40-64y(44252) Diagnoses Well woman exam Z01.419 Uterine myoma D25.9
[2025-04-24 13:55] VITALS: BP 128/72; BMI 40.2
--- OUTSIDE RECORDS SUMMARY | 2025-04-24 14:36 | XMS_ITS | Clinical Summary ---
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 Name Role Phone Unavailable Primary Care Provider Unavailabl e Immunizations Immunization Administration Dates Next Due Moderna Covid-19 Vaccine [...] Screening 1979 SDOH Screening 1979 Sigmoidoscopy 1979 Disability Screening 1979 Alcohol/Substance Use Screening 1991 Tobacco Screening [...] 06/23/2021, Additional history exists Influenza Vaccine (#1) 2025 2, 06/24/2021, 08/12/2020, Additional history exists Zoster [...] patient's age to complete this topic Meningococcal B Vaccine Aged Out No l onger eligible based on patient's age to complete this topic Meningococcal Vaccine Aged Out No porfirio alonzo eligible based on patient's age to complete this topic Pneumococcal Vaccine: Pediatrics (0 to 5 Years) and At-Risk Patients (6 to 49) Years Aged Out No longer eligible based on [...] HPV mRNA E6/E7 Not Detected NOT DETECTED [facility] Comment: This assay detects E6/E7 viral messenger RNA (mRNA) from 14 high-risk HPV types (16,18,31,33,35,39,45,51, 52,56,58,59,66,68). This test was performed using the APTIMA(R) TMA HPV Assay ([employer] For additional information, please refer to http://education.Warply/faq/ERS299b3 Test Performed by [facility], [facility], [address] [place] [address] Rom Franks M.D., Ph.D., Director of Laboratories , [facility] [id number] Please note: Effective 06/21/2016, HPV testing will be performed using [employer]'s APTIMA test which targets mRNA. Detecting mRNA instead of DNA, as in older methods, offers significant improvements in specificity. 07/21/2016 10:3 8 AM EDT us Jame Fernandez MEAT CARRIER HISTORICAL/NON ORDERABLE LABS Final Result [facility] [address] from Last 3 Months or Most Recently Relevant to Health Maintenance Insurance [facility]
== END 2025-04-24 14:08 | disposition home or self-care (01) ==
LOC: HO.HWS 13:44
PROVIDERS: PCP Internal Medicine; Visit Provider Obstetrics & Gynecology
DX: Z01.419 Encounter for gynecological examination (general) (routine) without abnormal findings (principal); D25.9 Leiomyoma of uterus, unspecified
CPT/HCPCS: 99396; 99459

== ENCOUNTER → 2025-04-24 13:43 | Outpatient (BNVA) | payer OTHER, SELFPAY | PROVIDERS: PCP Internal Medicine; Visit Provider Obstetrics & Gynecology | DX: Z01.419 Encounter for gynecological examination (general) (routine) without abnormal findings (principal); D25.9 Leiomyoma of uterus, unspecified | CPT/HCPCS: 99396 ==

== ENCOUNTER 2025-05-01 09:49 | Emergency (ER) | payer OTHER, SELFPAY ==
--- NOTE | 2025-05-01 | ECG_ITS ---
Test Reason : CP Blood Pressure : */* mmHG Vent. Rate : 66 BPM Atrial Rate : 66 BPM P-R Int : 152 ms QRS Dur : 74 ms QT Int : 396 ms P-R-T Axes : 43 48 37 degrees QTcB Int : 415 ms Normal sinus rhythm Normal ECG When compared with ECG of 31-Dec-2024 11:35, No significant change was found Referred By: Generic ED Physician Electronically Signed By: Nahun Watts
--- NOTE | ~2025-05-01 | XR_ITS ---
EXAMINATION: XR CHEST 2 VIEWS HISTORY: cough, cp COMPARISON: Comparison is made with the prior examination dated 10/11/2024. FINDINGS: PA and lateral views of the chest are submitted. The lungs are expanded and clear. There is no pleural effusion, pneumothorax, or pulmonary vascular congestion. The heart is normal in size. There is degenerative disc disease of the spine. XR/XR chest 2V IMPRESSION: No acute cardiopulmonary abnormality. Electronically signed by: Amrit Marino MD 05/01/2025 10:44 AM EDT
[2025-05-01 10:05] VITALS: BP 148/88; PULSE 61; RESP 16; TEMP 36.7; O2SAT 100; BMI 39.0
[2025-05-01 10:09] VITALS: BP 148/88; PULSE 61; RESP 16; TEMP 36.7; O2SAT 100
--- NOTE | 2025-05-01 10:17 | ED_ITS ---
HPI - Chest Pain General Chief Complaint: Chest Pain Stated Complaint: Chest pain, Asthma, SB Time Seen by Provider: 05/01/25 09:58 Source: patient and RN notes reviewed Mode of arrival: ambulatory Limitations: no limitations History of Present Illness ED Provider: Lo Brito PA-C HPI narrative: This is a 45-year-old female, with a past medical history of asthma and hypertension, who presents emergency department with concerns of chest pain x3 days. Patient reports that over the last 3 days she has had constant chest pain, describing it as a constant tight feeling. She also endorses headache, dry cough, congestion. She denies any palpitations or shortness for breath. Denies any abdominal pain, nausea, vomiting or diarrhea. Denies any sick contacts. She states that she called her primary care physician who prescribed her inhaler which he has been using without any relief. She denies any lightheadedness or dizziness. No vision changes. No fevers. No recent travel, surgery, or hospitalizations. She is a nonsmoker. No history of blood clots. No other complaints or concerns at this time. MD complaint: chest pain Onset (ago): day(s) Prior episodes: No Pain location: left chest and right chest Pain radiation: none Severity: mild Quality: tightness Relieving factors: nothing Exacerbating factors: nothing Risk Factors Coronary artery disease risk factors: hypertension Thoracic aortic dissection risk factors: none Related Data On Oral Contraceptives: No Home Medications ?Medication ?Instructions ?Recorded ?Confirmed atorvastatin 80 mg tablet 80 mg PO BEDTIME 03/15/22 levonorgestrel (Mirena) intrauterine 08/05/22 fluticasone propionate 44 2 puff inhalation BID 08/01/23 mcg/actuation HFA aerosol inhaler (Flovent HFA) fluoxetine 10 mg capsule 10 mg PO DAILY 09/22/23 Previous Rx's ?Medication ?Instructions ?Recorded albuterol sulfate 90 mcg/actuation 2 puff inhalation Q 4-6H PRN 04/06/21 aerosol inhaler shortness of breath or wheez ing #8.5 grams acetaminophen 500 mg tablet 500 mg PO Q6H PRN pain or fever 06/19/21 (Tylenol Extra Strength) #20 tabs cyclobenzaprine 10 mg tablet 10 mg PO TID PRN muscle s pasm #15 02/01/23 tabs frhvdglkvr-uqfksgqplnqza-kiqgnyym 1 cap PO Q8H PRN murphy n (scale score 12/23/23 50 mg-300 mg-40 mg capsule 4-6) #10 caps (Fioricet) acetaminophen 500 mg tablet 500 - 1,000 mg (1 - 2 x 50 0 mg) PO 05/01/25 (Tylenol Extra Strength) Q6H #30 tabs ibuprofen 600 mg tablet 600 mg PO Q6H PRN fever or p ain 05/01/25 #30 tabs Allergies Allergy/AdvReac Type Severity Reaction Status Date / Time No Known Allergies (No Known Allergy Verified 05/01/25 10:06 Allergies*) Review of Systems 2 Review of Systems: Yes all other systems are reviewed and are negative Constitutional: Constitutional: Reports as per [facility] Past Medical History Attestation statement: The following information was validated with the patient. Medical History Hypertension Anemia High cholesterol Asthma Surgical History Hx of section History of hysteroscopy Hx of tubal ligation Family History Family History Sister Colon cancer Social History Social History Are you a primary complex care nurse practitioner to a significant other at home: No Do you presently have visiting nurse or other home services: No Alcohol intake: current Alcohol intake frequency: holidays/special occasions only Alcohol type: beer and hard liquor Comment: previously medicated with oxycodone Patient Tobacco Use Status: Never used Tobacco Substance Use Type: Marijuana Physical Exam 2 Vital Signs: Vital Signs: Last Vital Signs Temp 98.3 F 05/01/25 12:29 Pulse 60 05/01/25 12:29 Resp 14 05/01/25 12:29 BP 132/78 05/01/25 12:29 Pulse Ox 99 05/01/25 12:29 O2 Del Method Room Air 05/01/25 12:29 BMI result Body Mass Index 39.0 Const: General: cooperative, comfortable and no acute distress O rientation/consciousness: patient oriented x3 Limitations: no limitations HEENT: Head: Yes normal to inspection, Yes normocephalic and Yes atraumatic Ears: hearing grossly normal bilaterally and TM's normal bilaterally General nose exam: Normal external nose present Face and sinus: Yes normal facial exam Mouth: Normal oral and palatal mucosa present, oropharynx normal and moist mucous membranes Throat: Yes posterior oropharynx normal Eyes: General: appearance normal, both eyes and all related structures E yelids: Yes eyelids normal Conjunctivae: conjunctivae normal Sclerae: s clerae normal Pupils: Equal, round and reactive pupils present EOM: EOMs intact bilaterally Neck: Neck: Yes normal visual inspection, Yes full ROM and Yes no lymphadenopathy Lymphatic: no lymphadenopathy noted Chest: Chest palpation & inspection: normal inspection of the chest Resp: Effort & Inspection: normal respiratory effort and able to speak in complete sentences Auscultation: clear to auscultation bilaterally, no crackles, no rales, no rhonchi and no wheezes Cardio: Rate: regular rate Rhythm: regular rhythm Heart sounds: S1 normal heart sound present and S2 normal heart sound present GI: Inspection: Yes normal to inspection Skin: General skin exam: no rashes or lesions noted Trauma: no lacerations or abrasions Wounds: no wounds Neuro: General: patient oriented x3 and moves all extremities Cranial nerves: Yes Equal, round and reactive pupils present Extrem: General: Yes normal to inspection Right upper extremity: normal to inspection Left upper extremity: normal to inspection Right lower extremity: normal to inspection Left lower extremity: normal to inspection Medications Administered Discontinued Medications Generic Name Dose Route Start Last Admin Trade Name Freq PRN Reason Stop Dose Admin Sodium Chloride 1,000 mls @ 999 mls/hr 05/01/25 10:31 05/01/25 10:46 Ns IV 05/01/25 11:31 999 mls/hr .Q1H1M ONE Administration Acetaminophen 1,000 mg in 100 mls @ 400 mls/hr 05/01/25 10:30 05/01/25 11:06 Ofirmev IV 05/01/25 10:44 Infused ONCE ONE Infusion Medical Decision Making Medical Decision Making [facility] Narrative: This is a 45-year-old female, with a past medical history of hypertension and asthma, who presents emergency department with complaints of tight chest pressure since Tuesday. She also alludes to a dry cough, nasal congestion and headache. She is speaking in full sentences under no acute distress, lungs are clear to auscultation bilaterally, she is neurologically intact. On arrival, blood pressure mildly elevated at 140 8/88, all other vital signs within normal limits. Symptoms likely viral in nature. Will obtain labs, EKG, chest x-ray, and viral swabs. Course: Labs returned, she has mild leukopenia at 4.4, chemistry revealing no significant electrolyte derangement. Troponin less than 2.7. Chest pain has been constant in nature, tight sensation, she does have tenderness palpation along the anterior chest wall, states that she has been coughing a lot, this is likely musculoskeletal chest pain. She did test positive for COVID. EKG nonischemic, chest x-ray unremarkable for any pneumonia. Relayed all these results to patient and daughter at bedside. Patient is feeling better after receiving IV Tylenol and IV fluids. Patient was given strict return precautions, she understands and agrees with plan. Advised follow-up with her PCP. Patient stable for discharge. Differential Diagnosis Differential Diagnoses: The differential diagnosis associated with the presentation includes COVID, flu, RSV, viral URI, ACS-unlikely Lab Data [facility] Lab Attestation statement: I reviewed the patient's lab results. See MDM and course 05/01/25 10:24 05/01/25 10:24 Labs: Lab Results 05/01/25 Range/Units 10:24 WBC 4.4 L (4.8-10.8) X10*3/uL RBC 4.28 (4.20-5.50) X10*6/uL Hgb 13.5 (12.0-16.0) g/dl Hct 36.7 L (37.0-47.0) % MCV 85.7 (80.0-98.0) fL MCH 31.5 (27.0-33.0) pg MCHC 36.8 H (31.0-35.0) g/dl RDW 11.9 (11.0-16.0) % Plt Count 235 (160-400) X10*3/uL MPV 9.4 (9.4-12.3) fL Immature Gran % (Auto) 0.2 (0.0-0.4) % Neut % (Auto) 40.1 L (45-73) % Lymph % (Auto) 44.7 H (20-40) % [place] % (Auto) 13.1 H (2-11) % Eos % (Auto) 1.4 (0-4) % Baso % (Auto) 0.5 (0-2) % Lymph # (Auto) 2.0 (1.2-4.9) X10*3/uL [place] # (Auto) 0.6 (0.1-1.2) X10*3/uL Eos # (Auto) 0.1 (0.0-0.4) X10*3/uL Baso # (Auto) 0.0 (0.0-0.2) X10*3/uL Abs Immat Gran (auto) 0.01 (0.00-0.03) X10*3/uL Absolute Neuts (auto) 1.8 L (2.0-8.3) x10*3/uL Absolute Nucleated RBC 0.000 (0.0-0.012) X10*3/uL Nucleated RBC % (auto) 0.0 (0.0-0.2) /100WBC Sodium 138 (135-145) mmol/L Potassium 3.9 (3.3-5.1) mmol/L Chloride 106 (96-108) mmol/L Carbon Dioxide 25 (22-29) mmol/L Anion Gap 11 L (12-20) BUN 15 (9-16) mg/dL Creatinine 0.67 (0.5-1.4) mg/dL Estim Creat Clear Calc 118.2 Estimated GFR > 60 Random Glucose 98 (60-115) mg/dL Calcium 9.0 (8.4-10.2) mg/dL Magnesium 2.2 (1.6-2.6) mg/dL Total Bilirubin 0.6 (0.0-1.0) mg/dL AST 24 (5-31) U/L ALT 21 (0-31) U/L Alkaline Phosphatase 83 (39-117) U/L Troponin I High Sens < 2.7 (<3.5-17.0) ng/L Total Protein 7.5 (6.5-8.0) g/dL Albumin 4.6 (3.5-5.0) g/dL Influenza Type A (PCR) NEGATIVE (Negative) Influenza Type B (PCR) NEGATIVE (Negative) RSV RNA Qual (PCR) NEGATIVE (Negative) SARS-CoV-2 RNA (RT-PCR) POSITIVE A (Negative) Independent Interpretation I performed an independent interpretation of an: EKG Interpretation: Normal sinus rhythm at a ventricular rate of 66 beats per minute, KS interval 152, QT QTC 396/415, no STEMI. Radiology Impression Discussion of test interpretation with radiology: I have reviewed the radiologist's reading. Radiologist Impression: HISTORY: cough, cp COMPARISON: Comparison is made with the prior examination dated 10/11/2024. FINDINGS: PA and lateral views of the chest are submitted. The lungs are expanded and clear. There is no pleural effusion, pneumothorax, or pulmonary vascular congestion. The heart is normal in size. There is degenerative disc disease of the spine. XR/XR chest 2V IMPRESSION: No acute cardiopulmonary abnormality. Electronically signed by: Amrit Marino MD 05/01/2025 10:44 AM EDT RP Dictated By: Amrit Marino MD Signed By: <Electronically signed by Scores Heart Score History: -0- slightly suspicious ECG: -0- normal Age: -1- >45 - <65 Risk factory: -1- 1 or 2 risk factors Troponin: -0- < or = normal limit Score: 2 Risk: 1.7% Discharge Plan Discharge Clinical Impression: COVID-19 Patient Disposition: Home, Self-Care Instructions: How To Wash Your Hands (ED), COVID-19 (Coronavirus Disease 2019) (ED), COVID-19 and Chronic Health Conditions (ED), COVID-19: Slow the Coronavirus Spread (ED), Face Coverings (Masks) and COVID-19 (ED), How to Recover from COVID-19 at Home (ED) Additional Instructions: You were seen in the emergency department and tested positive for COVID. Your overall workup today was reassuring. Yourself your chest x-ray does not show any evidence of pneumonia. Please drink plenty of fluids get plenty of rest. Alternate between ibuprofen and or Tylenol as needed for fevers and pain. If any new or worsening symptoms occur including but not limited to severe chest pain, shortness of breath, please seek emergent care. COVID-19 stands for coronavirus disease 2019. It is caused by a virus called SARS-CoV-2. The virus first appeared in late 2019 and quickly spread around the world. Many people only have mild cold symptoms. Some people have digestive problems, like nausea or diarrhea. There have also been some reports of rashes or other skin symptoms. For most people, symptoms get better within a few days to weeks.? Some people with COVID-19 continue to have some symptoms for weeks or months.? Drink plenty of fluids and get plenty of rest. Take Tylenol and Motrin as needed for symptoms. If any new or worsening symptoms occur including but not limited to chest pain or shortness breath, please return for re-evaluation. What should I do if I have symptoms or test positive?If you have a fever, cough, cold symptoms, or other symptoms of COVID-19, get tested. You can use the flowchart to figure out when to test and what to do based on the results If you?test positive: ? Self-isolate for at least 5 days, even if you feel well. Self-isolation means staying apart from other people, even the people you live with. The 5 days should start the day?after?you first noticed symptoms or got a positive test result. If you have a weak immune system or if you still have a fever, you might need to self-isolate for longer than 5 days. ?After self-isolating for 5 days, wear a mask around all other people for at least 5 more days. Some people use antigen tests to decide how long to keep wearing the mask. If you do this, you can stop wearing a mask once you test negative on 2 antigen tests done at least 2 days apart. ?If your symptoms are severe, or if you are at risk for severe illness,?call?your doctor or nurse. They can tell you if you need to be seen. Depending on your situation, they might suggest treatment. Prescriptions: New ibuprofen 600 mg tablet 600 mg PO Q6H PRN (Reason: fever or pain) Qty: 30 0RF acetaminophen [Tylenol Extra Strength] 500 mg tablet 500 - 1,000 mg PO Q6H Qty: 30 0RF No Action albuterol sulfate 90 mcg/actuation HFA aerosol inhaler 2 puff inhalation Q4-6H PRN (Reason: shortness of breath or wheezing) Qty: 8.5 0RF acetaminophen [Tylenol Extra Strength] 500 mg tablet 500 mg PO Q6H PRN (Reason: pain or fever) Qty: 20 0RF cyclobenzaprine 10 mg tablet 10 mg PO TID PRN (Reason: muscle spasm) Qty: 15 0RF ddfatioaku-csakdcoykivym-vmpc [Fioricet] 50-300-40 mg capsule 1 cap PO Q8H PRN (Reason: pain (scale score 4-6)) Qty: 10 0RF atorvastatin 80 mg tablet 80 mg PO BEDTIME Mirena 20 mcg/24 hours (8 yrs) 52 mg intrauterine device intrauterine Mirena 20 mcg/24 hours (7 yrs) 52 mg intrauterine device 1 device intrauterine ONCE Qty: 1 0RF fluticasone propionate [Flovent HFA] 44 mcg/actuation HFA aerosol inhaler 2 puff inhalation BID fluoxetine 10 mg capsule 10 mg PO DAILY Stand Alone Forms: Work/School Release Interventions: ED Discharge Assessment Last Done: 05/01/25 12:28 Discharge Date/Time: 05/01/25 12:48 Print Language: Indonesian
[2025-05-01 10:33] LABS: MANUAL DIFF FLAG NO
[2025-05-01 10:35] LABS: Hematocrit 36.7 % (37.0-47.0); Hemoglobin 13.5 g/dl (12.0-16.0); Imm Gran Abs Auto 0.01 X10*3/uL (0.00-0.03); Imm Gran Pct Auto 0.2 % (0.0-0.4); Lymphocytes Absolute Auto 2.0 X10*3/uL (1.2-4.9); Mean Corpuscular HGB Conc 36.8 g/dl (31.0-35.0); Mean Corpuscular Hemoglobin 31.5 pg (27.0-33.0); Mean Corpuscular Volume 85.7 fL (80.0-98.0); NRBC Abs Auto 0.000 X10*3/uL (0.0-0.012); NRBC Pct Auto 0.0 /100WBC (0.0-0.2); Platelet Count 235 X10*3/uL (160-400); Red Blood Count 4.28 X10*6/uL (4.20-5.50); White Blood Count 4.4 X10*3/uL (4.8-10.8)
[2025-05-01 10:49] LABS: Alanine Aminotransferase 21 U/L (0-31); Albumin Level 4.6 g/dL (3.5-5.0); Alkaline Phosphatase 83 U/L (39-117); Anion Gap 11 (12-20); Aspartate Amino Transferase 24 U/L (5-31); Blood Urea Nitrogen 15 mg/dL (9-16); Calcium 9.0 mg/dL (8.4-10.2); Carbon Dioxide 25 mmol/L (22-29); Chloride 106 mmol/L (96-108); Creatinine Clr Calc Pharmacy 118.2; Estimated Glomerular Filt Rate > 60; Magnesium 2.2 mg/dL (1.6-2.6); Potassium 3.9 mmol/L (3.3-5.1); Sodium 138 mmol/L (135-145); Total Protein 7.5 g/dL (6.5-8.0)
--- NOTE | 2025-05-01 10:55 | PC.NURSE ---
Chilean speaking but does know romansh. Daughter at bedside to help translate. Patient presents to ED c/o chest pain that started on Tuesday. Pain rated 9/10 non radiating, describes it as a pressure. Patient reports also having SOB and productive cough. Used inhalers with no effect. O2 100% RA PMH asthma and HTN. Denies n/v, vision changes, dizziness, lightheadedness, and fevers. 20G L forearm currently running tylenol with NaCl 1 L, effectiveness pending. CXR = negative, EKG = NSR. Place of care on going
[2025-05-01 11:02] LABS: Troponin-I High Sensitivity < 2.7 ng/L (<3.5-17.0)
[2025-05-01 11:11] LABS: Resp Syncy Virus RNA Qual PCR NEGATIVE (Negative); SARS COV2 PCR INHOUSE POSITIVE (Negative)
[2025-05-01 11:55] VITALS: BP 174/92; PULSE 53; RESP 12; TEMP 36.7; O2SAT 100
[2025-05-01 12:28] VITALS: BP 132/78; PULSE 60; RESP 14; TEMP 36.8; O2SAT 99
[2025-05-01 12:29] VITALS: BP 132/78; PULSE 60; RESP 14; TEMP 36.8; O2SAT 99
== END 2025-05-01 12:48 | disposition home or self-care (01) ==
PROVIDERS: Physician Assistant Medical; Emergency Provider Emergency Medicine; PCP Internal Medicine
DX: U07.1 COVID-19 (principal); R07.89 Other chest pain; R51.9 Headache, unspecified; R05.9 Cough, unspecified; Z79.899 Other long term (current) drug therapy
CPT/HCPCS: 71046; 80053; 83735; 84484; 85025; 87637; 93005; 96365; 99284; 99285; J0131

== ENCOUNTER → 2025-05-01 09:50 | Outpatient (BNV) | payer OTHER, SELFPAY | PROVIDERS: Emergency Provider Emergency Medicine; PCP Internal Medicine; Visit Provider Internal Medicine Cardiovascular Disease | DX: R07.9 Chest pain, unspecified (principal) | CPT/HCPCS: 93010 ==

== ENCOUNTER → 2025-05-01 10:31 | Outpatient (BNV) | payer OTHER, SELFPAY | PROVIDERS: Emergency Provider Emergency Medicine; PCP Internal Medicine; Visit Provider Radiology Diagnostic Radiology | DX: R07.9 Chest pain, unspecified (principal) | CPT/HCPCS: 71046 ==

== ENCOUNTER 2025-05-13 15:51 | Emergency (ER) | payer OTHER, SELFPAY ==
--- NOTE | ~2025-05-13 | XR_ITS ---
EXAMINATION: XR KNEE, RIGHT CLINICAL INFORMATION: pain, injury COMPARISON: None available. TECHNIQUE: Four views of the right knee. FINDINGS: There is no joint effusion. There is mild narrowing of medial and lateral joint compartment. There are small marginal osteophytes involving the tibial plateau. No fracture is evident. XR/XR knee RT 3V IMPRESSION: Mild osteoarthritis. Electronically signed by: Brad Marley MD 05/13/2025 04:42 PM EDT
--- NOTE | ~2025-05-13 | XR_ITS ---
EXAMINATION: XR HIP, RIGHT CLINICAL INFORMATION: pain, injury COMPARISON: None available. TECHNIQUE: AP pelvis, AP supine, and frog-leg lateral views of the right hip. FINDINGS: T-shaped IUD projects in the midline of the pelvis. There is mild axial joint space narrowing of the right hip. No fracture line is evident. XR/XR hip RT w PEL1V IMPRESSION: Mild right hip joint space narrowing. Electronically signed by: Brad Marley MD 05/13/2025 04:44 PM EDT
--- NOTE | ~2025-05-13 | XR_ITS ---
EXAMINATION: XR ANKLE, RIGHT CLINICAL INFORMATION: pain, injury COMPARISON: None available. TECHNIQUE: AP, lateral, and mortise views of the right ankle. FINDINGS: There is no fracture, dislocation, or suspicious bone lesion. There is normal alignment. The mortise is intact. The talar dome is normal. The subtalar joints are normal. The calcaneus is intact. There are moderate sized dorsal and plantar calcaneal spurs. There is no soft tissue abnormality. There is no ankle joint effusion. XR/XR ankle RT min 3V IMPRESSION: No acute bony abnormalities of the right ankle. Electronically signed by: Doyle Kramer MD 05/13/2025 04:43 PM EDT
[2025-05-13 16:06] VITALS: BP 118/59; PULSE 67; RESP 16; TEMP 36.7; O2SAT 98; BMI 39.0
--- NOTE | 2025-05-13 16:09 | ED.GENADULT ---
HPI - General Adult General Chief complaint: Extremity Injury, Lower Stated complaint: right leg pain causing her to fall, swollen Time Seen by Provider: 05/13/25 22:16 Source: patient Limitations: no limitations History of Present Illness ED Provider: Tanya Garcia PA-C HPI narrative: 45-year-old female presents with right extremity pain. Patient states she sustained 2 falls the month of April, she subsequently landed on her right side. Patient states she has been having ongoing hip, knee and ankle pain. The patient is ambulatory. Related Data Home Medications ?Medication ?Instructions ?Recorded ?Confirmed atorvastatin 80 mg tablet 80 mg PO BEDTIME 03/15/22 08/01/23 levonorgestrel (Mirena) intrauterine 08/05/22 fluticasone propionate 44 2 puff inhalation BID 01/20/23 08/01/23 mcg/actuation HFA aerosol inhaler (Flovent HFA) fluoxetine 10 mg capsule 10 mg PO DAILY 09/22/23 Previous Rx's ?Medication ?Instructions ?Recorded albuterol sulfate 90 mcg/actuation 2 puff inhalation Q4-6H PRN 04/06/21 aerosol inhaler shortness of breath or wheezing #8.5 grams acetaminophen 500 mg tablet 500 mg PO Q6H PRN pain or fever 06/19/21 (Tylenol Extra Strength) #20 tabs cyclobenzaprine 10 mg tablet 10 mg PO TID PRN muscle spasm #15 02/01/23 tabs wfrnlvlkfy-aswsjglmwetlo-lmdkxjyk 1 cap PO Q8H PRN pain (scale score 12/23/23 50 mg-300 mg-40 mg capsule 4-6) #10 caps (Fioricet) acetaminophen 500 mg tablet 500 - 1,000 mg (1 - 2 x 500 mg) PO 05/01/25 (Tylenol Extra Strength) Q6H #30 tabs ibuprofen 600 mg tablet 600 mg PO Q6H PRN fever or pain 05/01/25 #30 tabs meloxicam 15 mg tablet 15 mg PO DAILY #7 tabs 05/13/25 Allergies Allergy/AdvReac Type Severity Reaction Status Date / Time No Known Allergies (No Known Allergy Verified 05/13/25 16:11 Allergies*) Review of Systems Review of Systems: Yes all other systems are reviewed and are negative Constitutional: Constitutional: Denies fatigue and Denies fever(s) Musculoskeletal: Musculoskeletal: Reports arthralgias and Denies joint swelling Endocrine: Endocrine: Denies fatigue [facility] Past Medical History Attestation statement: The following information was validated with the patient. Medical History Hypertension Anemia High cholesterol Asthma Surgical History Hx of section History of hysteroscopy Hx of tubal ligation Family History Family History Sister Colon cancer Social History Social History Are you a primary animal care provider to a significant other at home: No Do you presently have visiting nurse or other home services: No Alcohol intake: current Alcohol intake frequency: holidays/special occasions only Alcohol type: beer and hard liquor Comment: previously medicated with oxycodone Patient Tobacco Use Status: Never used Tobacco Substance Use Type: Marijuana Advance Directives: No Advance Directives Information Provided: No Physical Exam ED Vital Signs: Vital Signs - 24 hr 05/13/25 16:06 05/13/25 20:00 Temperature 98.1 F 98.6 F Pulse Rate 67 50 Respiratory Rate 16 16 Blood Pressure 118/59 L 123/71 Pulse Oximetry 98 99 Oxygen Delivery Method Room Air Room Air BMI result Body Mass Index 39.0 Const Other: Alert well-appearing Orientation/consciousness: patient oriented x3 Resp Effort & Inspection: normal respiratory effort Cardio Other: Normal peripheral perfusion Skin Other: Warm dry no rash Neuro General: patient oriented x3, gait normal, no focal motor deficits and CN's II-XI intact bilaterally Extrem Other: Patient ambulatory, full flexion and extension of the ankle and the knee Psych Other: Calm cooperative Course Course Course Narrative: RME performed by Delia Antonio PA-C. Patient is a 45 year old assigned female at presenting to the emergency department with right leg pain. Patient states that she has had frequent falls and her entire right lower extremity hurts. Detailed physical exam and review of systems are deferred to the plan coordinator. Imaging ordered. Patient placed back in the waiting room pending room availability and results. Medical Decision Making Medical Decision Making MDM Narrative: 45-year-old female presents with right extremity pain. Patient states she sustained 2 falls the month of April, she subsequently landed on her right side. Patient states she has been having ongoing hip, knee and ankle pain. The patient is ambulatory. No chronic issues History: Per patient I have considered the following differential diagnoses: Fracture, dislocation, contusion, sprain Plan: X-rays were ordered from triage, everything is unremarkable, the patient's exam was unremarkable, we will send with the meloxicam I have independently reviewed the following tests: X-ray right ankle:FINDINGS: There is no fracture, dislocation, or suspicious bone lesion. There is normal alignment. The mortise is intact. The talar dome is normal. The subtalar joints are normal. The calcaneus is intact. There are moderate sized dorsal and plantar calcaneal spurs. There is no soft tissue abnormality. There is no ankle joint effusion. XR/XR ankle RT min 3V IMPRESSION: No acute bony abnormalities of the right ankle X-ray right knee:FINDINGS: There is no joint effusion. There is mild narrowing of medial and lateral joint compartment. There are small marginal osteophytes involving the tibial plateau. No fracture is evident. XR/XR knee RT 3V IMPRESSION: Mild osteoarthritis. X-ray right hip: XR/XR hip RT w PEL1V IMPRESSION: Mild right hip joint space narrowing. Discharge Plan Discharge Clinical Impression: Muscle strain of right lower extremity Patient Disposition: Home, Self-Care Instructions: Musculoskeletal Pain (ED) Additional Instructions: The x-rays of your knee, ankle and hip pelvis were normal, you did not sustain a fracture or dislocation. You are being treated for musculoskeletal pain. See home care instructions. You were also noted to have arthritis of the right knee. Take the meloxicam as directed this is an anti-inflammatory take it with food. Follow up with your primary care provider as needed. Prescriptions: New meloxicam 15 mg tablet 15 mg PO DAILY Qty: 7 0RF No Action albuterol sulfate 90 mcg/actuation HFA aerosol inhaler 2 puff inhalation Q4-6H PRN (Reason: shortness of breath or wheezing) Qty: 8.5 0RF acetaminophen [Tylenol Extra Strength] 500 mg tablet 500 mg PO Q6H PRN (Reason: pain or fever) Qty: 20 0RF cyclobenzaprine 10 mg tablet 10 mg PO TID PRN (Reason: muscle spasm) Qty: 15 0RF mgkojcryxh-yjylprkhtifgs-hwye [Fioricet] 50-300-40 mg capsule 1 cap PO Q8H PRN (Reason: pain (scale score 4-6)) Qty: 10 0RF ibuprofen 600 mg tablet 600 mg PO Q6H PRN (Reason: fever or pain) Qty: 30 0RF acetaminophen [Tylenol Extra Strength] 500 mg tablet 500 - 1,000 mg PO Q6H Qty: 30 0RF atorvastatin 80 mg tablet 80 mg PO BEDTIME Mirena 20 mcg/24 hours (8 yrs) 52 mg intrauterine device intrauterine Mirena 20 mcg/24 hours (7 yrs) 52 mg intrauterine device 1 device intrauterine ONCE Qty: 1 0RF fluticasone propionate [Flovent HFA] 44 mcg/actuation HFA aerosol inhaler 2 puff inhalation BID fluoxetine 10 mg capsule 10 mg PO DAILY Print Language: Australian
[2025-05-13 20:00] VITALS: BP 123/71; PULSE 50; RESP 16; TEMP 37; O2SAT 99
[2025-05-13 22:50] VITALS: BP 131/76; PULSE 50; RESP 16; TEMP 36.8; O2SAT 100
[2025-05-13 22:51] VITALS: BP 131/76; PULSE 50; RESP 16; TEMP 36.8; O2SAT 100
== END 2025-05-13 22:52 | disposition home or self-care (01) ==
PROVIDERS: Emergency Provider Emergency Medicine; PCP Internal Medicine
DX: S86.911A Strain of unspecified muscle(s) and tendon(s) at lower leg level, right leg, initial encounter (principal); M25.571 Pain in right ankle and joints of right foot; M25.561 Pain in right knee; X58.XXXA Exposure to other specified factors, initial encounter; Y93.9 Activity, unspecified; Y92.9 Unspecified place or not applicable; Y99.9 Unspecified external cause status
CPT/HCPCS: 73502; 73562; 73610; 99283

== ENCOUNTER → 2025-05-13 16:10 | Outpatient (BNV) | payer OTHER, SELFPAY | PROVIDERS: PCP Internal Medicine; Visit Provider Radiology Diagnostic Radiology | DX: M25.551 Pain in right hip (principal); S79.911A Unspecified injury of right hip, initial encounter; M25.561 Pain in right knee; S89.90XA Unspecified injury of unspecified lower leg, initial encounter; M25.571 Pain in right ankle and joints of right foot; S99.911A Unspecified injury of right ankle, initial encounter | CPT/HCPCS: 73610 ==

== ENCOUNTER 2025-05-22 14:25 | Outpatient (AMB) | payer OTHER, SELFPAY ==
[2025-05-22 14:31] VITALS: BMI 39.0
--- NOTE | 2025-05-22 14:31 | MHC.OFFVIS ---
Vital Signs 05/22/25 14:31 Height 5 ft 3 in Weight 220 lb BMI 39.0 Intake Visit Reasons: OV- Left CTS abscess. s/p 08/04/23 AR Intake Note: Campos is a 43 year old right hand dominant female who presents today for a follow up status post left carpal tunnel release DOS: 08/04/[address] Gretchen Tim. States she is having hand spasm and tingling around her incision and numbness in her finger every morning. States her symptoms returned 1 year later. She has a small bump on her incision and is causing discomfort. Allergies No Known Allergies (No Known Allergies*) Allergy (Verified 05/22/25 14:34) HPI HPI OV- Left CTS abscess. s/p 08/04/23 AR: Details: Campos is a 43 year old right hand dominant Comoran speaking woman who returns with several complaints of her left hand & wrist. She is the mother of one of our MA's She has a Hx of a left carpal & cubital tunnel release, DOS: 08/04/23. She complains of a small bump in the area of her carpal tunnel incision, which has been present for ~1 year. This is tender and causes her some discomfort. She denies any drainage. It may have gotten a little bit bigger in the last few weeks. She has known right carpal & cubital tunnel syndrome. Symptoms intermittent, but daily, worse at night or right after waking up. 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 [facility] Medical History Hypertension Anemia High cholesterol Asthma Surgical History Hx of section History of hysteroscopy Hx of tubal ligation Family History Sister Colon cancer Social History Are you a primary manager career to a significant other at home: No Do you presently have visiting nurse or other home services: No Alcohol intake: current Alcohol intake frequency: holidays/special occasions only Alcohol type: beer and hard liquor Comment: previously medicated with oxycodone Patient Tobacco Use Status: Never used Tobacco Substance Use Type: Marijuana Female Reproductive History Menstrual Age of Menarche: 11 Review of Systems Const All systems reviewed & are unremarkable except as noted in HPI and below Physical Exam Vital Signs: BMI result Body Mass Index 39.0 Const General: cooperative, healthy appearing and no acute distress Orientation/consciousness: patient oriented x3 HEENT Head: Yes normocephalic and Yes atraumatic Eyes EOM: EOMs intact bilaterally Resp Effort & Inspection: normal respiratory effort and able to speak in complete sentences Cardio Jugular venous distension: no JVD Skin General skin exam: turgor normal Rashes: no rashes Neuro General: patient oriented x3 Extrem Other: Evaluation of Left Upper Extremity: The patient is alert, oriented, and in no acute distress She can make a fist and extend all her digits No locking or catching There is a fluid filled mass in the proximal aspect of her carpal tunnel incision, at about the distal wrist crease. This appears to be fluid-filled, measuring ~1cm in diameter. It is tender to palpation, no warmth or erythema. Nerve Conduction Study: IMPRESSION:? 1. 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 2. Mild bilateral ulnar neuropathy across cubital tunnel. Maryann Vallejo MD 03/17/2023 Psych Appearance: grossly normal Affect: normal affect Attitude: cooperative Office Procedures AMB Fracture Care Details: No fracture, aspiration Fracture Billing Code: Fracture Billing Code Assessment & Plan Assessment & Plan (1) Carpal tunnel syndrome of right wrist: Code(s): G56.01 - Carpal tunnel syndrome, right upper limb Category: Medical (2) Cubital tunnel syndrome on right: Code(s): G56.21 - Lesion of ulnar nerve, right upper limb Category: Medical Plan Assessment & Plan: 1. Left fluid filled wrist mass In the area of her 2022 carpal tunnel incision at the distal wrist crease Measuring ~1cm in diameter I educated her about this condition I discussed operative and non-operative treatment options The patient would like to proceed with an aspiration today I explained the signs and symptoms of infection, if the patient develops any new or worsening erythema, drainage, pain, or warmth they should contact the clinic or attend the ED. Aspiration #1: The risks and benefits of aspiration, including but not limited to risk of damage to blood vessels, nerves, tendons, infection, failure to improve symptoms, increased pain, and possible need for further aspirations or surgical intervention. After obtaining written consent, I sterilely prepped the area over the fluid filled mass on the volar aspect of her left wrist. I then injected subcutaneously with a small amount 1% lidocaine. I then passed an 18 gauge needle into the ganglion/cyst and aspirated some howard-roc horan viscous fluid, consistent with either a sebacious cyst vs possible early epidermal inclusion cyst. Some remaining viscous fluid was then pushed out The patient tolerated this well and with no complications. If this returns we may need to excise the mass, including the cyst wall, which I believe can be done under local anesthesia. Otherwise follow up PRN 2. Left Carpal tunnel syndrome, S/P release DOS: 08/04/23 Pre-operative symptoms intermittent, but daily, worse at night with dense numbness in the thumb Post-operatively with dense numbness in the thumb, improved & now normal sensation in the index & middle fingers 3. Left Cubital tunnel syndrome, S/P release DOS: 08/04/23 Pre-operative symptoms intermittent, but daily, worse at night with dense numbness in the small finger Post-operatively with dense numbness in the small finger, improved sensation in the ring finge 4. Right Carpal tunnel syndrome, mild-moderate Symptoms intermittent, but daily, worse at night 5. Right Cubital tunnel syndrome, mild Symptoms intermittent, but daily, worse at night We can discuss treatment at a later appointment I encouraged her to work on ROM exercises Scribed for Gretchen Tim MD by magaly Coreas scribe, on 05/22/25 at 2:45 PM, EST. Scribe Plan - Not visible on output: Scribed for Gretchen Tim MD by Jeramy Ramírez medical laboratory technician, on [ ] at [ ], EST. Coding Level of Care Code Est Pt Level 3 (18376) Diagnoses Carpal tunnel syndrome of right wrist G56.01 Cubital tunnel syndrome on right G56.21 CPT Codes Fracture Care - Fracture Billing Code: Fracture Billing Code ([id number])
--- OUTSIDE RECORDS SUMMARY | 2025-05-22 14:40 | XMS_ITS | Clinical Summary ---
Author Organization [facility] Address [address] [place] [address] Phone Care Team Providers Care Simulation Technician Name Role Phone Cristine Baig MD Primary Care Provider Allergies No known active allergies Medications albuterol 90 mcg/actuation inhaler Inhale 2 puffs into the lungs every 6 (six) hours as needed for wheezing. Active metoprolol tartrate (LOPRESSOR) 25 MG tablet Take 25 mg by mouth 2 (two) times a day. Active acetaminophen (TYLENOL) 650 MG CR tablet Take 650 mg by mouth every 8 (eight) hours as needed for pain (specific location in comments). Active albuterol (ACCUNEB) 1.25 mg/3 mL nebulizer solution Take 1 ampule by nebulization every 6 (six) hours as needed for wheezing. Active Social History Tobacco Use Types Packs/Day Years Used Date Smoking Tobacco: Never Passive Smoke Exposure: Never Smokeless Tobacco: Never Tobacco Cessation:Counseling Given: Not Answered Alcohol Use Standard Drinks/Week Comments Yes 0 (1 standard drink = 0.6 oz pur e alcohol) rare Education Answer Date Recorded Are you interested in more education? Not on debbie e 12/05/2023 Are you concerned about learning? Not on file 12/05/2023 No 12/05/2023 No 12/05/2023 Digital Access Answer Date Recorded No 12/05/2023 No 12/05/2023 Reliable internet access at home? Not on file 12/05/2023 Device with a working camera? Not on file Intimate Partner Violence Answer Date R ecorded Are you denied basic needs s uch as food, clothing, or medical care? No 10/24/2024 In the past 12 months have y ou been in a relationship with a person who hurts, threatens, or tries to control you? No 10/24/2024 Are you denied basic needs s uch as food, clothing, or medical care? No 10/24/2024 In the past 12 months have y ou been in a relationship with a person who hurts, threatens, or tries to control you? No 10/24/2024 Comments No Sex and Gender Information Value Date Recorded Sex Assigned at Female 02/26/2024 8:44 PM EDT Legal Sex Female 7:12 PM EST Gender Identity Female 02/26/2024 8:44 PM EDT Sexual Orientation Straight 02/26/2024 8: 44 PM EDT Last Filed Vital Signs Vital Sign Reading Time Taken Comments Blood Pressure 121/89 10/25/2024 1:07 AM EST Pulse 52 10/25/2024 1:07 AM EST Temperature 36.6 C (97.9 F) 10/25/2024 1:07 AM EST Respiratory Rate 18 10/25/2024 1:07 AM EST Oxygen Saturation 100% 10/25/2024 1:07 AM EST Inhaled Oxygen Concentration - - Weight 104.3 kg (229 lb 14.4 oz) 2024 10:53 PM EST Height 160 cm (5' 3 ) 10/24/2024 10:53 PM EST Body Mass Index 40.72 10/24/2024 10:53 PM EST Plan of Treatment Health Maintenance Due Date Last Done Comments Adult Td,Tdap Booster 1979 LIPID PANEL 1979 DEPRESSION SCREENING 1991 HEPATITIS C SCREENING 1997 HIV ONE-TIME SCREENING (18-6 5 YEARS) 1997 PAP SMEAR 2000 SCREENING FOR DIABETES 2014 MAMMOGRAM 2019 COLOGUARD 2024 COLONOSCOPY 2024 COLORECTAL CANCER SCREENING 2024 FIT TEST 2024 FOBT 2024 SIGMOIDOSCOPY 2024 VIRTUAL COLONOSCOPY 2024 COVID-19 VACCINE ( - 2023-2 5 season) 2024 SMOKING STATUS SCREENING (On ce After 26 Yrs) Completed 10/24/2024 HEPATITIS A VACCINES Aged Out No long er eligible based on patient's age to complete this topic HIB VACCINES Aged Out No longer eligi ble based on patient's age to complete this topic MENINGOCOCCAL VACCINES (ACWY) Aged Out No longer eligible based on patient's age to complete this topic MENINGOCOCCAL VACCINES (B) Aged Out N o longer eligible based on patient's age to complete this topic PNEUMOCOCCAL VACCINES (0-49 years) Aged Out No longer eligible based on patient's age to complete this topic Medical Devices Not on file Insurance HEALTH SAFETY NET FULL HEALTH SAFETY NET FULL HEALTH SAFETY NET FULL HEALTH SAFETY NET FULL HEALTH SAFETY NET FULL HEALTH SAFETY NET FULL Care Teams Simulation Technician Relationship Specialty Start Date End Date Cristine Baig MD [address] [place] [address] [place] [address] PCP - General Internal Medicine 12/05/23 Additional Source Comments The information contained in this document represents components of the legal health record. It is not the complete legal health record.[facility]
--- OUTSIDE RECORDS SUMMARY | 2025-05-22 14:40 | XMS_ITS | Clinical Summary ---
Author Organization [employer] Address [address] [facility] [address] [place] [address] Care Team Providers Care Door Furring Installer Name Role Phone Unavailable Primary Care Provider [...] performed using the APTIMA(R) TMA HPV Assay ([employer] For additional information, please refer to http://education.BlueTalon/faq/YNM366k2 Test Performed by [facility], [employer] [facility], [address] [place] [address] Rom Franks M.D., Ph.D., Director of Laboratories , [facility] [id number] Please note: Effective 06/21/2016, HPV testing will be performed using [employer]'s APTIMA test which targets mRNA. Detecting mRNA instead of DNA, as in older methods, offers significant improvements in specificity. 07/21/2016 10:3 8 AM EDT us Jame Fernandez HYDRAULIC RUBBISH COMPACTOR MECHANIC HISTORICAL/NON ORDERABLE LABS Final Result [facility] [address] from Last 3 Months or Most Recently Relevant to Health Maintenance Insurance [facility] ([facility])
== END 2025-05-22 15:11 | disposition home or self-care (01) ==
LOC: HO.HOS 14:26
PROVIDERS: PCP Internal Medicine; Visit Provider Orthopaedic Surgery
DX: G56.03 Carpal tunnel syndrome, bilateral upper limbs (principal); G56.21 Lesion of ulnar nerve, right upper limb; M67.432 Ganglion, left wrist
CPT/HCPCS: 20612; 99213

== ENCOUNTER → 2025-05-22 14:25 | Outpatient (BNVA) | payer OTHER, SELFPAY | PROVIDERS: PCP Internal Medicine; Visit Provider Orthopaedic Surgery | DX: G56.02 Carpal tunnel syndrome, left upper limb (principal); G56.22 Lesion of ulnar nerve, left upper limb | CPT/HCPCS: 20612; 99212; J2003 ==

== ENCOUNTER 2025-05-30 15:23 | Outpatient (AMB) | payer OTHER, SELFPAY ==
--- OUTSIDE RECORDS SUMMARY | 2025-05-30 15:25 | XMS_ITS | Clinical Summary ---
Author Organization [facility] Address [address] [place] [address] Phone Care Team Providers Care Lasting Room Supervisor Name Role Phone Cristine Baig MD Primary [...] FULL HEALTH SAFETY NET FULL Care Teams Lasting Room Supervisor Relationship Specialty Start Date End Date Cristine Baig MD [address] [place] [address] [place] [address] PCP - General Internal Medicine 12/05/23 Additional Source Comments The information contained in this document represents components of the legal health record. It is not the complete legal health record.[facility]
--- NOTE | 2025-05-30 15:28 | A.OFFVIS_ITS ---
Vital Signs 05/30/25 15:31 Height 5 ft 3 in Weight 220 lb BMI 39.0 Intake Visit Reasons: OV- Left CTS abscess. s/p 08/04/23 AR Intake Note: Campos is a 45 year old right hand dominant female who presents today for a follow up status post left carpal tunnel release DOS: 08/04/[address] Tim. She was seen by Dr. Tim on 05/22/25 where a fluid filled mass on the volar aspect of her left wrist was aspirated. Patient called the office today complaining of increasing left hand pain and stiffness and expressing concern for a black bump surrounded by a red ring. Patient reports during intake she is having a lot more pain and having trouble at night. Allergies No Known Allergies (No Known Allergies*) Allergy (Verified 05/30/25 15:32) HPI HPI OV- Left CTS abscess. s/p 08/04/23 AR: Details: Campos is a 45 year old right hand dominant female who presents today for a follow up status post left carpal tunnel release DOS: 08/04/[address] Tim. She was seen by Dr. Tim on 05/22/25 where a fluid filled mass on the volar aspect of her left wrist was aspirated. Patient called the office today complaining of increasing left hand pain and stiffness and expressing concern for a black bump surrounded by a red ring. Patient reports during intake she is having a lot more pain and having trouble at night. [facility] Medical History Hypertension Anemia High cholesterol Asthma Surgical History Hx of section History of hysteroscopy Hx of tubal ligation Family History Sister Colon cancer Social History Are you a primary home care consultant to a significant other at home: No Do you presently have visiting nurse or other home services: No Alcohol intake: current Alcohol intake frequency: holidays/special occasions only Alcohol type: beer and hard liquor Comment: previously medicated with oxycodone Patient Tobacco Use Status: Never used Tobacco Substance Use Type: Marijuana Female Reproductive History Menstrual Age of Menarche: 11 Review of Systems Const All systems reviewed & are unremarkable except as noted in HPI and below Physical Exam Vital Signs: BMI result Body Mass Index 39.0 Const General: cooperative, healthy appearing and no acute distress Orientation/consciousness: patient oriented x3 HEENT Head: Yes normocephalic and Yes atraumatic Eyes EOM: EOMs intact bilaterally Resp Effort & Inspection: normal respiratory effort and able to speak in complete sentences Cardio Jugular venous distension: no JVD Skin General skin exam: turgor normal Rashes: no rashes Neuro General: patient oriented x3 Extrem Other: Evaluation of Left Upper Extremity: The patient is alert, oriented, and in no acute distress She can make a fist and extend all her digits No locking or catching There is a fluid filled mass in the proximal aspect of her carpal tunnel incision, at about the distal wrist crease. This appears to be fluid-filled, measuring ~1cm in diameter. It is tender to palpation, no warmth or erythema. Nerve Conduction Study: IMPRESSION:? 1. 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 2. Mild bilateral ulnar neuropathy across cubital tunnel. Maryann Vallejo MD 03/17/2023 Psych Appearance: grossly normal Affect: normal affect Attitude: cooperative Assessment & Plan Assessment & Plan (1) Carpal tunnel syndrome of right wrist: Code(s): G56.01 - Carpal tunnel syndrome, right upper limb Category: Medical (2) Cubital tunnel syndrome on right: Code(s): G56.21 - Lesion of ulnar nerve, right upper limb Category: Medical Plan Assessment & Plan: 1. Left fluid filled wrist mass In the area of her 2022 carpal tunnel incision at the distal wrist crease Measuring ~1cm in diameter I educated her about this condition I discussed operative and non-operative treatment options The patient would like to proceed with an aspiration today I explained the signs and symptoms of infection, if the patient develops any new or worsening erythema, drainage, pain, or warmth they should contact the clinic or attend the ED. Aspiration performed at previous visit has not yielded relief of symptoms for the patient Therefore, I feel it is best to get the patient's signed up for excision of the cyst under local anesthesia I educated the patient about the condition. I discussed both operative and nonoperative treatment options. The patient would like to proceed with surgery. [] The risks and benefits of operative treatment were discussed with the patient and the patient wishes to proceed with surgery. These risks include, but are not limited to, risk of damage to blood vessels, nerves, tendons, infection, recurrence, incomplete relief of preoperative symptoms, persistent pain, possible need for further surgery, and the risks associated with regional blocks and/or anesthesia. Plan is to take the patient to the operating room at some point in the next few weeks for the following procedures: 1. Left volar wrist cyst excision under local All of the preoperative paperwork including the consent was discussed today. All of the patient's questions were answered in the clinic today. The patient understands that they will be in contact with our space scheduler to discuss scheduling their procedure. Patient denies diabetes, blood thinners, asthma, heart issues, lung issues, kidney issues, or current smoking. 2. Left Carpal tunnel syndrome, S/P release DOS: 08/04/23 Pre-operative symptoms intermittent, but daily, worse at night with dense numbness in the thumb Post-operatively with dense numbness in the thumb, improved & now normal sensation in the index & middle fingers 3. Left Cubital tunnel syndrome, S/P release DOS: 08/04/23 Pre-operative symptoms intermittent, but daily, worse at night with dense numbness in the small finger Post-operatively with dense numbness in the small finger, improved sensation in the ring finge 4. Right Carpal tunnel syndrome, mild-moderate Symptoms intermittent, but daily, worse at night 5. Right Cubital tunnel syndrome, mild Symptoms intermittent, but daily, worse at night We can discuss treatment at a later appointment I encouraged her to work on ROM exercises Coding Level of Care Code Est Pt Level 4 (90157) Diagnoses Carpal tunnel syndrome of right wrist G56.01 Cubital tunnel syndrome on right G56.21
[2025-05-30 15:31] VITALS: BMI 39.0
== END 2025-05-30 16:09 | disposition home or self-care (01) ==
LOC: HO.HOS 15:24
PROVIDERS: PCP Internal Medicine
DX: G56.01 Carpal tunnel syndrome, right upper limb (principal); G56.21 Lesion of ulnar nerve, right upper limb; M67.432 Ganglion, left wrist
CPT/HCPCS: 99214

== ENCOUNTER → 2025-05-30 15:23 | Outpatient (BNVA) | payer OTHER, SELFPAY | PROVIDERS: PCP Internal Medicine | DX: G56.01 Carpal tunnel syndrome, right upper limb (principal); G56.21 Lesion of ulnar nerve, right upper limb | CPT/HCPCS: 99212 ==

== ENCOUNTER 2025-05-31 13:57 | Outpatient (REF) | payer OTHER, SELFPAY ==
--- NOTE | ~2025-05-31 | US_ITS ---
EXAMINATION: US PELVIS TRANSABDOMINAL AND TRANSVAGINAL CLINICAL INFORMATION: D25.9 - Leiomyoma of uterus, unspecified COMPARISON: Ultrasound on February 23, 2023 TECHNIQUE: Ultrasound of the pelvis is performed using both transabdominal and transvaginal transducers along with Doppler. Transvaginal imaging is performed due to inadequate visualization transabdominally. FINDINGS: Uterus: The uterus is anteverted and anteflexed and measures 11.8 x 6.4 x 7.3 cm. Volume of 288.7 cc. The double wall endometrial thickness is 0.6 cm. Uterus is enlarged, with at least 2 uterine leiomyomas identified, measuring 3.4 x 3.0 x 3.8 cm in the posterior uterine body (previously 3.1 x 2.8 x 2.6 cm), and 1.5 x 1.2 x 1.1 cm in the anterior body. Nabothian cysts in the uterine cervix. Right ovary: Not identified. However, a right adnexal cyst was identified measuring 3.7 x 2.3 x 3.3 cm. Left ovary measures 2.3 x 1.8 x 1.9 cm. Volume of 4.1 cc. US/US pelvic and transvaginal IMPRESSION: 1. Enlarged uterus by presence of at least 2 leiomyomas, the largest measuring 3.8 cm. 2. Right adnexal cyst measures 3.7 cm. Electronically signed by: Layton Jorgensen MD 05/31/2025 03:47 PM EDT
== END 2025-05-31 13:58 | disposition home or self-care (01) ==
LOC: HO.US 13:57
PROVIDERS: PCP Internal Medicine; Visit Provider Obstetrics & Gynecology
DX: D25.9 Leiomyoma of uterus, unspecified (principal)
CPT/HCPCS: 76830; 76856

== ENCOUNTER → 2025-05-31 13:59 | Outpatient (BNV) | payer OTHER, SELFPAY | PROVIDERS: PCP Internal Medicine; Visit Provider Radiology Body Imaging | DX: D25.9 Leiomyoma of uterus, unspecified (principal) | CPT/HCPCS: 76830; 76856 ==

== ENCOUNTER 2025-06-17 09:46 | Day surgery (SDC) | payer OTHER, SELFPAY ==
--- OUTSIDE RECORDS SUMMARY | 2025-05-31 09:28 | XMS_ITS | Clinical Summary ---
Author Organization [facility] Address [address] [place] [address] Phone Care Team Providers Care Field Placement Director Name Role Phone Cristine Baig MD Primary [...] FULL HEALTH SAFETY NET FULL Care Teams Field Placement Director Relationship Specialty Start Date End Date Cristine Baig MD [address] [place] [address] [place] [address] PCP - General Internal Medicine 12/05/23 Additional Source Comments The information contained in this document represents components of the legal health record. It is not the complete legal health record.[facility]
--- OUTSIDE RECORDS SUMMARY | 2025-05-31 09:29 | XMS_ITS | Clinical Summary ---
Author Organization [employer] Address [address] [facility] [address] [place] [address] Care Team Providers Care Fashion Stylist Name Role Phone Unavailable Primary Care Provider [...] HPV mRNA E6/E7 Not Detected NOT DETECTED [facility] Comment: This assay detects E6/E7 viral messenger RNA (mRNA) from 14 high-risk HPV types (16,18,31,33,35,39,45,51, 52,56,58,59,66,68). This test was performed using the APTIMA(R) TMA HPV Assay ([employer] For additional information, please refer to http://education.ChoiceStream/faq/JSM943k0 Test Performed by [facility], [facility], [address] [place] [address] Rom Franks M.D., Ph.D., Director of Laboratories , [facility] [id number] Please note: Effective 06/21/2016, HPV testing will be performed using [employer]'s APTIMA test which targets mRNA. Detecting mRNA instead of DNA, as in older methods, offers significant improvements in specificity. 07/21/2016 10:3 8 AM EDT us Jame Fernandez CONSERVATION BIOLOGY PROFESSOR HISTORICAL/NON ORDERABLE LABS Final Result [facility] [address] from Last 3 Months or Most Recently Relevant to Health Maintenance Insurance [facility] ([facility])
[2025-06-17 10:57] VITALS: BMI 39.0
--- NOTE | 2025-06-17 11:31 | MHC.SHP ---
Pre-Procedural Eval Section A - 24 Hr Update-Section A only Date of Service: 06/17/25 The patient is an INPATIENT: No Changes since office visit: No Cold of Flu in the past 2 weeks, No New Medical Problems, No Changes in Medication and No Patient answered all questions The patient has been examined within 24 hours of the surgical procedure. The History & Physical has been completed within 30 days and I have reviewed it.: Yes Section B - Complete if H&P > 30 days Chief Complaint: Ganglion, left wrist Allergies: Allergies Allergy/AdvReac Type Severity Reaction Status Date / Time No Known Allergies (No Known Allergy Verified 05/30/25 15:32 Allergies*) Plan I have reviewed the history and physical and performed a pertinent physical examination on my patient. No changes have occurred unless specified. Time Spent With Patient Time: Total time managing care of this patient today ____ minutes.
--- NOTE | 2025-06-17 11:32 | W.PM.OPN ---
Operative Note Operative Note Date of Service: 06/17/25 Narrative: Operative Note Preop diagnosis: 1. Left volar wrist mass Postop diagnosis: same Procedure: 1. Left volar wrist mass excision and biopsy, deep Surgeon: Gretchen Tim MD Assembler Billiard Table: None Anesthesia: Local block using 1% lidocaine with epinephrine Findings: A roughly 1 cm diameter horan soft tissue mass that appeared cystic with some horan thick fluid within was removed from just superficial to the scar tissue over the carpal tunnel. The carpal tunnel was released to ensure there was no extension into or from the carpal tunnel. No mass or 10 material was found within the carpal tunnel. EBL: Less than 5 mL Tourniquet time: None Specimens: Left volar wrist mass Complications: None Disposition: Brought to recovery room in stable condition Plan: Follow-up for 7-10 days for wound check and suture removal and to check pathology Indications: The patient is 45 years old, with a left volar wrist mass . The risks and benefits of operative treatment including but not limited to risk of damage to blood vessels, nerves, tendons, infection, persistent pain, persistent symptoms, recurrence or possible need for additional surgery were discussed with the patient and the patient wishes to proceed with surgery. Procedure: Once consent was obtained a local block was performed in the preop area using a combination of 1% lidocaine with epinephrine. The patient was then brought back to the operating suite and placed on the operative table in supine position. The left upper extremity was prepped and draped in a standard surgical fashion. Once assured that we had a good block, I made a longitudinal incision roughly at the proximal aspect of the left carpal tunnel and then angled slightly ulnarly at the distal wrist crease. The incision was made through the skin the subcutaneous tissues using a 15. Blade. I then carefully dissected down to the level of the cystic/soft tissue mass. The mass was somewhat spherical, horan and about 1 cm in diameter. There was a small amount of thick horan fluid that was appreciated about the mass or possibly coming from it. The mass was within and just deep to the palmaris tendon and fascia extending down to the scar tissue over the carpal tunnel from her carpal tunnel release. The cystic mass was carefully dissected free from the surrounding soft tissue and scar tissue. It was then dissected free from the patient and placed on the back table to be sent for histopathology. I also sharply debrided/excised some of the adjacent subcutaneous soft tissue and scar tissue that appeared to have some of the horan contents of the mass. This was also sent with the main specimen. I then performed a carpal tunnel release carefully making an incision in the scar tissue over the carpal tunnel to assure that there was no mass extending into or coming from the carpal tunnel. The median nerve was in good condition. Carpal tunnel appeared to be free of any soft tissue mass or material. No further masses were identified. Once satisfied with our excisional biopsy the wound was copiously irrigated with normal saline and hemostasis was obtained with a brief period of local pressure. The skin edges were reapproximated with some 5.0 nylon suture material and a sterile dressing was applied. The patient appears to have tolerated the procedure well and with no complications. All digits were well vascularized at the conclusion of the case.
[2025-06-17 13:32] VITALS: BP 150/91; PULSE 78; RESP 15; O2SAT 97
== END 2025-06-17 13:47 | disposition home or self-care (01) ==
PROVIDERS: PCP Internal Medicine; Visit Provider Orthopaedic Surgery
PROC: (CPT 64721; principal; 2025-06-17 12:00)
DX: L72.0 Epidermal cyst (principal); R22.32 Localized swelling, mass and lump, left upper limb; I10 Essential (primary) hypertension; E78.00 Pure hypercholesterolemia, unspecified; D64.9 Anemia, unspecified; J45.909 Unspecified asthma, uncomplicated; Z98.890 Other specified postprocedural states
CPT/HCPCS: 64721; 25075; 88304; J0165; J2003

== ENCOUNTER → 2025-06-17 09:46 | Outpatient (BNV) | payer OTHER, SELFPAY | PROVIDERS: PCP Internal Medicine; Visit Provider Orthopaedic Surgery | DX: M67.432 Ganglion, left wrist (principal) | CPT/HCPCS: 25111 ==

== ENCOUNTER 2025-07-01 11:30 | Outpatient (AMB) | payer OTHER, SELFPAY ==
--- NOTE | 2025-07-01 11:37 | A.OFFVIS_ITS ---
Vital Signs 07/01/25 11:38 Height 5 ft 3 in Weight 220 lb BMI 39.0 Intake Visit Reasons: PO-Lt Volar Wrist Cyst Exc 06/17/25 Intake Note: Campos is a 45 year old right hand dominant female who presents today post- operatively status post Left Volar Wrist Mass Excision & Biopsy performed by Dr. Tim on 06/17/25. Patient reports she continues having numbness. She complains of a shooting pain from her hand to her upper extremity. She is taking Ibuprofen without relief. Sutures removed and steri strips applied. Field Support Representative Required: No Allergies No Known Allergies (No Known Allergies*) Allergy (Verified 07/01/25 11:46) HPI HPI PO-Lt Volar Wrist Cyst Exc 06/17/25: Details: Campos is a 45 year old right hand dominant female who presents today post- operatively status post Left Volar Wrist Mass Excision & Biopsy performed by Dr. Tim on 06/17/25. Patient reports she continues having numbness. She complains of a shooting pain from her hand to her upper extremity. She is taking Ibuprofen without relief. Sutures removed and steri strips applied. [facility] Medical History Hypertension Anemia High cholesterol Asthma Surgical History Hx of section History of hysteroscopy Hx of tubal ligation Family History Sister Colon cancer Social History Are you a primary career consultant to a significant other at home: No Do you presently have visiting nurse or other home services: No Alcohol intake: current Alcohol intake frequency: holidays/special occasions only Alcohol type: beer and hard liquor Comment: previously medicated with oxycodone Patient Tobacco Use Status: Never used Tobacco Substance Use Type: Marijuana Female Reproductive History Menstrual Age of Menarche: 11 Review of Systems Const All systems reviewed & are unremarkable except as noted in HPI and below Physical Exam Vital Signs: BMI result Body Mass Index 39.0 Extrem Other: Patient is alert, oriented, and in no acute distress. Neuro: Normal sensation of the tips of all digits of the left hand at this time Vascular: Cap refill brisk Pain: Minimal if any tenderness to palpation of the incision site on the left volar wrist ROM: Patient is able to make a closed fist and extend all digits of the left hand fully and without difficulty Skin: Well approximated and well healing incision site noted on the volar left wrist No lacerations or abrasions. General: No ecchymosis, erythema, or evidence of infection. Psych: Appears grossly normal Affect normal Attitude cooperative Assessment & Plan Assessment & Plan (1) Other bursal cyst, left wrist: Code(s): M71.332 - Other bursal cyst, left wrist Category: Medical Plan 1. Status post left volar wrist cyst excision DOS 06/17/2025 Patient appears to be recovering well postoperatively Patient is educated about the typical recovery course Sutures removed, Steri-Strips applied without issue No under water times one-week, 2 lb weight limit x2 weeks Patient may return to work in 2 weeks Patient understands this is amenable to this plan Follow-up as needed Coding Level of Care Code Global (17930) Diagnoses Other bursal cyst, left wrist M71.332
[2025-07-01 11:38] VITALS: BMI 39.0
--- OUTSIDE RECORDS SUMMARY | 2025-07-01 14:10 | XMS_ITS | Clinical Summary ---
Author Organization [facility] Address [address] [place] [address] Phone Care Team Providers Care Painting Contractor Name Role Phone Cristine Baig MD Primary [...] FOBT 2024 SIGMOIDOSCOPY 2024 VIRTUAL COLONOSCOPY 2024 INFLUENZA VACCINE (#1) 2025 COVID-19 VACCINE (2023-2 5 season) 2025 SMOKING STATUS SCREENING (On ce After 26 [...] FULL HEALTH SAFETY NET FULL Care Teams Painting Contractor Relationship Specialty Start Date End Date Cristine Baig MD [address] [place] [address] Dr Haas, [place] [phone] PCP - General Internal Medicine 12/05/23 Additional Source Comments The information contained in this document represents components of the legal health record. It is not the complete legal health record.[facility]
--- OUTSIDE RECORDS SUMMARY | 2025-07-01 14:10 | XMS_ITS | Clinical Summary ---
Author Organization [employer] Address [address] [place] [address] Care Team Providers Care Nursing Resident Name Role Phone Unavailable Primary Care Provider [...] HPV/Cotest 07/21/2021 07/21/2016 COVID-19 Vaccine ( season) 2025 11/05/2022, 10/16/2021, 06/23/2021, Additional history exists Influenza [...] HPV mRNA E6/E7 Not Detected NOT DETECTED [facility] Comment: This assay detects E6/E7 viral messenger RNA (mRNA) from 14 high-risk HPV types (16,18,31,33,35,39,45,51, 52,56,58,59,66,68). This test was performed using the APTIMA(R) TMA HPV Assay ([employer] For additional information, please refer to http://education.BioTime/faq/COW364j4 Test Performed by [facility], [employer] [facility], [address] [place] [address] Rom Franks M.D., Ph.D., Director of Laboratories , [facility] [id number] Please note: Effective 06/21/2016, HPV testing will be performed using [employer]'s APTIMA test which targets mRNA. Detecting mRNA instead of DNA, as in older methods, offers significant improvements in specificity. 07/21/2016 10:3 8 AM EDT us Jame Fernandez GENERAL CLERK HISTORICAL/NON ORDERABLE LABS Final Result [facility] [address] from Last 3 Months or Most Recently Relevant to Health Maintenance Insurance [facility] ([facility])
== END 2025-07-01 11:53 | disposition home or self-care (01) ==
LOC: HO.HOS 11:31
PROVIDERS: PCP Internal Medicine
DX: M71.332 Other bursal cyst, left wrist (principal)
CPT/HCPCS: 99024

== ENCOUNTER → 2025-07-01 11:30 | Outpatient (BNVA) | payer OTHER, SELFPAY | PROVIDERS: PCP Internal Medicine | DX: Z48.02 Encounter for removal of sutures (principal); M71.332 Other bursal cyst, left wrist; Z98.890 Other specified postprocedural states; R20.0 Anesthesia of skin; R20.2 Paresthesia of skin | CPT/HCPCS: 99212 ==

== ENCOUNTER 2025-08-09 13:54 | Outpatient (AMB) | payer OTHER, SELFPAY ==
--- NOTE | 2025-08-09 14:08 | MHC.OFFVIS ---
Vital Signs 08/09/25 14:09 Height 5 ft 3 in Weight 220 lb BMI 39.0 BP 124/80 Intake Visit Reasons: ultrasound results Machine Featheredger And Reducer Required: Yes Machine Featheredger And Reducer Language: Grab Setter Services: Machine Featheredger And Reducer Present (in person) Machine Featheredger And Reducer Name: Jodie GUEVARA Information Interpreted: non-clinical & clinical Accompanied by: Self / Same As Patient Allergies No Known Allergies (No Known Allergies*) Allergy (Verified 08/09/25 14:13) Is last menstrual period known: No (mirena) HPI Comments Details: Presenting for ultrasound follow-up done in 06/03 which showed the following: Uterus: The uterus is anteverted and anteflexed and measures 11.8 x 6.4 x 7.3 cm. Volume of 288.7 cc. The double wall endometrial thickness is 0.6 cm. Uterus is enlarged, with at least 2 uterine leiomyomas identified, measuring 3.4 x 3.0 x 3.8 cm in the posterior uterine body (previously 3.1 x 2.8 x 2.6 cm), and 1.5 x 1.2 x 1.1 cm in the anterior body. Nabothian cysts in the uterine cervix. Right ovary: Not identified. However, a right adnexal cyst was identified measuring 3.7 x 2.3 x 3.3 cm. Left ovary measures 2.3 x 1.8 x 1.9 cm. Volume of 4.1 cc. US/US pelvic and transvaginal IMPRESSION: 1. Enlarged uterus by presence of at least 2 leiomyomas, the largest measuring 3.8 cm. 2. Right adnexal cyst measures 3.7 cm. The patient has no pelvic pain, pressure or abnormal bleeding. [facility] Medical History Hypertension Anemia High cholesterol Asthma Surgical History Hx of section History of hysteroscopy Hx of tubal ligation Family History Sister Colon cancer Social History Are you a primary companion caregiver to a significant other at home: No Do you presently have visiting nurse or other home services: No Alcohol intake: current Alcohol intake frequency: holidays/special occasions only Alcohol type: beer and hard liquor Comment: previously medicated with oxycodone Patient Tobacco Use Status: Never used Tobacco Substance Use Type: Marijuana Female Reproductive History Menstrual Age of Menarche: 11 Review of Systems Const All systems reviewed & are unremarkable except as noted in HPI and below Reports as per HPI and Reports no additional complaints GI Reports no additional complaints Reports no additional complaints Physical Exam Vital Signs: Last Vital Signs BP 124/80 08/09/25 14:09 BMI result Body Mass Index 39.0 Assessment & Plan Assessment & Plan (1) Uterine myoma: Code(s): D25.9 - Leiomyoma of uterus, unspecified Category: Medical Plan: Discussed with the patient the findings on pelvic ultrasound & the risk of myosarcoma; in addition reviewed with the patient that malignancy and pre malignancy cannot be ruled out without hysterectomy for pathological evaluation ; furthermore, explained to the patient the limitation of pelvic ultrasound and endometrial biopsy in the setting. Discussed with the patient the options of treatment including expectant management versus hysterectomy; the pros and cons, risks benefits of each approach were discussed with the patient including the fact that in cases of myosarcoma, surgical treatment can lead to early diagnosis and positively affects the prognosis; after further discussion, the patient decided to proceed with expectant management. Will repeat pelvic ultrasound periodically. Instructions given to patient to call in case any of the following occurs: pressure symptoms, abnormal uterine bleeding, pelvic pain; and to schedule a six-months pelvic ultrasound (order placed) and a follow-up appointment . All questions answered, the patient verbalized understanding and agreed with the plan . (2) Ovarian cyst: Code(s): N83.209 - Unspecified ovarian cyst, unspecified side Category: Medical Plan: Discussed with the patient the finding on ultrasound showing an ovarian cyst . Signs symptoms of ovarian torsion and or rupture given to the patient. Instructions given the patient to call in case of pain. All questions answered, the patient verbalized understanding Orders: Orders US pelvic and transvaginal 6 Months D25.9 - Leiomyoma of uterus, unspecified Coding Level of Care Code Est Pt Level 3 (35673) Diagnoses Uterine myoma D25.9 Ovarian cyst N83.209
[2025-08-09 14:09] VITALS: BP 124/80; BMI 39.0
--- OUTSIDE RECORDS SUMMARY | 2025-08-09 14:48 | XMS_ITS | Clinical Summary ---
Author Organization [facility] Address [address] [place] [id number] Phone Care Team Providers Care Community Program Assistant Name Role Phone Cristine Baig MD Primary [...] 2024 INFLUENZA VACCINE (#1) 2025 COVID-19 VACCINE (2024-2 6 season) 2025 SMOKING STATUS SCREENING (On ce [...] FULL HEALTH SAFETY NET FULL Care Teams Community Program Assistant Relationship Specialty Start Date End Date Cristine Baig MD [address] [place] [address] Dr Haas, [place] [phone] PCP - General Internal Medicine 12/05/23 Additional Source Comments The information contained in this document represents components of the legal health record. It is not the complete legal health record.[facility]
--- OUTSIDE RECORDS SUMMARY | 2025-08-09 14:48 | XMS_ITS | Clinical Summary ---
Author Organization [employer] Address [address] [place] [address] Care Team Providers Care Digital Media Representative Name Role Phone Unavailable Primary Care Provider [...] HPV mRNA E6/E7 Not Detected NOT DETECTED [facility] Comment: This assay detects E6/E7 viral messenger RNA (mRNA) from 14 high-risk HPV types (16,18,31,33,35,39,45,51, 52,56,58,59,66,68). This test was performed using the APTIMA(R) TMA HPV Assay ([employer] For additional information, please refer to http://education.[employer]ated Media Measurement (IMMI)/faq/MYS348h4 Test Performed by [facility], [employer] [facility], [address] [place] [address] Rom Franks M.D., Ph.D., Director of Laboratories , [facility] [id number] Please note: Effective 06/21/2016, HPV testing will be performed using [employer]'s APTIMA test which targets mRNA. Detecting mRNA instead of DNA, as in older methods, offers significant improvements in specificity. 07/21/2016 10:3 8 AM EDT us Jame Fernandez FEED PROJECT ENGINEER HISTORICAL/NON ORDERABLE LABS Final Result [facility] [address] from Last 3 Months or Most Recently Relevant to Health Maintenance Insurance [facility] ([facility])
== END 2025-08-09 15:28 | disposition home or self-care (01) ==
LOC: HO.HWS 13:55
PROVIDERS: PCP Internal Medicine; Visit Provider Obstetrics & Gynecology
DX: D25.9 Leiomyoma of uterus, unspecified (principal); N83.209 Unspecified ovarian cyst, unspecified side
CPT/HCPCS: 99213

== ENCOUNTER → 2025-08-09 13:54 | Outpatient (BNVA) | payer OTHER, SELFPAY | PROVIDERS: PCP Internal Medicine; Visit Provider Obstetrics & Gynecology | DX: N83.291 Other ovarian cyst, right side (principal); D25.9 Leiomyoma of uterus, unspecified | CPT/HCPCS: 99212 ==